=== PATIENT | female | born 1970 | race Hispanic/Latino ===

== ENCOUNTER → 2017-07-13 09:42 | Outpatient (CLI) | payer BC, MEDICAID, SELFPAY ==
[2017-07-13 10:04] VITALS: BP 139/93; PULSE 99; RESP 18; TEMP 36.2
== END ==
PROVIDERS: Family Provider Student in an Organized Health Care Education/Training Program; PCP Student in an Organized Health Care Education/Training Program
DX: G43.719 Chronic migraine without aura, intractable, without status migrainosus (principal)
CPT/HCPCS: 96365; 96367; 96375; J7040; J7050; A4216; J3475; J3490

== ENCOUNTER → 2017-07-14 08:42 | Outpatient (CLI) | payer BC, MEDICAID, SELFPAY ==
[2017-07-14 08:50] VITALS: BP 160/78; PULSE 110; RESP 16; TEMP 37.1; O2SAT 98; BMI 51.0
== END ==
PROVIDERS: Family Provider Student in an Organized Health Care Education/Training Program; PCP Student in an Organized Health Care Education/Training Program
DX: G43.719 Chronic migraine without aura, intractable, without status migrainosus (principal)
CPT/HCPCS: 96365; 96366; 96367; 96375; J7040; J7050; A4216; J3475; J3490

== ENCOUNTER → 2017-07-15 09:23 | Outpatient (CLI) | payer BC, MEDICAID, SELFPAY ==
[2017-07-15 09:28] VITALS: BP 144/90; PULSE 100; RESP 16; TEMP 35.7; O2SAT 99
== END ==
PROVIDERS: Family Provider Student in an Organized Health Care Education/Training Program; PCP Student in an Organized Health Care Education/Training Program
DX: G43.719 Chronic migraine without aura, intractable, without status migrainosus (principal)
CPT/HCPCS: 96365; 96366; 96367; 96375; J7040; J7050; A4216; J3475; J3490

== ENCOUNTER → 2018-04-24 11:55 | Outpatient (CLI) | payer MEDICAID, SELFPAY ==
[2018-04-24 12:19] VITALS: BP 120/79; PULSE 89; RESP 16; TEMP 36.7; BMI 51.5
[2018-04-24] MEDS: proMETHazine 25 MG/ML Syringe IV (12:41)
--- OUTSIDE RECORDS SUMMARY | 2018-06-17 18:15 | XMS RPT_ITS ---
:1970 Author Organization OHIP Care Team Providers Name Role Phone Flores, Chau Primary Care Unavailable JUSTYNA KENT Attending Unavailable JUSTYNA KENT Referring Unavailable Flores, Chau Primary Care Unavailable JUSTYNA KENT Attending Unavailable JUSTYNA KENT Referring Unavailable Flores, Chau Primary Care Unavailable JUSTYNA KENT Attending Unavailable JUSTYNA KENT Referring Unavailable Emily, Susie Attending Unavailable Flores, Chau Primary Care Unavailable Emily Susie Attending Unavailable Terril, Susie Referring Unavailable Flores, Chau Primary Care Unavailable Terril, Susie Attending Unavailable Terril, Susie Referring Unavailable Flores, Chau Primary Care Unavailable JUDITH TAYLOR Attending Unavailable FLORES DO, CHAU Primary Care Unavailable EMILY, SUSIE Referring Unavailable VENKAT TY Attending Unavailable NNEKA HERNÁNDEZ Attending Unavailable ASIYA TORRES ([facility]) Referring Unavailable RUPERTO LEIGH Admitting Unavailable RUPERTO LEIGH Attending Unavailable LISSA LEIGH Admitting Unavailable LISSA LEIGH Attending Unavailable FLORES, CHAU L Primary Care Unavailable CORNIELLO, ASIYA L ([facility]) Referring Unavailable ALISON CERON Attending Unavailable CORNIELLO, ASIYA L (LINOLEUM LAYER) Attending Unavailable CORNIELLO, ASIYA L (LINOLEUM LAYER) Referring Unavailable EMILY, SUSIE Attending Unavailable LAUREL ZHU Attending Unavailable FLORES, CHAU L Referring Unavailable CORNIELLO, ASIYA L (LINOLEUM LAYER) Attending Unavailable CORNIELLO, ASIYA L (LINOLEUM LAYER) Referring Unavailable EMILY, SUSIE Referring Unavailable CORNIELLO, ASIYA L (LINOLEUM LAYER) Attending Unavailable EMILY, SUSIE Referring Unavailable CORNIELLO, ASIYA L (LINOLEUM LAYER) Referring Unavailable FLORES, CHAU L Referring Unavailable CORNIELLO, ASIYA L (LINOLEUM LAYER) Attending Unavailable CORNIELLO, ASIYA L (LINOLEUM LAYER) Referring Unavailable CORNIELLO, ASIYA L (LINOLEUM LAYER) Attending Unavailable CORNIELLO, ASIYA L (LINOLEUM LAYER) Attending Unavailable BLACKBURN, AMY (LINOLEUM LAYER) Attending Unavailable CORNIELLO, ASIYA L (LINOLEUM LAYER) Referring Unavailable EMILY, SUSIE Attending Unavailable EMILY, SUSIE Referring Unavailable EMILY, SUSIE Attending Unavailable CORNIELLO, ASIYA L (LINOLEUM LAYER) Attending Unavailable CORNIELLO, ASIYA L (LINOLEUM LAYER) Referring Unavailable PROBLEMS PROBLEMS DATE TYPE CONDITION / CODE ATTENDING STATUS SOURCE 05/02/2018 Active Dizziness and COURSON, Active [place] giddiness / RUPERTO DIAZ Clinic Other R42(ICD-10) [place] Repository 05/02/2018 Admitting Unknown / COURSON, Active [facility] [facility] diagnosis UNK(Unknown) [facility] Repository 04/14/2018 Active Other fecal NA Active [facility] abnormalities / Clinic Main R19.5(ICD-10) [place] Repository 04/07/2018 Active Migraine without NA Active [place] aura, not Clinic Other intractable, [place] without status Repository migrainosus / G43.009(ICD-10) 03/27/2018 Active Palpitations / NA Active [facility] R00.2(ICD-10) Clinic Other [place] Repository 03/14/2018 Active Other specified NA Active [place] symptoms and signs Clinic Main involving the [place] digestive system Repository and abdomen / R19.8(ICD-10) 03/14/2018 Active Generalized NA Active [place] hyperhidrosis / Clinic Main R61(ICD-10) [place] Rep[facility] 03/14/2018 Active Unknown / CORNIELLO, Active [facility] UNK(Unknown) ASIYA L (LINOLEUM LAYER) Clinic Main [place] Repository 02/27/2018 Active Essential (primary) NA Active [place] hypertension / [facility] Main I10(ICD-10) [place] Repository 12/30/2017 Active Headache / NA Active [place] R51(ICD-10) Clinic Other [place] Repository 12/28/2017 Active Other migraine, not NA Active [place] intractable, Clinic Other without status [place] migrainosus / Repository G43.809(ICD-10) 12/10/2017 Active Dysuria / SCHIKOWSKI, Active [place] R30.0(ICD-10) VENKAT RICHARDINE Clinic Other [place] Repository 09/27/2017 Active Migraine, NA Active [place] unspecified, not Clinic Other intractable, [place] without status Repository migrainosus / G43.909(ICD-10) 10/05/2017 Unknown G43.719 - Chronic JUSTYNA KENT Active [place] migraine without Community aura, intractable, Hospital without status Repository migrainosus / G43.719(ICD-10) 07/08/2017 Active Unspecified NA Active [place] abnormal finding in Clinic Main specimens from [place] other organs, Repository systems and tissues / R89.9(ICD-10) 04/25/2017 Active Hyperlipidemia, NA Active [place] unspecified / [facility] Main E78.5(ICD-10) [place] Rep[facility] 07/05/2017 Active Diabetes mellitus NA Active [place] due to underlying Clinic Main condition with [place] diabetic Repository neuropathy, unspecified / E08.40(ICD-10) 07/05/2017 Active Other specified NA Active [place] bacterial Clinic Main intestinal [place] infections / Repository A04.8(ICD-10) PROCEDURES PROCEDURES No Procedure Records FoundRESULTS RESULTS PROGRESS Observed: 05/03/2018 Status: COMPLETED Source: [place] 5:05 PM CLINIC MAIN CAMPUS REPOSITORY HNO ID: [id number] Author: Laurel Zhu Service: (none) Author Type: Physician Type: Progress Notes Filed: 05/03/2018 5:17 PM Note Text: HISTORY AND PHYSICAL Akin Adamson 1970 REFERRING PHYSICIAN: Chau Flores DO CHIEF COMPLAINT: Consult (port check) HPI: The patient is a 47 year old female referred for multiple issues. I placed a left internal jugular Port-A-Cath on January 20, 2015 for a history of exhausted vascular access. The operative note noted the expiration date for the catheter packaging was 09/17/16. The patient was referred to me due to concern that her port is the port is functioning well without difficulties. The patient has additional GI concerns which need to be addressed. Patient has a long-standing history of reflux symptoms. She notes worsening reflux issues. She notes a degree of dysphasia. She notes increased belching and nausea. Denies other difficulties. She recently presented to [place] emergency department due to migraine headaches but was also having complaints of loose stools she denies blood in her stools. He has noticed foul-smelling green stools. She had stool cultures obtained which were all negative. She had H. pylori antibody performed both one year ago in 1 month ago which were both positive. She had antibiotic eradication for H. pylori one year previously. Her quantitative H. pylori antibodies one year ago where it 8.0. Most recently one month ago it was 2.6. Akin has undergone prior endoscopy. She had undergone upper and lower endoscopy on December 19, 2013. Upper endoscopy was unremarkable. Colonoscopy demonstrated 2 polyps. It was recommended she have follow-up endoscopy in 3 years. The patient is being seen by me today at the request of Dr. Chau Flores, for my opinion and advice regarding concern about Port-A-Cath, reflux symptoms, nausea, loose stools, and personal history of colon polyps. PAST MEDICAL HISTORY Diagnosis Date - Abdominal pain, left upper quadrant 10/20/2010 - Anxiety - Calculus of kidney 09/10/2009 - Depression - Diabetes mellitus (HCC) 2010 - H. pylori infection 09/2013 + H.Pylori - HTN (hypertension) - Hyperlipidemia 2010 fish oil, unable to tolerate statins - Menorrhagia - Migraines Dr. DiazNeurologist - Obstructive sleep apnea - PMH - PAST MEDICAL HISTORY OF Suicide attempt x2 as teenager - PUD (peptic ulcer disease) 2006 - Viral pneumonia, unspecified 2008 Pneumonia - Vitamin D deficiency PAST SURGICAL HISTORY Procedure Laterality Date - APPENDECTOMY 1979 - APPENDECTOMY HX - DELIVERY ONLY x 2 - CHOLECYSTECTOMY HX - COLONOSCOP W/ OR W/O BRSH SPEC 12/19/13 Colonoscopy - EGD W/O BRSH SPECIMEN W/BX 10/20/10 Gastritis, mild - EGD W/O OR W/BRUSH/WASH 12/19/13 EGD - HYSTERECTOMY HX - L'SCOPE REM ADNEX W/PART/TOT OOPH/SALP 02/09/16 laprascopic LSO, lysis of adhesions - LAPAROSCOPIC CHOLEYCYSTECTOMY 2005 [place]. - PICC LINE INSERT/CONSULT 02/28/2014 - THERMA CHOICE DEVICE 11/2011 - TLH W/T/O UTERUS OVER 250 G 04/02/14 LAVH, bilateral salpingectomy - TUBAL LIGATION, 2003 at time of c/s - TUNNEL VAD W SUB Q PORT >=5 01/20/15 left IJ Current Outpatient Prescriptions: aspirin 81 mg chewable tablet Take 81 mg by mouth once daily. biotin 300 mcg tab Take 1 tablet by mouth once daily. coenzyme Q10 (COQ-10) 100 mg cap capsule Take 1 capsule by mouth twice daily. cyanocobalamin (VITAMIN B-12) 1,000 mcg tab Take 1 tablet by mouth once daily. cyclobenzaprine (FLEXERIL) 10 mg tablet Take 1 tablet by mouth twice daily as needed for Muscle Spasm. dicyclomine (BENTYL) 20 mg tablet TAKE 1 TABLET BY MOUTH BEFORE MEALS AND AT BEDTIME DOCOSAHEXANOIC ACID/EPA (FISH OIL ORAL) Take by mouth once daily. dulaglutide (TRULICITY) 0.75 mg / 0.5 ml subcutaneous pen injector Inject 0.75 mg subcutaneously once each week. Inject dose once per week. Discard Pen After DULoxetine (CYMBALTA) 60 mg capsule Take 2 capsules by mouth once daily. erenumab-aooe (AIMOVIG AUTOINJECTOR) 70 mg/mL AutoInjector Inject 70 mg subcutaneously once every month. Filter [place] 19 X 1 ndle For use with DHE heparin 100 unit/mL syrg Access implanted vascular access device (IVAD) as needed for flush, blood draw or treatment. Before de-accessing port, flush with 10-20ml normal saline and follow with 5 mL heparin (100 units/mL) (if no heparin allergy). De-access port on treatment completion. Lancets (Exchange Group ULTRASOFT LANCETS) lancets Use as instructed. Patient checks blood sugars 3 to 4 times per day. E08.40; Insulin: no levETIRAcetam (KEPPRA) 250 mg tablet Take 2 tablets QHS x1 week then 1 tablet QHS x1 week then stop LORazepam (ATIVAN) 2 mg ORAL Tab Take 1 tablet by mouth twice daily as needed. losartan (COZAAR) 50 mg tablet Take 1 tablet by mouth once daily. magnesium sulfate in 0.9% NaCl (MAGNESIUM SULFATE IN NS) 1 gram/50 mL pgbk INFUSE 1000 mg in NS 250 ML IV OVER 1 HOUR daily for 3 days metFORMIN ER (GLUCOPHAGE XR) 500 mg 24 hr tablet TAKE 2 TABLETS TWICE A DAY WITH FOOD naproxen (NAPROSYN) 500 mg tablet Take 1 tablet by mouth twice daily as needed (for pain/inflammation). Take with food. naratriptan (AMERGE) 2.5 mg tablet Take 1 tablet by mouth as needed. for migraine.May repeat prn after 4 hours. Max 5 mg per 24 hours and do not take in same 24 hours as DHE Omeprazole 40 mg capsule Take 1 capsule by mouth once daily. Potassium 99 mg tab Take by mouth. promethazine (PHENERGAN) 25 mg tablet Take 1 tablet by mouth every 4 hours as needed for Nausea/Vomiting. promethazine (PHENERGAN) 25 mg/mL injection Give 25 mg IV daily for 3 days Safety [place] (BD ECLIPSE LUER-OLYA) 25 gauge x 1 1/2 ndle For use with DHE Syringe with Needle, Disp, (BD LUER-OLYA SYRINGE) 3 mL 25 x 1 1/2 syrg For DHE valproate sodium (DEPACON) 500 mg/5 mL (100 mg/mL) injection DEPACON 500 mg IV in NS 50 ML OVER 20 MIN daily for 3 days 0.9 % sodium chloride (NACL 0.9%) solution INFUSE 500 CC IV NS IV OVER 30 MIN daily for 3 days 0.9% NaCl Access implanted vascular access device (IVAD) as needed for flush, blood draw or treatment.Flush IVAD with 10-20 mL NS every 4 weeks and PRN when IVAD not in use. 0.9% NaCl Access implanted vascular access device (IVAD) as needed for flush, blood draw or treatment.Flush IVAD with 10-20 mL NS every 4 weeks and PRN when IVAD not in use. atorvastatin (LIPITOR) 80 mg tablet Take 1 tablet by mouth daily at bedtime. For cholesterol. blood sugar diagnostic (FREESTYLE LITE STRIPS) test strip Test blood sugar(s) 3-4 times daily. Dx: Other DM Code E08.40 Insulin: Yes Blood-Glucose Meter (FREESTYLE LITE METER) monitoring kit 1 Each as directed. dihydroergotamine (D.H.E.45) 1 mg/mL injection Inject 1 mg intramuscularly every 8 hours. As needed for migraine. Max use 3 days per week. Do not use within 25 hours of taking Amerge Hydrochlorothiazide 12.5 mg capsule Take 1 capsule by mouth once daily. JANUVIA 100 mg tablet TAKE 1 TABLET BY MOUTH DAILY Current Facility-Administered Medications: onabotulinum toxin type A 200 Units injection (BOTOX) 200 Units INTRAMUSCULAR q 3 MONTHS ALLERGIES: Amoxil [Amoxicillin]; Compazine [Prochlorperazine Edisylate]; Flagyl [Metronidazole Hcl]; Reglan [Metoclopramide Hcl]; Simvastatin; Toradol [Ketorolac]; Zofran [Ondansetron Hcl (Pf)] PERSONAL HISTORY: Social History Marital status: Spouse name: Years of education: 14 Number of children: 5 Occupational History Occupation Employer Comment homemaker Social History Main Topics Smoking status: Never Smoker Smokeless tobacco: Never Used Alcohol use: No Drug use: No Sexual activity: Yes Partners with: Male control/protection: Tubal Ligation Comment: thermachoice Social History Narrative 5 children- 3 sons, 2 daughters FAMILY HISTORY: FAMILY HISTORY Problem Relation Age of Onset - Diabetes Mother - Hypertension Mother - Lipids Mother - Psychiatry Mother depression, possibly bipolar. - Heart Father - Hypertension Father - Coronary Artery Disease Father 58 triple by-pass graph, [place] x 3 - other (Migraines [Other]) Father - Psychiatry Sister - Diabetes Sister - Diabetes Sister - Psychiatry Sister - GI Son Ulcerative colitis REVIEW OF SYMPTOMS: The review of systems data was entered by the nurse and reviewed by me There are no exam notes on file for this visit. PHYSICAL EXAMINATION: General: The patient is 47 year old female, well nourished, well hydrated in no acute distress. The patient is oriented to time, place, and person. VITALS: Blood pressure 126/84, pulse (!) 129, temperature 36.1 ?C (97 ?F), weight 134.4 kg (296 lb 3.2 oz), last menstrual period 03/06/2014, SpO2 93 %. Body mass index is 50.84 kg/m?. HEENT: Normal cephalic, ataumatic, pupils are equally round, sclera are anicteric, mucous membranes are moist, oropharynx is clear. Neck has no masses, asymmetry or lymphadenopathy. Thyroid is unremarkable. Respiratory: Clear to auscultation and percussion. Normal respiratory excursion and pattern. Cardiac: Examination is regular rate and rhythm. Abdominal exam: Soft, nontender, with no palpable masses. No hepatosplenomegaly. No palpable hernias. Rectal exam: exam deferred Extremities: no clubbing, cyanosis or edema. No adenopathy. Other: LABORATORY VALUES: As Noted RADIOLOGIC STUDIES: As Noted Assessment IMPRESSION: Concern about Port-A-Cath, worsening reflux symptoms, nausea, personal history: Polyps, loose stools PLAN: I reassured the patient the expiration date for the Port-A-Cath has to do with the sterile packaging. Once the Port-A-Cath is in place and is functioning well, there is no concerns about having to take out her replace it. I plan to perform upper and lower endoscopy. We discussed the risks and benefits of the planned endoscopy. I have informed the patient that complications can occur including failure to complete the endoscopy and perforation. The patient had the opportunity to ask questions concerning the planned endoscopy. My staff has also explained the procedure to the patient in understandable terms and has given the patient printed material concerning the procedure. The patient freely consents to surgery. I plan to use golytely bowel preparation for endoscopy Diagnoses: (K21.9) Gastroesophageal reflux disease, esophagitis presence not specified (primary encounter diagnosis) (Z86.010) Personal history of colonic polyps (R19.7) Diarrhea, unspecified type My findings have been communicated to Dr. Chau Flores DO via shared medical record. This note will be forwarded to Dr. Chau Flores DO. Return to Clinic: The patient is instructed to follow-up with me after the testing has been completed. Laurel Zhu MD CNOV Observed: 05/02/2018 Status: COMPLETED Source: [place] 3:[address] [facility] MAIN CAMPUS REPOSITORY Office Visit (GENSWS) AKIN ADAMSON ([id number]) 1970 F Date Time Provider Department 05/02/18 3:20 PM LAUREL ZHU During your visit today, we recorded the following information about you: Temperature Pulse Blood pressure Weight 97 degrees 129/minute 126/84 134.4 kg Laurel Zhu MD 05/03/2018 5:17 PM Signed HISTORY AND PHYSICAL Akin Adamson 1970 REFERRING PHYSICIAN: Chau Flores DO CHIEF COMPLAINT: Consult (port check) HPI: The patient is a 47 year old female referred for multiple issues. I placed a left internal jugular Port-A-Cath on January 20, 2015 for a history of exhausted vascular access. The operative note noted the expiration date for the catheter packaging was 09/17/16. The patient was referred to me due to concern that her port is the port is functioning well without difficulties. The patient has additional GI concerns which need to be addressed. Patient has a long-standing history of reflux symptoms. She notes worsening reflux issues. She notes a degree of dysphasia. She notes increased belching and nausea. Denies other difficulties. She recently presented to [place] emergency department due to migraine headaches but was also having complaints of loose stools she denies blood in her stools. He has noticed foul-smelling green stools. She had stool cultures obtained which were all negative. She had H. pylori antibody performed both one year ago in 1 month ago which were both positive. She had antibiotic eradication for H. pylori one year previously. Her quantitative H. pylori antibodies one year ago where it 8.0. Most recently one month ago it was 2.6. Akin has undergone prior endoscopy. She had undergone upper and lower endoscopy on December 19, 2013. Upper endoscopy was unremarkable. Colonoscopy demonstrated 2 polyps. It was recommended she have follow- up endoscopy in 3 years. The patient is being seen by me today at the request of Dr. Chau Flores DO for my opinion and advice regarding concern about Port-A-Cath, reflux symptoms, nausea, loose stools, and personal history of colon polyps. PAST MEDICAL HISTORY Diagnosis Date - Abdominal pain, left upper quadrant 10/20/2010 - Anxiety - Calculus of kidney 09/10/2009 - Depression - Diabetes mellitus (HCC) 2010 - H. pylori infection 09/2013 + H.Pylori - HTN (hypertension) - Hyperlipidemia 2010 fish oil, unable to tolerate statins - Menorrhagia - Migraines Dr. DiazNeurologist - Obstructive sleep apnea - PMH - PAST MEDICAL HISTORY OF Suicide attempt x2 as teenager - PUD (peptic ulcer disease) 2006 - Viral pneumonia, unspecified 2008 Pneumonia - Vitamin D deficiency PAST SURGICAL HISTORY Procedure Laterality Date - APPENDECTOMY 1979 - APPENDECTOMY HX - DELIVERY ONLY x 2 - CHOLECYSTECTOMY HX - COLONOSCOP W/ OR W/O BRSH SPEC 12/19/13 Colonoscopy - EGD W/O BRSH SPECIMEN W/BX 10/20/10 Gastritis, mild - EGD W/O OR W/BRUSH/WASH 12/19/13 EGD - HYSTERECTOMY HX - L'SCOPE REM ADNEX W/PART/TOT OOPH/SALP 02/09/16 laprascopic LSO, lysis of adhesions - LAPAROSCOPIC CHOLEYCYSTECTOMY 2005 [place]. - PICC LINE INSERT/CONSULT 02/28/2014 - THERMA CHOICE DEVICE 11/2011 - TLH W/T/O UTERUS OVER 250 G 04/02/14 LAVH, bilateral salpingectomy - TUBAL LIGATION, 2003 at time of c/s - TUNNEL VAD W SUB Q PORT >=5 01/20/15 left IJ Current Outpatient Prescriptions: aspirin 81 mg chewable tablet Take 81 mg by mouth once daily. biotin 300 mcg tab Take 1 tablet by mouth once daily. coenzyme Q10 (COQ-10) 100 mg cap capsule Take 1 capsule by mouth twice daily. cyanocobalamin (VITAMIN B-12) 1,000 mcg tab Take 1 tablet by mouth once daily. cyclobenzaprine (FLEXERIL) 10 mg tablet Take 1 tablet by mouth twice daily as needed for Muscle Spasm. dicyclomine (BENTYL) 20 mg tablet TAKE 1 TABLET BY MOUTH BEFORE MEALS AND AT BEDTIME DOCOSAHEXANOIC ACID/EPA (FISH OIL ORAL) Take by mouth once daily. dulaglutide (TRULICITY) 0.75 mg / 0.5 ml subcutaneous pen injector Inject 0.75 mg subcutaneously once each week. Inject dose once per week. Discard Pen After DULoxetine (CYMBALTA) 60 mg capsule Take 2 capsules by mouth once daily. erenumab-aooe (AIMOVIG AUTOINJECTOR) 70 mg/mL AutoInjector Inject 70 mg subcutaneously once every month. Filter [place] 19 X 1 ndle For use with DHE heparin 100 unit/mL syrg Access implanted vascular access device (IVAD) as needed for flush, blood draw or treatment. Before de-accessing port, flush with 10-20ml normal saline and follow with 5 mL heparin (100 units/mL) (if no heparin allergy). De-access port on treatment completion. Lancets (Exchange Group ULTRASOFT LANCETS) lancets Use as instructed. Patient checks blood sugars 3 to 4 times per day. E08.40; Insulin: no levETIRAcetam (KEPPRA) 250 mg tablet Take 2 tablets QHS x1 week then 1 tablet QHS x1 week then stop LORazepam (ATIVAN) 2 mg ORAL Tab Take 1 tablet by mouth twice daily as needed. losartan (COZAAR) 50 mg tablet Take 1 tablet by mouth once daily. magnesium sulfate in 0.9% NaCl (MAGNESIUM SULFATE IN NS) 1 gram/50 mL pgbk INFUSE 1000 mg in NS 250 ML IV OVER 1 HOUR daily for 3 days metFORMIN ER (GLUCOPHAGE XR) 500 mg 24 hr tablet TAKE 2 TABLETS TWICE A DAY WITH FOOD naproxen (NAPROSYN) 500 mg tablet Take 1 tablet by mouth twice daily as needed (for pain/inflammation). Take with food. naratriptan (AMERGE) 2.5 mg tablet Take 1 tablet by mouth as needed. for migraine.May repeat prn after 4 hours. Max 5 mg per 24 hours and do not take in same 24 hours as DHE Omeprazole 40 mg capsule Take 1 capsule by mouth once daily. Potassium 99 mg tab Take by mouth. promethazine (PHENERGAN) 25 mg tablet Take 1 tablet by mouth every 4 hours as needed for Nausea/Vomiting. promethazine (PHENERGAN) 25 mg/mL injection Give 25 mg IV daily for 3 days Safety [place] (BD ECLIPSE LUER-OLYA) 25 gauge x 1 1/2 ndle For use with DHE Syringe with Needle, Disp, (BD LUER-OLYA SYRINGE) 3 mL 25 x 1 1/2 syrg For DHE valproate sodium (DEPACON) 500 mg/5 mL (100 mg/mL) injection DEPACON 500 mg IV in NS 50 ML OVER 20 MIN daily for 3 days 0.9 % sodium chloride (NACL 0.9%) solution INFUSE 500 CC IV NS IV OVER 30 MIN daily for 3 days 0.9% NaCl Access implanted vascular access device (IVAD) as needed for flush, blood draw or treatment.Flush IVAD with 10-20 mL NS every 4 weeks and PRN when IVAD not in use. 0.9% NaCl Access implanted vascular access device (IVAD) as needed for flush, blood draw or treatment.Flush IVAD with 10-20 mL NS every 4 weeks and PRN when IVAD not in use. atorvastatin (LIPITOR) 80 mg tablet Take 1 tablet by mouth daily at bedtime. For cholesterol. blood sugar diagnostic (FREESTYLE LITE STRIPS) test strip Test blood sugar(s) 3-4 times daily. Dx: Other DM Code E08.40 Insulin: Yes Blood-Glucose Meter (FREESTYLE LITE METER) monitoring kit 1 Each as directed. dihydroergotamine (D.H.E.45) 1 mg/mL injection Inject 1 mg intramuscularly every 8 hours. As needed for migraine. Max use 3 days per week. Do not use within 25 hours of taking Amerge Hydrochlorothiazide 12.5 mg capsule Take 1 capsule by mouth once daily. JANUVIA 100 mg tablet TAKE 1 TABLET BY MOUTH DAILY Current Facility-Administered Medications: onabotulinum toxin type A 200 Units injection (BOTOX) 200 Units INTRAMUSCULAR q 3 MONTHS ALLERGIES: Amoxil [Amoxicillin]; Compazine [Prochlorperazine Edisylate]; Flagyl [Metronidazole Hcl]; Reglan [Metoclopramide Hcl]; Simvastatin; Toradol [Ketorolac]; Zofran [Ondansetron Hcl (Pf)] PERSONAL HISTORY: Social History Marital status: Spouse name: Years of education: 14 Number of children: 5 Occupational History Occupation Employer Comment homemaker Social History Main Topics Smoking status: Never Smoker Smokeless tobacco: Never Used Alcohol use: No Drug use: No Sexual activity: Yes Partners with: Male control/protection: Tubal Ligation Comment: thermachoice Social History Narrative 5 children- 3 sons, 2 daughters FAMILY HISTORY: FAMILY HISTORY Problem Relation Age of Onset - Diabetes Mother - Hypertension Mother - Lipids Mother - Psychiatry Mother depression, possibly bipolar. - Heart Father - Hypertension Father - Coronary Artery Disease Father 58 triple by-pass graph, [place] x 3 - other (Migraines [Other]) Father - Psychiatry Sister - Diabetes Sister - Diabetes Sister - Psychiatry Sister - GI Son Ulcerative colitis REVIEW OF SYMPTOMS: The review of systems data was entered by the nurse and reviewed by me There are no exam notes on file for this visit. PHYSICAL EXAMINATION: General: The patient is 47 year old female, well nourished, well hydrated in no acute distress. The patient is oriented to time, place, and person. VITALS: Blood pressure 126/84, pulse (!) 129, temperature 36.1 ?C (97 ?F), weight 134.4 kg (296 lb 3.2 oz), last menstrual period 03/06/2014, SpO2 93 %. Body mass index is 50.84 kg/m?. HEENT: Normal cephalic, ataumatic, pupils are equally round, sclera are anicteric, mucous membranes are moist, oropharynx is clear. Neck has no masses, asymmetry or lymphadenopathy. Thyroid is unremarkable. Respiratory: Clear to auscultation and percussion. Normal respiratory excursion and pattern. Cardiac: Examination is regular rate and rhythm. Abdominal exam: Soft, nontender, with no palpable masses. No hepatosplenomegaly. No palpable hernias. Rectal exam: exam deferred Extremities: no clubbing, cyanosis or edema. No adenopathy. Other: LABORATORY VALUES: As Noted RADIOLOGIC STUDIES: As Noted Assessment IMPRESSION: Concern about Port-A-Cath, worsening reflux symptoms, nausea, personal history: Polyps, loose stools PLAN: I reassured the patient the expiration date for the Port-A-Cath has to do with the sterile packaging. Once the Port-A-Cath is in place and is functioning well, there is no concerns about having to take out her replace it. I plan to perform upper and lower endoscopy. We discussed the risks and benefits of the planned endoscopy. I have informed the patient that complications can occur including failure to complete the endoscopy and perforation. The patient had the opportunity to ask questions concerning the planned endoscopy. My staff has also explained the procedure to the patient in understandable terms and has given the patient printed material concerning the procedure. The patient freely consents to surgery. I plan to use golytely bowel preparation for endoscopy Diagnoses: (K21.9) Gastroesophageal reflux disease, esophagitis presence not specified (primary encounter diagnosis) (Z86.010) Personal history of colonic polyps (R19.7) Diarrhea, unspecified type My findings have been communicated to Dr. Chau Flores DO via shared medical record. This note will be forwarded to Dr. Chau Flores DO. Return to Clinic: The patient is instructed to follow-up with me after the testing has been completed. Laurel Zhu MD Referring Provider: CHAU FLORES [[id number]] Allergies As of Date: 05/02/2018 Noted Allergy Reaction AMOXIL (AMOXICILLIN) 01/04/2014 8 - GI Upset COMPAZINE (PROCHLORPERAZINE EDISY*08/12/2008 16 - Unknown FLAGYL (METRONIDAZOLE HCL) 09/07/2012 14 - Other: See Comments Comments: Headache - she is prone to migraines and flagyl sets it off every time she takes it. REGLAN (METOCLOPRAMIDE HCL) 02/27/2014 14 - Other: See Comments Comments: anxiety SIMVASTATIN 04/27/2012 14 - Other: See Comments Comments: severe muscle aches TORADOL (KETOROLAC) 08/12/2008 2 - Rash ZOFRAN (ONDANSETRON HCL (PF)) 06/22/2013 14 - Other: See Comments Date Reviewed: 05/02/2018 Reviewed by: Laurel Zhu - Fully Assessed Reason for Visit: Consult [173] Cmt: port check Primary Visit Diagnosis:Gastroesophageal reflux disease, esophagitis presence not specified [K21.9] Other Visit Diagnoses:Personal history of colonic polyps [Z86.010] Diarrhea, unspecified type [R19.7] Order(s):EGD [[id number]] Order #: [id number] FUTURE COLONOSCOPY - DIAGNOSTIC [21131218] Order #: [id number] FUTURE JOSHUA PT ED DIGESTIVE DISEASES [] Order #: [id number]: 1 JOSHUA PT ED DIGESTIVE DISEASES [] Order #: [id number]. #:[id number]: 1 [] peg 3350-Electrolytes (GOLYTELY) 236-22.74-6.74 -5.86 gram suspensionTake 4,000 mL by mouth one time only for 1 dose.Disp: 1 BottleRfl: 0 Prescriptions as of 05/02/2018 Sig: ASPIRIN 81 MG CHEWABLE TABLET Take 81 mg by mouth once keegan* BIOTIN 300 MCG TABLET Take 1 tablet by mouth once d* COENZYME Q10 100 MG CAPSULE Take 1 capsule by mouth twice* CYANOCOBALAMIN (VIT B-12) 1,0* Take 1 tablet by mouth once d* CYCLOBENZAPRINE 10 MG TABLET Take 1 tablet by mouth twice * DICYCLOMINE 20 MG TABLET TAKE 1 TABLET BY MOUTH BEFORE* FISH OIL ORAL Take by mouth once daily. DULAGLUTIDE 0.75 MG/0.5 ML [place]* Inject 0.75 mg subcutaneously* DULOXETINE 60 MG CAPSULE,APOLINAR* Take 2 capsules by mouth once* ERENUMAB-AOOE 70 MG/ML SUBCUT* Inject 70 mg subcutaneously o* FILTER NEEDLES 19 X 1 For use with DHE HEPARIN LOCK FLUSH (PORCINE) * Access implanted vascular acc* LANCETS Use as instructed. Patient c* LEVETIRACETAM 250 MG TABLET Take 2 tablets QHS x1 week th* * LORAZEPAM 2 MG TABLET Take 1 tablet by mouth twice * LOSARTAN 50 MG TABLET Take 1 tablet by mouth once d* MAGNESIUM SULFATE 1 GRAM/50 M* INFUSE 1000 mg in NS 250 ML I* METFORMIN ER 500 MG TABLET,EX* TAKE 2 TABLETS TWICE A DAY WI* NAPROXEN 500 MG TABLET Take 1 tablet by mouth twice * NARATRIPTAN 2.5 MG TABLET Take 1 tablet by mouth as nee* OMEPRAZOLE 40 MG CAPSULE,APOLINAR* Take 1 capsule by mouth once * POTASSIUM 99 MG TABLET Take by mouth. PROMETHAZINE 25 MG TABLET Take 1 tablet by mouth every * PROMETHAZINE 25 MG/ML INJECTI* Give 25 mg IV daily for 3 days SAFETY NEEDLES 25 GAUGE X 1 1* For use with DHE SYRINGE WITH NEEDLE 3 ML 25 X* For DHE VALPROATE SODIUM 500 MG/5 ML * DEPACON 500 mg IV in NS 50 ML* SODIUM CHLORIDE 0.9 % INTRAVE* INFUSE 500 CC IV NS IV OVER 3* SODIUM CHLORIDE 0.9% FLUSH Access implanted vascular acc* SODIUM CHLORIDE 0.9% FLUSH Access implanted vascular acc* ATORVASTATIN 80 MG TABLET Take 1 tablet by mouth daily * BLOOD SUGAR DIAGNOSTIC STRIPS Test blood sugar(s) 3- 4 times* BLOOD-GLUCOSE METER KIT 1 Each as directed. DIHYDROERGOTAMINE 1 MG/ML INJ* Inject 1 mg intramuscularly e* HYDROCHLOROTHIAZIDE 12.5 MG C* Take 1 capsule by mouth once * JANUVIA 100 MG TABLET TAKE 1 TABLET BY MOUTH DAILY PEG 3350-ELECTROLYTES 236 GRA* Take 4,000 mL by mouth one ti* Problem List As Of Date 05/02/2018 Noted Resolved ESOPHAGEAL REFLUX [K21.9] INVALID FOR* GENERALIZED ANXIETY DIS [F41.1] INVALID FOR* Impaired fasting glucose [R73.01] INVALID FOR*12/07/2011 Depression [F32.9] INVALID FOR* More... Calculus of kidney [N20.0] INVALID FOR*04/10/2018 UTI (Lower Urinary Tract Infection) [N39.0] INVALID FOR*12/30/2009 Insomnia [G47.00] INVALID FOR* Microalbuminuria [R80.9] INVALID FOR* Obstructive sleep apnea [G47.33] INVALID FOR* Abdominal pain, left upper quadrant [R10.12] INVALID FOR*04/10/2018 Innocent heart murmur INVALID FOR* Menorrhagia [N92.0] INVALID FOR*11/15/2012 Bacterial vaginitis [N76.0, B96.89] INVALID FOR*11/30/2013 Vaginitis [N76.0] INVALID FOR*11/30/2013 More... Diabetes mellitus due to underlying condition w*INVALID FOR* Willing to be liver donor [Z00.5] INVALID FOR* Intractable chronic migraine without aura [G43.*INVALID FOR* Exhausted vascular access [Z45.2] INVALID FOR* More... Endometriosis of peritoneum [N80.3] INVALID FOR* Morbid obesity with BMI of 50.0-59.9, adult (HC*INVALID FOR* OAB (overactive bladder) [N32.81] INVALID FOR* Hyperlipidemia [E78.5] INVALID FOR* More... HTN (hypertension) [I10] INVALID FOR* H. pylori infection [A04.8] INVALID FOR* Prescriptions ordered this encounter Disp Refills Start End PEG 3350-ELECTROLYTES 236 GRAM-22.74* 1 Seun* 0 05/02/2018 05/02/2018 Route: ORAL Sig: Take 4,000 mL by mouth one time only for 1 dose. Follow-up and Disposition History Recorded Encounter Status:Closed by LAUREL ZHU MD on 05/03/18 NURSING PROG Observed: 05/02/2018 Status: COMPLETED Source: [place] 1:[address] [facility] OTHER CAMPUS REPOSITORY HNO ID: [id number] Author: Sterling ParhamRn) ALBERTA Burns Service: Nursing Author Type: Registered Nurse Type: Nursing Progress Note Filed: 05/02/2018 1:03 PM Note Text: Left chest port Dc'd. 20cc NS flush. 5cc heparin flush. band aide applied PROGRESS Observed: 04/24/2018 Status: COMPLETED Source: [place] 10:[address] [facility] MAIN C[facility] REPOSITORY HNO ID: [id number] Author: Asiya Wasserman (Process Server) Gaby Service: (none) Author Type: Nurse Practitioner Type: Progress Notes Filed: 04/24/2018 11:29 AM Note Text: HPI/CC: Akin Adamson is a 47 year old female who presents to the office today for HTN F/U. Patient reports decreased symptoms of CP and headache. Reports continued palpitations, fatigue and feeling hot. Patient denies any side effects of her medication(s) and is compliant with their regimen. Last 3 Encounter BP Readings: Date: BP: 04/24/2018 128/90 04/21/2018 154/96 04/10/2018 140/92 She watches her diet for sodium, low fat and low cholesterol some of the time. Having tilt table 04/26. REVIEW OF SYSTEMS: as above Reviewed relevant PMHx, PSHx, Social Hx, current medications and allergies. PHYSICAL EXAMINATION: BP 128/90 Pulse 100 Resp 16 Wt 136.1 kg (300 lb) LMP 03/06/2014 BMI 51.49 kg/m? General appearance: Well appearing, alert, in no acute distress, well-hydrated, well nourished. Skin: Skin color, texture, turgor normal, no suspicious rashes or lesions Lungs: Lungs clear to auscultation. No wheezing, rhonchi, rales Heart: RRR without murmur, gallop, or rubs. No ectopy ASSESSMENT/PLAN: 1. Essential hypertension - ICD9: 401.9, ICD10: I10 - suboptimal control - Will await tilt table- may consider adding a BB if remains tachy - f/u as scheduled Asiya Torres APRN.CNP CNOV Observed: 04/24/2018 Status: COMPLETED Source: [place] 10:40 AM [facility] REPOSITORY Office Visit (FAMPWS) AKIN ADAMSON ([id number]) 1970 F Date Time Provider Department 04/24/18 10:40 AM ASIYA TORRES ([facility]) FAMPWS During your visit today, we recorded the following information about you: Pulse Respiration Blood pressure Weight 100/minute 16/minute 128/90 136.1 kg Asiya Torres APRN.CNP 04/24/2018 11:29 AM Signed HPI/CC: Akin Adamson is a 47 year old female who presents to the office today for HTN F/U. Patient reports decreased symptoms of CP and headache. Reports continued palpitations, fatigue and feeling hot. Patient denies any side effects of her medication(s) and is compliant with their regimen. Last 3 Encounter BP Readings: Date: BP: 04/24/2018 128/90 04/21/2018 154/96 04/10/2018 140/92 She watches her diet for sodium, low fat and low cholesterol some of the time. Having tilt table 04/26. REVIEW OF SYSTEMS: as above Reviewed relevant PMHx, PSHx, Social Hx, current medications and allergies. PHYSICAL EXAMINATION: BP 128/90 Pulse 100 Resp 16 Wt 136.1 kg (300 lb) LMP 03/06/2014 BMI 51.49 kg/m? General appearance: Well appearing, alert, in no acute distress, well-hydrated, well nourished. Skin: Skin color, texture, turgor normal, no suspicious rashes or lesions Lungs: Lungs clear to auscultation. No wheezing, rhonchi, rales Heart: RRR without murmur, gallop, or rubs. No ectopy ASSESSMENT/PLAN: 1. Essential hypertension - ICD9: 401.9, ICD10: I10 - suboptimal control - Will await tilt table- may consider adding a BB if remains tachy - f/u as scheduled Asiya Torres APRN.[facility] Referring Provider: ASIYA TORRES ([facility]) [[id number]] Allergies As of Date: 04/24/2018 Noted Allergy Reaction AMOXIL (AMOXICILLIN) 01/04/2014 8 - GI Upset COMPAZINE (PROCHLORPERAZINE EDISY*08/12/2008 16 - Unknown FLAGYL (METRONIDAZOLE HCL) 09/07/2012 14 - Other: See Comments Comments: Headache - she is prone to migraines and flagyl sets it off every time she takes it. REGLAN (METOCLOPRAMIDE HCL) 02/27/2014 14 - Other: See Comments Comments: anxiety SIMVASTATIN 04/27/2012 14 - Other: See Comments Comments: severe muscle aches TORADOL (KETOROLAC) 08/12/2008 2 - Rash ZOFRAN (ONDANSETRON HCL (PF)) 06/22/2013 14 - Other: See Comments Date Reviewed: 04/24/2018 Reviewed by: Asiya Wasserman ([facility]) Gaby - Fully Assessed Reason for Visit: Recheck [92] Cmt: 2 week follow up Primary Visit Diagnosis:Essential hypertension [I10] Prescriptions as of 04/24/2018 Sig: MAGNESIUM SULFATE 1 GRAM/50 M* INFUSE 1000 mg in NS 250 ML I* SODIUM CHLORIDE 0.9 % INTRAVE* INFUSE 500 CC IV NS IV OVER 3* VALPROATE SODIUM 500 MG/5 ML * DEPACON 500 mg IV in NS 50 ML* PROMETHAZINE 25 MG/ML INJECTI* Give 25 mg IV daily for 3 days LOSARTAN 50 MG TABLET Take 1 tablet by mouth once d* OMEPRAZOLE 40 MG CAPSULE,APOLINAR* Take 1 capsule by mouth once * JANUVIA 100 MG TABLET TAKE 1 TABLET BY MOUTH DAILY DULAGLUTIDE 0.75 MG/0.5 ML [place]* Inject 0.75 mg subcutaneously* FILTER NEEDLES 19 X 1 For use with DHE ERENUMAB-AOOE 70 MG/ML SUBCUT* Inject 70 mg subcutaneously o* DICYCLOMINE 20 MG TABLET TAKE 1 TABLET BY MOUTH BEFORE* METFORMIN ER 500 MG TABLET,EX* TAKE 2 TABLETS TWICE A DAY WI* NARATRIPTAN 2.5 MG TABLET Take 1 tablet by mouth as nee* LANCETS Use as instructed. Patient c* DIHYDROERGOTAMINE 1 MG/ML INJ* Inject 1 mg intramuscularly e* PROMETHAZINE 25 MG TABLET Take 1 tablet by mouth every * LEVETIRACETAM 250 MG TABLET Take 2 tablets QHS x1 week th* NAPROXEN 500 MG TABLET Take 1 tablet by mouth twice * BIOTIN 300 MCG TABLET Take 1 tablet by mouth once d* BLOOD SUGAR DIAGNOSTIC STRIPS Test blood sugar(s) 3- 4 times* BLOOD-GLUCOSE METER KIT 1 Each as directed. ATORVASTATIN 80 MG TABLET Take 1 tablet by mouth daily * HYDROCHLOROTHIAZIDE 12.5 MG C* Take 1 capsule by mouth once * CYCLOBENZAPRINE 10 MG TABLET Take 1 tablet by mouth twice * DULOXETINE 60 MG CAPSULE,APOLINAR* Take 2 capsules by mouth once* ASPIRIN 81 MG CHEWABLE TABLET Take 81 mg by mouth once keegan* SAFETY NEEDLES 25 GAUGE X 1 1* For use with DHE SODIUM CHLORIDE 0.9% FLUSH Access implanted vascular acc* HEPARIN LOCK FLUSH (PORCINE) * Access implanted vascular acc* SYRINGE WITH NEEDLE 3 ML 25 X* For DHE CYANOCOBALAMIN (VIT B-12) 1,0* Take 1 tablet by mouth once d* COENZYME Q10 100 MG CAPSULE Take 1 capsule by mouth twice* POTASSIUM 99 MG TABLET Take by mouth. SODIUM CHLORIDE 0.9% FLUSH Access implanted vascular acc* FISH OIL ORAL Take by mouth once daily. * LORAZEPAM 2 MG TABLET Take 1 tablet by mouth twice * Problem List As Of Date 04/24/2018 Noted Resolved ESOPHAGEAL REFLUX [K21.9] INVALID FOR* GENERALIZED ANXIETY DIS [F41.1] INVALID FOR* Impaired fasting glucose [R73.01] INVALID FOR*12/07/2011 Depression [F32.9] INVALID FOR* More... Calculus of kidney [N20.0] INVALID FOR*04/10/2018 UTI (Lower Urinary Tract Infection) [N39.0] INVALID FOR*12/30/2009 Insomnia [G47.00] INVALID FOR* Microalbuminuria [R80.9] INVALID FOR* Obstructive sleep apnea [G47.33] INVALID FOR* Abdominal pain, left upper quadrant [R10.12] INVALID FOR*04/10/2018 Innocent heart murmur INVALID FOR* Menorrhagia [N92.0] INVALID FOR*11/15/2012 Bacterial vaginitis [N76.0, B96.89] INVALID FOR*11/30/2013 Vaginitis [N76.0] INVALID FOR*11/30/2013 More... Diabetes mellitus due to underlying condition w*INVALID FOR* Willing to be liver donor [Z00.5] INVALID FOR* Intractable chronic migraine without aura [G43.*INVALID FOR* Exhausted vascular access [Z45.2] INVALID FOR* More... Endometriosis of peritoneum [N80.3] INVALID FOR* Morbid obesity with BMI of 50.0-59.9, adult (HC*INVALID FOR* OAB (overactive bladder) [N32.81] INVALID FOR* Hyperlipidemia [E78.5] INVALID FOR* More... HTN (hypertension) [I10] INVALID FOR* H. pylori infection [A04.8] INVALID FOR* Encounter Status:Closed by ASIYA TORRES CNP on 04/24/18 PROGRESS Observed: 04/21/2018 Status: COMPLETED Source: [place] 11:30 AM [facility] REPOSITORY HNO ID: [id number] Author: Susie Diaz Service: (none) Author Type: Physician Type: Progress Notes Filed: 04/21/2018 12:52 PM Note Text: Neurology Follow-up Visit ASSESSMENT: 47 year old female with history significant for DM, with chronic migraine with more than 15 headache days per month. She has tried and failed or not tolerated multiple migraine preventive medications. Botox has been helpful in reducing frequency and severity of migraines but it does not last. She has experienced a prolonged migraine for the past 2 weeks or so also in the setting of ongoing medical issues. Repeated Botox injections today with same regimen. Continue current preventive therapies. Started Aimovig at last visit but she only took one dose because of her ongoing medical issues. Will hold of on continuing it for now and consider restarting at next visit. Will again try to coordinate migraine infusions for her. ? DHE has been very helpful for her for acute therapy, significantly reduced ED visits and outpatient infusions. She can continue this and Amerge since her cardiac workup was negative. Knows not to use both in same 24 hours. ? PLAN:?? --->?Acute Treatment:?? -DHE, Phenergan ? - Amerge - infusion x3 days - MAGNESIUM SULFATE 1 GRAM/50 ML IN 0.9 % SODIUM CHLORIDE IV PIGGYBACK - SODIUM CHLORIDE 0.9 % INTRAVENOUS SOLUTION - VALPROATE SODIUM 500 MG/5 ML (100 MG/ML) INTRAVENOUS SOLUTION - PROMETHAZINE 25 MG/ML INJECTION SOLUTION ?? --->?Preventive Treatment:?? - continue Rakel Kumar - Botox today - reconsider Aimovig next visit ? --->?Follow-up: 3 months Interval Hx: Still migraine. Seen in the ED, given infusion which helped but it returned. We endeavored to set up outpatient infusions but were unable to reach her. She denies cursing and hanging up when called to set it up (see 04/11 phone encounter). Still wants infusions. First choice is [facility] in oncology in [place]. Second choice would be [facility], third would be [place]. After first dose of Aimovig got very sick with stomach problems and has not felt well since. Tested positive for H. Pylori and treated. Having lightheadedness, has tilt table test and cardiology evaluation scheduled. Sweating all the time. Does feel Botox worked, headaches worse lately. Port is so needs surgery. Will see general surgery. Current Outpatient Prescriptions: losartan (COZAAR) 50 mg tablet Take 1 tablet by mouth once daily. Omeprazole 40 mg capsule Take 1 capsule by mouth once daily. JANUVIA 100 mg tablet TAKE 1 TABLET BY MOUTH DAILY dulaglutide (TRULICITY) 0.75 mg / 0.5 ml subcutaneous pen injector Inject 0.75 mg subcutaneously once each week. Inject dose once per week. Discard Pen After Filter [place] 19 X 1 ndle For use with DHE dicyclomine (BENTYL) 20 mg tablet TAKE 1 TABLET BY MOUTH BEFORE MEALS AND AT BEDTIME metFORMIN ER (GLUCOPHAGE XR) 500 mg 24 hr tablet TAKE 2 TABLETS TWICE A DAY WITH FOOD naratriptan (AMERGE) 2.5 mg tablet Take 1 tablet by mouth as needed. for migraine.May repeat prn after 4 hours. Max 5 mg per 24 hours and do not take in same 24 hours as DHE Lancets (ONETOUCH ULTRASOFT LANCETS) lancets Use as instructed. Patient checks blood sugars 3 to 4 times per day. E08.40; Insulin: no dihydroergotamine (D.H.E.45) 1 mg/mL injection Inject 1 mg intramuscularly every 8 hours. As needed for migraine. Max use 3 days per week. Do not use within 25 hours of taking Amerge promethazine (PHENERGAN) 25 mg tablet Take 1 tablet by mouth every 4 hours as needed for Nausea/Vomiting. levETIRAcetam (KEPPRA) 250 mg tablet Take 2 tablets QHS x1 week then 1 tablet QHS x1 week then stop naproxen (NAPROSYN) 500 mg tablet Take 1 tablet by mouth twice daily as needed (for pain/inflammation). Take with food. biotin 300 mcg tab Take 1 tablet by mouth once daily. blood sugar diagnostic (FREESTYLE LITE STRIPS) test strip Test blood sugar(s) 3-4 times daily. Dx: Other DM Code E08.40 Insulin: Yes Blood-Glucose Meter (FREESTYLE LITE METER) monitoring kit 1 Each as directed. atorvastatin (LIPITOR) 80 mg tablet Take 1 tablet by mouth daily at bedtime. For cholesterol. Hydrochlorothiazide 12.5 mg capsule Take 1 capsule by mouth once daily. cyclobenzaprine (FLEXERIL) 10 mg tablet Take 1 tablet by mouth twice daily as needed for Muscle Spasm. DULoxetine (CYMBALTA) 60 mg capsule Take 2 capsules by mouth once daily. aspirin 81 mg chewable tablet Take 81 mg by mouth once daily. Safety [place] (BD ECLIPSE LUER-OLYA) 25 gauge x 1 1/2 ndle For use with DHE 0.9% NaCl Access implanted vascular access device (IVAD) as needed for flush, blood draw or treatment.Flush IVAD with 10-20 mL NS every 4 weeks and PRN when IVAD not in use. heparin 100 unit/mL syrg Access implanted vascular access device (IVAD) as needed for flush, blood draw or treatment. Before de-accessing port, flush with 10-20ml normal saline and follow with 5 mL heparin (100 units/mL) (if no heparin allergy). De-access port on treatment completion. Syringe with Needle, Disp, (BD LUER-OLYA SYRINGE) 3 mL 25 x 1 1/2 syrg For DHE cyanocobalamin (VITAMIN B-12) 1,000 mcg tab Take 1 tablet by mouth once daily. coenzyme Q10 (COQ-10) 100 mg cap capsule Take 1 capsule by mouth twice daily. Potassium 99 mg tab Take by mouth. 0.9% NaCl Access implanted vascular access device (IVAD) as needed for flush, blood draw or treatment.Flush IVAD with 10-20 mL NS every 4 weeks and PRN when IVAD not in use. DOCOSAHEXANOIC ACID/EPA (FISH OIL ORAL) Take by mouth once daily. LORazepam (ATIVAN) 2 mg ORAL Tab Take 1 tablet by mouth twice daily as needed. erenumab-aooe (AIMOVIG AUTOINJECTOR) 70 mg/mL AutoInjector Inject 70 mg subcutaneously once every month. (Patient not taking: Reported on 04/21/2018 ) Current Facility-Administered Medications: onabotulinum toxin type A 200 Units injection (BOTOX) 200 Units INTRAMUSCULAR q 3 MONTHS Exam: BP 154/96 (BP Site: Left Arm, BP Position: Sitting, BP Cuff Size: Large Adult) Pulse 115 Resp 18 Ht 162.6 cm (5' 4) Wt (!) 137 kg (302 lb) LMP 03/06/2014 SpO2 99% BMI 51.84 kg/m? GEN: Alert. NAD. Normal affect. Cooperative. ?? NEUROLOGICAL: ? MENTAL STATUS: ? A+O x 3. Attentive. Thought process and content unremarkable. Follows commands appropriately. Speech fluent. ?? CN: II: Pupils equal III, IV, : EOMI. No ptosis present. VII: Face symmetric. ?? CEREBELLAR: ? No ataxia or nystagmus. ?? GAIT: ? Stable primary gait. [facility] Neurotoxin Visit Date: April 21, 2018 Name: Akin Adamson Historical/ Initial Dose ? Diagnosis: chronic intractable migraine Date of Diagnosis:11/20/2012 Date of 1st Treatment: 07/09/2014 Type of Neurotoxin: Botox: J0585 Total amount injected: 155?units What other treatments have been tried and failed: Medications Zonegran, Keppra, Cymbalta, amitriptyline, Depakote, Topamax, propranolol Estimated Duration of treatment: Will reassess after 1year Frequency of treatment: 90days ? Last Injection Notes Date of last Injection:01/11/2018 Type of Neurotoxin: Botox: J0585 Total amount injected: 200 units Dilution: NS 2:1 Administered with EMG guidance: No ? ? Assessment Functional limitations (current): 2(moderate) Pain (current): Yes (location)head Effectiveness of last injection:90% when effective Wearing off since last treatment: yes 3 weeks Side effects related to last injection: None ? Time Out: INFORMED CONSENT Akin Adamson Medical Record: [id number] Procedure: Botulinum toxin injection The risks, benefits and anticipated outcomes of the procedure, the risks and benefits of the alternatives to the procedure and the roles and tasks of the personnel to be involved were discussed with the patient and the patient consents to the procedure and agrees to proceed. I verify that I personally obtained Akin Adamson's consent. Susie Diaz MD April 21, 2018 11:30 AM Dept of NEUROLOGY UNIVERSAL PROTOCOL / SAFETY CHECKLIST Sign in Communication: Completed Time Out: Team Confirms the Correct Patient, Correct Procedure, Correct Site and Site Marking, Correct Position (if applicable), Prep and Dry Time (if applicable). Time: 1130 Affirmation of Time Out: YES Sign Out Discussion: Completed Susie Diaz MD Current Injection Note Type of Neurotoxin: Botox: J0585 Total Amount drawn up: 200 units Total amount injected: 200 units Total amount wasted: 0 units Dilution: NS 2:1 Administered with EMG guidance: No Injection Site: Muscle??? Right??? Left??? # of Injection Sites Per Side?? Total Units?? Hammerer Helper ? 5 ? 5 ? 1 ? 10 ? Procerus ? 1 midline (5u) ? 5 ? Frontalis ? 10 ? 10 ? 2 ? 20 ? Temporalis ? 25 20 ? 4 ? 40 ? Occipitalis/Sub ? 30 ? 20 ? 3 ? 45 ? Cervical PSPs ? 15 ? 15 ? 2 ? 30 ? Trapezius ? 20 ? 20 ? 3 ? 40 ? Lot#: [id number] Exp Date08/2020 Future plan of care: Follow up: 3 months Neurotoxin Change: No Dose Change: No Susie Diaz M.D. [facility] [place] Department of [facility] cc: SELF Chau Flores DO [address] [place] [address] CNOV Observed: 04/21/2018 Status: COMPLETED Source: [place] 11:00 AM [facility] REPOSITORY Office Visit (NEURMM) AKIN ADAMSON ([id number]) 1970 F Date Time Provider Department 04/21/18 11:00 AM SUSIE DIAZ During your visit today, we recorded the following information about you: Pulse Respiration Blood pressure Weight 115/minute 18/minute 154/96 137 kg Height 1.626 m Susie Diaz MD 04/21/2018 12:52 PM Signed Neurology Follow-up Visit ASSESSMENT: 47 year old female with history significant for DM, with chronic migraine with more than 15 headache days per month. She has tried and failed or not tolerated multiple migraine preventive medications. Botox has been helpful in reducing frequency and severity of migraines but it does not last. She has experienced a prolonged migraine for the past 2 weeks or so also in the setting of ongoing medical issues. Repeated Botox injections today with same regimen. Continue current preventive therapies. Started Aimovig at last visit but she only took one dose because of her ongoing medical issues. Will hold of on continuing it for now and consider restarting at next visit. Will again try to coordinate migraine infusions for her. ? DHE has been very helpful for her for acute therapy, significantly reduced ED visits and outpatient infusions. She can continue this and Amerge since her cardiac workup was negative. Knows not to use both in same 24 hours. ? PLAN:?? --->?Acute Treatment:?? -DHE, Phenergan ? - Amerge - infusion x3 days - MAGNESIUM SULFATE 1 GRAM/50 ML IN 0.9 % SODIUM CHLORIDE IV PIGGYBACK - SODIUM CHLORIDE 0.9 % INTRAVENOUS SOLUTION - VALPROATE SODIUM 500 MG/5 ML (100 MG/ML) INTRAVENOUS SOLUTION - PROMETHAZINE 25 MG/ML INJECTION SOLUTION ?? --->?Preventive Treatment:?? - continue Cymbalta, Zonegran - Botox today - reconsider Aimovig next visit ? --->?Follow-up: 3 months Interval Hx: Still migraine. Seen in the ED, given infusion which helped but it returned. We endeavored to set up outpatient infusions but were unable to reach her. She denies cursing and hanging up when called to set it up (see 04/11 phone encounter). Still wants infusions. First choice is [facility] in oncology in [place]. Second choice would be [facility], third would be [place]. After first dose of Aimovig got very sick with stomach problems and has not felt well since. Tested positive for H. Pylori and treated. Having lightheadedness, has tilt table test and cardiology evaluation scheduled. Sweating all the time. Does feel Botox worked, headaches worse lately. Port is so needs surgery. Will see general surgery. Current Outpatient Prescriptions: losartan (COZAAR) 50 mg tablet Take 1 tablet by mouth once daily. Omeprazole 40 mg capsule Take 1 capsule by mouth once daily. JANUVIA 100 mg tablet TAKE 1 TABLET BY MOUTH DAILY dulaglutide (TRULICITY) 0.75 mg / 0.5 ml subcutaneous pen injector Inject 0.75 mg subcutaneously once each week. Inject dose once per week. Discard Pen After Filter [place] 19 X 1 ndle For use with DHE dicyclomine (BENTYL) 20 mg tablet TAKE 1 TABLET BY MOUTH BEFORE MEALS AND AT BEDTIME metFORMIN ER (GLUCOPHAGE XR) 500 mg 24 hr tablet TAKE 2 TABLETS TWICE A DAY WITH FOOD naratriptan (AMERGE) 2.5 mg tablet Take 1 tablet by mouth as needed. for migraine.May repeat prn after 4 hours. Max 5 mg per 24 hours and do not take in same 24 hours as DHE Lancets (ONETOUCH ULTRASOFT LANCETS) lancets Use as instructed. Patient checks blood sugars 3 to 4 times per day. E08.40; Insulin: no dihydroergotamine (D.H.E.45) 1 mg/mL injection Inject 1 mg intramuscularly every 8 hours. As needed for migraine. Max use 3 days per week. Do not use within 25 hours of taking Amerge promethazine (PHENERGAN) 25 mg tablet Take 1 tablet by mouth every 4 hours as needed for Nausea/Vomiting. levETIRAcetam (KEPPRA) 250 mg tablet Take 2 tablets QHS x1 week then 1 tablet QHS x1 week then stop naproxen (NAPROSYN) 500 mg tablet Take 1 tablet by mouth twice daily as needed (for pain/inflammation). Take with food. biotin 300 mcg tab Take 1 tablet by mouth once daily. blood sugar diagnostic (FREESTYLE LITE STRIPS) test strip Test blood sugar(s) 3-4 times daily. Dx: Other DM Code E08.40 Insulin: Yes Blood-Glucose Meter (FREESTYLE LITE METER) monitoring kit 1 Each as directed. atorvastatin (LIPITOR) 80 mg tablet Take 1 tablet by mouth daily at bedtime. For cholesterol. Hydrochlorothiazide 12.5 mg capsule Take 1 capsule by mouth once daily. cyclobenzaprine (FLEXERIL) 10 mg tablet Take 1 tablet by mouth twice daily as needed for Muscle Spasm. DULoxetine (CYMBALTA) 60 mg capsule Take 2 capsules by mouth once daily. aspirin 81 mg chewable tablet Take 81 mg by mouth once daily. Safety [place] (BD ECLIPSE LUER-OLYA) 25 gauge x 1 1/2 ndle For use with DHE 0.9% NaCl Access implanted vascular access device (IVAD) as needed for flush, blood draw or treatment.Flush IVAD with 10-20 mL NS every 4 weeks and PRN when IVAD not in use. heparin 100 unit/mL syrg Access implanted vascular access device (IVAD) as needed for flush, blood draw or treatment. Before de-accessing port, flush with 10-20ml normal saline and follow with 5 mL heparin (100 units/mL) (if no heparin allergy). De-access port on treatment completion. Syringe with Needle, Disp, (BD LUER-OLYA SYRINGE) 3 mL 25 x 1 1/2 syrg For DHE cyanocobalamin (VITAMIN B-12) 1,000 mcg tab Take 1 tablet by mouth once daily. coenzyme Q10 (COQ-10) 100 mg cap capsule Take 1 capsule by mouth twice daily. Potassium 99 mg tab Take by mouth. 0.9% NaCl Access implanted vascular access device (IVAD) as needed for flush, blood draw or treatment.Flush IVAD with 10-20 mL NS every 4 weeks and PRN when IVAD not in use. DOCOSAHEXANOIC ACID/EPA (FISH OIL ORAL) Take by mouth once daily. LORazepam (ATIVAN) 2 mg ORAL Tab Take 1 tablet by mouth twice daily as needed. erenumab-aooe (AIMOVIG AUTOINJECTOR) 70 mg/mL AutoInjector Inject 70 mg subcutaneously once every month. (Patient not taking: Reported on 04/21/2018 ) Current Facility-Administered Medications: onabotulinum toxin type A 200 Units injection (BOTOX) 200 Units INTRAMUSCULAR q 3 MONTHS Exam: BP 154/96 (BP Site: Left Arm, BP Position: Sitting, BP Cuff Size: Large Adult) Pulse 115 Resp 18 Ht 162.6 cm (5' 4) Wt (!) 137 kg (302 lb) LMP 03/06/2014 SpO2 99% BMI 51.84 kg/m? GEN: Alert. NAD. Normal affect. Cooperative. ?? NEUROLOGICAL: ? MENTAL STATUS: ? A+O x 3. Attentive. Thought process and content unremarkable. Follows commands appropriately. Speech fluent. ?? CN: II: Pupils equal III, IV, : EOMI. No ptosis present. VII: Face symmetric. ?? CEREBELLAR: ? No ataxia or nystagmus. ?? GAIT: ? Stable primary gait. [facility] Neurotoxin Visit Date: April 21, 2018 Name: Akin Adamson Historical/ Initial Dose ? Diagnosis: chronic intractable migraine Date of Diagnosis:11/20/2012 Date of 1st Treatment: 07/09/2014 Type of Neurotoxin: Botox: J0585 Total amount injected: 155?units What other treatments have been tried and failed: Medications Zonegran, Keppra, Cymbalta, amitriptyline, Depakote, Topamax, propranolol Estimated Duration of treatment: Will reassess after 1year Frequency of treatment: 90days ? Last Injection Notes Date of last Injection:01/11/2018 Type of Neurotoxin: Botox: J0585 Total amount injected: 200 units Dilution: NS 2:1 Administered with EMG guidance: No ? ? Assessment Functional limitations (current): 2(moderate) Pain (current): Yes (location)head Effectiveness of last injection:90% when effective Wearing off since last treatment: yes 3 weeks Side effects related to last injection: None ? Time Out: INFORMED CONSENT Akin Adamson Medical Record: [id number] Procedure: Botulinum toxin injection The risks, benefits and anticipated outcomes of the procedure, the risks and benefits of the alternatives to the procedure and the roles and tasks of the personnel to be involved were discussed with the patient and the patient consents to the procedure and agrees to proceed. I verify that I personally obtained Akin Adamson's consent. Susie Diaz MD April 21, 2018 11:30 AM Dept of NEUROLOGY UNIVERSAL PROTOCOL / SAFETY CHECKLIST Sign in Communication: Completed Time Out: Team Confirms the Correct Patient, Correct Procedure, Correct Site and Site Marking, Correct Position (if applicable), Prep and Dry Time (if applicable). Time: 1130 Affirmation of Time Out: YES Sign Out Discussion: Completed Susie Diaz MD Current Injection Note Type of Neurotoxin: Botox: J0585 Total Amount drawn up: 200 units Total amount injected: 200 units Total amount wasted: 0 units Dilution: NS 2:1 Administered with EMG guidance: No Injection Site: Muscle??? Right??? Left??? # of Injection Sites Per Side?? Total Units?? Hammerer Helper ? 5 ? 5 ? 1 ? 10 ? Procerus ? 1 midline (5u) ? 5 ? Frontalis ? 10 ? 10 ? 2 ? 20 ? Temporalis ? 25 20 ? 4 ? 40 ? Occipitalis/Sub ? 30 ? 20 ? 3 ? 45 ? Cervical PSPs ? 15 ? 15 ? 2 ? 30 ? Trapezius ? 20 ? 20 ? 3 ? 40 ? Lot#: [id number] Exp Date08/2020 Future plan of care: Follow up: 3 months Neurotoxin Change: No Dose Change: No Susie Daiz M.D. [facility] [place] Department of Neu[facility] cc: SELF Chau Flores DO [address] [place] [address] Referring Provider: SELF [200] Allergies As of Date: 04/21/2018 Noted Allergy Reaction AMOXIL (AMOXICILLIN) 01/04/2014 8 - GI Upset COMPAZINE (PROCHLORPERAZINE EDISY*08/12/2008 16 - Unknown FLAGYL (METRONIDAZOLE HCL) 09/07/2012 14 - Other: See Comments Comments: Headache - she is prone to migraines and flagyl sets it off every time she takes it. REGLAN (METOCLOPRAMIDE HCL) 02/27/2014 14 - Other: See Comments Comments: anxiety SIMVASTATIN 04/27/2012 14 - Other: See Comments Comments: severe muscle aches TORADOL (KETOROLAC) 08/12/2008 2 - Rash ZOFRAN (ONDANSETRON HCL (PF)) 06/22/2013 14 - Other: See Comments Date Reviewed: 04/21/2018 Reviewed by: Susie Diaz - Fully Assessed Reason for Visit: Established Patient [175] Botox Injection [373] Primary Visit Diagnosis:Intractable chronic migraine without aura and with status migrainosus [G43.711] Other Visit Diagnosis:Intractable migraine without aura and with status migrainosus [G43.011] Order(s):magnesium sulfate in 0.9% NaCl (MAGNESIUM SULFATE IN NS) 1 gram/50 mL pgbkINFUSE 1000 mg in NS 250 ML IV OVER 1 HOUR daily for 3 daysDisp: 150 mLRfl: 0 0.9 % sodium chloride (NACL 0.9%) solutionINFUSE 500 CC IV NS IV OVER 30 MIN daily for 3 daysDisp: 1500 mLRfl: 0 valproate sodium (DEPACON) 500 mg/5 mL (100 mg/mL) injectionDEPACON 500 mg IV in NS 50 ML OVER 20 MIN daily for 3 daysDisp: 15 mLRfl: 0 promethazine (PHENERGAN) 25 mg/mL injectionGive 25 mg IV daily for 3 daysDisp: 5 mLRfl: 0 Prescriptions as of 04/21/2018 Sig: LOSARTAN 50 MG TABLET Take 1 tablet by mouth once d* OMEPRAZOLE 40 MG CAPSULE,APOLINAR* Take 1 capsule by mouth once * JANUVIA 100 MG TABLET TAKE 1 TABLET BY MOUTH DAILY DULAGLUTIDE 0.75 MG/0.5 ML PALUMBO* Inject 0.75 mg subcutaneously* FILTER NEEDLES 19 X 1 For use with DHE DICYCLOMINE 20 MG TABLET TAKE 1 TABLET BY MOUTH BEFORE* METFORMIN ER 500 MG TABLET,EX* TAKE 2 TABLETS TWICE A DAY WI* NARATRIPTAN 2.5 MG TABLET Take 1 tablet by mouth as nee* LANCETS Use as instructed. Patient c* DIHYDROERGOTAMINE 1 MG/ML INJ* Inject 1 mg intramuscularly e* PROMETHAZINE 25 MG TABLET Take 1 tablet by mouth every * LEVETIRACETAM 250 MG TABLET Take 2 tablets QHS x1 week th* NAPROXEN 500 MG TABLET Take 1 tablet by mouth twice * BIOTIN 300 MCG TABLET Take 1 tablet by mouth once d* BLOOD SUGAR DIAGNOSTIC STRIPS Test blood sugar(s) 3- 4 times* BLOOD-GLUCOSE METER KIT 1 Each as directed. ATORVASTATIN 80 MG TABLET Take 1 tablet by mouth daily * HYDROCHLOROTHIAZIDE 12.5 MG C* Take 1 capsule by mouth once * CYCLOBENZAPRINE 10 MG TABLET Take 1 tablet by mouth twice * DULOXETINE 60 MG CAPSULE,APOLINAR* Take 2 capsules by mouth once* ASPIRIN 81 MG CHEWABLE TABLET Take 81 mg by mouth once keegan* SAFETY NEEDLES 25 GAUGE X 1 1* For use with DHE SODIUM CHLORIDE 0.9% FLUSH Access implanted vascular acc* HEPARIN LOCK FLUSH (PORCINE) * Access implanted vascular acc* SYRINGE WITH NEEDLE 3 ML 25 X* For DHE CYANOCOBALAMIN (VIT B-12) 1,0* Take 1 tablet by mouth once d* COENZYME Q10 100 MG CAPSULE Take 1 capsule by mouth twice* POTASSIUM 99 MG TABLET Take by mouth. SODIUM CHLORIDE 0.9% FLUSH Access implanted vascular acc* FISH OIL ORAL Take by mouth once daily. * LORAZEPAM 2 MG TABLET Take 1 tablet by mouth twice * MAGNESIUM SULFATE 1 GRAM/50 M* INFUSE 1000 mg in NS 250 ML I* SODIUM CHLORIDE 0.9 % INTRAVE* INFUSE 500 CC IV NS IV OVER 3* VALPROATE SODIUM 500 MG/5 ML * DEPACON 500 mg IV in NS 50 ML* PROMETHAZINE 25 MG/ML INJECTI* Give 25 mg IV daily for 3 days ERENUMAB-AOOE 70 MG/ML SUBCUT* Inject 70 mg subcutaneously o* Patient not taking: Reported on 04/21/2018 Problem List As Of Date 04/21/2018 Noted Resolved ESOPHAGEAL REFLUX [K21.9] INVALID FOR* GENERALIZED ANXIETY DIS [F41.1] INVALID FOR* Impaired fasting glucose [R73.01] INVALID FOR*12/07/2011 Depression [F32.9] INVALID FOR* More... Calculus of kidney [N20.0] INVALID FOR*04/10/2018 UTI (Lower Urinary Tract Infection) [N39.0] INVALID FOR*12/30/2009 Insomnia [G47.00] INVALID FOR* Microalbuminuria [R80.9] INVALID FOR* Obstructive sleep apnea [G47.33] INVALID FOR* Abdominal pain, left upper quadrant [R10.12] INVALID FOR*04/10/2018 Innocent heart murmur INVALID FOR* Menorrhagia [N92.0] INVALID FOR*11/15/2012 Bacterial vaginitis [N76.0, B96.89] INVALID FOR*11/30/2013 Vaginitis [N76.0] INVALID FOR*11/30/2013 More... Diabetes mellitus due to underlying condition w*INVALID FOR* Willing to be liver donor [Z00.5] INVALID FOR* Intractable chronic migraine without aura [G43.*INVALID FOR* Exhausted vascular access [Z45.2] INVALID FOR* More... Endometriosis of peritoneum [N80.3] INVALID FOR* Morbid obesity with BMI of 50.0-59.9, adult (HC*INVALID FOR* OAB (overactive bladder) [N32.81] INVALID FOR* Hyperlipidemia [E78.5] INVALID FOR* More... HTN (hypertension) [I10] INVALID FOR* H. pylori infection [A04.8] INVALID FOR* Prescriptions ordered this encounter Disp Refills Start End MAGNESIUM SULFATE 1 GRAM/50 ML IN 0.* 150 * 0 04/21/2018 Class: In Office Sig: INFUSE 1000 mg in NS 250 ML IV OVER 1 HOUR daily for 3 days SODIUM CHLORIDE 0.9 % INTRAVENOUS SO* 1500* 0 04/21/2018 Class: In Office Sig: INFUSE 500 CC IV NS IV OVER 30 MIN daily for 3 days VALPROATE SODIUM 500 MG/5 ML (100 MG* 15 mL 0 04/21/2018 Class: In Office Sig: DEPACON 500 mg IV in NS 50 ML OVER 20 MIN daily for 3 days PROMETHAZINE 25 MG/ML INJECTION SOLU* 5 mL 0 04/21/2018 Class: In Office Sig: Give 25 mg IV daily for 3 days Disposition: Return in about 3 months (around 07/20/2018) for Botox. Follow-up and Disposition History Recorded Encounter Status:Closed by SUSIE DIAZ MD on 04/21/18 SHOSHANA Observed: 04/21/2018 Status: COMPLETED Source: [place] 12:00 AM [facility] Telephone ([facility]) JUAN DIEGOAKIN ([id number]) 1970 F Date Time Provider Department 04/21/18 SUSIE DIAZ During your visit today, we recorded the following information about you: Pearl Diaz RN 04/21/2018 9:49 AM Signed Patient states she has an appt. Today for botox injection, migraines continues at this time. Patient advised of message from another encounter that the facility was trying to reach her about the injections. Spoke to patient, will be coming for the Botox injection. Allergies As of Date: 04/21/2018 Noted Allergy Reaction AMOXIL (AMOXICILLIN) 01/04/2014 8 - GI Upset COMPAZINE (PROCHLORPERAZINE EDISY*08/12/2008 16 - Unknown FLAGYL (METRONIDAZOLE HCL) 09/07/2012 14 - Other: See Comments Comments: Headache - she is prone to migraines and flagyl sets it off every time she takes it. REGLAN (METOCLOPRAMIDE HCL) 02/27/2014 14 - Other: See Comments Comments: anxiety SIMVASTATIN 04/27/2012 14 - Other: See Comments Comments: severe muscle aches TORADOL (KETOROLAC) 08/12/2008 2 - Rash ZOFRAN (ONDANSETRON HCL (PF)) 06/22/2013 14 - Other: See Comments Date Reviewed: 04/21/2018 Reviewed by: Susie Diaz - Fully Assessed Reason for Visit: Headache [52] Prescriptions as of 04/21/2018 Sig: LOSARTAN 50 MG TABLET Take 1 tablet by mouth once d* OMEPRAZOLE 40 MG CAPSULE,APOLINAR* Take 1 capsule by mouth once * JANUVIA 100 MG TABLET TAKE 1 TABLET BY MOUTH DAILY DULAGLUTIDE 0.75 MG/0.5 ML [place]* Inject 0.75 mg subcutaneously* FILTER NEEDLES 19 X 1 For use with DHE ERENUMAB-AOOE 70 MG/ML SUBCUT* Inject 70 mg subcutaneously o* DICYCLOMINE 20 MG TABLET TAKE 1 TABLET BY MOUTH BEFORE* METFORMIN ER 500 MG TABLET,EX* TAKE 2 TABLETS TWICE A DAY WI* NARATRIPTAN 2.5 MG TABLET Take 1 tablet by mouth as nee* LANCETS Use as instructed. Patient c* DIHYDROERGOTAMINE 1 MG/ML INJ* Inject 1 mg intramuscularly e* PROMETHAZINE 25 MG TABLET Take 1 tablet by mouth every * LEVETIRACETAM 250 MG TABLET Take 2 tablets QHS x1 week th* NAPROXEN 500 MG TABLET Take 1 tablet by mouth twice * BIOTIN 300 MCG TABLET Take 1 tablet by mouth once d* BLOOD SUGAR DIAGNOSTIC STRIPS Test blood sugar(s) 3- 4 times* BLOOD-GLUCOSE METER KIT 1 Each as directed. ATORVASTATIN 80 MG TABLET Take 1 tablet by mouth daily * HYDROCHLOROTHIAZIDE 12.5 MG C* Take 1 capsule by mouth once * CYCLOBENZAPRINE 10 MG TABLET Take 1 tablet by mouth twice * DULOXETINE 60 MG CAPSULE,APOLINAR* Take 2 capsules by mouth once* ASPIRIN 81 MG CHEWABLE TABLET Take 81 mg by mouth once keegan* SAFETY NEEDLES 25 GAUGE X 1 1* For use with DHE SODIUM CHLORIDE 0.9% FLUSH Access implanted vascular acc* HEPARIN LOCK FLUSH (PORCINE) * Access implanted vascular acc* SYRINGE WITH NEEDLE 3 ML 25 X* For DHE CYANOCOBALAMIN (VIT B-12) 1,0* Take 1 tablet by mouth once d* COENZYME Q10 100 MG CAPSULE Take 1 capsule by mouth twice* POTASSIUM 99 MG TABLET Take by mouth. SODIUM CHLORIDE 0.9% FLUSH Access implanted vascular acc* FISH OIL ORAL Take by mouth once daily. * LORAZEPAM 2 MG TABLET Take 1 tablet by mouth twice * Problem List As Of Date 04/21/2018 Noted Resolved ESOPHAGEAL REFLUX [K21.9] INVALID FOR* GENERALIZED ANXIETY DIS [F41.1] INVALID FOR* Impaired fasting glucose [R73.01] INVALID FOR*12/07/2011 Depression [F32.9] INVALID FOR* More... Calculus of kidney [N20.0] INVALID FOR*04/10/2018 UTI (Lower Urinary Tract Infection) [N39.0] INVALID FOR*12/30/2009 Insomnia [G47.00] INVALID FOR* Microalbuminuria [R80.9] INVALID FOR* Obstructive sleep apnea [G47.33] INVALID FOR* Abdominal pain, left upper quadrant [R10.12] INVALID FOR*04/10/2018 Innocent heart murmur INVALID FOR* Menorrhagia [N92.0] INVALID FOR*11/15/2012 Bacterial vaginitis [N76.0, B96.89] INVALID FOR*11/30/2013 Vaginitis [N76.0] INVALID FOR*11/30/2013 More... Diabetes mellitus due to underlying condition w*INVALID FOR* Willing to be liver donor [Z00.5] INVALID FOR* Intractable chronic migraine without aura [G43.*INVALID FOR* Exhausted vascular access [Z45.2] INVALID FOR* More... Endometriosis of peritoneum [N80.3] INVALID FOR* Morbid obesity with BMI of 50.0-59.9, adult (HC*INVALID FOR* OAB (overactive bladder) [N32.81] INVALID FOR* Hyperlipidemia [E78.5] INVALID FOR* More... HTN (hypertension) [I10] INVALID FOR* H. pylori infection [A04.8] INVALID FOR* Encounter Status:Closed by PEARL DIAZ RN on 04/21/18 ENTERIC BACT PNL PCR Collected: 04/13/2018 Status: F Source: [place] 2:00 PM [facility] TYPE CODE TESTS RESULT OUT OF REFERENCE UNITS RANGE LAB PCRSHG Shigella/EIEC Not Detected DNA LAB PCRCMP Campy jejun/coli DNA Not Detected LAB PCRSTX Shiga toxin gene(s) Not Detected LAB PCRSAL Salmonella spp. Not Detected DNA Performed By: #### STLPCR #### [facility] [address] [place], [place] [address] HARRISN Observed: 04/12/2018 Status: COMPLETED Source: [place] 12:00 AM [facility] Telephone ([facility]) AKIN ADAMSON ([id number]) 1970 F Date Time Provider Department 04/12/18 ASIYA TORRES) MIRA During your visit today, we recorded the following information about you: Asiya Torres APRN.HARRIS 04/12/2018 8:37 AM Signed Stool negative for OVA and parasites. FALGUNI Oseguera LPN, APPLICATION SPECIALIST 04/12/2018 8:47 AM Signed Left message to return call. Ligia Fernando RN 04/14/2018 1:18 PM Signed Patient notified. Asking if Hpylori test was repeated and also asking about stool culture test as well? Only cryptospordium and giardia processed. Spoke with Joshua in lab and he states patient may not have received kit for other stool tests? Lab unsure if patient left without getting a kit or did not get a kit. Please review and advise. Ligia Fernando, RN Lior Lynn MD 04/14/2018 2:48 PM Signed OK to give kit for stool culture to get this done; order was placed on 04/10 MD Zina Oswald Ma 04/14/2018 3:19 PM Signed Called and spoke with patient. Notified her that H. Pylori isn't retested after treatment. Notified that she has one more stool test that needs completed and she can crop picker Cx at the lab and she states that she has it at home and will turn in today to the lab. Verbalized understanding. Zina Torres APRN.CNP 04/17/2018 10:48 AM Signed Please call patient. She will need stool H.Pylori retested 2 weeks after completed treatment. Order has been placed. Please apologize for previous miscommunication. FALGUNI Oseguera APRN.CNP 04/17/2018 10:48 AM Signed Addended by: ASIYA TORRES CNP on: 04/17/2018 10:48 AM Modules accepted: Orders Kamran Adams LPN 04/17/2018 11:10 AM Signed TC to pt, lmom. Pt to return call office. Please transfer call to TRIAGE NURSE. Kamran Adams LPN Allergies As of Date: 04/12/2018 Noted Allergy Reaction AMOXIL (AMOXICILLIN) 01/04/2014 8 - GI Upset COMPAZINE (PROCHLORPERAZINE EDISY*08/12/2008 16 - Unknown FLAGYL (METRONIDAZOLE HCL) 09/07/2012 14 - Other: See Comments Comments: Headache - she is prone to migraines and flagyl sets it off every time she takes it. REGLAN (METOCLOPRAMIDE HCL) 02/27/2014 14 - Other: See Comments Comments: anxiety SIMVASTATIN 04/27/2012 14 - Other: See Comments Comments: severe muscle aches TORADOL (KETOROLAC) 08/12/2008 2 - Rash ZOFRAN (ONDANSETRON HCL (PF)) 06/22/2013 14 - Other: See Comments Date Reviewed: 04/10/2018 Reviewed by: Kamran Adams LPN - Fully Assessed Reason for Visit: Results [95] Patient Update [1234] Primary Visit Diagnosis:H. pylori infection [A04.8] Order(s):H PYLORI AG BY EIA,STOOL [SQHPYLAG] Order #: [id number] Prescriptions as of 04/12/2018 Sig: LOSARTAN 50 MG TABLET Take 1 tablet by mouth once d* OMEPRAZOLE 40 MG CAPSULE,APOLINAR* Take 1 capsule by mouth once * JANUVIA 100 MG TABLET TAKE 1 TABLET BY MOUTH DAILY DULAGLUTIDE 0.75 MG/0.5 ML PALUMBO* Inject 0.75 mg subcutaneously* FILTER NEEDLES 19 X 1 For use with DHE ERENUMAB-AOOE 70 MG/ML SUBCUT* Inject 70 mg subcutaneously o* DICYCLOMINE 20 MG TABLET TAKE 1 TABLET BY MOUTH BEFORE* METFORMIN ER 500 MG TABLET,EX* TAKE 2 TABLETS TWICE A DAY WI* NARATRIPTAN 2.5 MG TABLET Take 1 tablet by mouth as nee* LANCETS Use as instructed. Patient c* DIHYDROERGOTAMINE 1 MG/ML INJ* Inject 1 mg intramuscularly e* PROMETHAZINE 25 MG TABLET Take 1 tablet by mouth every * LEVETIRACETAM 250 MG TABLET Take 2 tablets QHS x1 week th* NAPROXEN 500 MG TABLET Take 1 tablet by mouth twice * BIOTIN 300 MCG TABLET Take 1 tablet by mouth once d* BLOOD SUGAR DIAGNOSTIC STRIPS Test blood sugar(s) 3- 4 times* BLOOD-GLUCOSE METER KIT 1 Each as directed. ATORVASTATIN 80 MG TABLET Take 1 tablet by mouth daily * HYDROCHLOROTHIAZIDE 12.5 MG C* Take 1 capsule by mouth once * CYCLOBENZAPRINE 10 MG TABLET Take 1 tablet by mouth twice * DULOXETINE 60 MG CAPSULE,APOLINAR* Take 2 capsules by mouth once* ASPIRIN 81 MG CHEWABLE TABLET Take 81 mg by mouth once keegan* SAFETY NEEDLES 25 GAUGE X 1 1* For use with DHE SODIUM CHLORIDE 0.9% FLUSH Access implanted vascular acc* HEPARIN LOCK FLUSH (PORCINE) * Access implanted vascular acc* SYRINGE WITH NEEDLE 3 ML 25 X* For DHE CYANOCOBALAMIN (VIT B-12) 1,0* Take 1 tablet by mouth once d* COENZYME Q10 100 MG CAPSULE Take 1 capsule by mouth twice* POTASSIUM 99 MG TABLET Take by mouth. SODIUM CHLORIDE 0.9% FLUSH Access implanted vascular acc* FISH OIL ORAL Take by mouth once daily. * LORAZEPAM 2 MG TABLET Take 1 tablet by mouth twice * Problem List As Of Date 04/12/2018 Noted Resolved ESOPHAGEAL REFLUX [K21.9] INVALID FOR* GENERALIZED ANXIETY DIS [F41.1] INVALID FOR* Impaired fasting glucose [R73.01] INVALID FOR*12/07/2011 Depression [F32.9] INVALID FOR* More... Calculus of kidney [N20.0] INVALID FOR*04/10/2018 UTI (Lower Urinary Tract Infection) [N39.0] INVALID FOR*12/30/2009 Insomnia [G47.00] INVALID FOR* Microalbuminuria [R80.9] INVALID FOR* Obstructive sleep apnea [G47.33] INVALID FOR* Abdominal pain, left upper quadrant [R10.12] INVALID FOR*04/10/2018 Innocent heart murmur INVALID FOR* Menorrhagia [N92.0] INVALID FOR*11/15/2012 Bacterial vaginitis [N76.0, B96.89] INVALID FOR*11/30/2013 Vaginitis [N76.0] INVALID FOR*11/30/2013 More... Diabetes mellitus due to underlying condition w*INVALID FOR* Willing to be liver donor [Z00.5] INVALID FOR* Intractable chronic migraine without aura [G43.*INVALID FOR* Exhausted vascular access [Z45.2] INVALID FOR* More... Endometriosis of peritoneum [N80.3] INVALID FOR* Morbid obesity with BMI of 50.0-59.9, adult (HC*INVALID FOR* OAB (overactive bladder) [N32.81] INVALID FOR* Hyperlipidemia [E78.5] INVALID FOR* More... HTN (hypertension) [I10] INVALID FOR* H. pylori infection [A04.8] INVALID FOR* Encounter Status:Closed by IZABEL LAND ZINA on 04/14/18 Observed: 04/11/2018 Status: F Source: [place] OVA AND PARASITE SCR 2:41 AM [facility]POSIT[facility] Sp. Request/Comment: - Specimen received in Ova and Parasite Kit. Culture Result - Negative for Giardia lamblia and Cryptosporidium species by EIA. Performed By: #### OVAPSC #### [facility] [address] [place], [place] [address] [facility] Observed: 04/11/2018 Status: COMPLETED Source: [place] 12:00 AM [facility] Telephone (NEURMM) AKIN ADAMSON ([id number]) 1970 F Date Time Provider Department 04/11/18 SUSIE DIAZ During your visit today, we recorded the following information about you: Janine Tineo MA 04/11/2018 8:09 AM Signed Ember from Dr. Gill's office is calling stating that they don't carry Depacon and their schedule is full for Tuesday and Tuesday to be able to assist the patient. If you have any further questions please call [phone]. Janine Tineo MA 04/11/2018 12:33 PM Signed Please see previous encounter. Thank You, Janine Mendez RN INSULATION SUPERVISOR.ATTENDING UROLOGIST 04/12/2018 4:23 PM Signed Sending to [facility] to call patient and ask her questions included below. Called pt's home number to clarify whether or not she is taking this medication (it's not in her current med list) and who ordered it. Also how is Dr. Gill involved in this? Reached unidentifiable VM and left my name and unable to leave specific message due to VM unidentified. Coral Mendez RN INSULATION SUPERVISOR.ATTENDING UROLOGIST Julia East MA 04/14/2018 1:45 PM Signed It was Fabian Jackson from [facility] We being working on getting Akin to [place] for her infusions Because she said it closer to her But Renetta said they don't have some medications in stock That's why Renetta called EMERY Pantoja MA 04/17/2018 11:41 AM Signed [facility] is calling stating that they have been trying to reach the patient but had no luck. She called the patient this morning and when they answered the phone someone stated F-U and hung up the phone. There not sure what to do moving forward. If you have any questions you can call Elizabeth at the extension below. Ext [phone] Thank You, Janine Diaz MD 04/17/2018 12:57 PM Addendum Noted. Pearl Diaz RN 04/21/2018 9:44 AM Signed Patient calling, states she was supposed to hear about getting infusions but never heard from the office. Patient given message below. Pearl Diaz RN 04/21/2018 12:18 PM Signed Spoke to Cayla at [facility] in [place], advised the office is trying to schedule infusions for the patient for 3 consecutive days, patient has been there before. Cayla has to send a message to the dept., and ask then to CB with possible availability. Patient made aware of same. Pearl Diaz RN 04/21/2018 3:39 PM Signed 1.Spoke to Ember in [place], they are unable to do the infusions, do not have the medication needed. [phone] 2. Spoke to the infusion area in [facility], they are unable to schedule the patient, they have no availability. Ext. [phone] 3. Left message at the OP Infusion center at [facility] to CB if they can do the infusion, gave the patient name and information. [phone] 4. Spoke to Jyotsna at [facility] [phone], faxed the orders over to [phone] with confirmation. Spoke to Jyotsna, she can use the orders sent, she will call the patient to schedule. Pearl Diaz RN 04/24/2018 11:42 AM Signed Spoke to Bernadette from the [facility], she tried to call the patient again not being aware that she was going to have it done in [place], did not get any answer. Did advise she is supposed to be scheduled at [place] [facility] to have it done, agreed. Allergies As of Date: 04/11/2018 Noted Allergy Reaction AMOXIL (AMOXICILLIN) 01/04/2014 8 - GI Upset COMPAZINE (PROCHLORPERAZINE EDISY*08/12/2008 16 - Unknown FLAGYL (METRONIDAZOLE HCL) 09/07/2012 14 - Other: See Comments Comments: Headache - she is prone to migraines and flagyl sets it off every time she takes it. REGLAN (METOCLOPRAMIDE HCL) 02/27/2014 14 - Other: See Comments Comments: anxiety SIMVASTATIN 04/27/2012 14 - Other: See Comments Comments: severe muscle aches TORADOL (KETOROLAC) 08/12/2008 2 - Rash ZOFRAN (ONDANSETRON HCL (PF)) 06/22/2013 14 - Other: See Comments Date Reviewed: 04/10/2018 Reviewed by: Kamran Adams LPN - Fully Assessed Reason for Visit: unknown [Other] Prescriptions as of 04/11/2018 Sig: LOSARTAN 50 MG TABLET Take 1 tablet by mouth once d* OMEPRAZOLE 40 MG CAPSULE,APOLINAR* Take 1 capsule by mouth once * JANUVIA 100 MG TABLET TAKE 1 TABLET BY MOUTH DAILY DULAGLUTIDE 0.75 MG/0.5 ML PALUMBO* Inject 0.75 mg subcutaneously* FILTER NEEDLES 19 X 1 For use with DHE ERENUMAB-AOOE 70 MG/ML SUBCUT* Inject 70 mg subcutaneously o* DICYCLOMINE 20 MG TABLET TAKE 1 TABLET BY MOUTH BEFORE* METFORMIN ER 500 MG TABLET,EX* TAKE 2 TABLETS TWICE A DAY WI* NARATRIPTAN 2.5 MG TABLET Take 1 tablet by mouth as nee* LANCETS Use as instructed. Patient c* DIHYDROERGOTAMINE 1 MG/ML INJ* Inject 1 mg intramuscularly e* PROMETHAZINE 25 MG TABLET Take 1 tablet by mouth every * LEVETIRACETAM 250 MG TABLET Take 2 tablets QHS x1 week th* NAPROXEN 500 MG TABLET Take 1 tablet by mouth twice * BIOTIN 300 MCG TABLET Take 1 tablet by mouth once d* BLOOD SUGAR DIAGNOSTIC STRIPS Test blood sugar(s) 3- 4 times* BLOOD-GLUCOSE METER KIT 1 Each as directed. ATORVASTATIN 80 MG TABLET Take 1 tablet by mouth daily * HYDROCHLOROTHIAZIDE 12.5 MG C* Take 1 capsule by mouth once * CYCLOBENZAPRINE 10 MG TABLET Take 1 tablet by mouth twice * DULOXETINE 60 MG CAPSULE,APOLINAR* Take 2 capsules by mouth once* ASPIRIN 81 MG CHEWABLE TABLET Take 81 mg by mouth once keegan* SAFETY NEEDLES 25 GAUGE X 1 1* For use with DHE SODIUM CHLORIDE 0.9% FLUSH Access implanted vascular acc* HEPARIN LOCK FLUSH (PORCINE) * Access implanted vascular acc* SYRINGE WITH NEEDLE 3 ML 25 X* For DHE CYANOCOBALAMIN (VIT B-12) 1,0* Take 1 tablet by mouth once d* COENZYME Q10 100 MG CAPSULE Take 1 capsule by mouth twice* POTASSIUM 99 MG TABLET Take by mouth. SODIUM CHLORIDE 0.9% FLUSH Access implanted vascular acc* FISH OIL ORAL Take by mouth once daily. * LORAZEPAM 2 MG TABLET Take 1 tablet by mouth twice * Problem List As Of Date 04/11/2018 Noted Resolved ESOPHAGEAL REFLUX [K21.9] INVALID FOR* GENERALIZED ANXIETY DIS [F41.1] INVALID FOR* Impaired fasting glucose [R73.01] INVALID FOR*12/07/2011 Depression [F32.9] INVALID FOR* More... Calculus of kidney [N20.0] INVALID FOR*04/10/2018 UTI (Lower Urinary Tract Infection) [N39.0] INVALID FOR*12/30/2009 Insomnia [G47.00] INVALID FOR* Microalbuminuria [R80.9] INVALID FOR* Obstructive sleep apnea [G47.33] INVALID FOR* Abdominal pain, left upper quadrant [R10.12] INVALID FOR*04/10/2018 Innocent heart murmur INVALID FOR* Menorrhagia [N92.0] INVALID FOR*11/15/2012 Bacterial vaginitis [N76.0, B96.89] INVALID FOR*11/30/2013 Vaginitis [N76.0] INVALID FOR*11/30/2013 More... Diabetes mellitus due to underlying condition w*INVALID FOR* Willing to be liver donor [Z00.5] INVALID FOR* Intractable chronic migraine without aura [G43.*INVALID FOR* Exhausted vascular access [Z45.2] INVALID FOR* More... Endometriosis of peritoneum [N80.3] INVALID FOR* Morbid obesity with BMI of 50.0-59.9, adult (HC*INVALID FOR* OAB (overactive bladder) [N32.81] INVALID FOR* Hyperlipidemia [E78.5] INVALID FOR* More... HTN (hypertension) [I10] INVALID FOR* H. pylori infection [A04.8] INVALID FOR* Encounter Status:Closed by JANINE TINEO MA on 04/11/18 PROGRESS Observed: 04/10/2018 Status: COMPLETED Source: [place] 11:[address] [facility] REPOSIT[facility] HNO ID: [id number] Author: Asiya Wasserman (Process Server) Gaby Service: (none) Author Type: Nurse Practitioner Type: Progress Notes Filed: 04/10/2018 12:28 PM Note Text: HPI/CC: Akin Adamson is a 47 year old female who presents for [facility] 04/07 dx: migraine and multiple concerns. Patient was given IV magnesium, Benadryl, Decadron, and 1000 cc normal saline bolus as well as oral Tylenol and Phenergan at ER with relief of symptoms. Migraine symptoms are similar to previous migraines- no imaging completed. Has appt with neurology 04/21/18 for f/u and Botox. GI: completed H. Pylori regimen. Continues to have loose stools, stools are green and foul smelling. + belching, +reflux, +nausea. Remote Hx of following with GI. Mood: Stopped Abilify 03/14/2018. Patient thought that this was causing her blood glucose levels to increase. However they have not decreased since stopping. Has f/u appt with psychologist tomorrow. Dizziness: continues to have dizziness. diaphoresis and palpitations, especially with ambulation. Denies syncope. Reviewed Holter results. Never seen by cardiology. ROS as above, otherwise non-contributory. Reviewed PMHx, PSHx, social Hx, medications and allergies. PHYSICAL EXAMINATION: BP 140/92 Pulse 76 Resp 16 Wt 134.3 kg (296 lb) LMP 03/06/2014 BMI 50.81 kg/m? General appearance: Well appearing, alert, in no acute distress, well-hydrated, well nourished. and Morbidly obese Skin: Skin color, texture, turgor normal, no suspicious rashes or lesions, Diaphoretic Lungs: lungs clear to auscultation. No wheezing, rhonchi, rales Heart: RRR without murmur, gallop, or rubs. No ectopy Abdomen: Normal abdominal exam, Abdomen soft, non-tender. Bowel sounds normal. No masses, organomegaly ASSESSMENT/PLAN: 1. Loose stools - ICD9: 787.7, ICD10: R19.5 (primary diagnosis) - STOOL CULTURE/EIA - CRYPTOSPORIDIUM AND GIARDIA ANTIGENS BY EIA - CONSULT TO GASTROENTEROLOGY 2. GERD without esophagitis - ICD9: 530.81, ICD10: K21.9 - Refer for GI consult - CONSULT TO GASTROENTEROLOGY 3. Hypertension, unspecified type - ICD9: 401.9, ICD10: I10 - poor control - Increase losartan(Cozaar) - Encouraged dietary sodium restriction/DASH diet - Recommended regular aerobic exercise. - Recommend home blood pressure monitoring, to bring results in on next visit - Follow up in 1 month for BP recheck. - Recheck in 2 weeks, sooner should new symptoms or problems arise. - Goal of BP <130/80 - Recommend home or pharmacy blood pressure monitoring - Recommended no refined sugar, low refined starch, healthy oil intake (olive oil), healthy protein (fish) along the lines of the Mediterranean diet. - LOSARTAN 50 MG TABLET - PRIMARY CARE BP FOLLOW UP 4. Dizziness - ICD9: 780.4, ICD10: R42 - TILT TABLE EVALUATION- concern for POTs, other cardiac w/u has been negative - CONSULT TO CARDIOLOGY - PRIMARY CARE BP FOLLOW UP 5. Port-A-Cath in place - ICD9: V45.89, ICD10: Z95.828 - CONSULT TO GENERAL SURGERY 6. Migraine without status migrainosus, not intractable, unspecified migraine type - ICD9: 346.90, ICD10: G43.909 - f/u with Dr. Diaz 7. Exhausted vascular access - ICD9: 459.89, ICD10: Z45.2 - as above Asiya Torres APRN.HARRIS GODOY Observed: 04/10/2018 Status: COMPLETED Source: [place] 11:00 AM [facility] RE[facility] Office Visit (FAMPWS) AKIN ADAMSON ([id number]) 1970 F Date Time Provider Department 04/10/18 11:00 ASIYA YANEZ (HARRIS) MIRA During your visit today, we recorded the following information about you: Pulse Respiration Blood pressure Weight 76/minute 16/minute 140/92 134.3 kg Asiya Torres APRN.CNP 04/10/2018 12:28 PM Signed HPI/CC: Akin Adamson is a 47 year old female who presents for [facility] 04/07 dx: migraine and multiple concerns. Patient was given IV magnesium, Benadryl, Decadron, and 1000 cc normal saline bolus as well as oral Tylenol and Phenergan at ER with relief of symptoms. Migraine symptoms are similar to previous migraines- no imaging completed. Has appt with neurology 04/21/18 for f/u and Botox. GI: completed H. Pylori regimen. Continues to have loose stools, stools are green and foul smelling. + belching, +reflux, +nausea. Remote Hx of following with GI. Mood: Stopped Abilify 03/14/2018. Patient thought that this was causing her blood glucose levels to increase. However they have not decreased since stopping. Has f/u appt with psychologist tomorrow. Dizziness: continues to have dizziness. diaphoresis and palpitations, especially with ambulation. Denies syncope. Reviewed Holter results. Never seen by cardiology. ROS as above, otherwise non-contributory. Reviewed PMHx, PSHx, social Hx, medications and allergies. PHYSICAL EXAMINATION: BP 140/92 Pulse 76 Resp 16 Wt 134.3 kg (296 lb) LMP 03/06/2014 BMI 50.81 kg/m? General appearance: Well appearing, alert, in no acute distress, well-hydrated, well nourished. and Morbidly obese Skin: Skin color, texture, turgor normal, no suspicious rashes or lesions, Diaphoretic Lungs: lungs clear to auscultation. No wheezing, rhonchi, rales Heart: RRR without murmur, gallop, or rubs. No ectopy Abdomen: Normal abdominal exam, Abdomen soft, non-tender. Bowel sounds normal. No masses, organomegaly ASSESSMENT/PLAN: 1. Loose stools - ICD9: 787.7, ICD10: R19.5 (primary diagnosis) - STOOL CULTURE/EIA - CRYPTOSPORIDIUM AND GIARDIA ANTIGENS BY EIA - CONSULT TO GASTROENTEROLOGY 2. GERD without esophagitis - ICD9: 530.81, ICD10: K21.9 - Refer for GI consult - CONSULT TO GASTROENTEROLOGY 3. Hypertension, unspecified type - ICD9: 401.9, ICD10: I10 - poor control - Increase losartan(Cozaar) - Encouraged dietary sodium restriction/DASH diet - Recommended regular aerobic exercise. - Recommend home blood pressure monitoring, to bring results in on next visit - Follow up in 1 month for BP recheck. - Recheck in 2 weeks, sooner should new symptoms or problems arise. - Goal of BP <130/80 - Recommend home or pharmacy blood pressure monitoring - Recommended no refined sugar, low refined starch, healthy oil intake (olive oil), healthy protein (fish) along the lines of the Mediterranean diet. - LOSARTAN 50 MG TABLET - PRIMARY CARE BP FOLLOW UP 4. Dizziness - ICD9: 780.4, ICD10: R42 - TILT TABLE EVALUATION- concern for POTs, other cardiac w/u has been negative - CONSULT TO CARDIOLOGY - PRIMARY CARE BP FOLLOW UP 5. Port-A-Cath in place - ICD9: V45.89, ICD10: Z95.828 - CONSULT TO GENERAL SURGERY 6. Migraine without status migrainosus, not intractable, unspecified migraine type - ICD9: 346.90, ICD10: G43.909 - f/u with Dr. Diaz 7. Exhausted vascular access - ICD9: 459.89, ICD10: Z45.2 - as above Asiya Torres, [place] [facility] Referring Provider: SELF [200] Allergies As of Date: 04/10/2018 Noted Allergy Reaction AMOXIL (AMOXICILLIN) 01/04/2014 8 - GI Upset COMPAZINE (PROCHLORPERAZINE EDISY*08/12/2008 16 - Unknown FLAGYL (METRONIDAZOLE HCL) 09/07/2012 14 - Other: See Comments Comments: Headache - she is prone to migraines and flagyl sets it off every time she takes it. REGLAN (METOCLOPRAMIDE HCL) 02/27/2014 14 - Other: See Comments Comments: anxiety SIMVASTATIN 04/27/2012 14 - Other: See Comments Comments: severe muscle aches TORADOL (KETOROLAC) 08/12/2008 2 - Rash ZOFRAN (ONDANSETRON HCL (PF)) 06/22/2013 14 - Other: See Comments Date Reviewed: 04/10/2018 Reviewed by: Kamran Adams LPN - Fully Assessed Reason for Visit: ER F/U [41] Cmt: [facility] 04/07 dx: migraine Primary Visit Diagnosis:Loose stools [R19.5] Other Visit Diagnoses:GERD without esophagitis [K21.9] Hypertension, unspecified type [I10] Dizziness [R42] Port-A-Cath in place [Z95.828] Comment:expiration August 2016 Migraine without status migrainosus, not intractable, unspecified migraine type [G43.909] Exhausted vascular access [Z45.2] Order(s):STOOL CULTURE/EIA [SQSTOCUL] Order #: [id number] FUTURE CRYPTOSPORIDIUM AND GIARDIA ANTIGENS BY EIA [SQOVAPSC] Order #: [id number] CONSULT TO GASTROENTEROLOGY [9099] Order #: [id number]: 1 losartan (COZAAR) 50 mg tabletTake 1 tablet by mouth once daily.Disp: 90 tabletRfl: 0 TILT TABLE EVALUATION [[id number]] Order #: [id number]: 1 CONSULT TO CARDIOLOGY [9007] Order #: [id number]: 1 CONSULT TO GENERAL SURGERY [9043] Order #: [id number]: 1 PRIMARY CARE BP FOLLOW UP [8640459] Order #: [id number]: 1 Prescriptions as of 04/10/2018 Sig: LOSARTAN 50 MG TABLET Take 1 tablet by mouth once d* JANUVIA 100 MG TABLET TAKE 1 TABLET BY MOUTH DAILY DULAGLUTIDE 0.75 MG/0.5 ML PALUMBO* Inject 0.75 mg subcutaneously* OMEPRAZOLE 40 MG CAPSULE,APOLINAR* TAKE 1 CAPSULE BY MOUTH DAILY FILTER NEEDLES 19 X 1 For use with DHE ERENUMAB-AOOE 70 MG/ML SUBCUT* Inject 70 mg subcutaneously o* DICYCLOMINE 20 MG TABLET TAKE 1 TABLET BY MOUTH BEFORE* METFORMIN ER 500 MG TABLET,EX* TAKE 2 TABLETS TWICE A DAY WI* NARATRIPTAN 2.5 MG TABLET Take 1 tablet by mouth as nee* LANCETS Use as instructed. Patient c* DIHYDROERGOTAMINE 1 MG/ML INJ* Inject 1 mg intramuscularly e* PROMETHAZINE 25 MG TABLET Take 1 tablet by mouth every * LEVETIRACETAM 250 MG TABLET Take 2 tablets QHS x1 week th* NAPROXEN 500 MG TABLET Take 1 tablet by mouth twice * BIOTIN 300 MCG TABLET Take 1 tablet by mouth once d* BLOOD SUGAR DIAGNOSTIC STRIPS Test blood sugar(s) 3- 4 times* BLOOD-GLUCOSE METER KIT 1 Each as directed. ATORVASTATIN 80 MG TABLET Take 1 tablet by mouth daily * HYDROCHLOROTHIAZIDE 12.5 MG C* Take 1 capsule by mouth once * CYCLOBENZAPRINE 10 MG TABLET Take 1 tablet by mouth twice * DULOXETINE 60 MG CAPSULE,APOLINAR* Take 2 capsules by mouth once* ASPIRIN 81 MG CHEWABLE TABLET Take 81 mg by mouth once keegan* SAFETY NEEDLES 25 GAUGE X 1 1* For use with DHE SODIUM CHLORIDE 0.9% FLUSH Access implanted vascular acc* HEPARIN LOCK FLUSH (PORCINE) * Access implanted vascular acc* SYRINGE WITH NEEDLE 3 ML 25 X* For DHE CYANOCOBALAMIN (VIT B-12) 1,0* Take 1 tablet by mouth once d* COENZYME Q10 100 MG CAPSULE Take 1 capsule by mouth twice* POTASSIUM 99 MG TABLET Take by mouth. SODIUM CHLORIDE 0.9% FLUSH Access implanted vascular acc* FISH OIL ORAL Take by mouth once daily. * LORAZEPAM 2 MG TABLET Take 1 tablet by mouth twice * Problem List As Of Date 04/10/2018 Noted Resolved ESOPHAGEAL REFLUX [K21.9] INVALID FOR* GENERALIZED ANXIETY DIS [F41.1] INVALID FOR* Impaired fasting glucose [R73.01] INVALID FOR*12/07/2011 Depression [F32.9] INVALID FOR* More... Calculus of kidney [N20.0] INVALID FOR*04/10/2018 UTI (Lower Urinary Tract Infection) [N39.0] INVALID FOR*12/30/2009 Insomnia [G47.00] INVALID FOR* Microalbuminuria [R80.9] INVALID FOR* Obstructive sleep apnea [G47.33] INVALID FOR* Abdominal pain, left upper quadrant [R10.12] INVALID FOR*04/10/2018 Innocent heart murmur INVALID FOR* Menorrhagia [N92.0] INVALID FOR*11/15/2012 Bacterial vaginitis [N76.0, B96.89] INVALID FOR*11/30/2013 Vaginitis [N76.0] INVALID FOR*11/30/2013 More... Diabetes mellitus due to underlying condition w*INVALID FOR* Willing to be liver donor [Z00.5] INVALID FOR* Intractable chronic migraine without aura [G43.*INVALID FOR* Exhausted vascular access [Z45.2] INVALID FOR* More... Endometriosis of peritoneum [N80.3] INVALID FOR* Morbid obesity with BMI of 50.0-59.9, adult (HC*INVALID FOR* OAB (overactive bladder) [N32.81] INVALID FOR* Hyperlipidemia [E78.5] INVALID FOR* More... HTN (hypertension) [I10] INVALID FOR* H. pylori infection [A04.8] INVALID FOR* Prescriptions ordered this encounter Disp Refills Start End LOSARTAN 50 MG TABLET 90 t* 0 04/10/2018 Route: ORAL Sig: Take 1 tablet by mouth once daily. Medications Discontinued During This Encounter Omeprazole 40 mg capsule 28 c* 3 04/03/2018 04/10/2018 Cmt: Maximum Refills Reached Sig: TAKE 1 CAPSULE BY MOUTH TWICE A DAY Disc: Reason for discontinue is not on file. fluconazole (DIFLUCAN) 150 mg tablet 2 ta* 0 03/13/2018 04/10/2018 Route: ORAL Sig: Take 1 tablet by mouth as directed. Take one tablet today and one at completion of antibiotic. Disc: Reason for discontinue is not on file. ciprofloxacin HCl (CIPRO) 500 mg tab* 10 t* 0 03/13/2018 04/10/2018 Route: ORAL Sig: Take 1 tablet by mouth twice daily. Disc: Reason for discontinue is not on file. promethazine (PHENERGAN) 25 mg/mL in* 5 mL 0 04/10/2018 04/10/2018 Class: In Office Sig: Give 25 mg IV daily for 3 days Disc: Reason for discontinue is not on file. valproate sodium (DEPACON) 500 mg/5 * 15 mL 0 04/10/2018 04/10/2018 Class: In Office Sig: DEPACON 500 mg IV in NS 50 ML OVER 20 MIN daily for 3 days Disc: Reason for discontinue is not on file. 0.9 % sodium chloride (NACL 0.9%) so* 1500* 0 04/10/2018 04/10/2018 Class: In Office Sig: INFUSE 500 CC IV NS IV OVER 30 MIN daily for 3 days Disc: Reason for discontinue is not on file. magnesium sulfate in 0.9% NaCl (MAGN* 150 * 0 04/10/2018 04/10/2018 Class: In Office Sig: INFUSE 1000 mg in NS 250 ML IV OVER 1 HOUR daily for 3 days Disc: Reason for discontinue is not on file. ARIPiprazole (ABILIFY) 2 mg tablet 04/10/2018 Class: Historical Med Route: ORAL Sig: Take 2 mg by mouth once daily. Disc: Discontinued by Patient losartan (COZAAR) 25 mg tablet 90 t* 3 11/14/2017 04/10/2018 Cmt: Maximum Refills Reached Route: ORAL Sig: TAKE 1 TABLET BY MOUTH ONCE DAILY. Disc: Reason for discontinue is not on file. Encounter Status:Closed by ASIYA TORRES CNP on 04/10/18 HOSP Observed: 04/10/2018 Status: COMPLETED Source: [place] 12:00 AM [facility] REPOSITORY Patient:Akin Adamson MRN: <[id number]> Height:5' 4(1.626 m) Weight:300 lb (136.079 kg) Outpatient Medications as of 05/02/18: 0.9 % sodium chloride (NACL 0.9%) solution 0.9% NaCl 0.9% NaCl aspirin 81 mg chewable tablet atorvastatin (LIPITOR) 80 mg tablet biotin 300 mcg tab blood sugar diagnostic (FREESTYLE LITE STRIPS) test strip Blood-Glucose Meter (FREESTYLE LITE METER) monitoring kit coenzyme Q10 (COQ-10) 100 mg cap capsule cyanocobalamin (VITAMIN B-12) 1,000 mcg tab cyclobenzaprine (FLEXERIL) 10 mg tablet dicyclomine (BENTYL) 20 mg tablet dihydroergotamine (D.H.E.45) 1 mg/mL injection DOCOSAHEXANOIC ACID/EPA (FISH OIL ORAL) dulaglutide (TRULICITY) 0.75 mg / 0.5 ml subcutaneous pen injector DULoxetine (CYMBALTA) 60 mg capsule erenumab-aooe (AIMOVIG AUTOINJECTOR) 70 mg/mL AutoInjector Filter [place] 19 X 1 ndle heparin 100 unit/mL syrg Hydrochlorothiazide 12.5 mg capsule JANUVIA 100 mg tablet Lancets (ONETOUCH ULTRASOFT LANCETS) lancets levETIRAcetam (KEPPRA) 250 mg tablet LORazepam (ATIVAN) 2 mg ORAL Tab losartan (COZAAR) 50 mg tablet magnesium sulfate in 0.9% NaCl (MAGNESIUM SULFATE IN NS) 1 gram/50 mL pgbk metFORMIN ER (GLUCOPHAGE XR) 500 mg 24 hr tablet naproxen (NAPROSYN) 500 mg tablet naratriptan (AMERGE) 2.5 mg tablet Omeprazole 40 mg capsule Potassium 99 mg tab promethazine (PHENERGAN) 25 mg tablet promethazine (PHENERGAN) 25 mg/mL injection Safety [place] (BD ECLIPSE LUER-OLYA) 25 gauge x 1 1/2 ndle Syringe with Needle, Disp, (BD LUER-OLYA SYRINGE) 3 mL 25 x 1 1/2 syrg valproate sodium (DEPACON) 500 mg/5 mL (100 mg/mL) injection Admission/Clinic Administered Medications as of 05/02/18: NaCl 0.9% iv infusion Problem List: Esophageal reflux [K21.9] Generalized anxiety disorder [F41.1] Depression [F32.9] Insomnia [G47.00] Microalbuminuria [R80.9] Obstructive sleep apnea [G47.33] Innocent heart murmur [] Diabetes mellitus due to underlying condition with diabetic neuropathy (HCC) [E08.40] Willing to be liver donor [Z00.5] Intractable chronic migraine without aura [G43.719] Exhausted vascular access [Z45.2] Endometriosis of peritoneum [N80.3] Morbid obesity with BMI of 50.0-59.9, adult (HCC) [E66.01, Z68.43] OAB (overactive bladder) [N32.81] Hyperlipidemia [E78.5] HTN (hypertension) [I10] H. pylori infection [A04.8] Allergies: Amoxil [Amoxicillin] Compazine [Prochlorperazine Edisylate] Flagyl [Metronidazole Hcl] Reglan [Metoclopramide Hcl] Simvastatin Toradol [Ketorolac] Zofran [Ondansetron Hcl (Pf)] Date Verified: 05/02/18 Lab Values No results within the last 30 days for the following basenames: K,HCT Progress Notes ([facility]): Irma Ernandez RN, RN 04/25/2018 12:57 PM Signed Sarah from infusion center is calling today and reports patient got her first dose of Migraine treatment (Magnesium, Valproate sodium, promethazine and sodium chloride). States patient reports she had side effects from it when she got home yesterday. Reports patient felt anxious, fidgeting, crawling out of her skin. States patient thinks these could be side effects from taking Valproate sodium. Patient's session for today was cancelled. Please advise if patient should continue with treatment. Please advise. Please call patient and nurse at [phone]. ALBERTA Ibrahim MD 04/25/2018 1:05 PM Signed She has had this medication before. Perhaps could change to Keppra if she would like another infusion. Irma Ernandez RN, RN 04/25/2018 3:33 PM Signed Called infusion center and spoke with Sarah. She states patient was insisting on getting treatment today. Patient received medication, but slower than usual and did ok. Patient will get another treatment tomorrow as scheduled. Progress Notes ([facility]): Asiya Torres APRN.HARRIS 04/24/2018 11:29 AM Signed HPI/CC: Akin Adamson is a 47 year old female who presents to the office today for HTN F/U. Patient reports decreased symptoms of CP and headache. Reports continued palpitations, fatigue and feeling hot. Patient denies any side effects of her medication(s) and is compliant with their regimen. Last 3 Encounter BP Readings: Date: BP: 04/24/2018 128/90 04/21/2018 154/96 04/10/2018 140/92 She watches her diet for sodium, low fat and low cholesterol some of the time. Having tilt table 04/26. REVIEW OF SYSTEMS: as above Reviewed relevant PMHx, PSHx, Social Hx, current medications and allergies. PHYSICAL EXAMINATION: BP 128/90 Pulse 100 Resp 16 Wt 136.1 kg (300 lb) LMP 03/06/2014 BMI 51.49 kg/m? General appearance: Well appearing, alert, in no acute distress, well-hydrated, well nourished. Skin: Skin color, texture, turgor normal, no suspicious rashes or lesions Lungs: Lungs clear to auscultation. No wheezing, rhonchi, rales Heart: RRR without murmur, gallop, or rubs. No ectopy ASSESSMENT/PLAN: 1. Essential hypertension - ICD9: 401.9, ICD10: I10 - suboptimal control - Will await tilt table- may consider adding a BB if remains tachy - f/u as scheduled Asiya Torres APRN.[facility] ED NOTE Observed: 04/07/2018 Status: COMPLETED Source: [place] 7:52 PM [facility] REPOSITORY HNO ID: [id number] Author: Radha ParhamRn) ALBERTA Coleman Service: Nursing Author Type: Registered Nurse Type: ED Notes Filed: 04/07/2018 7:53 PM Note Text: Reviewed DC instructions with patient and . No questions. Patient ambulated out on her own. ED PROV NOTE Observed: 04/07/2018 Status: COMPLETED Source: [place] 5:31 PM [facility] REPOSITORY HNO ID: [id number] Author: Jef Hutchinson) AUBREY Lara Service: (none) Author Type: Physician Assistant County Engineer Type: ED Provider Notes Filed: 04/07/2018 7:20 PM Note Text: ED Provider Note Patient Name: Akin Adasmon SERVICE DATE: 04/07/18 History Patient presents with: Headache 47-year-old female with history of hypertension, diabetes, anxiety, and migraines presents to the emergency department complaining of a migraine ?2 weeks. Patient states she's had intermittent migraines for the past 2 weeks, acutely worsening over the past 2 days. She describes the headache as a throbbing and pressure-like pain in the front and back of her head. She states is very typical of her migraines, just lasting longer than usual. She admits to associated photophobia, phonophobia, and nausea, which is also typical of her migraines. She does see neurology and takes daily medications for migraines, however they have not been working recently. She denies vomiting, vision changes, neck pain or stiffness, rash, fever, chills, cough, sore throat, rhinorrhea, lightheadedness, dizziness, syncope, recent fall or head injury. She is not on any anticoagulants or antiplatelets. PAST MEDICAL HISTORY Diagnosis Date - Anxiety - Depression - Diabetes mellitus (HCC) 2010 - H. pylori infection 09/2013 + H.Pylori - HTN (hypertension) - Hyperlipidemia 2010 fish oil, unable to tolerate statins - Menorrhagia - Migraines Dr. DiazNeurologist - Obstructive sleep apnea - PMH - PAST MEDICAL HISTORY OF Suicide attempt x2 as teenager - PUD (peptic ulcer disease) 2006 - Viral pneumonia, unspecified 2008 Pneumonia - Vitamin D deficiency PAST SURGICAL HISTORY Procedure Laterality Date - APPENDECTOMY 1979 - APPENDECTOMY HX - DELIVERY ONLY x 2 - CHOLECYSTECTOMY HX - COLONOSCOP W/ OR W/O BRSH SPEC 12/19/13 Colonoscopy - EGD W/O BRSH SPECIMEN W/BX 10/20/10 Gastritis, mild - EGD W/O OR W/BRUSH/WASH 12/19/13 EGD - HYSTERECTOMY HX - L'SCOPE REM ADNEX W/PART/TOT OOPH/SALP 02/09/16 laprascopic LSO, lysis of adhesions - LAPAROSCOPIC CHOLEYCYSTECTOMY 2005 [place]. - PICC LINE INSERT/CONSULT 02/28/2014 - THERMA CHOICE DEVICE 11/2011 - TLH W/T/O UTERUS OVER 250 G 04/02/14 LAVH, bilateral salpingectomy - TUBAL LIGATION, 2003 at time of c/s - TUNNEL VAD W SUB Q PORT >=5 01/20/15 left IJ FAMILY HISTORY Problem Relation Age of Onset - Diabetes Mother - Hypertension Mother - Lipids Mother - Psychiatry Mother depression, possibly bipolar. - Heart Father - Hypertension Father - Coronary Artery Disease Father 58 triple by-pass graph, [place] x 3 - other (Migraines [Other]) Father - Psychiatry Sister - Diabetes Sister - Diabetes Sister - Psychiatry Sister - GI Son Ulcerative colitis Social History Social History Main Topics - Smoking status: Never Smoker - Smokeless tobacco: Never Used - Alcohol use No - Drug use: No - Sexual activity: Yes Partners: Male control/ protection: Tubal Ligation Comment: thermachoice ALLERGIES Allergen Reactions - Amoxil [Amoxicillin] GI Upset - Compazine [Prochlor* Unknown - Flagyl [Metronidazo* Other: See Comments Headache - she is prone to migraines and flagyl sets it off every time she takes it. - Reglan [Metoclopram* Other: See Comments anxiety - Simvastatin Other: See Comments severe muscle aches - Toradol [Ketorolac] Rash - Zofran [Ondansetron* Other: See Comments Review of Systems Constitutional: Negative for chills, fatigue and fever. HENT: Negative for congestion, ear pain, rhinorrhea, sneezing and sore throat. Eyes: Positive for photophobia. Negative for redness and visual disturbance. Respiratory: Negative for cough and shortness of breath. Cardiovascular: Negative for chest pain and palpitations. Gastrointestinal: Positive for nausea. Negative for abdominal pain, constipation, diarrhea and vomiting. Genitourinary: Negative for difficulty urinating, dysuria, flank pain and frequency. Musculoskeletal: Negative for back pain, gait problem, neck pain and neck stiffness. Skin: Negative for rash. Neurological: Positive for headaches. Negative for dizziness, syncope, weakness, light-headedness and numbness. Psychiatric/Behavioral: Negative for confusion. Physical Exam BP 136/116 Pulse 117 Temp (Src) 98.4 (Oral) Resp 15 Ht 5' 4 (1.63m) Wt 298 lb (135.2kg) SpO2 97% LMP 03/06/2014 BMI 51.13 kg/(m2). Physical Exam Constitutional: She is oriented to person, place, and time. She appears well-developed and well-nourished. No distress. HENT: Head: Normocephalic and atraumatic. Mouth/Throat: Oropharynx is clear and moist. No oropharyngeal exudate. Eyes: Pupils are equal, round, and reactive to light. Conjunctivae and EOM are normal. Right eye exhibits no discharge. Left eye exhibits no discharge. No scleral icterus. Neck: Normal range of motion and full passive range of motion without pain. Neck supple. No neck rigidity. No Brudzinski's sign and no Kernig's sign noted. Cardiovascular: Normal rate, regular rhythm and normal heart sounds. Pulmonary/Chest: Effort normal and breath sounds normal. Musculoskeletal: Normal range of motion. She exhibits no edema. Neurological: She is alert and oriented to person, place, and time. Face symmetric, tongue midline; PERRLA b/l; speech is clear and in full unbroken sentences; normal finger nose testing; rapid alternating movements without dysdiadochokinesia; normal heel hernandez down; no ataxia noted with ambulation; no pronator drift noted; strength +5/5 and equall bilaterally; sensation intact and equal bilaterally. Skin: Skin is warm and dry. No rash noted. She is not diaphoretic. No erythema. No pallor. Nursing note and vitals reviewed. Diagnostic Testing ED Labs Ordered and Reviewed - No data to display Procedures ED Course / Clinical Impression Clinical Impressions as of Apr 07 1904 Migraine without aura and without status migrainosus, not intractable MDM / Disposition / Plan 47-year-old female with history of hypertension, diabetes, anxiety, and migraines presents to the emergency department complaining of a migraine ?2 weeks. Patient is hemodynamically stable, afebrile, well-appearing. Neurological exam is nonfocal. Remainder physical exam is largely unremarkable. Patient states this is very similar to her previous migraines, just lasting longer. In addition, her neurological exam is nonfocal and there is no recent history of trauma or head injury, so I don't feel that any brain imaging is warranted if we get her headache better in the emergency department. Very low suspicion for intracranial hemorrhage or stroke. Patient was given IV magnesium, Benadryl, Decadron, and 1000 cc normal saline bolus as well as oral Tylenol and Phenergan. She had significant improvement of her migraine nausea with these measures. Upon reassessment, patient states she is feeling much better. Neurological exam is still nonfocal. Patient will be discharged and follow up closely with her neurologist who she sees routinely. I also told her to try to make an appointment with the infusion center if her headache returns. She was advised to return to the emergency department for new or worsening signs or symptoms. The patient is amenable with this plan. Discharged in stable and improved condition. Medications NaCl 0.9% 1,000 mL iv bolus (1,000 mL INTRAVENOUS New Bag/Syringe/Bottle 04/07/181800) diphenhydrAMINE 25 mg injection (BENADRYL) (25 mg INTRAVENOUS Given 04/07/181803) magnesium sulfate in water 2 g in sterile water 50 ml (2 g INTRAVENOUS New Bag/Syringe/Bottle 04/07/181803) dexamethasone sodium phosphate 10 mg injection (DECADRON) (10 mg INTRAVENOUS Given 04/07/181803) acetaminophen 1,000 mg tab(s) (TYLENOL) (1,000 mg ORAL Given 04/07/181748) promethazine 25 mg tab(s) (PHENERGAN) (25 mg ORAL Given 04/07/181813) 1. Continue taking your current medications. 2. Follow-up with your neurologist within 1 week. 3. Return to ED for new or worsening signs or symptoms. The patient was DISCHARGED: Counseled patient regarding suspected diagnosis AND need for follow-up. Discharged home with verbal and written instructions. They were instructed to return as needed for persistent or worsening symptoms or any new concerns. Condition at time of disposition: improved and stable SIGNATURE: DANNY Red) AUBREY Lara 04/07/181919 ED NOTE Observed: 04/07/2018 Status: COMPLETED Source: [place] 5:09 PM [facility] REPOSITORY HNO ID: [id number] Author: Tresa ParhamRn) ALBERTA Rios Service: (none) Author Type: Registered Nurse Type: ED Notes Filed: 04/07/2018 5:09 PM Note Text: Patient advised by Dr Silva to come in for a headache lasting 2 weeks, 48 HR HOLTER MONITOR Observed: 03/27/2018 Status: F Source: [place] 1:36 PM [facility] REPOSIT[facility] IMPRESSIONS AND FINDINGS: Scanned 30-Mar-2018 The basic underlying rhythm is sinus with an average rate of 87 BPM, a minimum rate of 63 BPM and a maximum rate of 157 BPM. T achycardia was seen in 18% of the scan. There were 24 isolated premature atrial complexes and one atrial couplet. There was one atrial run which consisted of five shyanne ts at a rate of 106 BPM occurring at 17:35 on 28-Mar-2018. There were 673 isolated premature ventricular complexes and three ventricular couplets. The diary was not returned. Hookup Date: 20180327 Hookup Time: Recording Duration: 800959 S Minimum Heart Rate: 63 BPM Minimum Heart Rate Date/Time: 20180328043 Maximum Heart Rate: 157 BPM Maximum Heart Rate Date/Time: 20180327911 Average Heart Rate: 87 BPM Longest RR: 1.272 S Longest RR DATE/TIME: 20180328 QRS complexes: 923267 Ventricular Ectopics: 679 Ventricular Isolated Beats: 673 Ventricular Bigeminal Cycles: 0 Ventricular Couplets: 3 Ventricular Runs: 0 Ventricular Beats in Runs: 0 Supraventricular Ectopics: 31 Supraventricular Isolated Beats: 24 Supraventricular Couplets: 1 Supraventricular Runs: 1 Supraventricular Beats in Runs: 5 Longest Supraventricular Run Date/Time: 20180328 Fastest Supraventricular Run, Date/Time: 20180328 Maximum S-T Levels Channel 1: -12.800 mm Maximum S-T Levels Channel 1 Date/Time: 20180327600 Minimum S-T Levels Channel 1: -12.800 mm Minimum S-T Levels Channel 1 Date/Time: 20180327600 Maximum S-T Levels Channel 2: -12.800 mm Minimum S-T Levels Channel 2: -12.800 mm Minimum S-T Levels Channel 2 Date/Time: 20180327 Overreading Physician: JAYLAN FELTON MD See Holter MUSE for ECG strips. CORTISOL Collected: 03/14/2018 Status: F Source: [place] 3:08 PM [facility] REPOSITORY TYPE CODE TESTS RESULT OUT OF REFERENCE UNITS RANGE LAB COR ug/dL Cortisol 5.8 Result Comment: Cortisol Reference Range: AM = 5.3-22.5, PM = 3.4-16.8 Performed By: #### COR, HPYLRI #### [facility] [address], [place] [address] HELICO PYLORI AB Collected: 03/14/2018 Status: F Source: [place] 3:08 PM [facility] REPOSITORY TYPE CODE TESTS RESULT OUT OF RANGE REFERENCE UNITS LAB HPYLRL Negative Abnormal H. pylori Positive Alert IgG, Qual Result Comment: H. pylori IgG antibodies were detected in the sample. LAB HPYLR U/mL H pylori Ab, IgG 2.6 Result Comment: U/mL are interpreted as follows: Negative specimens <0.9 Indeterminate specimens >=0.9 to <1.1 Positive specimens >=1.1 Results were obtained with the IMMULITE 2000 H.pylori IgG EIA. Results obtained from other manufacturers' assay methods may not be used interchangeably. Performed By: #### COR, HPYLRI #### [facility] [address], [place] [id number] PROGRESS Observed: 03/14/2018 Status: COMPLETED Source: [place] 2:50 PM [facility] REPOSITORY HNO ID: [id number] Author: Asiya Wasserman (Process Server) Gaby Service: (none) Author Type: Nurse Practitioner Type: Progress Notes Filed: 03/14/2018 3:09 PM Note Text: HPI/CC: Akin Adamson is a 47 year old female who presents for blood sugars not well controlled right now; currently being treated for UTI and yeast infection by [facility] [employer]. Continues to experience elevated glucose levels (180-336 on monitor), excessive sweating, vomiting, extreme fatigue, difficulty with sleep, change in vision, palpitations, dizziness, increased GERD symptoms. Hx of H.Pylori- did not retest as recommended. Would like tested d/t symptoms of bad taste in back of her throat States that BG level in the 200's is too high for her- makes her feel awful Has attempted different antidiabetic medications with reported SE. ROS as above, otherwise non-contributory. Reviewed PMHx, PSHx, social Hx, medications and allergies. PHYSICAL EXAMINATION: BP 144/92 Pulse 80 Resp 16 Wt 135.6 kg (299 lb) LMP 03/06/2014 BMI 51.32 kg/m? General appearance: Well appearing, alert, in no acute distress, well-hydrated, well nourished. and Morbidly obese Skin: Skin color, texture, turgor normal, no suspicious rashes or lesions- diaphoretic ASSESSMENT/PLAN: 1. Diabetes mellitus due to underlying condition with diabetic neuropathy, without long-term current use of insulin ([facility]) - ICD9: 249.60, 357.2, ICD10: E08.40 (primary diagnosis) - DULAGLUTIDE 0.75 MG/0.5 ML SUBCUTANEOUS PEN INJECTOR 2. Palpitations - ICD9: 785.1, ICD10: R00.2 - CORTISOL BLD - HOLTER MONITOR 48 HOUR 3. Excessive sweating - ICD9: 780.8, ICD10: R61 - CORTISOL BLD 4. Symptoms of gastroesophageal reflux - ICD9: 787.99, ICD10: R19.8 - H PYLORI IGG AB Asiya Torres APRN.[facility]IS GODOY Observed: 03/14/2018 Status: COMPLETED Source: [place] 2:20 PM [facility] REPOSITORY Office Visit (FAMPWS) AKIN ADAMSON ([id number]) 1970 F Date Time Provider Department 03/14/18 2:20 PM ASIYA TORRES (HARRIS) MIRA During your visit today, we recorded the following information about you: Pulse Respiration Blood pressure Weight 80/minute 16/minute 144/92 135.6 kg Asiya Torres APRN.CNP 03/14/2018 3:09 PM Signed HPI/CC: Akin Adamson is a 47 year old female who presents for blood sugars not well controlled right now; currently being treated for UTI and yeast infection by [facility] [employer] [employer]ATOR. Continues to experience elevated glucose levels (180-336 on monitor), excessive sweating, vomiting, extreme fatigue, difficulty with sleep, change in vision, palpitations, dizziness, increased GERD symptoms. Hx of H.Pylori- did not retest as recommended. Would like tested d/t symptoms of bad taste in back of her throat States that BG level in the 200's is too high for her- makes her feel awful Has attempted different antidiabetic medications with reported SE. ROS as above, otherwise non-contributory. Reviewed PMHx, PSHx, social Hx, medications and allergies. PHYSICAL EXAMINATION: BP 144/92 Pulse 80 Resp 16 Wt 135.6 kg (299 lb) LMP 03/06/2014 BMI 51.32 kg/m? General appearance: Well appearing, alert, in no acute distress, well-hydrated, well nourished. and Morbidly obese Skin: Skin color, texture, turgor normal, no suspicious rashes or lesions- diaphoretic ASSESSMENT/PLAN: 1. Diabetes mellitus due to underlying condition with diabetic neuropathy, without long-term current use of insulin (HCC) - ICD9: 249.60, 357.2, ICD10: E08.40 (primary diagnosis) - DULAGLUTIDE 0.75 MG/0.5 ML SUBCUTANEOUS PEN INJECTOR 2. Palpitations - ICD9: 785.1, ICD10: R00.2 - CORTISOL BLD - HOLTER MONITOR 48 HOUR 3. Excessive sweating - ICD9: 780.8, ICD10: R61 - CORTISOL BLD 4. Symptoms of gastroesophageal reflux - ICD9: 787.99, ICD10: R19.8 - H PYLORI IGG AB Asiya Torres APRN.LINOLEUM LAYER Referring Provider: SELF [200] Allergies As of Date: 03/14/2018 Noted Allergy Reaction AMOXIL (AMOXICILLIN) 01/04/2014 8 - GI Upset COMPAZINE (PROCHLORPERAZINE EDISY*08/12/2008 16 - Unknown FLAGYL (METRONIDAZOLE HCL) 09/07/2012 14 - Other: See Comments Comments: Headache - she is prone to migraines and flagyl sets it off every time she takes it. REGLAN (METOCLOPRAMIDE HCL) 02/27/2014 14 - Other: See Comments Comments: anxiety SIMVASTATIN 04/27/2012 14 - Other: See Comments Comments: severe muscle aches TORADOL (KETOROLAC) 08/12/2008 2 - Rash ZOFRAN (ONDANSETRON HCL (PF)) 06/22/2013 14 - Other: See Comments Date Reviewed: 03/14/2018 Reviewed by: Kamran Adams LPN - Fully Assessed Reason for Visit: Acute Visit [896] Cmt: blood sugars not well controlled right now; currently being treated for UTI and yeast infection Primary Visit Diagnosis:Diabetes mellitus due to underlying condition with diabetic neuropathy, without long- term current use of insulin ([facility]) [E08.40] Other Visit Diagnoses:Palpitations [R00.2] Excessive sweating [R61] Symptoms of gastroesophageal reflux [R19.8] Order(s):dulaglutide (TRULICITY) 0.75 mg / 0.5 ml subcutaneous pen injectorInject 0.75 mg subcutaneously once each week.Disp: 4 PenRfl: 1 H PYLORI IGG AB [SQHPYLRI] Order #: [id number] FUTURE CORTISOL BLD [SQCOR] Order #: [id number] FUTURE HOLTER MONITOR 48 HOUR [9883271] Order #: [id number] FUTURE Prescriptions as of 03/14/2018 Sig: CIPROFLOXACIN 500 MG TABLET Take 1 tablet by mouth twice * FLUCONAZOLE 150 MG TABLET Take 1 tablet by mouth as dir* OMEPRAZOLE 40 MG CAPSULE,APOLINAR* TAKE 1 CAPSULE BY MOUTH DAILY ARIPIPRAZOLE 2 MG TABLET Take 2 mg by mouth once daily. FILTER NEEDLES 19 X 1 For use with DHE ERENUMAB-AOOE 70 MG/ML SUBCUT* Inject 70 mg subcutaneously o* DICYCLOMINE 20 MG TABLET TAKE 1 TABLET BY MOUTH BEFORE* METFORMIN ER 500 MG TABLET,EX* TAKE 2 TABLETS TWICE A DAY WI* LOSARTAN 25 MG TABLET TAKE 1 TABLET BY MOUTH ONCE D* NARATRIPTAN 2.5 MG TABLET Take 1 tablet by mouth as nee* LANCETS Use as instructed. Patient c* DIHYDROERGOTAMINE 1 MG/ML INJ* Inject 1 mg intramuscularly e* PROMETHAZINE 25 MG TABLET Take 1 tablet by mouth every * LEVETIRACETAM 250 MG TABLET Take 2 tablets QHS x1 week th* NAPROXEN 500 MG TABLET Take 1 tablet by mouth twice * BIOTIN 300 MCG TABLET Take 1 tablet by mouth once d* BLOOD SUGAR DIAGNOSTIC STRIPS Test blood sugar(s) 3- 4 times* BLOOD-GLUCOSE METER KIT 1 Each as directed. SITAGLIPTIN 100 MG TABLET Take 1 tablet by mouth once d* ATORVASTATIN 80 MG TABLET Take 1 tablet by mouth daily * HYDROCHLOROTHIAZIDE 12.5 MG C* Take 1 capsule by mouth once * CYCLOBENZAPRINE 10 MG TABLET Take 1 tablet by mouth twice * DULOXETINE 60 MG CAPSULE,APOLINAR* Take 2 capsules by mouth once* ASPIRIN 81 MG CHEWABLE TABLET Take 81 mg by mouth once keegan* SAFETY NEEDLES 25 GAUGE X 1 1* For use with DHE SODIUM CHLORIDE 0.9% FLUSH Access implanted vascular acc* HEPARIN LOCK FLUSH (PORCINE) * Access implanted vascular acc* SYRINGE WITH NEEDLE 3 ML 25 X* For DHE CYANOCOBALAMIN (VIT B-12) 1,0* Take 1 tablet by mouth once d* COENZYME Q10 100 MG CAPSULE Take 1 capsule by mouth twice* POTASSIUM 99 MG TABLET Take by mouth. SODIUM CHLORIDE 0.9% FLUSH Access implanted vascular acc* FISH OIL ORAL Take by mouth once daily. * LORAZEPAM 2 MG TABLET Take 1 tablet by mouth twice * DULAGLUTIDE 0.75 MG/0.5 ML PALUMBO* Inject 0.75 mg subcutaneously* Problem List As Of Date 03/14/2018 Noted Resolved ESOPHAGEAL REFLUX [K21.9] INVALID FOR* GENERALIZED ANXIETY DIS [F41.1] INVALID FOR* Impaired fasting glucose [R73.01] INVALID FOR*12/07/2011 Depression [F32.9] INVALID FOR* More... Morbid Obesity [E66.01] INVALID FOR* Abdominal Pain [R10.9] INVALID FOR* Calculus of Kidney [N20.0] INVALID FOR* UTI (Lower Urinary Tract Infection) [N39.0] INVALID FOR*12/30/2009 Insomnia [G47.00] INVALID FOR* Microalbuminuria [R80.9] INVALID FOR* Obstructive sleep apnea [G47.33] INVALID FOR* Sprain and strain of unspecified site of knee a*INVALID FOR* Lumbar sprain and strain [S33.5XXA] INVALID FOR* Abdominal pain, left upper quadrant [R10.12] INVALID FOR* Innocent heart murmur INVALID FOR* Diabetic neuropathy [E11.40] INVALID FOR* Diabetic nephropathy [E11.21] INVALID FOR* Menorrhagia [N92.0] INVALID FOR*11/15/2012 Migraines [G43.909] INVALID FOR* Bacterial vaginitis [N76.0, B96.89] INVALID FOR*11/30/2013 Vaginitis [N76.0] INVALID FOR*11/30/2013 More... Abnormal uterine bleeding [N93.9] INVALID FOR* Backache, unspecified [M54.9] INVALID FOR* Diabetes mellitus due to underlying condition w*INVALID FOR* Willing to be liver donor [Z00.5] INVALID FOR* Intractable chronic migraine without aura [G43.*INVALID FOR* Exhausted vascular access [Z45.2] INVALID FOR* Endometriosis of peritoneum [N80.3] INVALID FOR* Morbid obesity with BMI of 50.0-59.9, adult (HC*INVALID FOR* OAB (overactive bladder) [N32.81] INVALID FOR* Hyperlipidemia [E78.5] INVALID FOR* More... HTN (hypertension) [I10] INVALID FOR* Prescriptions ordered this encounter Disp Refills Start End DULAGLUTIDE 0.75 MG/0.5 ML SUBCUTANE* 4 Pen 1 03/14/2018 Route: SUBCUTANEOUS Sig: Inject 0.75 mg subcutaneously once each week. Encounter Status:Closed by ASIYA TORRES CNP on 03/14/18 Observed: 03/02/2018 Status: F Source: [place] URINE CULTURE 1:00 PM [facility] REPOSITORY Sp. Request/Comment: - Specimen received in preservative Culture Result - 50,000 - <100,000 CFU/ml Escherichia coli --> ABNORMAL ALERT ORGANISM: Escherichia coli METHOD: Minimum inhibitory concentration(Vitek) Antibiotic Interp RONALD Status Ampicillin RESISTANT >=32 F Gentamicin RESISTANT >=16 F Trimeth sulfameth RESISTANT >=320 F Cefazolin SUSCEPTIBLE <=4 F CLSI breakpoints for therapy of uncomplicated UTI's due to E.coli, K.pneumoniae, and P.mirabilis were applied and may be used to predict the activity of oral agents(cefaclor, cefdinir, cefpodoxime, cefp rozil, cefuroxime, cephalexin, loracarbef). Ciprofloxacin SUSCEPTIBLE <=0.25 F Nitrofurantoin SUSCEPTIBLE <=16 F Amikacin SUSCEPTIBLE <=2 F Tobramycin INTERMEDIATE 8 F Cefepime SUSCEPTIBLE <=1 F Piperacillin/Tazobac SUSCEPTIBLE <=4 F Ampicillin Sulbact INTERMEDIATE 16 F Ceftriaxone SUSCEPTIBLE <=1 F Meropenem SUSCEPTIBLE <=0.25 F Ertapenem SUSCEPTIBLE <=0.5 F Performed By: #### URCUL #### [facility] [employer] [place] [address] Observed: 03/01/2018 Status: F Source: [place] BACT/CAND VAG GRM ST 1:30 PM [facility] Sp. Request/Comment: - Swab Smear Result - BACTERIAL VAGINOSIS RESULT: Stain results consistent with normal vaginal adam. No Yeast observed No Polymorphonuclear Leukocytes Performed By: #### BVCNSM #### [facility] [employer] [place] [address] PROGRESS Observed: 03/01/2018 Status: COMPLETED Source: [place] 1:11 PM [facility] HNO ID: [id number] Author: Viri Jaurez Ma Service: (none) Author Type: (none) Type: Progress Notes Filed: 03/01/2018 3:05 PM Note Text: Would you like a post commander present for your visit today? No Viri Juarez Ma PROGRESS Observed: 03/01/2018 Status: COMPLETED Source: [place] 1:08 PM [facility] HNO ID: [id number] Author: Justyna Blackburn Service: (none) Author Type: Nurse Practitioner Type: Progress Notes Filed: 03/01/2018 3:05 PM Note Text: Akin Adamson is a 47 year old female who presents for problem visit Vaginal itching. HPI: Vaginal itching and vaginal irritation when up and walking. Has had creamy yellowish discharge with yeasty smell. Used Monistat 3 day earlier this week but still has symptoms. Has DM Type II and blood sugars have been high and has had yeast infections in the past with high sugars. Also has noticed urinary frequency for past 2 days. Denies back pain, fever or hematuria. Positive for nausea and chills during the night. Has had hysterectomy, is not sexually active. Used a medicated douche one week ago. PAST MEDICAL HISTORY Diagnosis Date - Anxiety - Depression - Diabetes mellitus (HCC) 2010 - H. pylori infection 09/2013 + H.Pylori - HTN (hypertension) - Hyperlipidemia 2010 fish oil, unable to tolerate statins - Menorrhagia - Migraines Dr. DiazNeurologist - Obstructive sleep apnea - PMH - PAST MEDICAL HISTORY OF Suicide attempt x2 as teenager - PUD (peptic ulcer disease) 2006 - Viral pneumonia, unspecified 2008 Pneumonia - Vitamin D deficiency PAST SURGICAL HISTORY Procedure Laterality Date - APPENDECTOMY 1979 - APPENDECTOMY HX - DELIVERY ONLY x 2 - CHOLECYSTECTOMY HX - COLONOSCOP W/ OR W/O BRSH SPEC 12/19/13 Colonoscopy - EGD W/O [facility] SPECIMEN W/BX 10/20/10 Gastritis, mild - EGD W/O OR W/BRUSH/WASH 12/19/13 EGD - HYSTERECTOMY HX - L'SCOPE REM ADNEX W/PART/TOT OOPH/SALP 02/09/16 laprascopic LSO, lysis of adhesions - LAPAROSCOPIC CHOLEYCYSTECTOMY 2005 [place]. - PICC LINE INSERT/CONSULT 02/28/2014 - THERMA CHOICE DEVICE 11/2011 - TLH W/T/O UTERUS OVER 250 G 04/02/14 LAVH, bilateral salpingectomy - TUBAL LIGATION, 2003 at time of c/s - TUNNEL VAD W SUB Q PORT >=5 01/20/15 left IJ FAMILY HISTORY Problem Relation Age of Onset - Diabetes Mother - Hypertension Mother - Lipids Mother - Psychiatry Mother depression, possibly bipolar. - Heart Father - Hypertension Father - Coronary Artery Disease Father 58 triple by-pass graph, [place] x 3 - other (Migraines [Other]) Father - Psychiatry Sister - Diabetes Sister - Diabetes Sister - Psychiatry Sister - GI Son Ulcerative colitis Social History Marital status: Spouse name: Years of education: 14 Number of children: 5 Occupational History Occupation Employer Comment homemaker Social History Main Topics Smoking status: Never Smoker Smokeless tobacco: Never Used Alcohol use: No Drug use: No Sexual activity: Yes Partners with: Male control/protection: Tubal Ligation Comment: thermachoice Social History Narrative 5 children- 3 sons, 2 daughters Current Outpatient Prescriptions: Omeprazole 40 mg capsule TAKE 1 CAPSULE BY MOUTH DAILY ARIPiprazole (ABILIFY) 2 mg tablet Take 2 mg by mouth once daily. Filter [place] 19 X 1 ndle For use with DHE erenumab-aooe (AIMOVIG AUTOINJECTOR) 70 mg/mL AutoInjector Inject 70 mg subcutaneously once every month. dicyclomine (BENTYL) 20 mg tablet TAKE 1 TABLET BY MOUTH BEFORE MEALS AND AT BEDTIME metFORMIN ER (GLUCOPHAGE XR) 500 mg 24 hr tablet TAKE 2 TABLETS TWICE A DAY WITH FOOD losartan (COZAAR) 25 mg tablet TAKE 1 TABLET BY MOUTH ONCE DAILY. naratriptan (AMERGE) 2.5 mg tablet Take 1 tablet by mouth as needed. for migraine.May repeat prn after 4 hours. Max 5 mg per 24 hours and do not take in same 24 hours as DHE Lancets (ONETOUCH ULTRASOFT LANCETS) lancets Use as instructed. Patient checks blood sugars 3 to 4 times per day. E08.40; Insulin: no dihydroergotamine (D.H.E.45) 1 mg/mL injection Inject 1 mg intramuscularly every 8 hours. As needed for migraine. Max use 3 days per week. Do not use within 25 hours of taking Amerge promethazine (PHENERGAN) 25 mg tablet Take 1 tablet by mouth every 4 hours as needed for Nausea/Vomiting. levETIRAcetam (KEPPRA) 250 mg tablet Take 2 tablets QHS x1 week then 1 tablet QHS x1 week then stop naproxen (NAPROSYN) 500 mg tablet Take 1 tablet by mouth twice daily as needed (for pain/inflammation). Take with food. biotin 300 mcg tab Take 1 tablet by mouth once daily. blood sugar diagnostic (FREESTYLE LITE STRIPS) test strip Test blood sugar(s) 3-4 times daily. Dx: Other DM Code E08.40 Insulin: Yes Blood-Glucose Meter (FREESTYLE LITE METER) monitoring kit 1 Each as directed. sitaGLIPtin (JANUVIA) 100 mg tablet Take 1 tablet by mouth once daily. atorvastatin (LIPITOR) 80 mg tablet Take 1 tablet by mouth daily at bedtime. For cholesterol. Hydrochlorothiazide 12.5 mg capsule Take 1 capsule by mouth once daily. cyclobenzaprine (FLEXERIL) 10 mg tablet Take 1 tablet by mouth twice daily as needed for Muscle Spasm. DULoxetine (CYMBALTA) 60 mg capsule Take 2 capsules by mouth once daily. aspirin 81 mg chewable tablet Take 81 mg by mouth once daily. Safety [place] (BD ECLIPSE LUER-OLYA) 25 gauge x 1 1/2 ndle For use with DHE 0.9% NaCl Access implanted vascular access device (IVAD) as needed for flush, blood draw or treatment.Flush IVAD with 10-20 mL NS every 4 weeks and PRN when IVAD not in use. heparin 100 unit/mL syrg Access implanted vascular access device (IVAD) as needed for flush, blood draw or treatment. Before de-accessing port, flush with 10-20ml normal saline and follow with 5 mL heparin (100 units/mL) (if no heparin allergy). De-access port on treatment completion. Syringe with Needle, Disp, (BD LUER-OLYA SYRINGE) 3 mL 25 x 1 1/2 syrg For DHE cyanocobalamin (VITAMIN B-12) 1,000 mcg tab Take 1 tablet by mouth once daily. coenzyme Q10 (COQ-10) 100 mg cap capsule Take 1 capsule by mouth twice daily. Potassium 99 mg tab Take by mouth. 0.9% NaCl Access implanted vascular access device (IVAD) as needed for flush, blood draw or treatment.Flush IVAD with 10-20 mL NS every 4 weeks and PRN when IVAD not in use. DOCOSAHEXANOIC ACID/EPA (FISH OIL ORAL) Take by mouth once daily. LORazepam (ATIVAN) 2 mg ORAL Tab Take 1 tablet by mouth twice daily as needed. Current Facility-Administered Medications: onabotulinum toxin type A 200 Units injection (BOTOX) 200 Units INTRAMUSCULAR q 3 MONTHS Allergies As of Date: 03/01/2018 Allergen Noted Reaction AMOXIL [AMOXICILLIN] 01/04/2014 GI Upset COMPAZINE [PROCHLORPERAZINE EDISY*08/12/2008 Unknown FLAGYL [METRONIDAZOLE HCL] 09/07/2012 Other: See Comments REGLAN [METOCLOPRAMIDE HCL] 02/27/2014 Other: See Comments SIMVASTATIN 04/27/2012 Other: See Comments TORADOL [KETOROLAC] 08/12/2008 Rash ZOFRAN [ONDANSETRON HCL (PF)] 06/22/2013 Other: See Comments Fully Assessed 02/27/2018 REVIEW OF SYSTEMS Abdomen: See HPI. No bloating, early satiety, indigestion, or increased flatulence. No abdominal pain, vomiting, diarrhea, or constipation. Bladder: See HPI Allergies and current medication updated:Yes EXAM: BP 138/88 Wt 296 lb (134.3kg) LMP 03/06/2014 GENERAL: pleasant, female in no apparent distress CHEST: Normal inspiratory effort ABDOMEN: soft, non-tender and no masses PELVIC: external genitalia normal, normal Bartholin's glands, urethra, [place]'s glands, no vulvar lesions, physiologic discharge present, normal appearing perineal body and perianal region, cervix surgically absent BIMANUAL: no adnexal masses, non-tender and uterus surgically absent NEURO: alert and oriented x3,exam grossly non-focal ASSESSMENT/PLAN: 1. Vagina itching - ICD9: 698.1, ICD10: N89.8 (primary diagnosis) - BACT/SHAKIRA VAG GRAM STAIN - RAPID BV B/O - negative 2. Urinary frequency - ICD9: 788.41, ICD10: R35.0 acute - UA positive for small jose alejandro esterase, trace hematuria, proteinuria - Send urine for culture - Begin treatment with Macrobid 100 mg BID for 5 days - Patient education for prevention given - UA DIP B/O - NITROFURANTOIN MONOHYDRATE AND MACROCRYSTAL 100 MG ORAL CAP - URINE CULTURE 3. Vaginal odor - ICD9: 625.8, ICD10: N89.8 - RAPID BV B/O - negative Will notify of test results. Follow-up as needed. Justyna Blackburn APRN.LINOLEUM LAYER CNOV Observed: 03/01/2018 Status: COMPLETED Source: [place] 1:00 PM [facility] Office Visit (WOOB) AKIN ADAMSON ([id number]) 1970 F Date Time Provider Department 03/01/18 1:00 PM JUSTYNA BLACKBURN (LINOLEUM LAYER) WOOB During your visit today, we recorded the following information about you: Blood pressure Weight 138/88 134.3 kg Justyna Blackburn APRN.CNP 03/01/2018 3:05 PM Signed Akin Adamson is a 47 year old female who presents for problem visit Vaginal itching. HPI: Vaginal itching and vaginal irritation when up and walking. Has had creamy yellowish discharge with yeasty smell. Used Monistat 3 day earlier this week but still has symptoms. Has DM Type II and blood sugars have been high and has had yeast infections in the past with high sugars. Also has noticed urinary frequency for past 2 days. Denies back pain, fever or hematuria. Positive for nausea and chills during the night. Has had hysterectomy, is not sexually active. Used a medicated douche one week ago. PAST MEDICAL HISTORY Diagnosis Date - Anxiety - Depression - Diabetes mellitus (HCC) 2010 - H. pylori infection 09/2013 + H.Pylori - HTN (hypertension) - Hyperlipidemia 2010 fish oil, unable to tolerate statins - Menorrhagia - Migraines Dr. DiazNeurologist - Obstructive sleep apnea - PMH - PAST MEDICAL HISTORY OF Suicide attempt x2 as teenager - PUD (peptic ulcer disease) 2006 - Viral pneumonia, unspecified 2008 Pneumonia - Vitamin D deficiency PAST SURGICAL HISTORY Procedure Laterality Date - APPENDECTOMY 1979 - APPENDECTOMY HX - DELIVERY ONLY x 2 - CHOLECYSTECTOMY HX - COLONOSCOP W/ OR W/O BRSH SPEC 12/19/13 Colonoscopy - EGD W/O BRSH SPECIMEN W/BX 10/20/10 Gastritis, mild - EGD W/O OR W/BRUSH/WASH 12/19/13 EGD - HYSTERECTOMY HX - L'SCOPE REM ADNEX W/PART/TOT OOPH/SALP 02/09/16 laprascopic LSO, lysis of adhesions - LAPAROSCOPIC CHOLEYCYSTECTOMY 2005 [place]. - PICC LINE INSERT/CONSULT 02/28/2014 - THERMA CHOICE DEVICE 11/2011 - TLH W/T/O UTERUS OVER 250 G 04/02/14 LAVH, bilateral salpingectomy - TUBAL LIGATION, 2003 at time of c/s - TUNNEL VAD W SUB Q PORT >=5 01/20/15 left IJ FAMILY HISTORY Problem Relation Age of Onset - Diabetes Mother - Hypertension Mother - Lipids Mother - Psychiatry Mother depression, possibly bipolar. - Heart Father - Hypertension Father - Coronary Artery Disease Father 58 triple by-pass graph, [place] x 3 - other (Migraines [Other]) Father - Psychiatry Sister - Diabetes Sister - Diabetes Sister - Psychiatry Sister - GI Son Ulcerative colitis Social History Marital status: Spouse name: Years of education: 14 Number of children: 5 Occupational History Occupation Employer Comment homemaker Social History Main Topics Smoking status: Never Smoker Smokeless tobacco: Never Used Alcohol use: No Drug use: No Sexual activity: Yes Partners with: Male control/protection: Tubal Ligation Comment: thermachoice Social History Narrative 5 children- 3 sons, 2 daughters Current Outpatient Prescriptions: Omeprazole 40 mg capsule TAKE 1 CAPSULE BY MOUTH DAILY ARIPiprazole (ABILIFY) 2 mg tablet Take 2 mg by mouth once daily. Filter [place] 19 X 1 ndle For use with DHE erenumab-aooe (AIMOVIG AUTOINJECTOR) 70 mg/mL AutoInjector Inject 70 mg subcutaneously once every month. dicyclomine (BENTYL) 20 mg tablet TAKE 1 TABLET BY MOUTH BEFORE MEALS AND AT BEDTIME metFORMIN ER (GLUCOPHAGE XR) 500 mg 24 hr tablet TAKE 2 TABLETS TWICE A DAY WITH FOOD losartan (COZAAR) 25 mg tablet TAKE 1 TABLET BY MOUTH ONCE DAILY. naratriptan (AMERGE) 2.5 mg tablet Take 1 tablet by mouth as needed. for migraine.May repeat prn after 4 hours. Max 5 mg per 24 hours and do not take in same 24 hours as DHE Lancets (ONETOUCH ULTRASOFT LANCETS) lancets Use as instructed. Patient checks blood sugars 3 to 4 times per day. E08.40; Insulin: no dihydroergotamine (D.H.E.45) 1 mg/mL injection Inject 1 mg intramuscularly every 8 hours. As needed for migraine. Max use 3 days per week. Do not use within 25 hours of taking Amerge promethazine (PHENERGAN) 25 mg tablet Take 1 tablet by mouth every 4 hours as needed for Nausea/Vomiting. levETIRAcetam (KEPPRA) 250 mg tablet Take 2 tablets QHS x1 week then 1 tablet QHS x1 week then stop naproxen (NAPROSYN) 500 mg tablet Take 1 tablet by mouth twice daily as needed (for pain/inflammation). Take with food. biotin 300 mcg tab Take 1 tablet by mouth once daily. blood sugar diagnostic (FREESTYLE LITE STRIPS) test strip Test blood sugar(s) 3-4 times daily. Dx: Other DM Code E08.40 Insulin: Yes Blood-Glucose Meter (FREESTYLE LITE METER) monitoring kit 1 Each as directed. sitaGLIPtin (JANUVIA) 100 mg tablet Take 1 tablet by mouth once daily. atorvastatin (LIPITOR) 80 mg tablet Take 1 tablet by mouth daily at bedtime. For cholesterol. Hydrochlorothiazide 12.5 mg capsule Take 1 capsule by mouth once daily. cyclobenzaprine (FLEXERIL) 10 mg tablet Take 1 tablet by mouth twice daily as needed for Muscle Spasm. DULoxetine (CYMBALTA) 60 mg capsule Take 2 capsules by mouth once daily. aspirin 81 mg chewable tablet Take 81 mg by mouth once daily. Safety [place] (BD ECLIPSE LUER-OLYA) 25 gauge x 1 1/2 ndle For use with DHE 0.9% NaCl Access implanted vascular access device (IVAD) as needed for flush, blood draw or treatment.Flush IVAD with 10-20 mL NS every 4 weeks and PRN when IVAD not in use. heparin 100 unit/mL syrg Access implanted vascular access device (IVAD) as needed for flush, blood draw or treatment. Before de-accessing port, flush with 10-20ml normal saline and follow with 5 mL heparin (100 units/mL) (if no heparin allergy). De-access port on treatment completion. Syringe with Needle, Disp, (BD LUER-OLYA SYRINGE) 3 mL 25 x 1 1/2 syrg For DHE cyanocobalamin (VITAMIN B-12) 1,000 mcg tab Take 1 tablet by mouth once daily. coenzyme Q10 (COQ-10) 100 mg cap capsule Take 1 capsule by mouth twice daily. Potassium 99 mg tab Take by mouth. 0.9% NaCl Access implanted vascular access device (IVAD) as needed for flush, blood draw or treatment.Flush IVAD with 10-20 mL NS every 4 weeks and PRN when IVAD not in use. DOCOSAHEXANOIC ACID/EPA (FISH OIL ORAL) Take by mouth once daily. LORazepam (ATIVAN) 2 mg ORAL Tab Take 1 tablet by mouth twice daily as needed. Current Facility-Administered Medications: onabotulinum toxin type A 200 Units injection (BOTOX) 200 Units INTRAMUSCULAR q 3 MONTHS Allergies As of Date: 03/01/2018 Allergen Noted Reaction AMOXIL [AMOXICILLIN] 01/04/2014 GI Upset COMPAZINE [PROCHLORPERAZINE EDISY*08/12/2008 Unknown FLAGYL [METRONIDAZOLE HCL] 09/07/2012 Other: See Comments REGLAN [METOCLOPRAMIDE HCL] 02/27/2014 Other: See Comments SIMVASTATIN 04/27/2012 Other: See Comments TORADOL [KETOROLAC] 08/12/2008 Rash ZOFRAN [ONDANSETRON HCL (PF)] 06/22/2013 Other: See Comments Fully Assessed 02/27/2018 REVIEW OF SYSTEMS Abdomen: See HPI. No bloating, early satiety, indigestion, or increased flatulence. No abdominal pain, vomiting, diarrhea, or constipation. Bladder: See HPI Allergies and current medication updated:Yes EXAM: BP 138/88 Wt 296 lb (134.3kg) LMP 03/06/2014 GENERAL: pleasant, female in no apparent distress CHEST: Normal inspiratory effort ABDOMEN: soft, non-tender and no masses PELVIC: external genitalia normal, normal Bartholin's glands, urethra, [place]'s glands, no vulvar lesions, physiologic discharge present, normal appearing perineal body and perianal region, cervix surgically absent BIMANUAL: no adnexal masses, non-tender and uterus surgically absent NEURO: alert and oriented x3,exam grossly non-focal ASSESSMENT/PLAN: 1. Vagina itching - ICD9: 698.1, ICD10: N89.8 (primary diagnosis) - BACT/SHAKIRA VAG GRAM STAIN - RAPID BV B/O - negative 2. Urinary frequency - ICD9: 788.41, ICD10: R35.0 acute - UA positive for small jose alejandro esterase, trace hematuria, proteinuria - Send urine for culture - Begin treatment with Macrobid 100 mg BID for 5 days - Patient education for prevention given - UA DIP B/O - NITROFURANTOIN MONOHYDRATE AND MACROCRYSTAL 100 MG ORAL CAP - URINE CULTURE 3. Vaginal odor - ICD9: 625.8, ICD10: N89.8 - RAPID BV B/O - negative Will notify of test results. Follow-up as needed. Justyna Blackburn APRN.LINOLEUM LAYER Viri Juarez Ma 03/01/2018 3:05 PM Signed Would you like a post commander present for your visit today? No Viri Juarez Ma Referring Provider: SELF [[id number]] Allergies As of Date: 03/01/2018 Noted Allergy Reaction AMOXIL (AMOXICILLIN) 01/04/2014 8 - GI Upset COMPAZINE (PROCHLORPERAZINE EDISY*08/12/2008 16 - Unknown FLAGYL (METRONIDAZOLE HCL) 09/07/2012 14 - Other: See Comments Comments: Headache - she is prone to migraines and flagyl sets it off every time she takes it. REGLAN (METOCLOPRAMIDE HCL) 02/27/2014 14 - Other: See Comments Comments: anxiety SIMVASTATIN 04/27/2012 14 - Other: See Comments Comments: severe muscle aches TORADOL (KETOROLAC) 08/12/2008 2 - Rash ZOFRAN (ONDANSETRON HCL (PF)) 06/22/2013 14 - Other: See Comments Date Reviewed: 03/01/2018 Reviewed by: Justyna (Zoe Blackburn - Fully Assessed Primary Visit Diagnosis:Vagina itching [N89.8] Other Visit Diagnoses:Urinary frequency [R35.0] Vaginal odor [N89.8] Order(s):BACT/SHAKIRA VAG GRAM STAIN [SQBVCNSM] Order #: [id number] FUTURE RAPID BV B/O [[id number]] Order #: [id number] UA DIP, URINE (POC) [[id number]] Order #: [id number]. #:[id number] nitrofurantoin monohydrate and macrocrystal (MACROBID) 100 mg capsuleTake 1 capsule by mouth twice daily for 5 days.Disp: 10 capsuleRfl: 0 URINE CULTURE [SQURCUL] Order #: [id number] Prescriptions as of 03/01/2018 Sig: OMEPRAZOLE 40 MG CAPSULE,APOLINAR* TAKE 1 CAPSULE BY MOUTH DAILY ARIPIPRAZOLE 2 MG TABLET Take 2 mg by mouth once daily. FILTER NEEDLES 19 X 1 For use with DHE ERENUMAB-AOOE 70 MG/ML SUBCUT* Inject 70 mg subcutaneously o* DICYCLOMINE 20 MG TABLET TAKE 1 TABLET BY MOUTH BEFORE* METFORMIN ER 500 MG TABLET,EX* TAKE 2 TABLETS TWICE A DAY WI* LOSARTAN 25 MG TABLET TAKE 1 TABLET BY MOUTH ONCE D* NARATRIPTAN 2.5 MG TABLET Take 1 tablet by mouth as nee* DIHYDROERGOTAMINE 1 MG/ML INJ* Inject 1 mg intramuscularly e* PROMETHAZINE 25 MG TABLET Take 1 tablet by mouth every * LEVETIRACETAM 250 MG TABLET Take 2 tablets QHS x1 week th* NAPROXEN 500 MG TABLET Take 1 tablet by mouth twice * BIOTIN 300 MCG TABLET Take 1 tablet by mouth once d* BLOOD SUGAR DIAGNOSTIC STRIPS Test blood sugar(s) 3- 4 times* BLOOD-GLUCOSE METER KIT 1 Each as directed. SITAGLIPTIN 100 MG TABLET Take 1 tablet by mouth once d* ATORVASTATIN 80 MG TABLET Take 1 tablet by mouth daily * HYDROCHLOROTHIAZIDE 12.5 MG C* Take 1 capsule by mouth once * CYCLOBENZAPRINE 10 MG TABLET Take 1 tablet by mouth twice * DULOXETINE 60 MG CAPSULE,APOLINAR* Take 2 capsules by mouth once* ASPIRIN 81 MG CHEWABLE TABLET Take 81 mg by mouth once keegan* SAFETY NEEDLES 25 GAUGE X 1 1* For use with DHE SODIUM CHLORIDE 0.9% FLUSH Access implanted vascular acc* HEPARIN LOCK FLUSH (PORCINE) * Access implanted vascular acc* SYRINGE WITH NEEDLE 3 ML 25 X* For DHE CYANOCOBALAMIN (VIT B-12) 1,0* Take 1 tablet by mouth once d* COENZYME Q10 100 MG CAPSULE Take 1 capsule by mouth twice* POTASSIUM 99 MG TABLET Take by mouth. SODIUM CHLORIDE 0.9% FLUSH Access implanted vascular acc* FISH OIL ORAL Take by mouth once daily. * LORAZEPAM 2 MG TABLET Take 1 tablet by mouth twice * NITROFURANTOIN MONOHYDRATE AND * Take 1 capsule by mouth twice* LANCETS Use as instructed. Patient c* Problem List As Of Date 03/01/2018 Noted Resolved ESOPHAGEAL REFLUX [K21.9] INVALID FOR* GENERALIZED ANXIETY DIS [F41.1] INVALID FOR* Impaired fasting glucose [R73.01] INVALID FOR*12/07/2011 Depression [F32.9] INVALID FOR* More... Morbid Obesity [E66.01] INVALID FOR* Abdominal Pain [R10.9] INVALID FOR* Calculus of Kidney [N20.0] INVALID FOR* UTI (Lower Urinary Tract Infection) [N39.0] INVALID FOR*12/30/2009 Insomnia [G47.00] INVALID FOR* Microalbuminuria [R80.9] INVALID FOR* Obstructive sleep apnea [G47.33] INVALID FOR* Sprain and strain of unspecified site of knee a*INVALID FOR* Lumbar sprain and strain [S33.5XXA] INVALID FOR* Abdominal pain, left upper quadrant [R10.12] INVALID FOR* Innocent heart murmur INVALID FOR* Diabetic neuropathy [E11.40] INVALID FOR* Diabetic nephropathy [E11.21] INVALID FOR* Menorrhagia [N92.0] INVALID FOR*11/15/2012 Migraines [G43.909] INVALID FOR* Bacterial vaginitis [N76.0, B96.89] INVALID FOR*11/30/2013 Vaginitis [N76.0] INVALID FOR*11/30/2013 More... Abnormal uterine bleeding [N93.9] INVALID FOR* Backache, unspecified [M54.9] INVALID FOR* Diabetes mellitus due to underlying condition w*INVALID FOR* Willing to be liver donor [Z00.5] INVALID FOR* Intractable chronic migraine without aura [G43.*INVALID FOR* Exhausted vascular access [Z45.2] INVALID FOR* Endometriosis of peritoneum [N80.3] INVALID FOR* Morbid obesity with BMI of 50.0-59.9, adult (HC*INVALID FOR* OAB (overactive bladder) [N32.81] INVALID FOR* Hyperlipidemia [E78.5] INVALID FOR* More... HTN (hypertension) [I10] INVALID FOR* Prescriptions ordered this encounter Disp Refills Start End NITROFURANTOIN MONOHYDRATE AND MACROCR* 10 c* 0 03/01/2018 03/06/2018 Route: ORAL Sig: Take 1 capsule by mouth twice daily for 5 days. Encounter Status:Closed by JUSTYNA BLACKBURN on 03/01/18 ALBUMIN/CREAT RATIO Collected: 02/27/2018 Status: F Source: [place] 10:[address] [facility] REPOSITORY TYPE CODE TESTS RESULT OUT OF REFERENCE UNITS RANGE LAB UCRR 20-300 mg/dL 139.8 Creatinine,Ur ine,Ran LAB UALBR 0.0-23.0 mg/L <12.0 Albumin Urine Random LAB UALBCR 0-30 mg/g Not Albumin/Creat calculated Ratio Performed By: #### UACR #### [facility] [address], [place] [address] BASIC METABOLIC PANL Collected: 02/27/2018 Status: F Source: [place] 10:[address] [facility] REPOSITORY TYPE CODE TESTS RESULT OUT OF REFERENCE UNITS RANGE LAB GLU 74-99 mg/dL High Glucose 171 Result Comment: The [place] [employer] (ADA) provides guidance for cutoff values for fasting glucose and random glucose. The ADA defines fasting as no caloric intake for at least 8 hours. Fas ting plasma glucose results between 100 to 125 mg/dL indicate increased risk for diabetes (prediabetes). Fasting plasma glucose results greater than or equal to 126 mg/dL meet the criteria for diagnosis of diabetes. In the absence of unequivocal hyperglycemia, results should be confirmed by repeat testing. In a patient with classic symptoms of hyperglycemia or hyperglycemic crisis, random plasma glucose results greater than or equal to 200 mg/dL meet the criteria for diagnosis of diabetes. Reference: Standards of Medical Care in Diabetes 2016, [place] [employer]. Diabetes Care. 2016.39(Suppl 1). LAB BUN 7-21 mg/dL BUN 13 LAB CRET 0.58-0.96 mg/dL Creatinine 0.79 LAB NA 136-144 mmol/L Sodium 140 LAB K 3.7-5.1 mmol/L Potassium 4.0 LAB CL 97-105 mmol/L Chloride 103 LAB CO2 22-30 mmol/L CO2 23 LAB AGAP 9-18 mmol/L Anion Gap 14 LAB CA 8.5-10.2 mg/dL Calcium, Total 8.8 LAB GFRAA eGFR- Amer. >60 LAB GFRNAA . eGFR-All Other Races >60 Result Comment: eGFR (Estimated GFR) Units of measure: mL/min/1.73 meters squared eGFR is derived from the reexpressed MDRD Study equation using the following parameters: serum creatinine, age, gender and race. The creatinine assay has been calibrated to be traceable to IDMS. An eGFR <60 mL/min/1.73m2 for >3 months is consistent with chronic kidney disease. Refer to KDOQI guidelines for clinical interpretation. In patients with unstable renal function, e.g. those with acute kidney injury, the eGFR may not accurately reflect actual GFR. Performed By: #### BMP, HBA1C #### [facility] [address], [place] [address] HEMOGLOBIN A1C Collected: 02/27/2018 Status: F Source: [place] 10:29 AM [facility] REPOSITORY TYPE CODE TESTS RESULT OUT OF REFERENCE UNITS RANGE LAB HGBA1C 4.3-5.6 % High Hemoglobin A1c 7.7 LAB HBA0 mg/dL Est. Average Glucose 174 Result Comment: eAG: (Estimated average glucose) is a calculated value from HgbA1c and is junior sales representative of the average blood glucose level in the last 2-3 month period. Performed By: #### BMP, HBA1C #### [facility] [address] [place], [place] [address] PROGRESS Observed: 02/27/2018 Status: COMPLETED Source: [place] 9:29 AM [facility] REPOSITORY HNO ID: [id number] Author: Asiya Wasserman (Process Server) Gaby Service: (none) Author Type: Nurse Practitioner Type: Progress Notes Filed: 02/27/2018 12:12 PM Note Text: HPI/CC: Akin Adamson is a 47 year old female who presents for high blood sugar readings, highest reading in the last few days was 261. Currently taking metformin 2 tablets BID, sitagliptin daily. Reports sweating, fever, nausea, vomiting x 3 timee in the last month, daytime fatigue, trouble falling asleep, blurred vision x 4 weeks. Has not routinely checked blood glucose levels. + Hx of severe BUD but not currently treated c/o migraine type headaches- sees Dr. Diaz Recently started on Abilify, concerned that this could be causing her BG to be elevated. Sees Dr. Chahal Last vision check in December, not dilated. Hemoglobin A1C (%) Date Value 07/05/2017 7.2 Hemoglobin A1C (POCT) (%) Date Value 02/27/2018 7.8 ROS as above, otherwise non-contributory. Reviewed PMHx, PSHx, social Hx, medications and allergies. PHYSICAL EXAMINATION: BP 120/82 Pulse 104 Resp 16 Wt 135.2 kg (298 lb) LMP 03/06/2014 BMI 51.15 kg/m? General appearance: Well appearing, alert, in no acute distress, well-hydrated, well nourished. Skin: Skin color, texture, turgor normal, no suspicious rashes or lesions Head: Normocephalic, no masses, lesions, tenderness or abnormalities Neck: Supple, no adenopathy; thyroid symmetric, normal size, no bruits Lungs: Lungs clear to auscultation. No wheezing, rhonchi, rales Heart: RRR without murmur, gallop, or rubs. No ectopy ASSESSMENT/PLAN: 1. Diabetes mellitus due to underlying condition with diabetic neuropathy, without long-term current use of insulin (HCC) - ICD9: 249.60, 357.2, ICD10: E08.40 (primary diagnosis) - check BG BID for the next 3 days- call office with results - keep dairy of symptoms - check BP daily and with symptoms. 2. BUD (obstructive sleep apnea) - ICD9: 327.23, ICD10: G47.33 - POLYSOMNOGRAM (PSG)/HOME SLEEP APNEA TESTING (HSAT) - f/u PRN and as scheduled. - patient ti f/u with Dr. Chahal for recommendations on Abilify. FALGUNI Oseguera Observed: 02/27/2018 Status: COMPLETED Source: [place] 9:20 AM [facility] REPOSITORY Office Visit (FAMPWS) AKIN ADAMSON ([id number]) 1970 F Date Time Provider Department 02/27/18 9:20 AM ASIYA TORRES (HARRIS) [facility] During your visit today, we recorded the following information about you: Pulse Respiration Blood pressure Weight 104/minute 16/minute 120/82 135.2 kg Asiya Torres APRN.CNP 02/27/2018 12:12 PM Signed HPI/CC: Akinkillian AltamiranoJuan Diego is a 47 year old female who presents for high blood sugar readings, highest reading in the last few days was 261. Currently taking metformin 2 tablets BID, sitagliptin daily. Reports sweating, fever, nausea, vomiting x 3 timee in the last month, daytime fatigue, trouble falling asleep, blurred vision x 4 weeks. Has not routinely checked blood glucose levels. + Hx of severe BUD but not currently treated c/o migraine type headaches- sees Dr. Diaz Recently started on Abilify, concerned that this could be causing her BG to be elevated. Sees Dr. Chahal Last vision check in December, not dilated. Hemoglobin A1C (%) Date Value 07/05/2017 7.2 Hemoglobin A1C (POCT) (%) Date Value 02/27/2018 7.8 ROS as above, otherwise non-contributory. Reviewed PMHx, PSHx, social Hx, medications and allergies. PHYSICAL EXAMINATION: BP 120/82 Pulse 104 Resp 16 Wt 135.2 kg (298 lb) LMP 03/06/2014 BMI 51.15 kg/m? General appearance: Well appearing, alert, in no acute distress, well-hydrated, well nourished. Skin: Skin color, texture, turgor normal, no suspicious rashes or lesions Head: Normocephalic, no masses, lesions, tenderness or abnormalities Neck: Supple, no adenopathy; thyroid symmetric, normal size, no bruits Lungs: Lungs clear to auscultation. No wheezing, rhonchi, rales Heart: RRR without murmur, gallop, or rubs. No ectopy ASSESSMENT/PLAN: 1. Diabetes mellitus due to underlying condition with diabetic neuropathy, without long-term current use of insulin (HCC) - ICD9: 249.60, 357.2, ICD10: E08.40 (primary diagnosis) - check BG BID for the next 3 days- call office with results - keep dairy of symptoms - check BP daily and with symptoms. 2. BUD (obstructive sleep apnea) - ICD9: 327.23, ICD10: G47.33 - POLYSOMNOGRAM (PSG)/HOME SLEEP APNEA TESTING (HSAT) - f/u PRN and as scheduled. - patient ti f/u with Dr. Chahal for recommendations on Abilify. Asiya Torres, INSULATION SUPERVISOR.LINOLEUM LAYER Referring Provider: SELF [[id number]] Allergies As of Date: 02/27/2018 Noted Allergy Reaction AMOXIL (AMOXICILLIN) 01/04/2014 8 - GI Upset COMPAZINE (PROCHLORPERAZINE EDISY*08/12/2008 16 - Unknown FLAGYL (METRONIDAZOLE HCL) 09/07/2012 14 - Other: See Comments Comments: Headache - she is prone to migraines and flagyl sets it off every time she takes it. REGLAN (METOCLOPRAMIDE HCL) 02/27/2014 14 - Other: See Comments Comments: anxiety SIMVASTATIN 04/27/2012 14 - Other: See Comments Comments: severe muscle aches TORADOL (KETOROLAC) 08/12/2008 2 - Rash ZOFRAN (ONDANSETRON HCL (PF)) 06/22/2013 14 - Other: See Comments Date Reviewed: 02/27/2018 Reviewed by: Kamran Adams LPN - Fully Assessed Reason for Visit: Acute Visit [896] Cmt: high blood sugar readings, highest reading in the last few days was 261; c/o migraine type headaches Primary Visit Diagnosis:Diabetes mellitus due to underlying condition with diabetic neuropathy, without long- term current use of insulin ([facility]) [E08.40] Other Visit Diagnosis:BUD (obstructive sleep apnea) [G47.33] Order(s):HEMOGLOBIN A1C (POC) [5407891] Order #: [id number]. #:[id number] POLYSOMNOGRAM (PSG)/HOME SLEEP APNEA TESTING (HSAT) [3600283] Order #: [id number] FUTURE Prescriptions as of 02/27/2018 Sig: OMEPRAZOLE 40 MG CAPSULE,APOLINAR* TAKE 1 CAPSULE BY MOUTH DAILY ARIPIPRAZOLE 2 MG TABLET Take 2 mg by mouth once daily. FILTER NEEDLES 19 X 1 For use with DHE ERENUMAB-AOOE 70 MG/ML SUBCUT* Inject 70 mg subcutaneously o* DICYCLOMINE 20 MG TABLET TAKE 1 TABLET BY MOUTH BEFORE* METFORMIN ER 500 MG TABLET,EX* TAKE 2 TABLETS TWICE A DAY WI* LOSARTAN 25 MG TABLET TAKE 1 TABLET BY MOUTH ONCE D* NARATRIPTAN 2.5 MG TABLET Take 1 tablet by mouth as nee* LANCETS Use as instructed. Patient c* DIHYDROERGOTAMINE 1 MG/ML INJ* Inject 1 mg intramuscularly e* PROMETHAZINE 25 MG TABLET Take 1 tablet by mouth every * LEVETIRACETAM 250 MG TABLET Take 2 tablets QHS x1 week th* NAPROXEN 500 MG TABLET Take 1 tablet by mouth twice * BIOTIN 300 MCG TABLET Take 1 tablet by mouth once d* BLOOD SUGAR DIAGNOSTIC STRIPS Test blood sugar(s) 3- 4 times* BLOOD-GLUCOSE METER KIT 1 Each as directed. SITAGLIPTIN 100 MG TABLET Take 1 tablet by mouth once d* ATORVASTATIN 80 MG TABLET Take 1 tablet by mouth daily * HYDROCHLOROTHIAZIDE 12.5 MG C* Take 1 capsule by mouth once * CYCLOBENZAPRINE 10 MG TABLET Take 1 tablet by mouth twice * DULOXETINE 60 MG CAPSULE,APOLINAR* Take 2 capsules by mouth once* ASPIRIN 81 MG CHEWABLE TABLET Take 81 mg by mouth once keegan* SAFETY NEEDLES 25 GAUGE X 1 1* For use with DHE SODIUM CHLORIDE 0.9% FLUSH Access implanted vascular acc* HEPARIN LOCK FLUSH (PORCINE) * Access implanted vascular acc* SYRINGE WITH NEEDLE 3 ML 25 X* For DHE CYANOCOBALAMIN (VIT B-12) 1,0* Take 1 tablet by mouth once d* COENZYME Q10 100 MG CAPSULE Take 1 capsule by mouth twice* POTASSIUM 99 MG TABLET Take by mouth. SODIUM CHLORIDE 0.9% FLUSH Access implanted vascular acc* FISH OIL ORAL Take by mouth once daily. * LORAZEPAM 2 MG TABLET Take 1 tablet by mouth twice * Problem List As Of Date 02/27/2018 Noted Resolved ESOPHAGEAL REFLUX [K21.9] INVALID FOR* GENERALIZED ANXIETY DIS [F41.1] INVALID FOR* Impaired fasting glucose [R73.01] INVALID FOR*12/07/2011 Depression [F32.9] INVALID FOR* More... Morbid Obesity [E66.01] INVALID FOR* Abdominal Pain [R10.9] INVALID FOR* Calculus of Kidney [N20.0] INVALID FOR* UTI (Lower Urinary Tract Infection) [N39.0] INVALID FOR*12/30/2009 Insomnia [G47.00] INVALID FOR* Microalbuminuria [R80.9] INVALID FOR* Obstructive sleep apnea [G47.33] INVALID FOR* Sprain and strain of unspecified site of knee a*INVALID FOR* Lumbar sprain and strain [S33.5XXA] INVALID FOR* Abdominal pain, left upper quadrant [R10.12] INVALID FOR* Innocent heart murmur INVALID FOR* Diabetic neuropathy [E11.40] INVALID FOR* Diabetic nephropathy [E11.21] INVALID FOR* Menorrhagia [N92.0] INVALID FOR*11/15/2012 Migraines [G43.909] INVALID FOR* Bacterial vaginitis [N76.0, B96.89] INVALID FOR*11/30/2013 Vaginitis [N76.0] INVALID FOR*11/30/2013 More... Abnormal uterine bleeding [N93.9] INVALID FOR* Backache, unspecified [M54.9] INVALID FOR* Diabetes mellitus due to underlying condition w*INVALID FOR* Willing to be liver donor [Z00.5] INVALID FOR* Intractable chronic migraine without aura [G43.*INVALID FOR* Exhausted vascular access [Z45.2] INVALID FOR* Endometriosis of peritoneum [N80.3] INVALID FOR* Morbid obesity with BMI of 50.0-59.9, adult (HC*INVALID FOR* OAB (overactive bladder) [N32.81] INVALID FOR* Hyperlipidemia [E78.5] INVALID FOR* More... HTN (hypertension) [I10] INVALID FOR* Encounter Status:Closed by ASIYA TORRES CNP on 02/27/18 ED NOTE Observed: 02/25/2018 Status: COMPLETED Source: [place] 8:49 AM [facility] HNO ID: [id number] Author: Elvia ParhamRn) ALBERTA Potter Service: (none) Author Type: Registered Nurse Type: ED Notes Filed: 02/25/2018 8:50 AM Note Text: Pt states headache is completely gone. Discharge instructions given via teach back, verbalized good understanding. D/C v/s done. Port flushed with heparin flush and deaccessed. Home with driving. ED PROV NOTE Observed: 02/25/2018 Status: COMPLETED Source: [place] 5:50 AM [facility] HNO ID: [id number] Author: Nneka Hernández MD Service: (none) Author Type: Physician Type: ED Provider Notes Filed: 02/25/2018 7:15 AM Note Text: ED Provider Note Patient Name: Akin Adamson SERVICE DATE: 02/25/18 History Patient presents with: Headache Arm Pain: x2 days Ms. Adamson is a pleasant 47-year-old female presenting with headaches about half the days of the month and an ongoing way, following with Dr. Diaz, now with worsening headaches for the last month or so. She has been calling to try to get in with Dr. Diaz, but has not been able, and doesn't have an appointment for about a month. She gets vision changes occasionally when her migraines become more intense, as she has now. She also endorses photophobia and phonophobia. She has some mild nausea. She tells me she did not use her DHE today, but has been using it. She has been using her home Phenergan. She denies any fevers or chills. She feels that she does when she needs IV cocktail here. She also incidentally notes some sharp or tingling left posterior upper arm pain between her shoulder and her elbow, over the region covering her triceps muscle, for about 2 days, coming and going, without an injury, certainly worse when she moves in certain positions and gone when she moves in certain positions. It is worse when she drives. She denies any chest pain or trouble breathing or diaphoresis. PAST MEDICAL HISTORY Diagnosis Date - Anxiety - Depression - Diabetes mellitus (HCC) 2010 - H. pylori infection 09/2013 + H.Pylori - HTN (hypertension) - Hyperlipidemia 2010 fish oil, unable to tolerate statins - Menorrhagia - Migraines Dr. DiazNeurologist - Obstructive sleep apnea - PMH - PAST MEDICAL HISTORY OF Suicide attempt x2 as teenager - PUD (peptic ulcer disease) 2006 - Viral pneumonia, unspecified 2008 Pneumonia - Vitamin D deficiency PAST SURGICAL HISTORY Procedure Laterality Date - APPENDECTOMY 1979 - APPENDECTOMY HX - DELIVERY ONLY x 2 - CHOLECYSTECTOMY HX - COLONOSCOP W/ OR W/O [facility] SPEC 12/19/13 Colonoscopy - EGD W/O [facility] SPECIMEN W/BX 10/20/10 Gastritis, mild - EGD W/O OR W/BRUSH/WASH 12/19/13 EGD - HYSTERECTOMY HX - L'SCOPE REM ADNEX W/PART/TOT OOPH/SALP 02/09/16 laprascopic LSO, lysis of adhesions - LAPAROSCOPIC CHOLEYCYSTECTOMY 2005 [place]. - PICC LINE INSERT/CONSULT 02/28/2014 - THERMA CHOICE DEVICE 11/2011 - TLH W/T/O UTERUS OVER 250 G 04/02/14 LAVH, bilateral salpingectomy - TUBAL LIGATION, 2004 at time of c/s - TUNNEL VAD W SUB Q PORT >=5 01/20/15 left IJ FAMILY HISTORY Problem Relation Age of Onset - Diabetes Mother - Hypertension Mother - Lipids Mother - Psychiatry Mother depression, possibly bipolar. - Heart Father - Hypertension Father - Coronary Artery Disease Father 58 triple by-pass graph, [place] x 3 - other (Migraines [Other]) Father - Psychiatry Sister - Diabetes Sister - Diabetes Sister - Psychiatry Sister - GI Son Ulcerative colitis Social History Social History Main Topics - Smoking status: Never Smoker - Smokeless tobacco: Never Used - Alcohol use No - Drug use: No - Sexual activity: Yes Partners: Male control/ protection: Tubal Ligation Comment: thermachoice ALLERGIES Allergen Reactions - Amoxil [Amoxicillin] GI Upset - Compazine [Prochlor* Unknown - Flagyl [Metronidazo* Other: See Comments Headache - she is prone to migraines and flagyl sets it off every time she takes it. - Reglan [Metoclopram* Other: See Comments anxiety - Simvastatin Other: See Comments severe muscle aches - Toradol [Ketorolac] Rash - Zofran [Ondansetron* Other: See Comments Review of Systems Constitutional: Negative for chills and fever. HENT: Negative for ear pain, rhinorrhea and sore throat. Eyes: Positive for photophobia. Negative for visual disturbance. Respiratory: Negative for cough and shortness of breath. Cardiovascular: Negative for chest pain and leg swelling. Gastrointestinal: Positive for nausea. Negative for abdominal pain, diarrhea and vomiting. Genitourinary: Negative for dysuria, flank pain, frequency and hematuria. Musculoskeletal: Positive for myalgias. Negative for arthralgias and back pain. Skin: Negative for rash. Neurological: Positive for numbness and headaches. Negative for speech difficulty, weakness and light-headedness. Psychiatric/Behavioral: Negative for hallucinations and suicidal ideas. Physical Exam BP 137/93 Pulse 107 Temp (Src) 98.4 (Oral) Resp 20 Ht 5' 4 (1.63m) Wt 301 lb 5.9 oz (136.7kg) SpO2 97% LMP 03/06/2014 BMI 51.70 kg/(m2). Physical Exam Constitutional: She is oriented to person, place, and time. No distress. Young woman in no distress, though appearance c/w migraine HENT: Head: Normocephalic and atraumatic. Mouth/Throat: No oropharyngeal exudate. Eyes: Pupils are equal, round, and reactive to light. Neck: Normal range of motion. Neck supple. No tracheal deviation present. No meningismus - can turn neck w/out problems Cardiovascular: Normal rate and intact distal pulses. Exam reveals no gallop and no friction rub. No murmur heard. Pulmonary/Chest: Effort normal and breath sounds normal. No respiratory distress. She has no wheezes. She has no rales. Abdominal: Soft. Bowel sounds are normal. She exhibits no distension. There is no tenderness. There is no rebound and no guarding. Musculoskeletal: Normal range of motion. She exhibits no edema. Neurological: She is alert and oriented to person, place, and time. No cranial nerve deficit. She exhibits normal muscle tone. FNF intact bilaterally no dysmetria Skin: Skin is warm and dry. No erythema. Psychiatric: She has a normal mood and affect. Her behavior is normal. Judgment and thought content normal. Nursing note and vitals reviewed. Diagnostic Testing ED Labs Ordered and Reviewed - No data to display Procedures ED Course / Clinical Impression Clinical Impressions as of Feb 25 713 Headache, unspecified headache type MDM / Disposition / Plan Course: Vital signs were reviewed. Triage records were reviewed. Medical records were reviewed. Nursing notes were reviewed and incorporated. Intravenous fluids were given. The following medications were administered: Keppra 500 mg IV, Phenergan 50 mg IM (out of IV), Magnesium 1 g IV, DHE 0.5 mg IV, Benadryl 25 mg IV (all what has helped before). ECG reviewed and interpreted as NSR @ 92 bpm no STEMI normal intervals and axis Medical Decision Making: Ddx: Migraine, tension NUNO, clinically not c/w SAH or meningitis; w/ respect to L arm tingling, ? Cervical radiculopathy, clinically unlikely ACS as ECG very reassuring and symptoms very atypical, reproduced by certain motions and cured by certain positions. Assessment and plan: Ms. Adamson is a pleasant 47-year-old female presenting with ongoing migraine related discomfort as well as some left trapezius area discomfort that is positional. Her ECG is reassuring. We're treating her with her usual variety of medications for her migraine. We will reassess her after. Feeling much better on recheck. Will d/c home w/ close f/u, return if worse. She is comfortable and happy w/ our plan. The attending who evaluated and managed this patient was Nneka Hernández . Plan: The patient was discharged home with verbal and written instructions. They were instructed to return as needed for persistent or worsening symptoms or any new concerns. Consent: A procedure or transfusion was performed - No Nneka Hernández MD SIGNATURE: MD Nneka Avila MD 02/25/18 0715 EKG Observed: 02/25/2018 Status: F Source: [place] 5:43 AM [facility] REPOSITORY NAME : AKIN ADAMSON PID : [id number] : 1970 Gender : Female Race : ORD : [id number] Procedure Date : Feb 25 2018 05:43:44 Edit Date : Feb 25 2018 08:58:53 Diagnosis:NORMAL SINUS RHYTHM NORMAL ECG WHEN COMPARED WITH ECG OF 02-SEP-2014 15:41, NO SIGNIFICANT CHANGE WAS FOUND Confirmed by MD HERNÁNDEZ EDWARD.S ([id number]), development editor Antonia Munoz ([id number]) on 02/25/2018 8:58:46 AM Ventricular Rate : 92 BPM Atrial Rate : 92 BPM P-R Interval : 130 ms QRS Duration : 76 ms Q-T Interval : 380 ms QTC Calculation(Bezet) : 469 ms P [place] : 65 degrees R [place] : 20 degrees T [place] : 26 degrees Test Reason : Arrhythmia Location : 1 : ER ED Overread By : MD EDGAR,NNEKA.S Edited By : Antonia Munoz Referred By : , Acquired by : EDD DU NOTE Observed: 02/25/2018 Status: COMPLETED Source: [place] 5:34 AM [facility] REPOSITORY HNO ID: [id number] Author: Cely (Rn) ALBERTA Du Service: Nursing Author Type: Registered Nurse Type: ED Notes Filed: 02/25/2018 5:37 AM Note Text: Dr Hernández at bedside to assess pt. ED NOTE Observed: 02/25/2018 Status: COMPLETED Source: [place] 5:14 AM [facility] REPOSITORY HNO ID: [id number] Author: Cely Centeno) ALBERTA Du Service: Nursing Author Type: Registered Nurse Type: ED Notes Filed: 02/25/2018 5:39 AM Note Text: Plan of care -Monitor Patient's Vital Signs for changes in condition -Monitor patient for changes in pain -Maintain patient safety and privacy -Provide comfort measures -Call light in place Siderails up, bed in locked and low position ED NOTE Observed: 02/25/2018 Status: COMPLETED Source: [place] 5:[address] [facility] REPOSITORY HNO ID: [id number] Author: Cely ParhamRn) ALBERTA Du Service: Nursing Author Type: Registered Nurse Type: ED Notes Filed: 02/25/2018 5:13 AM Note Text: Pt c/o sharp L arm pain x2 days that comes and goes (denies injury), and migraine for a week and a half with visual disturbances, blurred vision. Sensitivity to light and sound. Treated at home emerge and DHE with no relief. +NV per pt. PROGRESS Observed: 01/11/2018 Status: COMPLETED Source: [place] 1:[address] [facility] [place] HNO ID: [id number] Author: Susie Diaz Service: (none) Author Type: Physician Type: Progress Notes Filed: 01/12/2018 7:47 AM Note Text: Neurology Follow-up Visit ASSESSMENT: 47 year old female with history significant for DM, with chronic migraine with more than 15 headache days per month. She has tried and failed or not tolerated multiple migraine preventive medications. Botox has been helpful in reducing frequency and severity of migraines but it does not last. Repeated Botox injections today with same regimen. Continue current preventive therapies. Discussed addition of Aimovig +/- continuing Botox. There is no medical contraindication to using both Botox and Aimovig together but both not covered by some insurance plans. If Aimovig is effective for her then may last better than Botox but cannot predict if it will work as well as Botox has. DHE has been very helpful for her for acute therapy, significantly reduced ED visits and outpatient infusions. She can continue this and Amerge since her cardiac workup was negative. Knows not to use both in same 24 hours. ? PLAN:?? --->?Acute Treatment:?? -DHE, Phenergan ? - Amerge - Keppra x2 weeks ?? --->?Preventive Treatment:?? - continue Cymbalta, Zonegran - Botox today - add Aimovig. Discussed administration. She is comfortable since already self-administers DHE. ? --->?Follow-up: 3 months Interval Hx: Headaches are bad but injections are late. Last injection started working at week 3. Afterwards worked well until 2 weeks ago when it wore off. In the ED a few times for migraines that DHE was not helping. Once given morphine then got rebound headache. Happy with Botox when it is working. After it starts working she is migraine free for 1.5 months. Gets blurry vision on the right side with migraines. Insurance will only give 5 doses of DHE per month. Current Outpatient Prescriptions: ARIPiprazole (ABILIFY) 2 mg tablet Take 2 mg by mouth once daily. dicyclomine (BENTYL) 20 mg tablet TAKE 1 TABLET BY MOUTH BEFORE MEALS AND AT BEDTIME metFORMIN ER (GLUCOPHAGE XR) 500 mg 24 hr tablet TAKE 2 TABLETS TWICE A DAY WITH FOOD losartan (COZAAR) 25 mg tablet TAKE 1 TABLET BY MOUTH ONCE DAILY. naratriptan (AMERGE) 2.5 mg tablet Take 1 tablet by mouth as needed. for migraine.May repeat prn after 4 hours. Max 5 mg per 24 hours and do not take in same 24 hours as DHE Omeprazole 40 mg capsule TAKE 1 CAPSULE BY MOUTH DAILY Lancets (ONETOUCH ULTRASOFT LANCETS) lancets Use as instructed. Patient checks blood sugars 3 to 4 times per day. E08.40; Insulin: no dihydroergotamine (D.H.E.45) 1 mg/mL injection Inject 1 mg intramuscularly every 8 hours. As needed for migraine. Max use 3 days per week. Do not use within 25 hours of taking Amerge Filter [place] 19 X 1 ndle For use with DHE promethazine (PHENERGAN) 25 mg tablet Take 1 tablet by mouth every 4 hours as needed for Nausea/Vomiting. levETIRAcetam (KEPPRA) 250 mg tablet Take 2 tablets QHS x1 week then 1 tablet QHS x1 week then stop naproxen (NAPROSYN) 500 mg tablet Take 1 tablet by mouth twice daily as needed (for pain/inflammation). Take with food. biotin 300 mcg tab Take 1 tablet by mouth once daily. blood sugar diagnostic (FREESTYLE LITE STRIPS) test strip Test blood sugar(s) 3-4 times daily. Dx: Other DM Code E08.40 Insulin: Yes Blood-Glucose Meter (FREESTYLE LITE METER) monitoring kit 1 Each as directed. sitaGLIPtin (JANUVIA) 100 mg tablet Take 1 tablet by mouth once daily. atorvastatin (LIPITOR) 80 mg tablet Take 1 tablet by mouth daily at bedtime. For cholesterol. Hydrochlorothiazide 12.5 mg capsule Take 1 capsule by mouth once daily. cyclobenzaprine (FLEXERIL) 10 mg tablet Take 1 tablet by mouth twice daily as needed for Muscle Spasm. DULoxetine (CYMBALTA) 60 mg capsule Take 2 capsules by mouth once daily. aspirin 81 mg chewable tablet Take 81 mg by mouth once daily. Safety [place] (BD ECLIPSE LUER-OLYA) 25 gauge x 1 1/2 ndle For use with DHE 0.9% NaCl Access implanted vascular access device (IVAD) as needed for flush, blood draw or treatment.Flush IVAD with 10-20 mL NS every 4 weeks and PRN when IVAD not in use. heparin 100 unit/mL syrg Access implanted vascular access device (IVAD) as needed for flush, blood draw or treatment. Before de-accessing port, flush with 10-20ml normal saline and follow with 5 mL heparin (100 units/mL) (if no heparin allergy). De-access port on treatment completion. Syringe with Needle, Disp, (BD LUER-OLYA SYRINGE) 3 mL 25 x 1 1/2 syrg For DHE cyanocobalamin (VITAMIN B-12) 1,000 mcg tab Take 1 tablet by mouth once daily. coenzyme Q10 (COQ-10) 100 mg cap capsule Take 1 capsule by mouth twice daily. Potassium 99 mg tab Take by mouth. 0.9% NaCl Access implanted vascular access device (IVAD) as needed for flush, blood draw or treatment.Flush IVAD with 10-20 mL NS every 4 weeks and PRN when IVAD not in use. DOCOSAHEXANOIC ACID/EPA (FISH OIL ORAL) Take by mouth once daily. LORazepam (ATIVAN) 2 mg ORAL Tab Take 1 tablet by mouth twice daily as needed. Current Facility-Administered Medications: onabotulinum toxin type A 200 Units injection (BOTOX) 200 Units INTRAMUSCULAR q 3 MONTHS Exam: BP 145/111 (BP Site: Left Arm, BP Position: Sitting, BP Cuff Size: Large Adult) Pulse 114 Resp 18 Ht 162.6 cm (5' 4) Wt 132 kg (291 lb) LMP 03/06/2014 SpO2 100% BMI 49.95 kg/m? GEN: Alert. NAD. Normal affect. Cooperative. ?? NEUROLOGICAL: ? MENTAL STATUS: ? A+O x 3. Attentive. Thought process and content unremarkable. Follows commands appropriately. Speech fluent. ?? CN: II: Pupils equal III, IV, : EOMI. No ptosis present. VII: Face symmetric. ?? CEREBELLAR: ? No ataxia or nystagmus. ?? GAIT: ? Stable primary gait. [facility] Neurotoxin Visit Date: January 11, 2018 Name: Akin Adamson Historical/ Initial Dose Diagnosis: chronic intractable migraine Date of Diagnosis:11/20/2012 Date of 1st Treatment: 07/09/2014 Type of Neurotoxin: Botox: J0585 Total amount injected: 155?units What other treatments have been tried and failed: Medications Zonegran, Keppra, Cymbalta, amitriptyline, Depakote, Topamax, propranolol Estimated Duration of treatment: Will reassess after 1year Frequency of treatment: 90days Last Injection Notes Date of last Injection:09/29/2017 Type of Neurotoxin: Botox: J0585 Total amount injected: 200 units Dilution: NS 2:1 Administered with EMG guidance: No Assessment Functional limitations (current): 2(moderate) Pain (current): Yes (location)head Effectiveness of last injection:90% when effective Wearing off since last treatment: lasts 1.5 months Side effects related to last injection: None Time Out: INFORMED CONSENT Akin Adamson Medical Record: [id number] Procedure: Botulinum toxin injection The risks, benefits and anticipated outcomes of the procedure, the risks and benefits of the alternatives to the procedure and the roles and tasks of the personnel to be involved were discussed with the patient and the patient consents to the procedure and agrees to proceed. I verify that I personally obtained Akin Adamson's consent. Susie Diaz MD January 11, 2018 1:42 PM Dept of NEUROLOGY UNIVERSAL PROTOCOL / SAFETY CHECKLIST Sign in Communication: Completed Time Out: Team Confirms the Correct Patient, Correct Procedure, Correct Site and Site Marking, Correct Position (if applicable), Prep and Dry Time (if applicable). Time: 1440 Affirmation of Time Out: YES Sign Out Discussion: Completed Susie Diaz MD Current Injection Note Type of Neurotoxin: Botox: J0585 Total Amount drawn up: 200 units Total amount injected: 200 units Total amount wasted: 0 units Dilution: NS 2:1 Administered with EMG guidance: No Injection Site: Muscle??? Right??? Left??? # of Injection Sites Per Side?? Total Units?? Hammerer Helper ? 5 ? 5 ? 1 ? 10 ? Procerus ? 1 midline (5u) ? 5 ? Frontalis ? 10 ? 10 ? 2 ? 20 ? Temporalis ? 25 20 ? 4 ? 40 ? Occipitalis/Sub ? 30 ? 20 ? 3 ? 45 ? Cervical PSPs ? 15 ? 15 ? 2 ? 30 ? Trapezius ? 20 ? 20 ? 3 ? 40 ? Lot#: [id number] Exp Date05/2020 Lot#: [id number] Exp Date07/2020 Future plan of care: Follow up: 3 months Neurotoxin Change: No Dose Change: No Susie Diaz M.D. [facility] [place] Department [facility] cc: SELF Chau Flores DO [address] [place] [address] JAYNE Observed: 01/11/2018 Status: COMPLETED Source: [place] 1:20 PM [facility] REPOSITORY Office Visit (NEURMM) AKIN ADAMSON ([id number]) 1970 F Date Time Provider Department 01/11/18 1:20 PM SUSIE DIAZ During your visit today, we recorded the following information about you: Pulse Respiration Blood pressure Weight 114/minute 18/minute 145/111 132 kg Height 1.626 m Susie Diaz MD 01/12/2018 7:47 AM Signed Neurology Follow-up Visit ASSESSMENT: 47 year old female with history significant for DM, with chronic migraine with more than 15 headache days per month. She has tried and failed or not tolerated multiple migraine preventive medications. Botox has been helpful in reducing frequency and severity of migraines but it does not last. Repeated Botox injections today with same regimen. Continue current preventive therapies. Discussed addition of Aimovig +/- continuing Botox. There is no medical contraindication to using both Botox and Aimovig together but both not covered by some insurance plans. If Aimovig is effective for her then may last better than Botox but cannot predict if it will work as well as Botox has. DHE has been very helpful for her for acute therapy, significantly reduced ED visits and outpatient infusions. She can continue this and Amerge since her cardiac workup was negative. Knows not to use both in same 24 hours. ? PLAN:?? --->?Acute Treatment:?? -DHE, Phenergan ? - Amerge - Keppra x2 weeks ?? --->?Preventive Treatment:?? - continue Cymbalta, Zonegran - Botox today - add Aimovig. Discussed administration. She is comfortable since already self-administers DHE. ? --->?Follow-up: 3 months Interval Hx: Headaches are bad but injections are late. Last injection started working at week 3. Afterwards worked well until 2 weeks ago when it wore off. In the ED a few times for migraines that DHE was not helping. Once given morphine then got rebound headache. Happy with Botox when it is working. After it starts working she is migraine free for 1.5 months. Gets blurry vision on the right side with migraines. Insurance will only give 5 doses of DHE per month. Current Outpatient Prescriptions: ARIPiprazole (ABILIFY) 2 mg tablet Take 2 mg by mouth once daily. dicyclomine (BENTYL) 20 mg tablet TAKE 1 TABLET BY MOUTH BEFORE MEALS AND AT BEDTIME metFORMIN ER (GLUCOPHAGE XR) 500 mg 24 hr tablet TAKE 2 TABLETS TWICE A DAY WITH FOOD losartan (COZAAR) 25 mg tablet TAKE 1 TABLET BY MOUTH ONCE DAILY. naratriptan (AMERGE) 2.5 mg tablet Take 1 tablet by mouth as needed. for migraine.May repeat prn after 4 hours. Max 5 mg per 24 hours and do not take in same 24 hours as DHE Omeprazole 40 mg capsule TAKE 1 CAPSULE BY MOUTH DAILY Lancets (ONETOUCH ULTRASOFT LANCETS) lancets Use as instructed. Patient checks blood sugars 3 to 4 times per day. E08.40; Insulin: no dihydroergotamine (D.H.E.45) 1 mg/mL injection Inject 1 mg intramuscularly every 8 hours. As needed for migraine. Max use 3 days per week. Do not use within 25 hours of taking Amerge Filter [place] 19 X 1 ndle For use with DHE promethazine (PHENERGAN) 25 mg tablet Take 1 tablet by mouth every 4 hours as needed for Nausea/Vomiting. levETIRAcetam (KEPPRA) 250 mg tablet Take 2 tablets QHS x1 week then 1 tablet QHS x1 week then stop naproxen (NAPROSYN) 500 mg tablet Take 1 tablet by mouth twice daily as needed (for pain/inflammation). Take with food. biotin 300 mcg tab Take 1 tablet by mouth once daily. blood sugar diagnostic (FREESTYLE LITE STRIPS) test strip Test blood sugar(s) 3-4 times daily. Dx: Other DM Code E08.40 Insulin: Yes Blood-Glucose Meter (FREESTYLE LITE METER) monitoring kit 1 Each as directed. sitaGLIPtin (JANUVIA) 100 mg tablet Take 1 tablet by mouth once daily. atorvastatin (LIPITOR) 80 mg tablet Take 1 tablet by mouth daily at bedtime. For cholesterol. Hydrochlorothiazide 12.5 mg capsule Take 1 capsule by mouth once daily. cyclobenzaprine (FLEXERIL) 10 mg tablet Take 1 tablet by mouth twice daily as needed for Muscle Spasm. DULoxetine (CYMBALTA) 60 mg capsule Take 2 capsules by mouth once daily. aspirin 81 mg chewable tablet Take 81 mg by mouth once daily. Safety [place] (BD ECLIPSE LUER-OLYA) 25 gauge x 1 1/2 ndle For use with DHE 0.9% NaCl Access implanted vascular access device (IVAD) as needed for flush, blood draw or treatment.Flush IVAD with 10-20 mL NS every 4 weeks and PRN when IVAD not in use. heparin 100 unit/mL syrg Access implanted vascular access device (IVAD) as needed for flush, blood draw or treatment. Before de-accessing port, flush with 10-20ml normal saline and follow with 5 mL heparin (100 units/mL) (if no heparin allergy). De-access port on treatment completion. Syringe with Needle, Disp, (BD LUER-OLYA SYRINGE) 3 mL 25 x 1 1/2 syrg For DHE cyanocobalamin (VITAMIN B-12) 1,000 mcg tab Take 1 tablet by mouth once daily. coenzyme Q10 (COQ-10) 100 mg cap capsule Take 1 capsule by mouth twice daily. Potassium 99 mg tab Take by mouth. 0.9% NaCl Access implanted vascular access device (IVAD) as needed for flush, blood draw or treatment.Flush IVAD with 10-20 mL NS every 4 weeks and PRN when IVAD not in use. DOCOSAHEXANOIC ACID/EPA (FISH OIL ORAL) Take by mouth once daily. LORazepam (ATIVAN) 2 mg ORAL Tab Take 1 tablet by mouth twice daily as needed. Current Facility-Administered Medications: onabotulinum toxin type A 200 Units injection (BOTOX) 200 Units INTRAMUSCULAR q 3 MONTHS Exam: BP 145/111 (BP Site: Left Arm, BP Position: Sitting, BP Cuff Size: Large Adult) Pulse 114 Resp 18 Ht 162.6 cm (5' 4) Wt 132 kg (291 lb) LMP 03/06/2014 SpO2 100% BMI 49.95 kg/m? GEN: Alert. NAD. Normal affect. Cooperative. ?? NEUROLOGICAL: ? MENTAL STATUS: ? A+O x 3. Attentive. Thought process and content unremarkable. Follows commands appropriately. Speech fluent. ?? CN: II: Pupils equal III, IV, : EOMI. No ptosis present. VII: Face symmetric. ?? CEREBELLAR: ? No ataxia or nystagmus. ?? GAIT: ? Stable primary gait. [facility] Neurotox[facility] Visit Date: January 11, 2018 Name: Akin Adamson Historical/ Initial Dose Diagnosis: chronic intractable migraine Date of Diagnosis:11/20/2012 Date of 1st Treatment: 07/09/2014 Type of Neurotoxin: Botox: J0585 Total amount injected: 155?units What other treatments have been tried and failed: Medications Zonegran, Keppra, Cymbalta, amitriptyline, Depakote, Topamax, propranolol Estimated Duration of treatment: Will reassess after 1year Frequency of treatment: 90days Last Injection Notes Date of last Injection:09/29/2017 Type of Neurotoxin: Botox: J0585 Total amount injected: 200 units Dilution: NS 2:1 Administered with EMG guidance: No Assessment Functional limitations (current): 2(moderate) Pain (current): Yes (location)head Effectiveness of last injection:90% when effective Wearing off since last treatment: lasts 1.5 months Side effects related to last injection: None Time Out: INFORMED CONSENT Akin Adamson Medical Record: [id number] Procedure: Botulinum toxin injection The risks, benefits and anticipated outcomes of the procedure, the risks and benefits of the alternatives to the procedure and the roles and tasks of the personnel to be involved were discussed with the patient and the patient consents to the procedure and agrees to proceed. I verify that I personally obtained Akin Adamson's consent. Susie Diaz MD January 11, 2018 1:42 PM Dept of NEUROLOGY UNIVERSAL PROTOCOL / SAFETY CHECKLIST Sign in Communication: Completed Time Out: Team Confirms the Correct Patient, Correct Procedure, Correct Site and Site Marking, Correct Position (if applicable), Prep and Dry Time (if applicable). Time: 1440 Affirmation of Time Out: YES Sign Out Discussion: Completed Susie Diaz MD Current Injection Note Type of Neurotoxin: Botox: J0585 Total Amount drawn up: 200 units Total amount injected: 200 units Total amount wasted: 0 units Dilution: NS 2:1 Administered with EMG guidance: No Injection Site: Muscle??? Right??? Left??? # of Injection Sites Per Side?? Total Units?? Hammerer Helper ? 5 ? 5 ? 1 ? 10 ? Procerus ? 1 midline (5u) ? 5 ? Frontalis ? 10 ? 10 ? 2 ? 20 ? Temporalis ? 25 20 ? 4 ? 40 ? Occipitalis/Sub ? 30 ? 20 ? 3 ? 45 ? Cervical PSPs ? 15 ? 15 ? 2 ? 30 ? Trapezius ? 20 ? 20 ? 3 ? 40 ? Lot#: [id number] Exp Date05/2020 Lot#: [id number] Exp Date07/2020 Future plan of care: Follow up: 3 months Neurotoxin Change: No Dose Change: No Susie Diaz M.D. [facility] [place] Department [facility] cc: SELF Chau Wasserman Flores, [address] [place] [address] Susie Diaz MD 01/11/2018 2:02 PM Signed Headache Preventive Treatment: *Please keep in mind that it takes 4-6 weeks for the medication to start working well and 2-3 months at the appropriate dose before deciding if it will be useful or not. If it is not helping at all by this time, then we will discuss other medications to try. Supplements may take 3-6 months until you see full effect. - Recommend adding Magnesium 500 mg daily +/- Coenzyme Q10 200 mg (or 150 mg) twice daily +/- Riboflavin (Vitamin B2) 400 mg daily (or 200 mg twice daily). You can sometimes buy supplements cheaper (especially Coenzyme Q10) at [employer] or at [employer]. General Headache Instructions: 1) Maintain a headache diary; learn to identify and avoid triggers. 2) Limit use of acute treatments (jkpg-[id number] medications, triptans, etc.) to no more than 2 days per week or 10 days per month to prevent medication overuse headache (rebound headache). 3) Follow a regular schedule (including weekends and holidays) for the next 6 weeks: A) Don't skip meals. B) 8 hours of sleep nightly. C) Avoid the following common headache triggers: -Caffeine (coffee, chocolate, tea, cola/pop/soda (7-up, Sprite, Ophelia Mist, Ellie Natalia, Mug/A+W Root Beer, [place], Slice are okay)) -Foods containing nitrates (deli meat, ham, villanueva, sausage, hot dogs) -Tyramine (aged cheese; can only have Peruvian cheese, cottage cheese, Velveeta and fresh mozarella (most pizza uses aged mozarella)) -MSG ([place]/ foods, Doritos, all flavored chips and Ramen noodles) -Nutrasweet and artificial sweeteners D) Minimize stress. E) Exercise 30 minutes per day. F) Keep well hydrated and drink 6-8 glasses of water per day. 4) Initiate non-pharmacologic measures at the earliest onset of your headache. A) Rest and quiet in a cool, dark environment. B) Relax and reduce stress. C) Cold compress to head (place a dry washcloth to forehead, cover with a blue freezer packet and use a headband to press the freezer packet across the forehead and temples). 5) Don't wait!! Take the maximum allowable dosage of prescribed medication at the very earliest sign of headache. 6) Compliance: Take prescribed medication regularly as directed and at the first sign of a headache. 7) Communicate: Call your physician when problems arise, especially if your headaches change, increase in frequency/severity, or become associated with neurological symptoms (weakness, numbness, slurred speech, etc.). 8) Headache/pain management therapies: Consider various complementary methods, including medication, behavioral therapy, psychological counselling, biofeedback, massage therapy, acupuncture, and other modalities. Such measures may reduce the need for medications. Counseling for pain management, where patients learn to function and ignore/minimize their pain, seems to work very well. Vitamins and herbs that show potential for migraine prevention: Magnesium: Magnesium (250 mg twice a day or 500 mg at bed) has a relaxant effect on smooth muscles such as blood vessels. We often give intravenous magnesium to patients who come into the emergency department for migraine because it helps to break the migraine. Three trials found 40-90% average headache reduction when used as a preventative. Magnesium also demonstrated the benefit in menstrually related migraine. Magnesium is part of the messenger system in the serotonin cascade and it is a good muscle relaxant. It is also useful for constipation which can be a side effect of other medications used to treat migraine. Good sources include nuts, whole grains, and tomatoes. Coenzyme Q10: This is present in almost all cells in the body and is critical component for the conversion of energy. Recent studies have shown that a nutritional supplement of CoQ10 can reduce the frequency of migraine attacks by improving the energy production of cells as with riboflavin. Doses of 200 mg (or 150 mg) twice a day have been shown to be effective. Riboflavin (Vitamin B2): 200 mg twice a day (or 400 mg daily). This vitamin assists nerve cells in the production of ATP, a principal energy storing molecule. It is necessary for many chemical reactions in the body. There have been at least 3 clinical trials of riboflavin using 400 mg per day all of which suggested that migraine frequency can be decreased. All 3 trials showed significant improvement in over half of migraine sufferers. The supplement is found in bread, cereal, milk, meat, and poultry. Most Americans get more riboflavin than the recommended daily allowance, however riboflavin deficiency is not necessary for the supplements to help prevent headache. Feverfew: Feverfew is a common garden herb [place] and popular in [facility] as a treatment for disorders typically controlled by aspirin. The mechanism of action is unknown but is believed to be related to a chemical called parthenolide which helps the body use serotonin more effectively. Serotonin helps prevent migraine and assists with resolution when it occurs. Parthenolide also inhibits the release of histamine which is linked to pain and inflammation. Consistency of active ingredients in different products can be a problem. Some formulations don't have the active ingredient (parthenolide) that prevents migraine. A parthenolide content of 0.2% is generally recommended. Typical dosage is one capsule 3 times a day. Butterbur: This is an extract derived from the petisides hybridus root, which has been used for medicinal purposes since ancient times. A recent study found that 75 mg daily given over 4 months reduced headache frequency by 50% or more in over two thirds of the 245 patient studied. The 50 mg dose showed no significant effect. Side effects were infrequent, and the most common and unusual includes burping/belching. Raw butterbur root contains toxic chemicals that must be filtered out during the manufacturing process. To be sure you are choosing a safe product. Look for a formulation that does not contain pyrrolizidine alkaloids which are toxic to the liver. Melatonin: Increasing evidence shows correlation between melatonin secretion and headache conditions. Melatonin supplementation has shown decreased headache intensity and duration. It is widely used as a sleep aid. Sleep is nature's way of dealing with migraine. A dose of 3 mg is recommended to start for headaches including cluster headache. Higher doses up to 15 mg has been reviewed for use in Cluster headache and have been used. The rationale behind using melatonin for cluster is that many theories regarding the cause of Cluster headache center around the disruption of the normal circadian rhythm in the brain. This helps restore the normal circadian rhythm. It should be taken at least 2 hours before bedtime. Ellie: Ellie has a small amount of anti-histamine and anti-inflammatory action which may help headache. It is primarily used for nausea and may aid in the absorption of other medications. Referring Provider: SELF [200] Allergies As of Date: 01/11/2018 Noted Allergy Reaction AMOXIL (AMOXICILLIN) 01/04/2014 8 - GI Upset COMPAZINE (PROCHLORPERAZINE EDISY*08/12/2008 16 - Unknown FLAGYL (METRONIDAZOLE HCL) 09/07/2012 14 - Other: See Comments Comments: Headache - she is prone to migraines and flagyl sets it off every time she takes it. REGLAN (METOCLOPRAMIDE HCL) 02/27/2014 14 - Other: See Comments Comments: anxiety SIMVASTATIN 04/27/2012 14 - Other: See Comments Comments: severe muscle aches TORADOL (KETOROLAC) 08/12/2008 2 - Rash ZOFRAN (ONDANSETRON HCL (PF)) 06/22/2013 14 - Other: See Comments Date Reviewed: 01/11/2018 Reviewed by: Janine Tineo MA - Fully Assessed Reason for Visit: Established Patient [175] Botox Injection [373] Primary Visit Diagnosis:Intractable chronic migraine without aura and without status migrainosus [G43.719] Order(s):Filter [place] 19 X 1 ndleFor use with DHEDisp: 30 EachRfl: 2 erenumab-aooe (AIMOVIG AUTOINJECTOR) 70 mg/mL AutoInjectorInject 70 mg subcutaneously once every month.Disp: 1 EachRfl: 5 Prescriptions as of 01/11/2018 Sig: ARIPIPRAZOLE 2 MG TABLET Take 2 mg by mouth once daily. FILTER NEEDLES 19 X 1 For use with DHE DICYCLOMINE 20 MG TABLET TAKE 1 TABLET BY MOUTH BEFORE* METFORMIN ER 500 MG TABLET,EX* TAKE 2 TABLETS TWICE A DAY WI* LOSARTAN 25 MG TABLET TAKE 1 TABLET BY MOUTH ONCE D* NARATRIPTAN 2.5 MG TABLET Take 1 tablet by mouth as nee* OMEPRAZOLE 40 MG CAPSULE,APOLINAR* TAKE 1 CAPSULE BY MOUTH DAILY LANCETS Use as instructed. Patient c* DIHYDROERGOTAMINE 1 MG/ML INJ* Inject 1 mg intramuscularly e* PROMETHAZINE 25 MG TABLET Take 1 tablet by mouth every * LEVETIRACETAM 250 MG TABLET Take 2 tablets QHS x1 week th* NAPROXEN 500 MG TABLET Take 1 tablet by mouth twice * BIOTIN 300 MCG TABLET Take 1 tablet by mouth once d* BLOOD SUGAR DIAGNOSTIC STRIPS Test blood sugar(s) 3- 4 times* BLOOD-GLUCOSE METER KIT 1 Each as directed. SITAGLIPTIN 100 MG TABLET Take 1 tablet by mouth once d* ATORVASTATIN 80 MG TABLET Take 1 tablet by mouth daily * HYDROCHLOROTHIAZIDE 12.5 MG C* Take 1 capsule by mouth once * CYCLOBENZAPRINE 10 MG TABLET Take 1 tablet by mouth twice * DULOXETINE 60 MG CAPSULE,APOLINAR* Take 2 capsules by mouth once* ASPIRIN 81 MG CHEWABLE TABLET Take 81 mg by mouth once keegan* SAFETY NEEDLES 25 GAUGE X 1 1* For use with DHE SODIUM CHLORIDE 0.9% FLUSH Access implanted vascular acc* HEPARIN LOCK FLUSH (PORCINE) * Access implanted vascular acc* SYRINGE WITH NEEDLE 3 ML 25 X* For DHE CYANOCOBALAMIN (VIT B-12) 1,0* Take 1 tablet by mouth once d* COENZYME Q10 100 MG CAPSULE Take 1 capsule by mouth twice* POTASSIUM 99 MG TABLET Take by mouth. SODIUM CHLORIDE 0.9% FLUSH Access implanted vascular acc* FISH OIL ORAL Take by mouth once daily. * LORAZEPAM 2 MG TABLET Take 1 tablet by mouth twice * ERENUMAB-AOOE 70 MG/ML SUBCUT* Inject 70 mg subcutaneously o* Problem List As Of Date 01/11/2018 Noted Resolved ESOPHAGEAL REFLUX [K21.9] INVALID FOR* GENERALIZED ANXIETY DIS [F41.1] INVALID FOR* Impaired fasting glucose [R73.01] INVALID FOR*12/07/2011 Depression [F32.9] INVALID FOR* More... Morbid Obesity [E66.01] INVALID FOR* Abdominal Pain [R10.9] INVALID FOR* Calculus of Kidney [N20.0] INVALID FOR* UTI (Lower Urinary Tract Infection) [N39.0] INVALID FOR*12/30/2009 Insomnia [G47.00] INVALID FOR* Microalbuminuria [R80.9] INVALID FOR* Obstructive sleep apnea [G47.33] INVALID FOR* Sprain and strain of unspecified site of knee a*INVALID FOR* Lumbar sprain and strain [S33.5XXA] INVALID FOR* Abdominal pain, left upper quadrant [R10.12] INVALID FOR* Innocent heart murmur INVALID FOR* Diabetic neuropathy [E11.40] INVALID FOR* Diabetic nephropathy [E11.21] INVALID FOR* Menorrhagia [N92.0] INVALID FOR*11/15/2012 Migraines [G43.909] INVALID FOR* Bacterial vaginitis [N76.0, B96.89] INVALID FOR*11/30/2013 Vaginitis [N76.0] INVALID FOR*11/30/2013 More... Abnormal uterine bleeding [N93.9] INVALID FOR* Backache, unspecified [M54.9] INVALID FOR* Diabetes mellitus due to underlying condition w*INVALID FOR* Willing to be liver donor [Z00.5] INVALID FOR* Intractable chronic migraine without aura [G43.*INVALID FOR* Exhausted vascular access [Z45.2] INVALID FOR* Endometriosis of peritoneum [N80.3] INVALID FOR* Morbid obesity with BMI of 50.0-59.9, adult (HC*INVALID FOR* OAB (overactive bladder) [N32.81] INVALID FOR* Hyperlipidemia [E78.5] INVALID FOR* More... HTN (hypertension) [I10] INVALID FOR* Other instructions from your clinician: Headache Preventive Treatment: *Please keep in mind that it takes 4-6 weeks for the medication to start working well and 2-3 months at the appropriate dose before deciding if it will be useful or not. If it is not helping at all by this time, then we will discuss other medications to try. Supplements may take 3-6 months until you see full effect. - Recommend adding Magnesium 500 mg daily +/- Coenzyme Q10 200 mg (or 150 mg) twice daily +/- Riboflavin (Vitamin B2) 400 mg daily (or 200 mg twice daily). You can sometimes buy supplements cheaper (especially Coenzyme Q10) at www.[employer] or at [employer]. General Headache Instructions: 1) Maintain a headache diary; learn to identify and avoid triggers. 2) Limit use of acute treatments (ijln-wrm-wwosrvd medications, triptans, etc.) to no more than 2 days per week or 10 days per month to prevent medication overuse headache (rebound headache). 3) Follow a regular schedule (including weekends and holidays) for the next 6 weeks: A) Don't skip meals. B) 8 hours of sleep nightly. C) Avoid the following common headache triggers: -Caffeine (coffee, chocolate, tea, cola/pop/soda (7-up, Sprite, Ophelia Mist, Ellie Natalia, Mug/A+W Root Beer, Minute [place]id [place], Slice are okay)) -Foods containing nitrates (deli meat, ham, villanueva, sausage, hot dogs) -Tyramine (aged cheese; can only have Peruvian cheese, cottage cheese, Velveeta and fresh mozarella (most pizza uses aged mozarella)) -MSG ([place]/ foods, Doritos, all flavored chips and Ramen noodles) -Nutrasweet and artificial sweeteners D) Minimize stress. E) Exercise 30 minutes per day. F) Keep well hydrated and drink 6-8 glasses of water per day. 4) Initiate non-pharmacologic measures at the earliest onset of your headache. A) Rest and quiet in a cool, dark environment. B) Relax and reduce stress. C) Cold compress to head (place a dry washcloth to forehead, cover with a blue freezer packet and use a headband to press the freezer packet across the forehead and temples). 5) Don't wait!! Take the maximum allowable dosage of prescribed medication at the very earliest sign of headache. 6) Compliance: Take prescribed medication regularly as directed and at the first sign of a headache. 7) Communicate: Call your physician when problems arise, especially if your headaches change, increase in frequency/severity, or become associated with neurological symptoms (weakness, numbness, slurred speech, etc.). 8) Headache/pain management therapies: Consider various complementary methods, including medication, behavioral therapy, psychological counselling, biofeedback, massage therapy, acupuncture, and other modalities. Such measures may reduce the need for medications. Counseling for pain management, where patients learn to function and ignore/minimize their pain, seems to work very well. Vitamins and herbs that show potential for migraine prevention: Magnesium: Magnesium (250 mg twice a day or 500 mg at bed) has a relaxant effect on smooth muscles such as blood vessels. We often give intravenous magnesium to patients who come into the emergency department for migraine because it helps to break the migraine. Three trials found 40-90% average headache reduction when used as a preventative. Magnesium also demonstrated the benefit in menstrually related migraine. Magnesium is part of the messenger system in the serotonin cascade and it is a good muscle relaxant. It is also useful for constipation which can be a side effect of other medications used to treat migraine. Good sources include nuts, whole grains, and tomatoes. Coenzyme Q10: This is present in almost all cells in the body and is critical component for the conversion of energy. Recent studies have shown that a nutritional supplement of CoQ10 can reduce the frequency of migraine attacks by improving the energy production of cells as with riboflavin. Doses of 200 mg (or 150 mg) twice a day have been shown to be effective. Riboflavin (Vitamin B2): 200 mg twice a day (or 400 mg daily). This vitamin assists nerve cells in the production of ATP, a principal energy storing molecule. It is necessary for many chemical reactions in the body. There have been at least 3 clinical trials of riboflavin using 400 mg per day all of which suggested that migraine frequency can be decreased. All 3 trials showed significant improvement in over half of migraine sufferers. The supplement is found in bread, cereal, milk, meat, and poultry. Most Americans get more riboflavin than the recommended daily allowance, however riboflavin deficiency is not necessary for the supplements to help prevent headache. Feverfew: Feverfew is a common garden herb [place] and popular in [facility] as a treatment for disorders typically controlled by aspirin. The mechanism of action is unknown but is believed to be related to a chemical called parthenolide which helps the body use serotonin more effectively. Serotonin helps prevent migraine and assists with resolution when it occurs. Parthenolide also inhibits the release of histamine which is linked to pain and inflammation. Consistency of active ingredients in different products can be a problem. Some formulations don't have the active ingredient (parthenolide) that prevents migraine. A parthenolide content of 0.2% is generally recommended. Typical dosage is one capsule 3 times a day. Butterbur: This is an extract derived from the petisides hybridus root, which has been used for medicinal purposes since ancient times. A recent study found that 75 mg daily given over 4 months reduced headache frequency by 50% or more in over two thirds of the 245 patient studied. The 50 mg dose showed no significant effect. Side effects were infrequent, and the most common and unusual includes burping/belching. Raw butterbur root contains toxic chemicals that must be filtered out during the manufacturing process. To be sure you are choosing a safe product. Look for a formulation that does not contain pyrrolizidine alkaloids which are toxic to the liver. Melatonin: Increasing evidence shows correlation between melatonin secretion and headache conditions. Melatonin supplementation has shown decreased headache intensity and duration. It is widely used as a sleep aid. Sleep is nature's way of dealing with migraine. A dose of 3 mg is recommended to start for headaches including cluster headache. Higher doses up to 15 mg has been reviewed for use in Cluster headache and have been used. The rationale behind using melatonin for cluster is that many theories regarding the cause of Cluster headache center around the disruption of the normal circadian rhythm in the brain. This helps restore the normal circadian rhythm. It should be taken at least 2 hours before bedtime. Ellie: Ellie has a small amount of anti-histamine and anti-inflammatory action which may help headache. It is primarily used for nausea and may aid in the absorption of other medications. Prescriptions ordered this encounter Disp Refills Start End FILTER NEEDLES 19 X 1 30 E* 2 01/11/2018 Sig: For use with DHE ERENUMAB-AOOE 70 MG/ML SUBCUTANEOUS * 1 Ea* 5 01/11/2018 01/11/2019 Class: [facility] [place] [facility] Route: SUBCUTANEOUS Sig: Inject 70 mg subcutaneously once every month. Medications Discontinued During This Encounter Filter [place] 19 X 1 ndle 30 E* 2 09/29/2017 01/11/2018 Sig: For use with DHE Disc: Reason for discontinue is not on file. Disposition: Return in about 3 months (around 04/13/2018). Follow-up and Disposition History Recorded Encounter Status:Closed by SUSIE DIAZ MD on 01/12/18 ED NOTE Observed: 12/30/2017 Status: COMPLETED Source: [place] 10:04 PM [facility] REPOSITORY HNO ID: [id number] Author: Ashanti Centeno) ALBERTA Montes Service: (none) Author Type: Registered Nurse Type: ED Notes Filed: 12/30/2017 10:04 PM Note Text: Pt received written and verbal discharge instructions. Pt verbalizes understanding. All questions answered. Instructed pt to follow up with PCP. No acute distress noted. Instructed pt to come back to Emergency Room if symptoms worsen. Pt verbalized understanding. All belongings with pt. ED NOTE Observed: 12/30/2017 Status: COMPLETED Source: [place] 10:04 PM [facility] REPOSITORY HNO ID: [id number] Author: Meghna Centeno) ALBERTA Tello Service: Nursing Author Type: Registered Nurse Type: ED Notes Filed: 01/03/2018 6:20 PM Note Text: Spoke with patient and she is still having headaches and will follow up with her primary as directed ED NOTE Observed: 12/30/2017 Status: COMPLETED Source: [place] 9:[address] [facility] OTHER CAMPUS REPOSITORY HNO ID: [id number] Author: Ashanti ParhamRn) ALBERTA Montes Service: (none) Author Type: Registered Nurse Type: ED Notes Filed: 12/30/2017 9:21 PM Note Text: Pt is resting comfortably in bed with call light in reach. Pt updated on plan of care. Bed is locked and in the lowest position. Pt is stable. No acute distress. Will continue to monitor. ED PROV NOTE Observed: 12/30/2017 Status: COMPLETED Source: [place] 8:[address] [facility] [place] REPOSIT[facility] HNO ID: [id number] Author: Marley Hutchinson) AUBREY Jimenes Service: (none) Author Type: Physician Assistant County Engineer Type: ED Provider Notes Filed: 12/30/2017 9:34 PM Note Text: ED Provider Note Patient Name: Akin Adamson SERVICE DATE: 12/30/17 History Patient presents with: Headache 47-year-old female with a history of diabetes mellitus, hypertension, hyperlipidemia, migraine headaches and peptic ulcer disease presents to the emergency department with her for evaluation of a migraine headache. Patient states this headache has been intermittent for the past couple days. She did come to the emergency department on 12/28/[address] scan at that time. She was given medication and states that her headache improved. She states her headache has unfortunately returned. She describes it to feel similar to her history of migraine headaches. She describes a similar quality, location and characteristics. She states this headache feels worse because not responding to any at home treatments. Patient states that she did contact her neurologist and was advised to come to the emergency department. Patient states that she has an appointment to see her neurologist on 01/11/18 at which point she will get Botox. Patient states that she does get infusions with her neurologist of Keppra, Benadryl and magnesium. Patient was hoping to get in to see her neurologist for these infusions today but was unable and therefore advised to come to the emergency department for medications. Patient notes symptoms of nausea, photophobia and phonophobia which are again, similar to her history of migraine headaches. She denies any visual disturbances. She notices some lightheadedness with standing. Patient denies chance of . She had a hysterectomy. She denies vomiting. No fever. No neck pain. Patient denies lateralizing weakness. No injury or trauma. No rashes. No shortness of breath or chest pain. PAST MEDICAL HISTORY Diagnosis Date - Depression - Diabetes mellitus (HCC) 2010 - H. pylori infection 09/2013 + H.Pylori - HTN (hypertension) - Hyperlipidemia 2010 fish oil, unable to tolerate statins - Menorrhagia - Migraines Dr. DiazNeurologist - Obstructive sleep apnea - PMH - PAST MEDICAL HISTORY OF Suicide attempt x2 as teenager - PUD (peptic ulcer disease) 2006 - Viral pneumonia, unspecified 2008 Pneumonia - Vitamin D deficiency PAST SURGICAL HISTORY Procedure Laterality Date - APPENDECTOMY 1979 - DELIVERY ONLY x 2 - COLONOSCOP W/ OR W/O BRSH SPEC 12/19/13 Colonoscopy - EGD W/O BRSH SPECIMEN W/BX 10/20/10 Gastritis, mild - EGD W/O OR W/BRUSH/WASH 12/19/13 EGD - L'SCOPE REM ADNEX W/PART/TOT OOPH/SALP 02/09/16 laprascopic LSO, lysis of adhesions - LAPAROSCOPIC CHOLEYCYSTECTOMY 2005 [place]. - PICC LINE INSERT/CONSULT 02/28/2014 - THERMA CHOICE DEVICE 11/2011 - TLH W/T/O UTERUS OVER 250 G 04/02/14 LAVH, bilateral salpingectomy - TUBAL LIGATION, 2003 at time of c/s - TUNNEL VAD W SUB Q PORT >=5 01/20/15 left IJ FAMILY HISTORY Problem Relation Age of Onset - Diabetes Mother - Hypertension Mother - Lipids Mother - Psychiatry Mother depression, possibly bipolar. - Heart Father - Hypertension Father - Coronary Artery Disease Father 58 triple by-pass graph, [place] x 3 - Migraines [Other] [OTHER] Father - Psychiatry Sister - Diabetes Sister - Diabetes Sister - Psychiatry Sister - GI Son Ulcerative colitis Social History Social History Main Topics - Smoking status: Never Smoker - Smokeless tobacco: Never Used - Alcohol use No - Drug use: No - Sexual activity: Yes Partners: Male control/ protection: Tubal Ligation Comment: thermachoice ALLERGIES Allergen Reactions - Amoxil [Amoxicillin] GI Upset - Compazine [Prochlor* Unknown - Flagyl [Metronidazo* Other: See Comments Headache - she is prone to migraines and flagyl sets it off every time she takes it. - Reglan [Metoclopram* Other: See Comments anxiety - Simvastatin Other: See Comments severe muscle aches - Toradol [Ketorolac] Rash - Zofran [Ondansetron* Other: See Comments Review of Systems Constitutional: Negative for chills and fever. HENT: Negative for congestion, ear pain, rhinorrhea and sore throat. Eyes: Positive for photophobia. Negative for visual disturbance. Respiratory: Negative for cough, chest tightness and shortness of breath. Cardiovascular: Negative for chest pain. Gastrointestinal: Positive for nausea. Negative for abdominal pain, diarrhea and vomiting. Musculoskeletal: Negative for back pain, neck pain and neck stiffness. Skin: Negative for rash. Neurological: Positive for light-headedness and headaches. Negative for dizziness. Hematological: Negative for adenopathy. Does not bruise/bleed easily. Psychiatric/Behavioral: Negative for agitation and confusion. All other systems reviewed and are negative. Physical Exam BP 158/83 Pulse 55 Temp (Src) 98.1 (Oral) Resp 20 Ht 5' 4 (1.63m) Wt 289 lb (131.1kg) SpO2 97% LMP 03/06/2014 BMI 49.58 kg/(m2). Physical Exam Constitutional: She is oriented to person, place, and time. She appears well-developed and well-nourished. No distress. HENT: Head: Normocephalic and atraumatic. Eyes: Conjunctivae and EOM are normal. Pupils are equal, round, and reactive to light. Neck: Normal range of motion. Neck supple. Cardiovascular: Normal rate, regular rhythm, normal heart sounds and intact distal pulses. Pulmonary/Chest: Effort normal and breath sounds normal. No respiratory distress. Abdominal: Soft. Bowel sounds are normal. She exhibits no distension. There is no tenderness. There is no rebound and no guarding. Musculoskeletal: Normal range of motion. She exhibits no edema or tenderness. Neurological: She is alert and oriented to person, place, and time. She has normal strength. No cranial nerve deficit or sensory deficit. She displays a negative Romberg sign. GCS eye subscore is 4. GCS verbal subscore is 5. GCS motor subscore is 6. Skin: Skin is warm and dry. No rash noted. No erythema. Psychiatric: She has a normal mood and affect. Her behavior is normal. Judgment and thought content normal. Nursing note and vitals reviewed. Diagnostic Testing ED Labs Ordered and Reviewed - No data to display Procedures ED Course / Clinical Impression Clinical Impressions as of Dec 30 2132 Acute nonintractable headache, unspecified headache type MDM / Disposition / Plan Patient upon arrival is alert and grossly neurologically intact. She is in no acute distress. Vital signs were reviewed. Blood pressure 158/83. Respirations 20. Temperature 98.1?F. Heart rate 55. Pulse ox 97% on room air. Patient is presenting with the above complaint of headache. Patient does have a history of migraine headaches and describes this went to feel very similar. Patient does follow with neurology. Patient had a CT of the brain on 12/28/17. Her headache improved after her visit then but has since returned. I discussed further imaging and evaluation with the patient including lumbar puncture. Patient declined. She states this is the same headache pain that she typically has. Patient will be given IV fluids, Benadryl, Norflex and magnesium. She was also given oral Phenergan. Patient does have a port which was accessed. Patient was reevaluated about 30 minutes after the medications were given. She states her headache has improved tremendously. Patient feels well enough to be discharged home. She agrees to follow-up with her neurologist sooner than the if needed. She will return here for worsening signs or symptoms. Patient understands the plan and is agreeable. She was discharged home in stable and improved condition. The patient was DISCHARGED: Counseled patient and spouse regarding suspected diagnosis AND need for follow-up. Discharged home with verbal and written instructions. They were instructed to return as needed for persistent or worsening symptoms or any new concerns. Condition at time of disposition: stable SIGNATURE: DANNY Sims) AUBREY Jimenes [id number]/30/172133 ED NOTE Observed: 12/30/2017 Status: COMPLETED Source: [place] 8:49 PM [facility] OTHER CAMPUS REPOSITORY HNO ID: [id number] Author: Ashanti Centeno) ALBERTA Montes Service: (none) Author Type: Registered Nurse Type: ED Notes Filed: 12/30/2017 8:49 PM Note Text: Pt states they are still nauseated after medication will notify MD. ED NOTE Observed: 12/30/2017 Status: COMPLETED Source: [place] 8:[address] [facility] OTHER CAMPUS REPOSITORY HNO ID: [id number] Author: Daxa (Rn) Abdullahi RN Service: Nursing Author Type: Registered Nurse Type: ED Notes Filed: 12/30/2017 8:12 PM Note Text: Pt presents to ER with migraine. She has had a migraine for a week, was seen here 2 days ago and rec'd medications that helped. Next day it came back full force. Called Dr. Diaz and they could not get her in for an infusion. Was told to come back here. Light and sound sensitive. +nausea. CT BRAIN WO IVCON Observed: 12/28/2017 Status: F Source: [place] 6:41 PM [facility] REPOSITORY * * *Final Report* * * DATE OF EXAM: Dec 28 2017 6:41PM [facility] [place] - CT BRAIN WO IVCON / PROCEDURE REASON: Headache, acute, normal neuro exam * * * * Physician Interpretation * * * * EXAMINATION: CT BRAIN WO IVCON CLINICAL HISTORY: Headache, acute, normal neuro exam, TECHNIQUE: Serial axial images without IV contrast were obtained from the vertex to the foramen magnum. MQ: [id number] CT Dose-Length Product (DLP): 636 mGy*cm CT Dose Reduction Employed: No dose reduction techniques were required COMPARISON: 2013 CT scan, [address] scan of the head was performed within 24 hours of presentation to the hospital. RESULT: Post-operative change: None. Acute change: No evidence of an acute infarct or other acute parenchymal process. Hemorrhage: No evidence of acute intracranial hemorrhage. Mass Lesion / Mass Effect: There is no evidence of an intracranial mass or extraaxial fluid collection. No significant mass effect. Chronic change: None apparent. Parenchyma: There is no significant volume loss. The brain parenchyma is otherwise within normal limits for age. Ventricles: The ventricles are within normal limits of size and configuration for age. Paranasal sinuses and skull base: The visualized paranasal sinuses are grossly clear. The skull base and imaged soft tissues are unremarkable. 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: THOMAS Transcribe Date/Time: Dec 28 2017 6:45P Dictated by : TOMMIE BRUNO DO This examination was interpreted and the report reviewed and electronically signed by: TOMMIE BRUNO DO on Dec 28 2017 6:50PM EST [id number] ED PROV NOTE Observed: 12/28/2017 Status: COMPLETED Source: [place] 6:36 PM [facility] OTHER [facility]US REPOSITORY HNO ID: [id number] Author: Kelsie Mackey (Pa) Service: (none) Author Type: Physician Assistant County Engineer Type: ED Provider Notes Filed: 12/28/2017 8:04 PM Note Text: ED Provider Note Patient Name: Akin Adamson SERVICE DATE: 12/28/17 History Patient presents with: Headache 47 year old female, with a history of migraines, hyperlipidemia, HTN, presents with a NUNO for a week. History of migraines, however this location is different. States she has bilateral NUNO around crown of head with intermittent sharp spasms to right judaism and left parietal areas. No trauma, neck pain, fever, URI symptoms. Has been vomiting, having photophobia and sonophobia. Has been taking her migraine injections daily x [address] Diaz is her neurologist History provided by: Patient PAST MEDICAL HISTORY Diagnosis Date - Depression - Diabetes mellitus (HCC) 2010 - H. pylori infection 09/2013 + H.Pylori - HTN (hypertension) - Hyperlipidemia 2010 fish oil, unable to tolerate statins - Menorrhagia - Migraines Dr. DiazNeurologist - Obstructive sleep apnea - PMH - PAST MEDICAL HISTORY OF Suicide attempt x2 as teenager - PUD (peptic ulcer disease) 2006 - Viral pneumonia, unspecified 2008 Pneumonia - Vitamin D deficiency PAST SURGICAL HISTORY Procedure Laterality Date - APPENDECTOMY 1979 - DELIVERY ONLY x 2 - COLONOSCOP W/ OR W/O BRSH SPEC 12/19/13 Colonoscopy - EGD W/O BRSH SPECIMEN W/BX 10/20/10 Gastritis, mild - EGD W/O OR W/BRUSH/WASH 12/19/13 EGD - L'SCOPE REM ADNEX W/PART/TOT OOPH/SALP 02/09/16 laprascopic LSO, lysis of adhesions - LAPAROSCOPIC CHOLEYCYSTECTOMY 2005 [place]. - PICC LINE INSERT/CONSULT 02/28/2014 - THERMA CHOICE DEVICE 11/2011 - TLH W/T/O UTERUS OVER 250 G 11/11/14 LAVH, bilateral salpingectomy - TUBAL LIGATION, 2003 at time of c/s - TUNNEL VAD W SUB Q PORT >=5 01/20/15 left IJ FAMILY HISTORY Problem Relation Age of Onset - Diabetes Mother - Hypertension Mother - Lipids Mother - Psychiatry Mother depression, possibly bipolar. - Heart Father - Hypertension Father - Coronary Artery Disease Father 58 triple by-pass graph, [place] x 3 - Migraines [Other] [OTHER] Father - Psychiatry Sister - Diabetes Sister - Diabetes Sister - Psychiatry Sister - GI Son Ulcerative colitis Social History Social History Main Topics - Smoking status: Never Smoker - Smokeless tobacco: Never Used - Alcohol use No - Drug use: No - Sexual activity: Yes Partners: Male control/ protection: Tubal Ligation Comment: thermachoice ALLERGIES Allergen Reactions - Amoxil [Amoxicillin] GI Upset - Compazine [Prochlor* Unknown - Flagyl [Metronidazo* Other: See Comments Headache - she is prone to migraines and flagyl sets it off every time she takes it. - Reglan [Metoclopram* Other: See Comments anxiety - Simvastatin Other: See Comments severe muscle aches - Toradol [Ketorolac] Rash - Zofran [Ondansetron* Other: See Comments Review of Systems Constitutional: Negative for activity change, appetite change, chills and fever. HENT: Negative. Eyes: Positive for photophobia. Negative for visual disturbance. Respiratory: Negative for shortness of breath. Cardiovascular: Negative for chest pain. Gastrointestinal: Positive for nausea and vomiting. Negative for abdominal pain. Musculoskeletal: Negative for neck pain and neck stiffness. Neurological: Positive for dizziness and headaches. Negative for seizures, syncope, speech difficulty, weakness, light-headedness and numbness. Hematological: Negative. Physical Exam BP 140/99 Pulse 133 Temp (Src) 97.5 (Oral) Resp 20 Wt 298 lb (135.2kg) SpO2 97% LMP 03/06/2014 Physical Exam Constitutional: She is oriented to person, place, and time. She appears well-developed and well-nourished. She appears distressed (moderately from pain). HENT: Head: Normocephalic and atraumatic. Eyes: Conjunctivae and EOM are normal. Pupils are equal, round, and reactive to light. Neck: Normal range of motion. Without meningismus Cardiovascular: Normal rate, regular rhythm and normal heart sounds. Noted tachy in triage, not during exam Pulmonary/Chest: Effort normal and breath sounds normal. No respiratory distress. Musculoskeletal: Normal range of motion. Neurological: She is alert and oriented to person, place, and time. No cranial nerve deficit. Coordination normal. Skin: No rash noted. Nursing note and vitals reviewed. Diagnostic Testing CT brain: no acute findings Procedures ED Course / Clinical Impression Clinical Impressions as of Dec 28 2000 Other migraine without status migrainosus, not intractable MDM / Disposition / Plan Patient presents to the ED for a migraine headache that feels a little differently than her regular. She sees Dr. Diaz and has had no relief with her injections at home. She admits to photophobia and sonophobia. Her neuro exam is normal. CT is okay. She feels complete relief after IV Benadryl, morphine and by mouth Phenergan as she does have allergies to the typical migraine cocktail. Her tachycardia improves. She feels ready for discharge. She will call Dr. Diaz for an appointment and is aware to return here for any worsening Additional Tests or Interventions: IV Fluids IV fluids were given for the following reasons routine maintenance and other (comment) (migraine). The patient was DISCHARGED: Counseled patient regarding radiology results AND suspected diagnosis AND need for follow-up. Discharged home with verbal and written instructions. They were instructed to return as needed for persistent or worsening symptoms or any new concerns. Condition at time of disposition: improved SIGNATURE: DANNY Becker (Pa) 12/28/172003 ED NOTE Observed: 12/28/2017 Status: COMPLETED Source: [place] 6:15 PM [facility] [place] RE[facility] HNO ID: [id number] Author: Chey Centeno) ALBERTA Hernández Service: Emergency Medicine Author Type: Registered Nurse Type: ED Notes Filed: 12/28/2017 6:17 PM Note Text: Pt presents with migraine x1 week. Pt states she has hx of chronic migraines, but his NUNO is different than her normal headache. Pt describes NUNO at a constant pain with intermittent stabbing sensations. ED NOTE Observed: 12/10/2017 Status: COMPLETED Source: [place] 4:40 PM [facility] REPOSITORY HNO ID: [id number] Author: Cornelia ParhamRn) ALBERTA Hughes Service: (none) Author Type: Registered Nurse Type: ED Notes Filed: 12/10/2017 4:43 PM Note Text: Clean catch urine specimen obtained and sent. URINALYSIS Collected: 12/10/2017 Status: F Source: [place] 4:34 PM [facility] REPOSITORY TYPE CODE TESTS RESULT OUT OF RANGE REFERENCE UNITS LAB UCOL Yellow Color Yellow LAB [facility] Clear Clarity Clear LAB UGLUC Negative mg/dL Glucose, Urine Negative LAB UBIL Negative Bilirubin, Urine Negative LAB UKET Negative Ketones, Urine Negative LAB USPG 1.001-1.029 Specific [place], Ur 1.020 LAB UHGB Negative Hemoglobin/Blood, Negative Ur LAB UPH 5.0-8.0 pH 6.0 LAB UPROT Negative mg/dL Protein, Abnormal Urine Trace Alert LAB UUROB 0.2-1.0 Urobilinogen 0.2 LAB UNITR Negative Nitrites Negative LAB ULKEST Negative Leukest Negative Performed By: #### UA, UAMIC #### [facility] [address] [place] [address] URINE MICROSCOPIC Collected: 12/10/2017 Status: F Source: [place] (FOR LAB USE ONLY) 4:34 PM [facility] REPOSITORY TYPE CODE TESTS RESULT OUT OF REFERENCE UNITS RANGE LAB UWBC 0-5 /HPF WBC 0-5 LAB URBC 0-3 /HPF RBC 0-3 LAB UCAST 0 /LPF Cast SEE COMMENT Result Comment: 0 LAB UEPI /HPF Epithelial SEE Cells COMMENT Result Comment: 0-5 Squamous Epithelial Cells Performed By: #### UA, UAMIC #### [facility] [address] [facility] [phone] Observed: 12/10/2017 Status: F Source: [place] URINE CULTURE 4:34 PM [facility] REPOSITORY Sp. Request/Comment: - Specimen received in preservative Culture Result - 10,000 - <50,000 CFU/ml Normal urogenital adam Performed By: #### URCUL #### [facility] [address] [place] [address] [facility] [address] [place] [id number] ED PROV NOTE Observed: 12/10/2017 Status: COMPLETED Source: [place] 4:27 PM [facility] REPOSITORY HNO ID: [id number] Author: Venkat Ty MD Service: (none) Author Type: Physician Type: ED Provider Notes Filed: 12/10/2017 5:00 PM Note Text: ED Provider Note Patient Name: Akin Adamson SERVICE DATE: 12/10/17 History Patient presents with: Nausea Dysuria Resents for evaluation of burning with urination he comes in by nausea ongoing for one week. No history of high fever or shaking chills denies any vomiting does complain of slight nausea. No history of diarrhea. Denies obvious blood in the urine. She states she's had a prior hysterectomy. PAST MEDICAL HISTORY Diagnosis Date - Depression - Diabetes mellitus (HCC) 2010 - H. pylori infection 09/2013 + H.Pylori - HTN (hypertension) - Hyperlipidemia 2010 fish oil, unable to tolerate statins - Menorrhagia - Migraines Dr. DiazNeurologist - Obstructive sleep apnea - PMH - PAST MEDICAL HISTORY OF Suicide attempt x2 as teenager - PUD (peptic ulcer disease) 2006 - Viral pneumonia, unspecified 2008 Pneumonia - Vitamin D deficiency PAST SURGICAL HISTORY Procedure Laterality Date - APPENDECTOMY 1979 - DELIVERY ONLY x 2 - COLONOSCOP W/ OR W/O BRSH SPEC 12/19/13 Colonoscopy - EGD W/O BRSH SPECIMEN W/BX 10/20/10 Gastritis, mild - EGD W/O OR W/BRUSH/WASH 12/19/13 EGD - L'SCOPE REM ADNEX W/PART/TOT OOPH/SALP 02/09/16 laprascopic LSO, lysis of adhesions - LAPAROSCOPIC CHOLEYCYSTECTOMY 2005 [place]. - PICC LINE INSERT/CONSULT 02/28/2014 - THERMA CHOICE DEVICE 11/2011 - TLH W/T/O UTERUS OVER 250 G 04/02/14 LAVH, bilateral salpingectomy - TUBAL LIGATION, 2003 at time of c/s - TUNNEL VAD W SUB Q PORT >=5 01/20/15 left IJ FAMILY HISTORY Problem Relation Age of Onset - Diabetes Mother - Hypertension Mother - Lipids Mother - Psychiatry Mother depression, possibly bipolar. - Heart Father - Hypertension Father - Coronary Artery Disease Father 58 triple by-pass graph, [place] x 3 - Migraines [Other] [OTHER] Father - Psychiatry Sister - Diabetes Sister - Diabetes Sister - Psychiatry Sister - GI Son Ulcerative colitis Social History Social History Main Topics - Smoking status: Never Smoker - Smokeless tobacco: Never Used - Alcohol use No - Drug use: No - Sexual activity: Yes Partners: Male control/ protection: Tubal Ligation Comment: thermachoice ALLERGIES Allergen Reactions - Amoxil [Amoxicillin] GI Upset - Compazine [Prochlor* Unknown - Flagyl [Metronidazo* Other: See Comments Headache - she is prone to migraines and flagyl sets it off every time she takes it. - Reglan [Metoclopram* Other: See Comments anxiety - Simvastatin Other: See Comments severe muscle aches - Toradol [Ketorolac] Rash - Zofran [Ondansetron* Other: See Comments Review of Systems Constitutional: Negative. HENT: Negative. Eyes: Negative. Respiratory: Negative. Cardiovascular: Negative. Gastrointestinal: Positive for nausea. Negative for abdominal pain, diarrhea and vomiting. Genitourinary: Positive for dysuria. Negative for flank pain and hematuria. Musculoskeletal: Negative. Neurological: Negative. Psychiatric/Behavioral: Negative. Physical Exam BP 146/95 Pulse 103 Temp (Src) 99 (Oral) Resp 20 SpO2 98% LMP 03/06/2014 Physical Exam Constitutional: She is oriented to person, place, and time. She appears well-developed and well-nourished. No distress. HENT: Head: Normocephalic and atraumatic. Nose: Nose normal. Eyes: EOM are normal. Pupils are equal, round, and reactive to light. Right eye exhibits no discharge. Left eye exhibits no discharge. Neck: Normal range of motion. Neck supple. No tracheal deviation present. Cardiovascular: Normal rate, regular rhythm, normal heart sounds and intact distal pulses. Pulmonary/Chest: Effort normal and breath sounds normal. No respiratory distress. Abdominal: Abdomen is obese soft nondistended without mass or specific tenderness Musculoskeletal: Normal range of motion. She exhibits no edema, tenderness or deformity. Neurological: She is oriented to person, place, and time. No cranial nerve deficit or sensory deficit. She exhibits normal muscle tone. Skin: Skin is warm and dry. No rash noted. Psychiatric: She has a normal mood and affect. Her behavior is normal. Judgment and thought content normal. Diagnostic Testing ED Labs Ordered and Reviewed - No data to display Procedures ED Course / Clinical Impression Clinical Impressions as of Dec 10 1658 Dysuria MDM / Disposition / Plan Urine showed was negative for nitrites and leukocytes. Given the fact that she's been complaining of any symptoms now for at least a week she was given a 5 day course of Macrobid a urine culture was pending given a prescription for pyridium Advised to follow-up with her PCP this upcoming week for reevaluation SIGNATURE: MD Venkat Carlson MD 12/10/17 1700 ED NOTE Observed: 12/10/2017 Status: COMPLETED Source: [place] 4:[address] [facility] OTHER CAMPUS REPOSITORY HNO ID: [id number] Author: Chey ParhamRn) ALBERTA Hernández Service: Emergency Medicine Author Type: Registered Nurse Type: ED Notes Filed: 12/10/2017 4:19 PM Note Text: Pt presents with uncomfortable urination x 1 week. Pt has treated with OTC medications and it hasn't helped. Pt states that she has been nauseous and hasn't been drinking water like she typically does. Pt also c/o the beginnings of a migraine. PROGRESS Observed: 11/30/2017 Status: COMPLETED Source: [place] 9:[address] [facility] [place] RE[facility] HNO ID: [id number] Author: Nadia Leslie Cma Service: (none) Author Type: (none) Type: Progress Notes Filed: 11/30/2017 9:51 AM Note Text: I spoke with Akin and she agreed to come in for a follow up appointment with Asiya Torres. Appointment schedule for tomorrow 12/01/17. She will get her blood work done tomorrow. The patient has been identified by name and date of : YES I have scheduled the patient for an appointment on 12/01/2017. The patient will report to the lab prior to the visit. PHMA Documentation 11/30/2017 Opts out of Population Health No Appointments Scheduled Scheduled PCP Appt DM2 with No Urine Alb Lab Ordered A1C > 8.9 Lab Ordered Nadia Leslie Cma PROGRESS Observed: 11/30/2017 Status: COMPLETED Source: [place] 9:45 AM [facility] REPOSITORY HNO ID: [id number] Author: Nadia Leslie Cma Service: (none) Author Type: (none) Type: Progress Notes Filed: 11/30/2017 9:51 AM Note Text: PHMA CARE GAP REGISTRY DOCUMENTATION (OUTSIDE TEAMLET) Provider Action/FYI: PSR Action/FYI: - Needs f/up appointment with labs prior (already ordered) - Ask about DM Retinal exam Patient identified by name and date of . Last BP/Labs: Blood Pressure: Last 3 Encounter BP Readings: Date: BP: 09/29/2017 150/95 09/28/2017 122/86 09/27/2017 122/84 Lipids: Cholesterol, Total (mg/dL) Date Value 07/05/2017 150 09/08/2016 190 HDL Cholesterol (mg/dL) Date Value 07/05/2017 30 09/08/2016 29 LDL Cholesterol (mg/dL) Date Value 07/05/2017 Unable to calculate due to increased Triglycerides. See LDL-Chol, Direct. 09/08/2016 82 Triglyceride (mg/dL) Date Value 07/05/2017 405 09/08/2016 393 HGB A1C: Lab Results Component Value Date HBA1C 7.2 07/05/2017 HBA1C 7.1 02/08/2017 HBA1C 6.6 09/08/2016 TSH: TSH (uU/mL) Date Value 07/05/2017 2.370 02/08/2017 2.510 ) ? Patient has the following care gap registry disease diagnosis:DM ? HTN ? Hyperlipidemia Health Maintenance Due: PAP EVERY 5 YEARS due on 08/13/2014 HPV EVERY 5 YEARS due on 08/13/2014 DTAP,TDAP,TD(2 - Tdap) due on 12/30/2014 DILATED RETINAL EXAM due on 07/01/2016 MAMMOGRAM due on 07/20/2016 COLORECTAL CANCER SCREENING,SEE MODIFIER due on 12/19/2016 DIABETIC FOOT EXAM due on 01/08/2017 URINE ALBUMIN CREATININE RATIO due on 09/08/2017 - ordered ? Last office visit: 09/27/2017 ? Future office visit:Follow-up DM, HTN w/labs prior next available with Provider PCP or Asiya Leslie Cma CNPTOUTREACH Observed: 11/30/2017 Status: COMPLETED Source: [place] 12:00 AM [facility] REPOSITORY Patient Outreach (FAMPWS) AKIN ADAMSON ([id number]) 1970 F Date Time Provider Department 11/30/17 ANUJ NADIA ([facility]) JUNEPWS During your visit today, we recorded the following information about you: Nadia Leslie [facility] 11/30/2017 9:51 AM Signed [facility] CARE GAP REGISTRY DOCUMENTATION (OUTSIDE TEAMLET) Provider Action/FYI: PSR Action/FYI: - Needs f/up appointment with labs prior (already ordered) - Ask about DM Retinal exam Patient identified by name and date of . Last BP/Labs: Blood Pressure: Last 3 Encounter BP Readings: Date: BP: 09/29/2017 150/95 09/28/2017 122/86 09/27/2017 122/84 Lipids: Cholesterol, Total (mg/dL) Date Value 07/05/2017 150 09/08/2016 190 HDL Cholesterol (mg/dL) Date Value 07/05/2017 30 09/08/2016 29 LDL Cholesterol (mg/dL) Date Value 07/05/2017 Unable to calculate due to increased Triglycerides. See LDL-Chol, Direct. 09/08/2016 82 Triglyceride (mg/dL) Date Value 07/05/2017 405 09/08/2016 393 HGB A1C: Lab Results Component Value Date HBA1C 7.2 07/05/2017 HBA1C 7.1 02/08/2017 HBA1C 6.6 09/08/2016 TSH: TSH (uU/mL) Date Value 07/05/2017 2.370 02/08/2017 2.510 ) ? Patient has the following care gap registry disease diagnosis:DM ? HTN ? Hyperlipidemia Health Maintenance Due: PAP EVERY 5 YEARS due on 08/13/2014 HPV EVERY 5 YEARS due on 08/13/2014 DTAP,TDAP,TD(2 - Tdap) due on 12/30/2014 DILATED RETINAL EXAM due on 07/01/2016 MAMMOGRAM due on 07/20/2016 COLORECTAL CANCER SCREENING,SEE MODIFIER due on 12/19/2016 DIABETIC FOOT EXAM due on 01/08/2017 URINE ALBUMIN CREATININE RATIO due on 09/08/2017 - ordered ? Last office visit: 09/27/2017 ? Future office visit:Follow-up DM, HTN w/labs prior next available with Provider PCP or Asiya Leslie Cma Nadia Leslie Cma 11/30/2017 9:51 AM Signed I spoke with Akin and she agreed to come in for a follow up appointment with Asiya Torres. Appointment schedule for tomorrow 12/01/17. She will get her blood work done tomorrow. The patient has been identified by name and date of : YES I have scheduled the patient for an appointment on 12/01/2017. The patient will report to the lab prior to the visit. PHMA Documentation 11/30/2017 Opts out of [employer] No Appointments Scheduled Scheduled PCP Appt DM2 with No Urine Alb Lab Ordered A1C > 8.9 Lab Ordered Nadia Leslie Cma Allergies As of Date: 11/30/2017 Noted Allergy Reaction AMOXIL (AMOXICILLIN) 01/04/2014 8 - GI Upset COMPAZINE (PROCHLORPERAZINE EDISY*08/12/2008 16 - Unknown FLAGYL (METRONIDAZOLE HCL) 09/07/2012 14 - Other: See Comments Comments: Headache - she is prone to migraines and flagyl sets it off every time she takes it. REGLAN (METOCLOPRAMIDE HCL) 02/27/2014 14 - Other: See Comments Comments: anxiety SIMVASTATIN 04/27/2012 14 - Other: See Comments Comments: severe muscle aches TORADOL (KETOROLAC) 08/12/2008 2 - Rash ZOFRAN (ONDANSETRON HCL (PF)) 06/22/2013 14 - Other: See Comments Date Reviewed: 10/06/2017 Reviewed by: Susie Diaz - Fully Assessed Reason for Visit: PHMA/Care Gap Outreach [[id number]] Prescriptions as of 11/30/2017 Sig: LOSARTAN 25 MG TABLET TAKE 1 TABLET BY MOUTH ONCE D* NARATRIPTAN 2.5 MG TABLET Take 1 tablet by mouth as nee* OMEPRAZOLE 40 MG CAPSULE,APOLINAR* TAKE 1 CAPSULE BY MOUTH DAILY LANCETS Use as instructed. Patient c* DIHYDROERGOTAMINE 1 MG/ML INJ* Inject 1 mg intramuscularly e* FILTER NEEDLES 19 X 1 For use with DHE PROMETHAZINE 25 MG TABLET Take 1 tablet by mouth every * LEVETIRACETAM 250 MG TABLET Take 2 tablets QHS x1 week th* NAPROXEN 500 MG TABLET Take 1 tablet by mouth twice * BIOTIN 300 MCG TABLET Take 1 tablet by mouth once d* BLOOD SUGAR DIAGNOSTIC STRIPS Test blood sugar(s) 3- 4 times* BLOOD-GLUCOSE METER KIT 1 Each as directed. SITAGLIPTIN 100 MG TABLET Take 1 tablet by mouth once d* DICYCLOMINE 20 MG TABLET TAKE 1 TABLET BY MOUTH BEFORE* ATORVASTATIN 80 MG TABLET Take 1 tablet by mouth daily * HYDROCHLOROTHIAZIDE 12.5 MG C* Take 1 capsule by mouth once * CYCLOBENZAPRINE 10 MG TABLET Take 1 tablet by mouth twice * DULOXETINE 60 MG CAPSULE,APOLINAR* Take 2 capsules by mouth once* ASPIRIN 81 MG CHEWABLE TABLET Take 81 mg by mouth once keegan* SAFETY NEEDLES 25 GAUGE X 1 1* For use with DHE METFORMIN ER 500 MG TABLET,EX* TAKE 2 TABLETS BY MOUTH TWICE* SODIUM CHLORIDE 0.9% FLUSH Access implanted vascular acc* HEPARIN LOCK FLUSH (PORCINE) * Access implanted vascular acc* SYRINGE WITH NEEDLE 3 ML 25 X* For DHE CYANOCOBALAMIN (VIT B-12) 1,0* Take 1 tablet by mouth once d* COENZYME Q10 100 MG CAPSULE Take 1 capsule by mouth twice* POTASSIUM 99 MG TABLET Take by mouth. SODIUM CHLORIDE 0.9% FLUSH Access implanted vascular acc* FISH OIL ORAL Take by mouth once daily. * LORAZEPAM 2 MG TABLET Take 1 tablet by mouth twice * Problem List As Of Date 11/30/2017 Noted Resolved ESOPHAGEAL REFLUX [K21.9] INVALID FOR* GENERALIZED ANXIETY DIS [F41.1] INVALID FOR* Impaired fasting glucose [R73.01] INVALID FOR*12/07/2011 Depression [F32.9] INVALID FOR* More... Morbid Obesity [E66.01] INVALID FOR* Abdominal Pain [R10.9] INVALID FOR* Calculus of Kidney [N20.0] INVALID FOR* UTI (Lower Urinary Tract Infection) [N39.0] INVALID FOR*12/30/2009 Insomnia [G47.00] INVALID FOR* Microalbuminuria [R80.9] INVALID FOR* Obstructive sleep apnea [G47.33] INVALID FOR* Sprain and strain of unspecified site of knee a*INVALID FOR* Lumbar sprain and strain [S33.5XXA] INVALID FOR* Abdominal pain, left upper quadrant [R10.12] INVALID FOR* Innocent heart murmur INVALID FOR* Diabetic neuropathy [E11.40] INVALID FOR* Diabetic nephropathy [E11.21] INVALID FOR* Menorrhagia [N92.0] INVALID FOR*11/15/2012 Migraines [G43.909] INVALID FOR* Bacterial vaginitis [N76.0, B96.89] INVALID FOR*11/30/2013 Vaginitis [N76.0] INVALID FOR*11/30/2013 More... Abnormal uterine bleeding [N93.9] INVALID FOR* Backache, unspecified [M54.9] INVALID FOR* Diabetes mellitus due to underlying condition w*INVALID FOR* Willing to be liver donor [Z00.5] INVALID FOR* Intractable chronic migraine without aura [G43.*INVALID FOR* Exhausted vascular access [Z45.2] INVALID FOR* Endometriosis of peritoneum [N80.3] INVALID FOR* Morbid obesity with BMI of 50.0-59.9, adult (HC*INVALID FOR* OAB (overactive bladder) [N32.81] INVALID FOR* Hyperlipidemia [E78.5] INVALID FOR* More... HTN (hypertension) [I10] INVALID FOR* Encounter Status:Closed by NADIA LESLIE CMA on 11/30/17 PROGRESS Observed: 2017 Status: COMPLETED Source: [place] 4:[address] [facility] [place] RE[facility] HNO ID: [id number] Author: Alison Ceron Service: (none) Author Type: Physician Type: Progress Notes Filed: 10/02/2017 1:45 PM Note Text: Aikn Adamson 1970 REFERRING PHYSICIAN: Self CHIEF COMPLAINT: Nausea/emesis HPI: The patient is a 47 year old female presents with multiple GI complaints. She complains of chronic nausea and emesis. She states that food goes right through her or she ends up throwing it up. She states that she gets sick to her stomach. She also complains of generalized abdominal pain that sometimes awake her from sleep. She states that she always feels tired. She states that this has been going on since February 2017. She denies weight loss. She states that she cannot undergo a colon cleansing preparation due to always having to throw up. She had last undergone upper and lower endoscopy in 2013, results are noted in EPIC. PAST MEDICAL HISTORY Diagnosis Date - Depression - Diabetes mellitus (HCC) 2010 - H. pylori infection 09/2013 + H.Pylori - HTN (hypertension) - Hyperlipidemia 2010 fish oil, unable to tolerate statins - Menorrhagia - Migraines Dr. DiazNeurologist - Obstructive sleep apnea - PMH - PAST MEDICAL HISTORY OF Suicide attempt x2 as teenager - PUD (peptic ulcer disease) 2006 - Viral pneumonia, unspecified 2008 Pneumonia - Vitamin D deficiency PAST SURGICAL HISTORY Procedure Laterality Date - APPENDECTOMY 1979 - DELIVERY ONLY x 2 - COLONOSCOP W/ OR W/O BRSH SPEC 12/19/13 Colonoscopy - EGD W/O BRSH SPECIMEN W/BX 10/20/10 Gastritis, mild - EGD W/O OR W/BRUSH/WASH 12/19/13 EGD - L'SCOPE REM ADNEX W/PART/TOT OOPH/SALP 02/09/16 laprascopic LSO, lysis of adhesions - LAPAROSCOPIC CHOLEYCYSTECTOMY 2005 [place]. - PICC LINE INSERT/CONSULT 02/28/2014 - THERMA CHOICE DEVICE 11/2011 - TLH W/T/O UTERUS OVER 250 G 04/02/14 LAVH, bilateral salpingectomy - TUBAL LIGATION, 2003 at time of c/s - TUNNEL VAD W SUB Q PORT >=5 01/20/15 left IJ Current Outpatient Prescriptions: naproxen (NAPROSYN) 500 mg tablet Take 1 tablet by mouth twice daily as needed (for pain/inflammation). Take with food. Omeprazole 40 mg capsule Take 1 capsule by mouth twice daily before meals. biotin 300 mcg tab Take 1 tablet by mouth once daily. blood sugar diagnostic (FREESTYLE LITE STRIPS) test strip Test blood sugar(s) 3-4 times daily. Dx: Other DM Code E08.40 Insulin: Yes Blood-Glucose Meter (FREESTYLE LITE METER) monitoring kit 1 Each as directed. sitaGLIPtin (JANUVIA) 100 mg tablet Take 1 tablet by mouth once daily. dicyclomine (BENTYL) 20 mg tablet TAKE 1 TABLET BY MOUTH BEFORE MEALS AND AT BEDTIME atorvastatin (LIPITOR) 80 mg tablet Take 1 tablet by mouth daily at bedtime. For cholesterol. losartan (COZAAR) 25 mg tablet Take 1 tablet by mouth once daily. Hydrochlorothiazide 12.5 mg capsule Take 1 capsule by mouth once daily. DULoxetine (CYMBALTA) 60 mg capsule Take 2 capsules by mouth once daily. aspirin 81 mg chewable tablet Take 81 mg by mouth once daily. Safety [place] (BD ECLIPSE LUER-OLYA) 25 gauge x 1 1/2 ndle For use with DHE metFORMIN ER (GLUCOPHAGE XR) 500 mg 24 hr tablet TAKE 2 TABLETS BY MOUTH TWICE DAILY WITH FOOD naratriptan (AMERGE) 2.5 mg tablet Take 1 tablet by mouth as needed. 2.5 mg at onset of headache, may repeat in 4 hours if needed 0.9% NaCl Access implanted vascular access device (IVAD) as needed for flush, blood draw or treatment.Flush IVAD with 10-20 mL NS every 4 weeks and PRN when IVAD not in use. heparin 100 unit/mL syrg Access implanted vascular access device (IVAD) as needed for flush, blood draw or treatment. Before de-accessing port, flush with 10-20ml normal saline and follow with 5 mL heparin (100 units/mL) (if no heparin allergy). De-access port on treatment completion. Syringe with Needle, Disp, (BD LUER-OLYA SYRINGE) 3 mL 25 x 1 1/2 syrg For DHE cyanocobalamin (VITAMIN B-12) 1,000 mcg tab Take 1 tablet by mouth once daily. coenzyme Q10 (COQ-10) 100 mg cap capsule Take 1 capsule by mouth twice daily. Potassium 99 mg tab Take by mouth. 0.9% NaCl Access implanted vascular access device (IVAD) as needed for flush, blood draw or treatment.Flush IVAD with 10-20 mL NS every 4 weeks and PRN when IVAD not in use. DOCOSAHEXANOIC ACID/EPA (FISH OIL ORAL) Take by mouth once daily. LORazepam (ATIVAN) 2 mg ORAL Tab Take 1 tablet by mouth twice daily as needed. Lancets (EdCaliberTOUCH ULTRASOFT LANCETS) lancets Use as instructed. Patient checks blood sugars 3 to 4 times per day. E08.40; Insulin: no dihydroergotamine (D.H.E.45) 1 mg/mL injection Inject 1 mg intramuscularly every 8 hours. As needed for migraine. Max use 3 days per week. Do not use within 25 hours of taking Amerge Filter [place] 19 X 1 ndle For use with DHE promethazine (PHENERGAN) 25 mg tablet Take 1 tablet by mouth every 4 hours as needed for Nausea/Vomiting. levETIRAcetam (KEPPRA) 250 mg tablet Take 2 tablets QHS x1 week then 1 tablet QHS x1 week then stop cyclobenzaprine (FLEXERIL) 10 mg tablet Take 1 tablet by mouth twice daily as needed for Muscle Spasm. Current Facility-Administered Medications: onabotulinum toxin type A 200 Units injection (BOTOX) 200 Units INTRAMUSCULAR q 3 MONTHS ALLERGIES: Amoxil [Amoxicillin]; Compazine [Prochlorperazine Edisylate]; Flagyl [Metronidazole Hcl]; Reglan [Metoclopramide Hcl]; Simvastatin; Toradol [Ketorolac]; Zofran [Ondansetron Hcl (Pf)] PERSONAL HISTORY: Social History Marital status: Spouse name: Years of education: 14 Number of children: 5 Occupational History Occupation Employer Comment homemaker Social History Main Topics Smoking status: Never Smoker Smokeless tobacco: Never Used Alcohol use: No Drug use: No Sexual activity: Yes Partners with: Male control/protection: Tubal Ligation Comment: thermachoice Social History Narrative 5 children- 3 sons, 2 daughters FAMILY HISTORY Problem Relation Age of Onset - Diabetes Mother - Hypertension Mother - Lipids Mother - Psychiatry Mother depression, possibly bipolar. - Heart Father - Hypertension Father - Coronary Artery Disease Father 58 triple by-pass graph, [place] x 3 - Migraines [Other] [OTHER] Father - Psychiatry Sister - Diabetes Sister - Diabetes Sister - Psychiatry Sister - GI Son Ulcerative colitis REVIEW OF SYSTEMS: General: The patient NOTES fatigue, denies weight loss, NOTES weight gain, denies feeling hot, and denies feelings of cold. Eyes: The patient denies glaucoma, denies eye injury/surgery, wears glasses or contacts. Ear/Nose/Throat: The patient denies allergies, denies hayfever, denies ear infections, and denies bloody noses. Cardiovascular: The patient denies chest pain, denies heart disease, NOTES high blood pressure,denies cardiac stent, denies prior heart attack, denies irregular heart beat, NOTES high cholesterol, denies poor circulation, denies heart failure, other cardiac issues, NOTES claudication, NOTES cold feet, denies peripheral arterial stent. Respiratory: The patient denies tuberculosis, denies pneumonia, denies frequent cough, denies pulmonary embolism, denies shortness of breath, and denies coughing up blood. Gastrointestinal: The patient denies difficulty swallowing, NOTES acid reflux, denies ulcers, NOTES vomiting, denies jaundice/hepatitis, denies gallbladder problems, denies black or tarry stools, denies hemorrhoids, NOTES bleeding from rectum, denies diverticulitis, denies constipation, NOTES diarrhea, NOTES loss of stool control, and denies hernias. Kidney/Bladder: The patient denies kidney stones, NOTES urine infections, and denies bloody urine. Skin: The patient denies a history of skin cancer, denies bleeding/changing moles, and denies a history of skin rash. Neurologic: The patient denies a history of epilepsy/convulsions, NOTES headaches, denies head/spinal injuries, and denies stroke/TIA. Psychiatric: The patient denies psychiatric medications, NOTES depression, and denies voices, denies substance abuse. Endocrine: The patient denies thyroid disorders, NOTES diabetes, and denies hormonal problems. Hematologic: The patient denies a history of bruising, denies bleeding, and denies anemia, denies blood clots. Infections: The patient denies a history of measles and mumps, denies rheumatic fever, and denies sexually transmitted diseases. Musculoskeletal: The patient denies back pain/injury, denies back problems, denies sciatica, denies knee/foot trouble, denies arthritis, or denies gout. PHYSICAL EXAMINATION: General: The patient is 47 year old female, well nourished, well hydrated in no acute distress. The patient is oriented to time, place, and person. VITALS: Blood pressure 122/86, pulse 100, height 162.6 cm (5' 4), weight 134.5 kg (296 lb 9.6 oz). Body mass index is 50.91 kg/m?. Head ? Normocephalic. EOM intact with sclera clear and no icterus noted. Mouth with mucus membranes moist. Neck - supple with no jugular venous distention noted. Trachea is midline. Lungs ? no labored breathing noted, such as retractions. No cough heard. Heart ?regular rate. Abdomen ? soft and benign. Normal bowel sounds. Difficult to determine if any masses or organomegaly due to body habitus. Extremities ? no pitting edema noted. Skin ? normal skin integrity. Neurological ? gait normal, no focal deficits noted Psych ? calm and appropriate Assessment IMPRESSION: chronic nausea/emesis, multiple GI symptoms PLAN: I have discussed the above with the patient. I believe that the patient would best benefit from a formal gastroenterology consultation. From a surgical standpoint, I have no surgical treatment to offer her. She may benefit from repeat endoscopies, but will defer this to gastroenterology. My office will make a referral for the patient to be evaluated by gastroenterology. I have answered all questions to the patient?s satisfaction and the patient has no further questions. Greater than 50% of this patient encounter was dedicated to face to face discussion with the patient. Diagnoses: (R10.84) Generalized abdominal pain (primary encounter diagnosis) (R11.10) Vomiting in adult Return to Clinic: The patient is instructed to follow-up with me as per needed. Alison Ceron MD PROGRESS Observed: 09/29/2017 Status: COMPLETED Source: [place] 9:05 AM [facility] RE[facility] HNO ID: [id number] Author: Susie Diaz Service: (none) Author Type: Physician Type: Progress Notes Filed: 10/06/2017 1:32 PM Note Text: Neurology Follow-up Visit ASSESSMENT: 46 year old female with history significant for DM, with chronic migraine with more than 15 headache days per month. She has tried and failed or not tolerated multiple migraine preventive medications. Botox has been helpful in reducing frequency and severity of migraines. Repeated Botox injections today with same regimen. Continue current preventive therapies. DHE has been very helpful for her, significantly reduced ED visits and outpatient infusions. She can continue this and Amerge since her cardiac workup was negative. ? Currently migraines not controlled because injections are late. Had 1 infusion, difficulty getting to others, afraid she will fall asleep driving. Will stop infusions and give 2 weeks oral Keppra. ??? PLAN:?? --->?Acute Treatment:?? -DHE, Phenergan ? - Amerge - Keppra x2 weeks ?? --->?Preventive Treatment:?? - continue Cymbalta, Zonegran - Botox today ? --->?Follow-up: 3 months Interval Hx: Migraines are much worse since Botox wore off. She is late for injections. Had 1 infusion on Tuesday, slept through the one scheduled yesterday. The Tuesday infusion helped temporarily. No Botox side effects. Using DHE for acute therapy with no side effects. Tries Amerge first. Does not use them at the same time. Current Outpatient Prescriptions: naproxen (NAPROSYN) 500 mg tablet Take 1 tablet by mouth twice daily as needed (for pain/inflammation). Take with food. Omeprazole 40 mg capsule Take 1 capsule by mouth twice daily before meals. biotin 300 mcg tab Take 1 tablet by mouth once daily. blood sugar diagnostic (FREESTYLE LITE STRIPS) test strip Test blood sugar(s) 3-4 times daily. Dx: Other DM Code E08.40 Insulin: Yes Blood-Glucose Meter (FREESTYLE LITE METER) monitoring kit 1 Each as directed. sitaGLIPtin (JANUVIA) 100 mg tablet Take 1 tablet by mouth once daily. magnesium sulfate in 0.9% NaCl (MAGNESIUM SULFATE IN NS) 1 gram/50 mL pgbk INFUSE 1000 mg in NS 250 ML IV OVER 1 HOUR daily for 3 days 0.9 % sodium chloride (NACL 0.9%) solution INFUSE 500 CC IV NS IV OVER 30 MIN daily for 3 days valproate sodium (DEPACON) 500 mg/5 mL (100 mg/mL) injection DEPACON 500 mg IV in NS 50 ML OVER 20 MIN daily for 3 days promethazine (PHENERGAN) 25 mg/mL injection Give 25 mg IV daily for 3 days dicyclomine (BENTYL) 20 mg tablet TAKE 1 TABLET BY MOUTH BEFORE MEALS AND AT BEDTIME atorvastatin (LIPITOR) 80 mg tablet Take 1 tablet by mouth daily at bedtime. For cholesterol. losartan (COZAAR) 25 mg tablet Take 1 tablet by mouth once daily. Hydrochlorothiazide 12.5 mg capsule Take 1 capsule by mouth once daily. cyclobenzaprine (FLEXERIL) 10 mg tablet Take 1 tablet by mouth twice daily as needed for Muscle Spasm. dihydroergotamine (D.H.E.45) 1 mg/mL injection Inject 1 mg intramuscularly every 8 hours. As needed for migraine. Max use 3 days per week. Do not use within 25 hours of taking Amerge DULoxetine (CYMBALTA) 60 mg capsule Take 2 capsules by mouth once daily. Filter [place] 19 X 1 ndle For use with DHE aspirin 81 mg chewable tablet Take 81 mg by mouth once daily. Safety [place] (BD ECLIPSE LUER-OLYA) 25 gauge x 1 1/2 ndle For use with DHE metFORMIN ER (GLUCOPHAGE XR) 500 mg 24 hr tablet TAKE 2 TABLETS BY MOUTH TWICE DAILY WITH FOOD naratriptan (AMERGE) 2.5 mg tablet Take 1 tablet by mouth as needed. 2.5 mg at onset of headache, may repeat in 4 hours if needed promethazine (PHENERGAN) 25 mg tablet Take 1 tablet by mouth every 4 hours as needed for Nausea/Vomiting. 0.9% NaCl Access implanted vascular access device (IVAD) as needed for flush, blood draw or treatment.Flush IVAD with 10-20 mL NS every 4 weeks and PRN when IVAD not in use. heparin 100 unit/mL syrg Access implanted vascular access device (IVAD) as needed for flush, blood draw or treatment. Before de-accessing port, flush with 10-20ml normal saline and follow with 5 mL heparin (100 units/mL) (if no heparin allergy). De-access port on treatment completion. Syringe with Needle, Disp, (BD LUER-OLYA SYRINGE) 3 mL 25 x 1 1/2 syrg For DHE cyanocobalamin (VITAMIN B-12) 1,000 mcg tab Take 1 tablet by mouth once daily. coenzyme Q10 (COQ-10) 100 mg cap capsule Take 1 capsule by mouth twice daily. Potassium 99 mg tab Take by mouth. 0.9% NaCl Access implanted vascular access device (IVAD) as needed for flush, blood draw or treatment.Flush IVAD with 10-20 mL NS every 4 weeks and PRN when IVAD not in use. onabotulinum toxin type A (BOTOX) 100 unit solr To be injected by physician every 3 months DOCOSAHEXANOIC ACID/EPA (FISH OIL ORAL) Take by mouth once daily. LORazepam (ATIVAN) 2 mg ORAL Tab Take 1 tablet by mouth twice daily as needed. No current facility-administered medications for this visit. Exam: BP 150/95 (BP Site: Left Arm, BP Position: Sitting, BP Cuff Size: Regular Adult) Pulse 95 Wt (!) 136.5 kg (301 lb) LMP 03/06/2014 SpO2 95% BMI 51.67 kg/m? GEN: Alert. NAD. Normal affect. Cooperative. ?? NEUROLOGICAL: ? MENTAL STATUS: ? A+O x 3. Attentive. Thought process and content unremarkable. Follows commands appropriately. Speech fluent. ?? CN: II: Pupils equal III, IV, : EOMI. No ptosis present. VII: Face symmetric. ?? CEREBELLAR: ? No ataxia or nystagmus. ?? GAIT: ? Stable primary gait. [facility] Neurotoxin Visit Date: September 29, 2017 Name: Akin Adamson Historical/ Initial Dose Diagnosis: chronic intractable migraine Date of Diagnosis:11/20/2012 Date of 1st Treatment: 07/09/2014 Type of Neurotoxin: Botox: J0585 Total amount injected: 155?units What other treatments have been tried and failed: Medications Zonegran, Keppra, Cymbalta, amitriptyline, Depakote, Topamax, propranolol Estimated Duration of treatment: Will reassess after 1year Frequency of treatment: 90days Last Injection Notes Date of last Injection:04/22/2017 Type of Neurotoxin: Botox: J0585 Total amount injected: 200 units Dilution: NS 2:1 Administered with EMG guidance: No Assessment Functional limitations (current): 2(moderate) Pain (current): Yes (location)head Effectiveness of last injection:90% Wearing off since last treatment: lasts 3 months, she is late for injections Side effects related to last injection: None Time Out: INFORMED CONSENT Akin Adamson Medical Record: [id number] Procedure: Botulinum toxin injection The risks, benefits and anticipated outcomes of the procedure, the risks and benefits of the alternatives to the procedure and the roles and tasks of the personnel to be involved were discussed with the patient and the patient consents to the procedure and agrees to proceed. I verify that I personally obtained Akin Adamson's consent. Susie Diaz MD September 29, 2017 9:05 AM Dept of NEUROLOGY UNIVERSAL PROTOCOL / SAFETY CHECKLIST Sign in Communication: Completed Time Out: Team Confirms the Correct Patient, Correct Procedure, Correct Site and Site Marking, Correct Position (if applicable), Prep and Dry Time (if applicable). Time: 0920 Affirmation of Time Out: YES Sign Out Discussion: Completed Susie Diaz MD Current Injection Note Type of Neurotoxin: Botox: J0585 Total Amount drawn up: 200 units Total amount injected: 200 units Total amount wasted: 0 units Dilution: NS 2:1 Administered with EMG guidance: No Injection Site: Muscle??? Right??? Left??? # of Injection Sites Per Side?? Total Units?? Hammerer Helper ? 5 ? 5 ? 1 ? 10 ? Procerus ? 1 midline (5u) ? 5 ? Frontalis ? 10 ? 10 ? 2 ? 20 ? Temporalis ? 25 20 ? 4 ? 40 ? Occipitalis/Sub ? 30 ? 20 ? 3 ? 45 ? Cervical PSPs ? 15 ? 15 ? 2 ? 30 ? Trapezius ? 20 ? 20 ? 3 ? 40 ? Lot#: [id number] Exp Date03/2020 Lot#: [id number] Exp Date03/2020 Future plan of care: Follow up: 3 months Neurotoxin Change: No Dose Change: No Susie Diaz M.D. [facility] [place] Department [facility] cc: SELF Chau Flores DO [address] [place] [address] JAYNE Observed: 09/29/2017 Status: COMPLETED Source: [place] 8:40 AM [facility] Office Visit (NEURMM) AKIN ADAMSON ([id number]) 1970 F Date Time Provider Department 09/29/17 8:40 AM SUSIE DIAZ During your visit today, we recorded the following information about you: Pulse Blood pressure Weight 95/minute 150/95 136.5 kg Susie Diaz MD 10/06/2017 1:32 PM Signed Neurology Follow-up Visit ASSESSMENT: 46 year old female with history significant for DM, with chronic migraine with more than 15 headache days per month. She has tried and failed or not tolerated multiple migraine preventive medications. Botox has been helpful in reducing frequency and severity of migraines. Repeated Botox injections today with same regimen. Continue current preventive therapies. DHE has been very helpful for her, significantly reduced ED visits and outpatient infusions. She can continue this and Amerge since her cardiac workup was negative. ? Currently migraines not controlled because injections are late. Had 1 infusion, difficulty getting to others, afraid she will fall asleep driving. Will stop infusions and give 2 weeks oral Keppra. ??? PLAN:?? --->?Acute Treatment:?? -DHE, Phenergan ? - Amerge - Keppra x2 weeks ?? --->?Preventive Treatment:?? - continue Cymbalta, Zonegran - Botox today ? --->?Follow-up: 3 months Interval Hx: Migraines are much worse since Botox wore off. She is late for injections. Had 1 infusion on Tuesday, slept through the one scheduled yesterday. The Tuesday infusion helped temporarily. No Botox side effects. Using DHE for acute therapy with no side effects. Tries Amerge first. Does not use them at the same time. Current Outpatient Prescriptions: naproxen (NAPROSYN) 500 mg tablet Take 1 tablet by mouth twice daily as needed (for pain/inflammation). Take with food. Omeprazole 40 mg capsule Take 1 capsule by mouth twice daily before meals. biotin 300 mcg tab Take 1 tablet by mouth once daily. blood sugar diagnostic (FREESTYLE LITE STRIPS) test strip Test blood sugar(s) 3-4 times daily. Dx: Other DM Code E08.40 Insulin: Yes Blood-Glucose Meter (FREESTYLE LITE METER) monitoring kit 1 Each as directed. sitaGLIPtin (JANUVIA) 100 mg tablet Take 1 tablet by mouth once daily. magnesium sulfate in 0.9% NaCl (MAGNESIUM SULFATE IN NS) 1 gram/50 mL pgbk INFUSE 1000 mg in NS 250 ML IV OVER 1 HOUR daily for 3 days 0.9 % sodium chloride (NACL 0.9%) solution INFUSE 500 CC IV NS IV OVER 30 MIN daily for 3 days valproate sodium (DEPACON) 500 mg/5 mL (100 mg/mL) injection DEPACON 500 mg IV in NS 50 ML OVER 20 MIN daily for 3 days promethazine (PHENERGAN) 25 mg/mL injection Give 25 mg IV daily for 3 days dicyclomine (BENTYL) 20 mg tablet TAKE 1 TABLET BY MOUTH BEFORE MEALS AND AT BEDTIME atorvastatin (LIPITOR) 80 mg tablet Take 1 tablet by mouth daily at bedtime. For cholesterol. losartan (COZAAR) 25 mg tablet Take 1 tablet by mouth once daily. Hydrochlorothiazide 12.5 mg capsule Take 1 capsule by mouth once daily. cyclobenzaprine (FLEXERIL) 10 mg tablet Take 1 tablet by mouth twice daily as needed for Muscle Spasm. dihydroergotamine (D.H.E.45) 1 mg/mL injection Inject 1 mg intramuscularly every 8 hours. As needed for migraine. Max use 3 days per week. Do not use within 25 hours of taking Amerge DULoxetine (CYMBALTA) 60 mg capsule Take 2 capsules by mouth once daily. Filter [place] 19 X 1 ndle For use with DHE aspirin 81 mg chewable tablet Take 81 mg by mouth once daily. Safety [place] (BD ECLIPSE LUER-OLYA) 25 gauge x 1 1/2 ndle For use with DHE metFORMIN ER (GLUCOPHAGE XR) 500 mg 24 hr tablet TAKE 2 TABLETS BY MOUTH TWICE DAILY WITH FOOD naratriptan (AMERGE) 2.5 mg tablet Take 1 tablet by mouth as needed. 2.5 mg at onset of headache, may repeat in 4 hours if needed promethazine (PHENERGAN) 25 mg tablet Take 1 tablet by mouth every 4 hours as needed for Nausea/Vomiting. 0.9% NaCl Access implanted vascular access device (IVAD) as needed for flush, blood draw or treatment.Flush IVAD with 10-20 mL NS every 4 weeks and PRN when IVAD not in use. heparin 100 unit/mL syrg Access implanted vascular access device (IVAD) as needed for flush, blood draw or treatment. Before de-accessing port, flush with 10-20ml normal saline and follow with 5 mL heparin (100 units/mL) (if no heparin allergy). De-access port on treatment completion. Syringe with Needle, Disp, (BD LUER-OLYA SYRINGE) 3 mL 25 x 1 1/2 syrg For DHE cyanocobalamin (VITAMIN B-12) 1,000 mcg tab Take 1 tablet by mouth once daily. coenzyme Q10 (COQ-10) 100 mg cap capsule Take 1 capsule by mouth twice daily. Potassium 99 mg tab Take by mouth. 0.9% NaCl Access implanted vascular access device (IVAD) as needed for flush, blood draw or treatment.Flush IVAD with 10-20 mL NS every 4 weeks and PRN when IVAD not in use. onabotulinum toxin type A (BOTOX) 100 unit solr To be injected by physician every 3 months DOCOSAHEXANOIC ACID/EPA (FISH OIL ORAL) Take by mouth once daily. LORazepam (ATIVAN) 2 mg ORAL Tab Take 1 tablet by mouth twice daily as needed. No current facility-administered medications for this visit. Exam: BP 150/95 (BP Site: Left Arm, BP Position: Sitting, BP Cuff Size: Regular Adult) Pulse 95 Wt (!) 136.5 kg (301 lb) LMP 03/06/2014 SpO2 95% BMI 51.67 kg/m? GEN: Alert. NAD. Normal affect. Cooperative. ?? NEUROLOGICAL: ? MENTAL STATUS: ? A+O x 3. Attentive. Thought process and content unremarkable. Follows commands appropriately. Speech fluent. ?? CN: II: Pupils equal III, IV, : EOMI. No ptosis present. VII: Face symmetric. ?? CEREBELLAR: ? No ataxia or nystagmus. ?? GAIT: ? Stable primary gait. [facility] Neurotoxin Visit Date: September 29, 2017 Name: Akin Adamson Historical/ Initial Dose Diagnosis: chronic intractable migraine Date of Diagnosis:11/20/2012 Date of 1st Treatment: 07/09/2014 Type of Neurotoxin: Botox: J0585 Total amount injected: 155?units What other treatments have been tried and failed: Medications Zonegran, Keppra, Cymbalta, amitriptyline, Depakote, Topamax, propranolol Estimated Duration of treatment: Will reassess after 1year Frequency of treatment: 90days Last Injection Notes Date of last Injection:04/22/2017 Type of Neurotoxin: Botox: J0585 Total amount injected: 200 units Dilution: NS 2:1 Administered with EMG guidance: No Assessment Functional limitations (current): 2(moderate) Pain (current): Yes (location)head Effectiveness of last injection:90% Wearing off since last treatment: lasts 3 months, she is late for injections Side effects related to last injection: None Time Out: INFORMED CONSENT Akin Adamson Medical Record: [id number] Procedure: Botulinum toxin injection The risks, benefits and anticipated outcomes of the procedure, the risks and benefits of the alternatives to the procedure and the roles and tasks of the personnel to be involved were discussed with the patient and the patient consents to the procedure and agrees to proceed. I verify that I personally obtained Akin Adamson's consent. Susie Diza MD September 29, 2017 9:05 AM Dept of NEUROLOGY UNIVERSAL PROTOCOL / SAFETY CHECKLIST Sign in Communication: Completed Time Out: Team Confirms the Correct Patient, Correct Procedure, Correct Site and Site Marking, Correct Position (if applicable), Prep and Dry Time (if applicable). Time: 0920 Affirmation of Time Out: YES Sign Out Discussion: Completed Susie Diaz MD Current Injection Note Type of Neurotoxin: Botox: J0585 Total Amount drawn up: 200 units Total amount injected: 200 units Total amount wasted: 0 units Dilution: NS 2:1 Administered with EMG guidance: No Injection Site: Muscle??? Right??? Left??? # of Injection Sites Per Side?? Total Units?? Hammerer Helper ? 5 ? 5 ? 1 ? 10 ? Procerus ? 1 midline (5u) ? 5 ? Frontalis ? 10 ? 10 ? 2 ? 20 ? Temporalis ? 25 20 ? 4 ? 40 ? Occipitalis/Sub ? 30 ? 20 ? 3 ? 45 ? Cervical PSPs ? 15 ? 15 ? 2 ? 30 ? Trapezius ? 20 ? 20 ? 3 ? 40 ? Lot#: [id number] Exp Date03/2020 Lot#: [id number] Exp Date03/2020 Future plan of care: Follow up: 3 months Neurotoxin Change: No Dose Change: No Susie Diaz M.D. [facility] [place] Department [facility] cc: SELF Chau Flores DO [address] [place] [address] Referring Provider: SELF [[id number]] Allergies As of Date: 09/29/2017 Noted Allergy Reaction AMOXIL (AMOXICILLIN) 01/04/2014 8 - GI Upset COMPAZINE (PROCHLORPERAZINE EDISY*08/12/2008 16 - Unknown FLAGYL (METRONIDAZOLE HCL) 09/07/2012 14 - Other: See Comments Comments: Headache - she is prone to migraines and flagyl sets it off every time she takes it. REGLAN (METOCLOPRAMIDE HCL) 02/27/2014 14 - Other: See Comments Comments: anxiety SIMVASTATIN 04/27/2012 14 - Other: See Comments Comments: severe muscle aches TORADOL (KETOROLAC) 08/12/2008 2 - Rash ZOFRAN (ONDANSETRON HCL (PF)) 06/22/2013 14 - Other: See Comments Date Reviewed: 09/29/2017 Reviewed by: Janell Adams Ma - Fully Assessed Reason for Visit: Botox Injection [373] Primary Visit Diagnosis:Intractable chronic migraine without aura and without status migrainosus [G43.719] Order(s):dihydroergotamine (D.H.E.45) 1 mg/mL injectionInject 1 mg intramuscularly every 8 hours. As needed for migraine. Max use 3 days per week. Do not use within 25 hours of taking AmergeDisp: 60 mLRfl: 3 Filter [place] 19 X 1 ndleFor use with DHEDisp: 30 EachRfl: 2 promethazine (PHENERGAN) 25 mg tabletTake 1 tablet by mouth every 4 hours as needed for Nausea/Vomiting.Disp: 30 tabletRfl: 6 onabotulinum toxin type A 200 Units injection (BOTOX)Disp: Rfl: levETIRAcetam (KEPPRA) 250 mg tabletTake 2 tablets QHS x1 week then 1 tablet QHS x1 week then stopDisp: 21 tabletRfl: 0 Prescriptions as of 09/29/2017 Sig: DIHYDROERGOTAMINE 1 MG/ML INJ* Inject 1 mg intramuscularly e* FILTER NEEDLES 19 X 1 For use with DHE PROMETHAZINE 25 MG TABLET Take 1 tablet by mouth every * NAPROXEN 500 MG TABLET Take 1 tablet by mouth twice * BIOTIN 300 MCG TABLET Take 1 tablet by mouth once d* BLOOD SUGAR DIAGNOSTIC STRIPS Test blood sugar(s) 3- 4 times* BLOOD-GLUCOSE METER KIT 1 Each as directed. SITAGLIPTIN 100 MG TABLET Take 1 tablet by mouth once d* X OMEPRAZOLE 40 MG CAPSULE,APOLINAR* Take 1 capsule by mouth twice* DICYCLOMINE 20 MG TABLET TAKE 1 TABLET BY MOUTH BEFORE* ATORVASTATIN 80 MG TABLET Take 1 tablet by mouth daily * LOSARTAN 25 MG TABLET Take 1 tablet by mouth once d* HYDROCHLOROTHIAZIDE 12.5 MG C* Take 1 capsule by mouth once * CYCLOBENZAPRINE 10 MG TABLET Take 1 tablet by mouth twice * DULOXETINE 60 MG CAPSULE,APOLINAR* Take 2 capsules by mouth once* ASPIRIN 81 MG CHEWABLE TABLET Take 81 mg by mouth once keegan* SAFETY NEEDLES 25 GAUGE X 1 1* For use with DHE METFORMIN ER 500 MG TABLET,EX* TAKE 2 TABLETS BY MOUTH TWICE* NARATRIPTAN 2.5 MG TABLET Take 1 tablet by mouth as nee* SODIUM CHLORIDE 0.9% FLUSH Access implanted vascular acc* HEPARIN LOCK FLUSH (PORCINE) * Access implanted vascular acc* SYRINGE WITH NEEDLE 3 ML 25 X* For DHE CYANOCOBALAMIN (VIT B-12) 1,0* Take 1 tablet by mouth once d* COENZYME Q10 100 MG CAPSULE Take 1 capsule by mouth twice* POTASSIUM 99 MG TABLET Take by mouth. SODIUM CHLORIDE 0.9% FLUSH Access implanted vascular acc* FISH OIL ORAL Take by mouth once daily. * LORAZEPAM 2 MG TABLET Take 1 tablet by mouth twice * LEVETIRACETAM 250 MG TABLET Take 2 tablets QHS x1 week th* Problem List As Of Date 09/29/2017 Noted Resolved ESOPHAGEAL REFLUX [K21.9] INVALID FOR* GENERALIZED ANXIETY DIS [F41.1] INVALID FOR* Impaired fasting glucose [R73.01] INVALID FOR*12/07/2011 Depression [F32.9] INVALID FOR* More... Morbid Obesity [E66.01] INVALID FOR* Abdominal Pain [R10.9] INVALID FOR* Calculus of Kidney [N20.0] INVALID FOR* UTI (Lower Urinary Tract Infection) [N39.0] INVALID FOR*12/30/2009 Insomnia [G47.00] INVALID FOR* Microalbuminuria [R80.9] INVALID FOR* Obstructive sleep apnea [G47.33] INVALID FOR* Sprain and strain of unspecified site of knee a*INVALID FOR* Lumbar sprain and strain [S33.5XXA] INVALID FOR* Abdominal pain, left upper quadrant [R10.12] INVALID FOR* Innocent heart murmur INVALID FOR* Diabetic neuropathy [E11.40] INVALID FOR* Diabetic nephropathy [E11.21] INVALID FOR* Menorrhagia [N92.0] INVALID FOR*11/15/2012 Migraines [G43.909] INVALID FOR* Bacterial vaginitis [N76.0, B96.89] INVALID FOR*11/30/2013 Vaginitis [N76.0] INVALID FOR*11/30/2013 More... Abnormal uterine bleeding [N93.9] INVALID FOR* Backache, unspecified [M54.9] INVALID FOR* Diabetes mellitus due to underlying condition w*INVALID FOR* Willing to be liver donor [Z00.5] INVALID FOR* Intractable chronic migraine without aura [G43.*INVALID FOR* Exhausted vascular access [Z45.2] INVALID FOR* Endometriosis of peritoneum [N80.3] INVALID FOR* Morbid obesity with BMI of 50.0-59.9, adult (HC*INVALID FOR* OAB (overactive bladder) [N32.81] INVALID FOR* Hyperlipidemia [E78.5] INVALID FOR* More... HTN (hypertension) [I10] INVALID FOR* Prescriptions ordered this encounter Disp Refills Start End DIHYDROERGOTAMINE 1 MG/ML INJECTION * 60 mL 3 09/29/2017 Route: INTRAMUSCULA Sig: Inject 1 mg intramuscularly every 8 hours. As needed for migraine. Max use 3 days per week. Do not use within 25 hours of taking Amerge FILTER NEEDLES 19 X 1 30 E* 2 09/29/2017 Sig: For use with DHE PROMETHAZINE 25 MG TABLET 30 t* 6 09/29/2017 Route: ORAL Sig: Take 1 tablet by mouth every 4 hours as needed for Nausea/Vomiting. ONABOTULINUMTOXINA 100 UNIT SOLUTION* 09/29/2017 Route: INTRAMUSCULA LEVETIRACETAM 250 MG TABLET 21 t* 0 09/29/2017 Sig: Take 2 tablets QHS x1 week then 1 tablet QHS x1 week then stop Medications Discontinued During This Encounter onabotulinum toxin type A (BOTOX) 10* 0 07/09/2014 09/29/2017 Class: Med Update Sig: To be injected by physician every 3 months Disc: Reason for discontinue is not on file. dihydroergotamine (D.H.E.45) 1 mg/mL* 60 mL 3 07/14/2017 09/29/2017 Route: INTRAMUSCULAR Sig: Inject 1 mg intramuscularly every 8 hours. As needed for migraine. Max use 3 days per week. Do not use within 25 hours of taking Amerge Disc: Reason for discontinue is not on file. Filter [place] 19 X 1 ndle 30 E* 0 05/18/2017 09/29/2017 Sig: For use with DHE Disc: Reason for discontinue is not on file. promethazine (PHENERGAN) 25 mg tablet 30 t* 6 09/27/2016 09/29/2017 Route: ORAL Sig: Take 1 tablet by mouth every 4 hours as needed for Nausea/Vomiting. Disc: Reason for discontinue is not on file. promethazine (PHENERGAN) 25 mg/mL in* 5 mL 0 09/15/2017 09/29/2017 Class: In Office Sig: Give 25 mg IV daily for 3 days Disc: Reason for discontinue is not on file. valproate sodium (DEPACON) 500 mg/5 * 15 mL 0 09/15/2017 09/29/2017 Class: In Office Sig: DEPACON 500 mg IV in NS 50 ML OVER 20 MIN daily for 3 days Disc: Reason for discontinue is not on file. 0.9 % sodium chloride (NACL 0.9%) so* 1500* 0 09/15/2017 09/29/2017 Class: In Office Sig: INFUSE 500 CC IV NS IV OVER 30 MIN daily for 3 days Disc: Reason for discontinue is not on file. magnesium sulfate in 0.9% NaCl (MAGN* 150 * 0 09/15/2017 09/29/2017 Class: In Office Sig: INFUSE 1000 mg in NS 250 ML IV OVER 1 HOUR daily for 3 days Disc: Reason for discontinue is not on file. levETIRAcetam (KEPPRA) 500 mg/5 mL i* 500 * 0 05/08/2015 09/29/2017 Class: In Office Sig: INFUSE 500 mg in NS 100 ML IV OVER 20 MIN daily for 5 days Disc: Reason for discontinue is not on file. levETIRAcetam (KEPPRA) 500 mg/5 mL i* 300 * 0 08/28/2014 09/29/2017 Class: In Office Route: INTRAVENOUS Sig: Inject 500 mg intravenously as directed for 8 days. INFUSE 500 mg in NS 100 ML IV OVER 20 MIN daily for 3 days Disc: Reason for discontinue is not on file. levETIRAcetam (KEPPRA) 500 mg/5 mL i* 15 mL 0 11/12/2014 09/29/2017 Class: In Office Route: INTRAVENOUS Sig: Inject 500 mg intravenously as directed for 3 days. INFUSE 500 mg in NS 100 ML IV OVER 20 MIN Disc: Reason for discontinue is not on file. levETIRAcetam (KEPPRA) 500 mg/5 mL i* 10 mL 0 07/02/2014 09/29/2017 Class: Print RX Route: INTRAVENOUS Sig: Inject 500 mg intravenously as directed for 2 days. INFUSE 500 mg in NS 100 ML IV OVER 20 MIN. Once daily for 2 days Disc: Reason for discontinue is not on file. levETIRAcetam (KEPPRA) 500 mg/5 mL i* 5 mL 0 02/26/2014 09/29/2017 Class: In Office Route: INTRAVENOUS Sig: Inject 500 mg intravenously as directed for 5 days. INFUSE 500 mg in NS 100 ML IV OVER 20 MIN. Daily for 5 days Disc: Reason for discontinue is not on file. Disposition: Return in about 3 months (around 12/30/2017) for BOTOX. Follow-up and Disposition History Recorded Encounter Status:Closed by SUSIE DIAZ MD on 10/06/17 JAYNE Observed: 09/28/2017 Status: COMPLETED Source: [place] 1:20 PM [facility] REPOSITORY Office Visit (LEROYS) AKIN ADAMSON ([id number]) 1970 F Date Time Provider Department 09/28/17 1:20 PM ALISON CERON During your visit today, we recorded the following information about you: Pulse Blood pressure Weight Height 100/minute 122/86 134.5 kg 1.626 m Ligia Bruno Ma 09/28/2017 2:17 PM Signed REVIEW OF SYSTEMS: General: The patient NOTES fatigue, denies weight loss, NOTES weight gain, denies feeling hot, and denies feelings of cold. Eyes: The patient denies glaucoma, denies eye injury/surgery, wears glasses or contacts. Ear/Nose/Throat: The patient denies allergies, denies hayfever, denies ear infections, and denies bloody noses. Cardiovascular: The patient denies chest pain, denies heart disease, NOTES high blood pressure,denies cardiac stent, denies prior heart attack, denies irregular heart beat, NOTES high cholesterol, denies poor circulation, denies heart failure, other cardiac issues, NOTES claudication, NOTES cold feet, denies peripheral arterial stent. Respiratory: The patient denies tuberculosis, denies pneumonia, denies frequent cough, denies pulmonary embolism, denies shortness of breath, and denies coughing up blood. Gastrointestinal: The patient denies difficulty swallowing, NOTES acid reflux, denies ulcers, NOTES vomiting, denies jaundice/hepatitis, denies gallbladder problems, denies black or tarry stools, denies hemorrhoids, NOTES bleeding from rectum, denies diverticulitis, denies constipation, NOTES diarrhea, NOTES loss of stool control, and denies hernias. Kidney/Bladder: The patient denies kidney stones, NOTES urine infections, and denies bloody urine. Skin: The patient denies a history of skin cancer, denies bleeding/changing moles, and denies a history of skin rash. Neurologic: The patient denies a history of epilepsy/convulsions, NOTES headaches, denies head/spinal injuries, and denies stroke/TIA. Psychiatric: The patient denies psychiatric medications, NOTES depression, and denies voices, denies substance abuse. Endocrine: The patient denies thyroid disorders, NOTES diabetes, and denies hormonal problems. Hematologic: The patient denies a history of bruising, denies bleeding, and denies anemia, denies blood clots. Infections: The patient denies a history of measles and mumps, denies rheumatic fever, and denies sexually transmitted diseases. Musculoskeletal: The patient denies back pain/injury, denies back problems, denies sciatica, denies knee/foot trouble, denies arthritis, or denies gout. When was patient's last Mammogram screening? 06/2015 Last Colonoscopy: 02/2016 Alison Murillo Ma 10/02/2017 1:45 PM Signed Akin Adamson 1970 REFERRING PHYSICIAN: Self CHIEF COMPLAINT: Nausea/emesis HPI: The patient is a 47 year old female presents with multiple GI complaints. She complains of chronic nausea and emesis. She states that food goes right through her or she ends up throwing it up. She states that she gets sick to her stomach. She also complains of generalized abdominal pain that sometimes awake her from sleep. She states that she always feels tired. She states that this has been going on since February 2017. She denies weight loss. She states that she cannot undergo a colon cleansing preparation due to always having to throw up. She had last undergone upper and lower endoscopy in 2013, results are noted in EPIC. PAST MEDICAL HISTORY Diagnosis Date - Depression - Diabetes mellitus (HCC) 2010 - H. pylori infection 09/2013 + H.Pylori - HTN (hypertension) - Hyperlipidemia 2010 fish oil, unable to tolerate statins - Menorrhagia - Migraines Dr. DiazNeurologist - Obstructive sleep apnea - PMH - PAST MEDICAL HISTORY OF Suicide attempt x2 as teenager - PUD (peptic ulcer disease) 2006 - Viral pneumonia, unspecified 2008 Pneumonia - Vitamin D deficiency PAST SURGICAL HISTORY Procedure Laterality Date - APPENDECTOMY 1979 - DELIVERY ONLY x 2 - COLONOSCOP W/ OR W/O [facility] SPEC 12/19/13 Colonoscopy - EGD W/O [facility] SPECIMEN W/BX 10/20/10 Gastritis, mild - EGD W/O OR W/BRUSH/WASH 12/19/13 EGD - L'SCOPE REM ADNEX W/PART/TOT OOPH/SALP 02/09/16 laprascopic LSO, lysis of adhesions - LAPAROSCOPIC CHOLEYCYSTECTOMY 2005 [place]. - PICC LINE INSERT/CONSULT 02/28/2014 - THERMA CHOICE DEVICE 11/2011 - TLH W/T/O UTERUS OVER 250 G 04/02/14 LAVH, bilateral salpingectomy - TUBAL LIGATION, 2003 at time of c/s - TUNNEL VAD W SUB Q PORT >=5 01/20/15 left IJ Current Outpatient Prescriptions: naproxen (NAPROSYN) 500 mg tablet Take 1 tablet by mouth twice daily as needed (for pain/inflammation). Take with food. Omeprazole 40 mg capsule Take 1 capsule by mouth twice daily before meals. biotin 300 mcg tab Take 1 tablet by mouth once daily. blood sugar diagnostic (FREESTYLE LITE STRIPS) test strip Test blood sugar(s) 3-4 times daily. Dx: Other DM Code E08.40 Insulin: Yes Blood-Glucose Meter (FREESTYLE LITE METER) monitoring kit 1 Each as directed. sitaGLIPtin (JANUVIA) 100 mg tablet Take 1 tablet by mouth once daily. dicyclomine (BENTYL) 20 mg tablet TAKE 1 TABLET BY MOUTH BEFORE MEALS AND AT BEDTIME atorvastatin (LIPITOR) 80 mg tablet Take 1 tablet by mouth daily at bedtime. For cholesterol. losartan (COZAAR) 25 mg tablet Take 1 tablet by mouth once daily. Hydrochlorothiazide 12.5 mg capsule Take 1 capsule by mouth once daily. DULoxetine (CYMBALTA) 60 mg capsule Take 2 capsules by mouth once daily. aspirin 81 mg chewable tablet Take 81 mg by mouth once daily. Safety [place] (BD ECLIPSE LUER-OLYA) 25 gauge x 1 1/2 ndle For use with DHE metFORMIN ER (GLUCOPHAGE XR) 500 mg 24 hr tablet TAKE 2 TABLETS BY MOUTH TWICE DAILY WITH FOOD naratriptan (AMERGE) 2.5 mg tablet Take 1 tablet by mouth as needed. 2.5 mg at onset of headache, may repeat in 4 hours if needed 0.9% NaCl Access implanted vascular access device (IVAD) as needed for flush, blood draw or treatment.Flush IVAD with 10-20 mL NS every 4 weeks and PRN when IVAD not in use. heparin 100 unit/mL syrg Access implanted vascular access device (IVAD) as needed for flush, blood draw or treatment. Before de-accessing port, flush with 10-20ml normal saline and follow with 5 mL heparin (100 units/mL) (if no heparin allergy). De-access port on treatment completion. Syringe with Needle, Disp, (BD LUER-OLYA SYRINGE) 3 mL 25 x 1 1/2 syrg For DHE cyanocobalamin (VITAMIN B-12) 1,000 mcg tab Take 1 tablet by mouth once daily. coenzyme Q10 (COQ-10) 100 mg cap capsule Take 1 capsule by mouth twice daily. Potassium 99 mg tab Take by mouth. 0.9% NaCl Access implanted vascular access device (IVAD) as needed for flush, blood draw or treatment.Flush IVAD with 10-20 mL NS every 4 weeks and PRN when IVAD not in use. DOCOSAHEXANOIC ACID/EPA (FISH OIL ORAL) Take by mouth once daily. LORazepam (ATIVAN) 2 mg ORAL Tab Take 1 tablet by mouth twice daily as needed. Lancets (EdCaliberTOUCH ULTRASOFT LANCETS) lancets Use as instructed. Patient checks blood sugars 3 to 4 times per day. E08.40; Insulin: no dihydroergotamine (D.H.E.45) 1 mg/mL injection Inject 1 mg intramuscularly every 8 hours. As needed for migraine. Max use 3 days per week. Do not use within 25 hours of taking Amerge Filter [place] 19 X 1 ndle For use with DHE promethazine (PHENERGAN) 25 mg tablet Take 1 tablet by mouth every 4 hours as needed for Nausea/Vomiting. levETIRAcetam (KEPPRA) 250 mg tablet Take 2 tablets QHS x1 week then 1 tablet QHS x1 week then stop cyclobenzaprine (FLEXERIL) 10 mg tablet Take 1 tablet by mouth twice daily as needed for Muscle Spasm. Current Facility-Administered Medications: onabotulinum toxin type A 200 Units injection (BOTOX) 200 Units INTRAMUSCULAR q 3 MONTHS ALLERGIES: Amoxil [Amoxicillin]; Compazine [Prochlorperazine Edisylate]; Flagyl [Metronidazole Hcl]; Reglan [Metoclopramide Hcl]; Simvastatin; Toradol [Ketorolac]; Zofran [Ondansetron Hcl (Pf)] PERSONAL HISTORY: Social History Marital status: Spouse name: Years of education: 14 Number of children: 5 Occupational History Occupation Employer Comment homemaker Social History Main Topics Smoking status: Never Smoker Smokeless tobacco: Never Used Alcohol use: No Drug use: No Sexual activity: Yes Partners with: Male control/protection: Tubal Ligation Comment: thermachoice Social History Narrative 5 children- 3 sons, 2 daughters FAMILY HISTORY Problem Relation Age of Onset - Diabetes Mother - Hypertension Mother - Lipids Mother - Psychiatry Mother depression, possibly bipolar. - Heart Father - Hypertension Father - Coronary Artery Disease Father 58 triple by-pass graph, [place] x 3 - Migraines [Other] [OTHER] Father - Psychiatry Sister - Diabetes Sister - Diabetes Sister - Psychiatry Sister - GI Son Ulcerative colitis REVIEW OF SYSTEMS: General: The patient NOTES fatigue, denies weight loss, NOTES weight gain, denies feeling hot, and denies feelings of cold. Eyes: The patient denies glaucoma, denies eye injury/surgery, wears glasses or contacts. Ear/Nose/Throat: The patient denies allergies, denies hayfever, denies ear infections, and denies bloody noses. Cardiovascular: The patient denies chest pain, denies heart disease, NOTES high blood pressure,denies cardiac stent, denies prior heart attack, denies irregular heart beat, NOTES high cholesterol, denies poor circulation, denies heart failure, other cardiac issues, NOTES claudication, NOTES cold feet, denies peripheral arterial stent. Respiratory: The patient denies tuberculosis, denies pneumonia, denies frequent cough, denies pulmonary embolism, denies shortness of breath, and denies coughing up blood. Gastrointestinal: The patient denies difficulty swallowing, NOTES acid reflux, denies ulcers, NOTES vomiting, denies jaundice/hepatitis, denies gallbladder problems, denies black or tarry stools, denies hemorrhoids, NOTES bleeding from rectum, denies diverticulitis, denies constipation, NOTES diarrhea, NOTES loss of stool control, and denies hernias. Kidney/Bladder: The patient denies kidney stones, NOTES urine infections, and denies bloody urine. Skin: The patient denies a history of skin cancer, denies bleeding/changing moles, and denies a history of skin rash. Neurologic: The patient denies a history of epilepsy/convulsions, NOTES headaches, denies head/spinal injuries, and denies stroke/TIA. Psychiatric: The patient denies psychiatric medications, NOTES depression, and denies voices, denies substance abuse. Endocrine: The patient denies thyroid disorders, NOTES diabetes, and denies hormonal problems. Hematologic: The patient denies a history of bruising, denies bleeding, and denies anemia, denies blood clots. Infections: The patient denies a history of measles and mumps, denies rheumatic fever, and denies sexually transmitted diseases. Musculoskeletal: The patient denies back pain/injury, denies back problems, denies sciatica, denies knee/foot trouble, denies arthritis, or denies gout. PHYSICAL EXAMINATION: General: The patient is 47 year old female, well nourished, well hydrated in no acute distress. The patient is oriented to time, place, and person. VITALS: Blood pressure 122/86, pulse 100, height 162.6 cm (5' 4), weight 134.5 kg (296 lb 9.6 oz). Body mass index is 50.91 kg/m?. Head ? Normocephalic. EOM intact with sclera clear and no icterus noted. Mouth with mucus membranes moist. Neck - supple with no jugular venous distention noted. Trachea is midline. Lungs ? no labored breathing noted, such as retractions. No cough heard. Heart ?regular rate. Abdomen ? soft and benign. Normal bowel sounds. Difficult to determine if any masses or organomegaly due to body habitus. Extremities ? no pitting edema noted. Skin ? normal skin integrity. Neurological ? gait normal, no focal deficits noted Psych ? calm and appropriate Assessment IMPRESSION: chronic nausea/emesis, multiple GI symptoms PLAN: I have discussed the above with the patient. I believe that the patient would best benefit from a formal gastroenterology consultation. From a surgical standpoint, I have no surgical treatment to offer her. She may benefit from repeat endoscopies, but will defer this to gastroenterology. My office will make a referral for the patient to be evaluated by gastroenterology. I have answered all questions to the patient?s satisfaction and the patient has no further questions. Greater than 50% of this patient encounter was dedicated to face to face discussion with the patient. Diagnoses: (R10.84) Generalized abdominal pain (primary encounter diagnosis) (R11.10) Vomiting in adult Return to Clinic: The patient is instructed to follow-up with me as per needed. Alison Ceron MD Referring Provider: SELF [[id number]] Allergies As of Date: 09/28/2017 Noted Allergy Reaction AMOXIL (AMOXICILLIN) 01/04/2014 8 - GI Upset COMPAZINE (PROCHLORPERAZINE EDISY*08/12/2008 16 - Unknown FLAGYL (METRONIDAZOLE HCL) 09/07/2012 14 - Other: See Comments Comments: Headache - she is prone to migraines and flagyl sets it off every time she takes it. REGLAN (METOCLOPRAMIDE HCL) 02/27/2014 14 - Other: See Comments Comments: anxiety SIMVASTATIN 04/27/2012 14 - Other: See Comments Comments: severe muscle aches TORADOL (KETOROLAC) 08/12/2008 2 - Rash ZOFRAN (ONDANSETRON HCL (PF)) 06/22/2013 14 - Other: See Comments Date Reviewed: 09/28/2017 Reviewed by: Ligia Bruno Ma - Fully Assessed Reason for Visit: New Patient [172] egd/colonoscopy [Other] Primary Visit Diagnosis:Generalized abdominal pain [R10.84] Other Visit Diagnosis:Vomiting in adult [R11.10] Prescriptions as of 09/28/2017 Sig: NAPROXEN 500 MG TABLET Take 1 tablet by mouth twice * OMEPRAZOLE 40 MG CAPSULE,APOLINAR* Take 1 capsule by mouth twice* BIOTIN 300 MCG TABLET Take 1 tablet by mouth once d* BLOOD SUGAR DIAGNOSTIC STRIPS Test blood sugar(s) 3- 4 times* BLOOD-GLUCOSE METER KIT 1 Each as directed. SITAGLIPTIN 100 MG TABLET Take 1 tablet by mouth once d* X MAGNESIUM SULFATE 1 GRAM/50 M* INFUSE 1000 mg in NS 250 ML I* X SODIUM CHLORIDE 0.9 % INTRAVE* INFUSE 500 CC IV NS IV OVER 3* X VALPROATE SODIUM 500 MG/5 ML * DEPACON 500 mg IV in NS 50 ML* X PROMETHAZINE 25 MG/ML INJECTI* Give 25 mg IV daily for 3 days DICYCLOMINE 20 MG TABLET TAKE 1 TABLET BY MOUTH BEFORE* ATORVASTATIN 80 MG TABLET Take 1 tablet by mouth daily * LOSARTAN 25 MG TABLET Take 1 tablet by mouth once d* HYDROCHLOROTHIAZIDE 12.5 MG C* Take 1 capsule by mouth once * X DIHYDROERGOTAMINE 1 MG/ML INJ* Inject 1 mg intramuscularly e* DULOXETINE 60 MG CAPSULE,APOLINAR* Take 2 capsules by mouth once* X FILTER NEEDLES 19 X 1 For use with DHE ASPIRIN 81 MG CHEWABLE TABLET Take 81 mg by mouth once keegan* SAFETY NEEDLES 25 GAUGE X 1 1* For use with DHE METFORMIN ER 500 MG TABLET,EX* TAKE 2 TABLETS BY MOUTH TWICE* NARATRIPTAN 2.5 MG TABLET Take 1 tablet by mouth as nee* X PROMETHAZINE 25 MG TABLET Take 1 tablet by mouth every * SODIUM CHLORIDE 0.9% FLUSH Access implanted vascular acc* HEPARIN LOCK FLUSH (PORCINE) * Access implanted vascular acc* SYRINGE WITH NEEDLE 3 ML 25 X* For DHE CYANOCOBALAMIN (VIT B-12) 1,0* Take 1 tablet by mouth once d* COENZYME Q10 100 MG CAPSULE Take 1 capsule by mouth twice* POTASSIUM 99 MG TABLET Take by mouth. SODIUM CHLORIDE 0.9% FLUSH Access implanted vascular acc* X ONABOTULINUMTOXINA 100 UNIT S* To be injected by physician e* FISH OIL ORAL Take by mouth once daily. * LORAZEPAM 2 MG TABLET Take 1 tablet by mouth twice * CYCLOBENZAPRINE 10 MG TABLET Take 1 tablet by mouth twice * Problem List As Of Date 09/28/2017 Noted Resolved ESOPHAGEAL REFLUX [K21.9] INVALID FOR* GENERALIZED ANXIETY DIS [F41.1] INVALID FOR* Impaired fasting glucose [R73.01] INVALID FOR*12/07/2011 Depression [F32.9] INVALID FOR* More... Morbid Obesity [E66.01] INVALID FOR* Abdominal Pain [R10.9] INVALID FOR* Calculus of Kidney [N20.0] INVALID FOR* UTI (Lower Urinary Tract Infection) [N39.0] INVALID FOR*12/30/2009 Insomnia [G47.00] INVALID FOR* Microalbuminuria [R80.9] INVALID FOR* Obstructive sleep apnea [G47.33] INVALID FOR* Sprain and strain of unspecified site of knee a*INVALID FOR* Lumbar sprain and strain [S33.5XXA] INVALID FOR* Abdominal pain, left upper quadrant [R10.12] INVALID FOR* Innocent heart murmur INVALID FOR* Diabetic neuropathy [E11.40] INVALID FOR* Diabetic nephropathy [E11.21] INVALID FOR* Menorrhagia [N92.0] INVALID FOR*11/15/2012 Migraines [G43.909] INVALID FOR* Bacterial vaginitis [N76.0, B96.89] INVALID FOR*11/30/2013 Vaginitis [N76.0] INVALID FOR*11/30/2013 More... Abnormal uterine bleeding [N93.9] INVALID FOR* Backache, unspecified [M54.9] INVALID FOR* Diabetes mellitus due to underlying condition w*INVALID FOR* Willing to be liver donor [Z00.5] INVALID FOR* Intractable chronic migraine without aura [G43.*INVALID FOR* Exhausted vascular access [Z45.2] INVALID FOR* Endometriosis of peritoneum [N80.3] INVALID FOR* Morbid obesity with BMI of 50.0-59.9, adult (HC*INVALID FOR* OAB (overactive bladder) [N32.81] INVALID FOR* Hyperlipidemia [E78.5] INVALID FOR* More... HTN (hypertension) [I10] INVALID FOR* Visit Notes: >> Ligia Bruno Ma Wed September 28, 2017 2:09 PM Status: Signed REVIEW OF SYSTEMS: General: The patient NOTES fatigue, denies weight loss, NOTES weight gain, denies feeling hot, and denies feelings of cold. Eyes: The patient denies glaucoma, denies eye injury/surgery, wears glasses or contacts. Ear/Nose/Throat: The patient denies allergies, denies hayfever, denies ear infections, and denies bloody noses. Cardiovascular: The patient denies chest pain, denies heart disease, NOTES high blood pressure,denies cardiac stent, denies prior heart attack, denies irregular heart beat, NOTES high cholesterol, denies poor circulation, denies heart failure, other cardiac issues, NOTES claudication, NOTES cold feet, denies peripheral arterial stent. Respiratory: The patient denies tuberculosis, denies pneumonia, denies frequent cough, denies pulmonary embolism, denies shortness of breath, and denies coughing up blood. Gastrointestinal: The patient denies difficulty swallowing, NOTES acid reflux, denies ulcers, NOTES vomiting, denies jaundice/hepatitis, denies gallbladder problems, denies black or tarry stools, denies hemorrhoids, NOTES bleeding from rectum, denies diverticulitis, denies constipation, NOTES diarrhea, NOTES loss of stool control, and denies hernias. Kidney/Bladder: The patient denies kidney stones, NOTES urine infections, and denies bloody urine. Skin: The patient denies a history of skin cancer, denies bleeding/changing moles, and denies a history of skin rash. Neurologic: The patient denies a history of epilepsy/convulsions, NOTES headaches, denies head/spinal injuries, and denies stroke/TIA. Psychiatric: The patient denies psychiatric medications, NOTES depression, and denies voices, denies substance abuse. Endocrine: The patient denies thyroid disorders, NOTES diabetes, and denies hormonal problems. Hematologic: The patient denies a history of bruising, denies bleeding, and denies anemia, denies blood clots. Infections: The patient denies a history of measles and mumps, denies rheumatic fever, and denies sexually transmitted diseases. Musculoskeletal: The patient denies back pain/injury, denies back problems, denies sciatica, denies knee/foot trouble, denies arthritis, or denies gout. When was patient's last Mammogram screening? 06/2015 Last Colonoscopy: 02/2016 Ligia Bruno Ma Encounter Status:Closed by MD ALISON CERON on 10/02/17 PROGRESS Observed: 09/27/2017 Status: COMPLETED Source: [place] 4:03 PM [facility] REPOSITORY HNO ID: [id number] Author: Asiya Torres (Process Server) Service: (none) Author Type: Nurse Practitioner Type: Progress Notes Filed: 09/27/2017 4:33 PM Note Text: HPI/CC: Akin Adamson is a 46 year old female who presents forbilateral elbow pain constant for the last 3 days- intermittent for an unknown period of time. R>L. Reports numbness, tingling, and weakness at times. Attempted acetaminophen without relief. ROS as above, otherwise non-contributory. Reviewed PMHx, PSHx, social Hx, medications and allergies. PHYSICAL EXAMINATION: BP 122/84 Pulse 100 Resp 16 Wt 135.2 kg (298 lb) LMP 03/06/2014 BMI 51.15 kg/m? General appearance: Well appearing, alert, in no acute distress, well-hydrated, well nourished. Skin: Skin color, texture, turgor normal, no suspicious rashes or lesions + phalens and + tinel + normal ROM to bilateral UE with pain to elbows and wrists with ROM ASSESSMENT/PLAN: 1. Bilateral hand pain - ICD9: 729.5, ICD10: M79.641, M79.642 (primary diagnosis) 2. Numbness and tingling in both hands - ICD9: 782.0, ICD10: R20.0, R20.2 - EMG(NEURO/NI) - NAPROXEN 500 MG TABLET Asiya Torres APRN.CNP CNOV Observed: 09/27/2017 Status: COMPLETED Source: [place] 3:20 PM [facility] REPOSIT[facility] Office Visit (FAMPWS) AKIN ADAMSON ([id number]) 1970 F Date Time Provider Department 09/27/17 3:20 PM ASIYA TORRES ([place]) FAMPWS During your visit today, we recorded the following information about you: Pulse Respiration Blood pressure Weight 100/minute 16/minute 122/84 135.2 kg Asiya Torres ([place]) 09/27/2017 4:33 PM Signed HPI/CC: Akin Adamson is a 46 year old female who presents forbilateral elbow pain constant for the last 3 days- intermittent for an unknown period of time. R>L. Reports numbness, tingling, and weakness at times. Attempted acetaminophen without relief. ROS as above, otherwise non-contributory. Reviewed PMHx, PSHx, social Hx, medications and allergies. PHYSICAL EXAMINATION: BP 122/84 Pulse 100 Resp 16 Wt 135.2 kg (298 lb) LMP 03/06/2014 BMI 51.15 kg/m? General appearance: Well appearing, alert, in no acute distress, well-hydrated, well nourished. Skin: Skin color, texture, turgor normal, no suspicious rashes or lesions + phalens and + tinel + normal ROM to bilateral UE with pain to elbows and wrists with ROM ASSESSMENT/PLAN: 1. Bilateral hand pain - ICD9: 729.5, ICD10: M79.641, M79.642 (primary diagnosis) 2. Numbness and tingling in both hands - ICD9: 782.0, ICD10: R20.0, R20.2 - EMG(NEURO/NI) - NAPROXEN 500 MG TABLET Asiya Torres APRN.CNP Referring Provider: SELF [[id number]] Allergies As of Date: 09/27/2017 Noted Allergy Reaction AMOXIL (AMOXICILLIN) 01/04/2014 8 - GI Upset COMPAZINE (PROCHLORPERAZINE EDISY*08/12/2008 16 - Unknown FLAGYL (METRONIDAZOLE HCL) 09/07/2012 14 - Other: See Comments Comments: Headache - she is prone to migraines and flagyl sets it off every time she takes it. REGLAN (METOCLOPRAMIDE HCL) 02/27/2014 14 - Other: See Comments Comments: anxiety SIMVASTATIN 04/27/2012 14 - Other: See Comments Comments: severe muscle aches TORADOL (KETOROLAC) 08/12/2008 2 - Rash ZOFRAN (ONDANSETRON HCL (PF)) 06/22/2013 14 - Other: See Comments Date Reviewed: 09/27/2017 Reviewed by: Asiya Torres ([facility]) - Fully Assessed Reason for Visit: Pain [78] Cmt: bilateral elbow pain constant for the last 3 days Primary Visit Diagnosis:Bilateral hand pain [M79.641, M79.642] Other Visit Diagnosis:Numbness and tingling in both hands [R20.0, R20.2] Order(s):EMG(NEURO/NI) [[id number]] Order #: [id number]: 1 FUTURE naproxen (NAPROSYN) 500 mg tabletTake 1 tablet by mouth twice daily as needed (for pain/inflammation). Take with food.Disp: 60 tabletRfl: 0 Prescriptions as of 09/27/2017 Sig: OMEPRAZOLE 40 MG CAPSULE,APOLINAR* Take 1 capsule by mouth twice* BIOTIN 300 MCG TABLET Take 1 tablet by mouth once d* BLOOD SUGAR DIAGNOSTIC STRIPS Test blood sugar(s) 3- 4 times* BLOOD-GLUCOSE METER KIT 1 Each as directed. SITAGLIPTIN 100 MG TABLET Take 1 tablet by mouth once d* MAGNESIUM SULFATE 1 GRAM/50 M* INFUSE 1000 mg in NS 250 ML I* SODIUM CHLORIDE 0.9 % INTRAVE* INFUSE 500 CC IV NS IV OVER 3* VALPROATE SODIUM 500 MG/5 ML * DEPACON 500 mg IV in NS 50 ML* PROMETHAZINE 25 MG/ML INJECTI* Give 25 mg IV daily for 3 days DICYCLOMINE 20 MG TABLET TAKE 1 TABLET BY MOUTH BEFORE* ATORVASTATIN 80 MG TABLET Take 1 tablet by mouth daily * LOSARTAN 25 MG TABLET Take 1 tablet by mouth once d* HYDROCHLOROTHIAZIDE 12.5 MG C* Take 1 capsule by mouth once * CYCLOBENZAPRINE 10 MG TABLET Take 1 tablet by mouth twice * DIHYDROERGOTAMINE 1 MG/ML INJ* Inject 1 mg intramuscularly e* DULOXETINE 60 MG CAPSULE,APOLINAR* Take 2 capsules by mouth once* FILTER NEEDLES 19 X 1 For use with DHE ASPIRIN 81 MG CHEWABLE TABLET Take 81 mg by mouth once keegan* SAFETY NEEDLES 25 GAUGE X 1 1* For use with DHE METFORMIN ER 500 MG TABLET,EX* TAKE 2 TABLETS BY MOUTH TWICE* NARATRIPTAN 2.5 MG TABLET Take 1 tablet by mouth as nee* PROMETHAZINE 25 MG TABLET Take 1 tablet by mouth every * SODIUM CHLORIDE 0.9% FLUSH Access implanted vascular acc* HEPARIN LOCK FLUSH (PORCINE) * Access implanted vascular acc* SYRINGE WITH NEEDLE 3 ML 25 X* For DHE CYANOCOBALAMIN (VIT B-12) 1,0* Take 1 tablet by mouth once d* COENZYME Q10 100 MG CAPSULE Take 1 capsule by mouth twice* POTASSIUM 99 MG TABLET Take by mouth. SODIUM CHLORIDE 0.9% FLUSH Access implanted vascular acc* ONABOTULINUMTOXINA 100 UNIT S* To be injected by physician e* FISH OIL ORAL Take by mouth once daily. * LORAZEPAM 2 MG TABLET Take 1 tablet by mouth twice * NAPROXEN 500 MG TABLET Take 1 tablet by mouth twice * Problem List As Of Date 09/27/2017 Noted Resolved ESOPHAGEAL REFLUX [K21.9] INVALID FOR* GENERALIZED ANXIETY DIS [F41.1] INVALID FOR* Impaired fasting glucose [R73.01] INVALID FOR*12/07/2011 Depression [F32.9] INVALID FOR* More... Morbid Obesity [E66.01] INVALID FOR* Abdominal Pain [R10.9] INVALID FOR* Calculus of Kidney [N20.0] INVALID FOR* UTI (Lower Urinary Tract Infection) [N39.0] INVALID FOR*12/30/2009 Insomnia [G47.00] INVALID FOR* Microalbuminuria [R80.9] INVALID FOR* Obstructive sleep apnea [G47.33] INVALID FOR* Sprain and strain of unspecified site of knee a*INVALID FOR* Lumbar sprain and strain [S33.5XXA] INVALID FOR* Abdominal pain, left upper quadrant [R10.12] INVALID FOR* Innocent heart murmur INVALID FOR* Diabetic neuropathy [E11.40] INVALID FOR* Diabetic nephropathy [E11.21] INVALID FOR* Menorrhagia [N92.0] INVALID FOR*11/15/2012 Migraines [G43.909] INVALID FOR* Bacterial vaginitis [N76.0, B96.89] INVALID FOR*11/30/2013 Vaginitis [N76.0] INVALID FOR*11/30/2013 More... Abnormal uterine bleeding [N93.9] INVALID FOR* Backache, unspecified [M54.9] INVALID FOR* Diabetes mellitus due to underlying condition w*INVALID FOR* Willing to be liver donor [Z00.5] INVALID FOR* Intractable chronic migraine without aura [G43.*INVALID FOR* Exhausted vascular access [Z45.2] INVALID FOR* Endometriosis of peritoneum [N80.3] INVALID FOR* Morbid obesity with BMI of 50.0-59.9, adult (HC*INVALID FOR* OAB (overactive bladder) [N32.81] INVALID FOR* Hyperlipidemia [E78.5] INVALID FOR* More... HTN (hypertension) [I10] INVALID FOR* Prescriptions ordered this encounter Disp Refills Start End NAPROXEN 500 MG TABLET 60 t* 0 09/27/2017 Route: ORAL Sig: Take 1 tablet by mouth twice daily as needed (for pain/inflammation). Take with food. Encounter Status:Closed by ASIYA TORRES CNP on 09/27/17 PROGRESS Observed: 09/26/2017 Status: COMPLETED Source: [place] 2:[address] [facility] [place] REPOSITORY [facility] ID: [id number] Author: Bahman (Pharmacist)Ghassan Service: (none) Author Type: Pharmacist Type: Progress Notes Filed: 09/26/2017 3:43 PM Note Text: Patient consents to pharmacy collaborative practice agreement. REASON FOR CONSULT: DM GOALS: A1c < 7% CONSULTING PROVIDER: Asiya Torres CNP Date of Consult: 06/2017 Akin Adamson is a 46 year old female was last seen in [facility] by PCP, Chau Abdi on 11/03/16. Also saw Asiya Torres CNP on 08/02 Patient is presenting today for initial pharmacotherapy management appointment for DM. At last provider visit, lisinopril was changed to losartan due to LE edema Sitagliptin was increased from 25 to 50mg once daily INTERIM HISTORY: Reports was taking sitagliptin two of the 50mg daily Has been out of it since 09/22 (because she was taking higher than prescribed dose) Past DM medications: Liraglutide - changed to sitagliptin in Jan 2017 b/c it made her ill (per LINOLEUM LAYER note, sweating/emesis) Current DM Medications: Metformin ER 500mg take 2 tablets BID Sitagliptin 50mg once daily (was taking two pills daily) Current HTN Medications: Losartan 25mg once daily HCTZ 12.5mg once daily Preventative Medications: ? On BRITTANY/ARB: Yes ? On Statin: Yes ? On ASA: Yes ROS: ? Patient denies CP, SOB, NUNO, blurred vision, dizziness or lightheadedness ? Patient denies symptoms of hypoglycemia (sweating, anxiety, palpitations, hunger, and tremor) ? Patient denies symptoms of hyperglycemia (polyuria, polydipsia, polyphagia) ? Patient denies potential medication adverse effects DIET/EXERCISE/SOCIAL Hx: Eats one meal per day, has gab pratt grill ? 6pm pasta or chicken piper ? Snacks: fruit, wheat thins ? Following Na restrictions: no ? Beverages: water ? Exercise: walking dogs ? Tobacco: denies ? Alcohol: denies ? Illicits: denies MEDICATIONS: ? Pill bottles are not present. ? Adherence: denies missed doses. ? Pharmacy: [facility] ? Rx coverage: [facility] Medicaid ? Affordability: no issues ? Diabetes supplies: Freestyle ? Organization System: none ACTIVE PROBLEM LIST Esophageal Reflux Generalized Anxiety Disorder Depression Morbid Obesity (Hcc) Abdominal Pain Calculus of Kidney Insomnia Microalbuminuria Obstructive Sleep Apnea Sprain and Strain of Unspecified Site of Knee and Leg Sprain of Lumbar Region Abdominal Pain, Left Upper Quadrant Innocent Heart Murmur Diabetic Neuropathy (Hcc) Diabetic Nephropathy (Hcc) Migraines Abnormal Uterine Bleeding Backache, Unspecified Diabetes Mellitus Due to Underlying Condition With Diabetic Neuropathy (Hcc) Willing to Be Liver Donor Intractable Chronic Migraine Without Aura Exhausted Vascular Access Endometriosis of Peritoneum Morbid Obesity With Bmi of 50.0-59.9, Adult (Hcc) Oab (Overactive Bladder) Hyperlipidemia Htn (Hypertension) PAST MEDICAL HISTORY Diagnosis Date - Depression - Diabetes mellitus (HCC) 2010 - H. pylori infection 09/2013 + H.Pylori - HTN (hypertension) - Hyperlipidemia 2010 fish oil, unable to tolerate statins - Menorrhagia - Migraines Dr. DiazNeurologist - Obstructive sleep apnea - PMH - PAST MEDICAL HISTORY OF Suicide attempt x2 as teenager - PUD (peptic ulcer disease) 2006 - Viral pneumonia, unspecified 2008 Pneumonia - Vitamin D deficiency ALLERGIES Allergen Reactions - Amoxil [Amoxicillin] GI Upset - Compazine [Prochlor* Unknown - Flagyl [Metronidazo* Other: See Comments Headache - she is prone to migraines and flagyl sets it off every time she takes it. - Reglan [Metoclopram* Other: See Comments anxiety - Simvastatin Other: See Comments severe muscle aches - Toradol [Ketorolac] Rash - Zofran [Ondansetron* Other: See Comments Current Outpatient Prescriptions: magnesium sulfate in 0.9% NaCl (MAGNESIUM SULFATE IN NS) 1 gram/50 mL pgbk INFUSE 1000 mg in NS 250 ML IV OVER 1 HOUR daily for 3 days 0.9 % sodium chloride (NACL 0.9%) solution INFUSE 500 CC IV NS IV OVER 30 MIN daily for 3 days valproate sodium (DEPACON) 500 mg/5 mL (100 mg/mL) injection DEPACON 500 mg IV in NS 50 ML OVER 20 MIN daily for 3 days promethazine (PHENERGAN) 25 mg/mL injection Give 25 mg IV daily for 3 days dicyclomine (BENTYL) 20 mg tablet TAKE 1 TABLET BY MOUTH BEFORE MEALS AND AT BEDTIME atorvastatin (LIPITOR) 80 mg tablet Take 1 tablet by mouth daily at bedtime. For cholesterol. sitaGLIPtin (JANUVIA) 50 mg tablet Take 1 tablet by mouth once daily. losartan (COZAAR) 25 mg tablet Take 1 tablet by mouth once daily. Hydrochlorothiazide 12.5 mg capsule Take 1 capsule by mouth once daily. cyclobenzaprine (FLEXERIL) 10 mg tablet Take 1 tablet by mouth twice daily as needed for Muscle Spasm. dihydroergotamine (D.H.E.45) 1 mg/mL injection Inject 1 mg intramuscularly every 8 hours. As needed for migraine. Max use 3 days per week. Do not use within 25 hours of taking Amerge DULoxetine (CYMBALTA) 60 mg capsule Take 2 capsules by mouth once daily. Filter [place] 19 X 1 ndle For use with DHE aspirin 81 mg chewable tablet Take 81 mg by mouth once daily. Safety [place] (BD ECLIPSE LUER-OLYA) 25 gauge x 1 1/2 ndle For use with DHE Omeprazole 40 mg capsule TAKE 1 CAPSULE BY MOUTH DAILY scopolamine (TRANSDERM-SCOP) 1 mg over 3 days Apply 1 Patch as directed every 72 hours. metFORMIN ER (GLUCOPHAGE XR) 500 mg 24 hr tablet TAKE 2 TABLETS BY MOUTH TWICE DAILY WITH FOOD blood sugar diagnostic (FREESTYLE LITE STRIPS) test strip Test blood sugar(s) 3-4 times daily. Dx: Other DM Code E08.40 Insulin: Yes naratriptan (AMERGE) 2.5 mg tablet Take 1 tablet by mouth as needed. 2.5 mg at onset of headache, may repeat in 4 hours if needed promethazine (PHENERGAN) 25 mg tablet Take 1 tablet by mouth every 4 hours as needed for Nausea/Vomiting. 0.9% NaCl Access implanted vascular access device (IVAD) as needed for flush, blood draw or treatment.Flush IVAD with 10-20 mL NS every 4 weeks and PRN when IVAD not in use. heparin 100 unit/mL syrg Access implanted vascular access device (IVAD) as needed for flush, blood draw or treatment. Before de-accessing port, flush with 10-20ml normal saline and follow with 5 mL heparin (100 units/mL) (if no heparin allergy). De-access port on treatment completion. Syringe with Needle, Disp, (BD LUER-OLYA SYRINGE) 3 mL 25 x 1 1/2 syrg For DHE cyanocobalamin (VITAMIN B-12) 1,000 mcg tab Take 1 tablet by mouth once daily. coenzyme Q10 (COQ-10) 100 mg cap capsule Take 1 capsule by mouth twice daily. Potassium 99 mg tab Take by mouth. 0.9% NaCl Access implanted vascular access device (IVAD) as needed for flush, blood draw or treatment.Flush IVAD with 10-20 mL NS every 4 weeks and PRN when IVAD not in use. onabotulinum toxin type A (BOTOX) 100 unit solr To be injected by physician every 3 months DOCOSAHEXANOIC ACID/EPA (FISH OIL ORAL) Take by mouth once daily. LORazepam (ATIVAN) 2 mg ORAL Tab Take 1 tablet by mouth twice daily as needed. No current facility-administered medications for this visit. Rx meds not listed in EPIC: none OTCs: none Herbals: none GLYCEMIC CONTROL: ? Glucometer present at visit: No ? SMBG?s: ? Checks three times daily ? Reports FBGs 140s or lower; pre-supper 200s ? Hypoglycemia: denies Last 3 Encounter BP Readings: Date: BP: 08/29/2017 126/84 08/02/2017 126/92 07/05/2017 128/90 Wt: 135.2 kg (298 lb) BMI: 51.15 kg/(m2) LABS Lab Results Component Value Date HBA1C 7.2 07/05/2017 HBA1C 7.1 02/08/2017 HBA1C 6.6 09/08/2016 CMP: Glucose 169 07/05/2017 BUN 11 07/05/2017 Creatinine, Whole Blood (iSTAT) 0.76 07/05/2017 Sodium 142 07/05/2017 Potassium 4.0 07/05/2017 Chloride 102 07/05/2017 CO2 26 07/05/2017 Protein, Total 7.4 07/05/2017 Albumin 3.5 07/05/2017 Calcium 8.6 07/05/2017 Alkaline Phosphatase 127 07/05/2017 Bilirubin, Total <0.2 07/05/2017 AST 14 07/05/2017 ALT 10 07/05/2017 Estimated Creatinine Clearance: 128.2 mL/min (based on SCr of 0.76 mg/dL). Last Lipid Panel Lab Results Component Value Date CHOL 150 07/05/2017 Lab Results Component Value Date HDL 30 07/05/2017 Lab Results Component Value Date LDL 71 07/05/2017 Lab Results Component Value Date TG 405 07/05/2017 Albumin/Creat Ratio (mg/g) Date Value 08/28/2013 <2 PHARMACOTHERAPY ASSESSMENT/PLAN: 1. Diabetes mellitus due to underlying condition with diabetic neuropathy, without long-term current use of insulin ([facility]) - ICD9: 249.60, 357.2, ICD10: E08.40 (primary diagnosis) A1c goal < 7%, patient is not at goal (7.2% on 07/05). Due for recheck. Reported FBGs and PPBGs not at goal. Patient compliant with and tolerating current regimen. Discussed trail of dulaglutide but since patient was very ill on liraglutide she does not want to trial something in the same class. At this point options are sulfonylurea (less favorable d/t weight gain potential) or SGLT-2. Will have patient bring glucometer for assessment and alter therapy based on that. Renal fxn and LFTs WNL and appropriate for continued therapy ? CONTINUE sitagliptin 100mg once daily and metformin ER 1,000mg BID ? Instructed patient to continue checking FBGs and PPBGs 2x daily, glucometer to next visit - HGB A1C - BASIC METABOLIC PNL - ALBUMIN/CREAT RATIO RND UR 2. Essential hypertension - ICD9: 401.9, ICD10: I10 BP goal < 140/90, pt is at goal on current therapy. Patient compliant with and tolerating current regimen. Will continue. Renal fxn, K+ and Na WNL and appropriate for continued therapy. ? CONTINUE losartan 25mg and HCTZ 12.5mg once daily 3. Hyperlipidemia, unspecified hyperlipidemia type - ICD9: 272.4, ICD10: E78.5 Pt is on appropriate statin intensity (indicated for moderate intensity d/t DM and ASCVD risk score 3.3%). Patient compliant with and tolerating current regimen. Will continue high intensity statin. LFTs and renal fxn WNL and appropriate for continued therapy ? CONTINUE atorvastatin 80mg once daily Health Maintenance issues addressed: DILATED RETINAL EXAM due on 07/01/2016 - she will schedule DIABETIC FOOT EXAM due on 01/08/2017 URINE ALBUMIN CREATININE RATIO due on 09/08/2017 Patient is scheduled to see PCP 10/31. Patient to return to clinic for PharmD f/u on 10/31. Patient verbalized understanding of instructions. Ghassan Salmon, PharmD, BCPS CNOV Observed: 09/26/2017 Status: COMPLETED Source: [place] 2:00 PM [facility] REPOSITORY Office Visit (PHMEWO) AKIN ADAMSON ([id number]) 1970 F Date Time Provider Department 09/26/17 2:00 PM BAHMAN (PHARMACIST)GHASSAN During your visit today, we recorded the following information about you: Bahman (Pharmacist)Ghassan 09/26/2017 3:43 PM Signed Patient consents to pharmacy collaborative practice agreement. REASON FOR CONSULT: DM GOALS: A1c < 7% CONSULTING PROVIDER: Asiya Torres CNP Date of Consult: 06/2017 Akin Adamson is a 46 year old female was last seen in [facility] by PCP, Chau Abdi on 11/03/16. Also saw Asiya Torres CNP on 08/02 Patient is presenting today for initial pharmacotherapy management appointment for DM. At last provider visit, lisinopril was changed to losartan due to LE edema Sitagliptin was increased from 25 to 50mg once daily INTERIM HISTORY: Reports was taking sitagliptin two of the 50mg daily Has been out of it since 09/22 (because she was taking higher than prescribed dose) Past DM medications: Liraglutide - changed to sitagliptin in Jan 2017 b/c it made her ill (per LINOLEUM LAYER note, sweating/emesis) Current DM Medications: Metformin ER 500mg take 2 tablets BID Sitagliptin 50mg once daily (was taking two pills daily) Current HTN Medications: Losartan 25mg once daily HCTZ 12.5mg once daily Preventative Medications: ? On BRITTANY/ARB: Yes ? On Statin: Yes ? On ASA: Yes ROS: ? Patient denies CP, SOB, NUNO, blurred vision, dizziness or lightheadedness ? Patient denies symptoms of hypoglycemia (sweating, anxiety, palpitations, hunger, and tremor) ? Patient denies symptoms of hyperglycemia (polyuria, polydipsia, polyphagia) ? Patient denies potential medication adverse effects DIET/EXERCISE/SOCIAL Hx: Eats one meal per day, has gab pratt grill ? 6pm pasta or chicken piper ? Snacks: fruit, wheat thins ? Following Na restrictions: no ? Beverages: water ? Exercise: walking dogs ? Tobacco: denies ? Alcohol: denies ? Illicits: denies MEDICATIONS: ? Pill bottles are not present. ? Adherence: denies missed doses. ? Pharmacy: [facility] ? Rx coverage: [facility] Medicaid ? Affordability: no issues ? Diabetes supplies: Freestyle ? Organization System: none ACTIVE PROBLEM LIST Esophageal Reflux Generalized Anxiety Disorder Depression Morbid Obesity (Hcc) Abdominal Pain Calculus of Kidney Insomnia Microalbuminuria Obstructive Sleep Apnea Sprain and Strain of Unspecified Site of Knee and Leg Sprain of Lumbar Region Abdominal Pain, Left Upper Quadrant Innocent Heart Murmur Diabetic Neuropathy (Hcc) Diabetic Nephropathy (Hcc) Migraines Abnormal Uterine Bleeding Backache, Unspecified Diabetes Mellitus Due to Underlying Condition With Diabetic Neuropathy (Hcc) Willing to Be Liver Donor Intractable Chronic Migraine Without Aura Exhausted Vascular Access Endometriosis of Peritoneum Morbid Obesity With Bmi of 50.0-59.9, Adult ([facility]) Oab (Overactive Bladder) Hyperlipidemia Htn (Hypertension) PAST MEDICAL HISTORY Diagnosis Date - Depression - Diabetes mellitus (HCC) 2010 - H. pylori infection 09/2013 + H.Pylori - HTN (hypertension) - Hyperlipidemia 2010 fish oil, unable to tolerate statins - Menorrhagia - Migraines Dr. DiazNeurologist - Obstructive sleep apnea - PMH - PAST MEDICAL HISTORY OF Suicide attempt x2 as teenager - PUD (peptic ulcer disease) 2006 - Viral pneumonia, unspecified 2008 Pneumonia - Vitamin D deficiency ALLERGIES Allergen Reactions - Amoxil [Amoxicillin] GI Upset - Compazine [Prochlor* Unknown - Flagyl [Metronidazo* Other: See Comments Headache - she is prone to migraines and flagyl sets it off every time she takes it. - Reglan [Metoclopram* Other: See Comments anxiety - Simvastatin Other: See Comments severe muscle aches - Toradol [Ketorolac] Rash - Zofran [Ondansetron* Other: See Comments Current Outpatient Prescriptions: magnesium sulfate in 0.9% NaCl (MAGNESIUM SULFATE IN NS) 1 gram/50 mL pgbk INFUSE 1000 mg in NS 250 ML IV OVER 1 HOUR daily for 3 days 0.9 % sodium chloride (NACL 0.9%) solution INFUSE 500 CC IV NS IV OVER 30 MIN daily for 3 days valproate sodium (DEPACON) 500 mg/5 mL (100 mg/mL) injection DEPACON 500 mg IV in NS 50 ML OVER 20 MIN daily for 3 days promethazine (PHENERGAN) 25 mg/mL injection Give 25 mg IV daily for 3 days dicyclomine (BENTYL) 20 mg tablet TAKE 1 TABLET BY MOUTH BEFORE MEALS AND AT BEDTIME atorvastatin (LIPITOR) 80 mg tablet Take 1 tablet by mouth daily at bedtime. For cholesterol. sitaGLIPtin (JANUVIA) 50 mg tablet Take 1 tablet by mouth once daily. losartan (COZAAR) 25 mg tablet Take 1 tablet by mouth once daily. Hydrochlorothiazide 12.5 mg capsule Take 1 capsule by mouth once daily. cyclobenzaprine (FLEXERIL) 10 mg tablet Take 1 tablet by mouth twice daily as needed for Muscle Spasm. dihydroergotamine (D.H.E.45) 1 mg/mL injection Inject 1 mg intramuscularly every 8 hours. As needed for migraine. Max use 3 days per week. Do not use within hours of taking Amerge DULoxetine (CYMBALTA) 60 mg capsule Take 2 capsules by mouth once daily. Filter [place] 19 X 1 ndle For use with DHE aspirin 81 mg chewable tablet Take 81 mg by mouth once daily. Safety [place] (BD ECLIPSE LUER-OLYA) 25 gauge x 1 1/2 ndle For use with DHE Omeprazole 40 mg capsule TAKE 1 CAPSULE BY MOUTH DAILY scopolamine (TRANSDERM-SCOP) 1 mg over 3 days Apply 1 Patch as directed every 72 hours. metFORMIN ER (GLUCOPHAGE XR) 500 mg 24 hr tablet TAKE 2 TABLETS BY MOUTH TWICE DAILY WITH FOOD blood sugar diagnostic (FREESTYLE LITE STRIPS) test strip Test blood sugar(s) 3-4 times daily. Dx: Other DM Code E08.40 Insulin: Yes naratriptan (AMERGE) 2.5 mg tablet Take 1 tablet by mouth as needed. 2.5 mg at onset of headache, may repeat in 4 hours if needed promethazine (PHENERGAN) 25 mg tablet Take 1 tablet by mouth every 4 hours as needed for Nausea/Vomiting. 0.9% NaCl Access implanted vascular access device (IVAD) as needed for flush, blood draw or treatment.Flush IVAD with 10-20 mL NS every 4 weeks and PRN when IVAD not in use. heparin 100 unit/mL syrg Access implanted vascular access device (IVAD) as needed for flush, blood draw or treatment. Before de-accessing port, flush with 10-20ml normal saline and follow with 5 mL heparin (100 units/mL) (if no heparin allergy). De-access port on treatment completion. Syringe with Needle, Disp, (BD LUER-OLYA SYRINGE) 3 mL 25 x 1 1/2 syrg For DHE cyanocobalamin (VITAMIN B-12) 1,000 mcg tab Take 1 tablet by mouth once daily. coenzyme Q10 (COQ-10) 100 mg cap capsule Take 1 capsule by mouth twice daily. Potassium 99 mg tab Take by mouth. 0.9% NaCl Access implanted vascular access device (IVAD) as needed for flush, blood draw or treatment.Flush IVAD with 10-20 mL NS every 4 weeks and PRN when IVAD not in use. onabotulinum toxin type A (BOTOX) 100 unit solr To be injected by physician every 3 months DOCOSAHEXANOIC ACID/EPA (FISH OIL ORAL) Take by mouth once daily. LORazepam (ATIVAN) 2 mg ORAL Tab Take 1 tablet by mouth twice daily as needed. No current facility-administered medications for this visit. Rx meds not listed in EPIC: none OTCs: none Herbals: none GLYCEMIC CONTROL: ? Glucometer present at visit: No ? SMBG?s: ? Checks three times daily ? Reports FBGs 140s or lower; pre-supper 200s ? Hypoglycemia: denies Last 3 Encounter BP Readings: Date: BP: 08/29/2017 126/84 08/02/2017 126/92 07/05/2017 128/90 Wt: 135.2 kg (298 lb) BMI: 51.15 kg/(m2) LABS Lab Results Component Value Date HBA1C 7.2 07/05/2017 HBA1C 7.1 02/08/2017 HBA1C 6.6 09/08/2016 CMP: Glucose 169 07/05/2017 BUN 11 07/05/2017 Creatinine, Whole Blood (iSTAT) 0.76 07/05/2017 Sodium 142 07/05/2017 Potassium 4.0 07/05/2017 Chloride 102 07/05/2017 CO2 26 07/05/2017 Protein, Total 7.4 07/05/2017 Albumin 3.5 07/05/2017 Calcium 8.6 07/05/2017 Alkaline Phosphatase 127 07/05/2017 Bilirubin, Total <0.2 07/05/2017 AST 14 07/05/2017 ALT 10 07/05/2017 Estimated Creatinine Clearance: 128.2 mL/min (based on SCr of 0.76 mg/dL). Last Lipid Panel Lab Results Component Value Date CHOL 150 07/05/2017 Lab Results Component Value Date HDL 30 07/05/2017 Lab Results Component Value Date LDL 71 07/05/2017 Lab Results Component Value Date TG 405 07/05/2017 Albumin/Creat Ratio (mg/g) Date Value 08/28/2013 <2 PHARMACOTHERAPY ASSESSMENT/PLAN: 1. Diabetes mellitus due to underlying condition with diabetic neuropathy, without long-term current use of insulin (HCC) - ICD9: 249.60, 357.2, ICD10: E08.40 (primary diagnosis) A1c goal < 7%, patient is not at goal (7.2% on 07/05). Due for recheck. Reported FBGs and PPBGs not at goal. Patient compliant with and tolerating current regimen. Discussed trail of dulaglutide but since patient was very ill on liraglutide she does not want to trial something in the same class. At this point options are sulfonylurea (less favorable d/t weight gain potential) or SGLT-2. Will have patient bring glucometer for assessment and alter therapy based on that. Renal fxn and LFTs WNL and appropriate for continued therapy ? CONTINUE sitagliptin 100mg once daily and metformin ER 1,000mg BID ? Instructed patient to continue checking FBGs and PPBGs 2x daily, glucometer to next visit - HGB A1C - BASIC METABOLIC PNL - ALBUMIN/CREAT RATIO RND UR 2. Essential hypertension - ICD9: 401.9, ICD10: I10 BP goal < 140/90, pt is at goal on current therapy. Patient compliant with and tolerating current regimen. Will continue. Renal fxn, K+ and Na WNL and appropriate for continued therapy. ? CONTINUE losartan 25mg and HCTZ 12.5mg once daily 3. Hyperlipidemia, unspecified hyperlipidemia type - ICD9: 272.4, ICD10: E78.5 Pt is on appropriate statin intensity (indicated for moderate intensity d/t DM and ASCVD risk score 3.3%). Patient compliant with and tolerating current regimen. Will continue high intensity statin. LFTs and renal fxn WNL and appropriate for continued therapy ? CONTINUE atorvastatin 80mg once daily Health Maintenance issues addressed: DILATED RETINAL EXAM due on 07/01/2016 - she will schedule DIABETIC FOOT EXAM due on 01/08/2017 URINE ALBUMIN CREATININE RATIO due on 09/08/2017 Patient is scheduled to see PCP 10/31. Patient to return to clinic for PharmD f/u on 10/31. Patient verbalized understanding of instructions. Ghassan Salmon, Jorge Alberto, BCPS Bahman (Pharmacist), Ghassan 09/26/2017 2:25 PM Signed Ghassan Salmon PharmD then Asiya Torres CNP on the same day in October Januvia 100mg take one tablet per day Metformin 2 pills morning, 2 pills evening Blood work due next week Bring glucometer to next appointment Eye exam Referring Provider: ASIYA TORRES (LINOLEUM LAYER) [[id number]] Allergies As of Date: 09/26/2017 Noted Allergy Reaction AMOXIL (AMOXICILLIN) 01/04/2014 8 - GI Upset COMPAZINE (PROCHLORPERAZINE EDISY*08/12/2008 16 - Unknown FLAGYL (METRONIDAZOLE HCL) 09/07/2012 14 - Other: See Comments Comments: Headache - she is prone to migraines and flagyl sets it off every time she takes it. REGLAN (METOCLOPRAMIDE HCL) 02/27/2014 14 - Other: See Comments Comments: anxiety SIMVASTATIN 04/27/2012 14 - Other: See Comments Comments: severe muscle aches TORADOL (KETOROLAC) 08/12/2008 2 - Rash ZOFRAN (ONDANSETRON HCL (PF)) 06/22/2013 14 - Other: See Comments Date Reviewed: 08/29/2017 Reviewed by: Mandy Vallejo ([facility]) - Fully Assessed Reason for Visit: Allied Health Visit [5] Cmt: DM initial Reason For Visit History Recorded Primary Visit Diagnosis:Diabetes mellitus due to underlying condition with diabetic neuropathy, without long- term current use of insulin (HCC) [E08.40] Other Visit Diagnoses:Essential hypertension [I10] Hyperlipidemia, unspecified hyperlipidemia type [E78.5] Order(s):Omeprazole 40 mg capsuleTake 1 capsule by mouth twice daily before meals.Disp: Rfl: biotin 300 mcg tabTake 1 tablet by mouth once daily.Disp: Rfl: blood sugar diagnostic (FREESTYLE LITE STRIPS) test stripTest blood sugar(s) 3-4 times daily. Dx: Other DM Code E08.40 Insulin: YesDisp: 400 StripRfl: 3 Blood-Glucose Meter (FREESTYLE LITE METER) monitoring kit1 Each as directed.Disp: 1 EachRfl: 0 sitaGLIPtin (JANUVIA) 100 mg tabletTake 1 tablet by mouth once daily.Disp: 30 tabletRfl: 5 HGB A1C [EOCFS8A] Order #: [id number] FUTURE BASIC METABOLIC PNL [SQBMP] Order #: [id number] FUTURE ALBUMIN/CREAT RATIO RND UR [SQUACR] Order #: [id number] FUTURE Prescriptions as of 09/26/2017 Sig: OMEPRAZOLE 40 MG CAPSULE,APOLINAR* Take 1 capsule by mouth twice* MAGNESIUM SULFATE 1 GRAM/50 M* INFUSE 1000 mg in NS 250 ML I* SODIUM CHLORIDE 0.9 % INTRAVE* INFUSE 500 CC IV NS IV OVER 3* VALPROATE SODIUM 500 MG/5 ML * DEPACON 500 mg IV in NS 50 ML* PROMETHAZINE 25 MG/ML INJECTI* Give 25 mg IV daily for 3 days DICYCLOMINE 20 MG TABLET TAKE 1 TABLET BY MOUTH BEFORE* ATORVASTATIN 80 MG TABLET Take 1 tablet by mouth daily * LOSARTAN 25 MG TABLET Take 1 tablet by mouth once d* HYDROCHLOROTHIAZIDE 12.5 MG C* Take 1 capsule by mouth once * DIHYDROERGOTAMINE 1 MG/ML INJ* Inject 1 mg intramuscularly e* DULOXETINE 60 MG CAPSULE,APOLINAR* Take 2 capsules by mouth once* ASPIRIN 81 MG CHEWABLE TABLET Take 81 mg by mouth once keegan* METFORMIN ER 500 MG TABLET,EX* TAKE 2 TABLETS BY MOUTH TWICE* NARATRIPTAN 2.5 MG TABLET Take 1 tablet by mouth as nee* PROMETHAZINE 25 MG TABLET Take 1 tablet by mouth every * POTASSIUM 99 MG TABLET Take by mouth. ONABOTULINUMTOXINA 100 UNIT S* To be injected by physician e* BIOTIN 300 MCG TABLET Take 1 tablet by mouth once d* BLOOD SUGAR DIAGNOSTIC STRIPS Test blood sugar(s) 3- 4 times* BLOOD-GLUCOSE METER KIT 1 Each as directed. SITAGLIPTIN 100 MG TABLET Take 1 tablet by mouth once d* CYCLOBENZAPRINE 10 MG TABLET Take 1 tablet by mouth twice * FILTER NEEDLES 19 X 1 For use with DHE SAFETY NEEDLES 25 GAUGE X 1 1* For use with DHE SODIUM CHLORIDE 0.9% FLUSH Access implanted vascular acc* HEPARIN LOCK FLUSH (PORCINE) * Access implanted vascular acc* SYRINGE WITH NEEDLE 3 ML 25 X* For DHE CYANOCOBALAMIN (VIT B-12) 1,0* Take 1 tablet by mouth once d* COENZYME Q10 100 MG CAPSULE Take 1 capsule by mouth twice* SODIUM CHLORIDE 0.9% FLUSH Access implanted vascular acc* FISH OIL ORAL Take by mouth once daily. * LORAZEPAM 2 MG TABLET Take 1 tablet by mouth twice * Problem List As Of Date 09/26/2017 Noted Resolved ESOPHAGEAL REFLUX [K21.9] INVALID FOR* GENERALIZED ANXIETY DIS [F41.1] INVALID FOR* Impaired fasting glucose [R73.01] INVALID FOR*12/07/2011 Depression [F32.9] INVALID FOR* More... Morbid Obesity [E66.01] INVALID FOR* Abdominal Pain [R10.9] INVALID FOR* Calculus of Kidney [N20.0] INVALID FOR* UTI (Lower Urinary Tract Infection) [N39.0] INVALID FOR*12/30/2009 Insomnia [G47.00] INVALID FOR* Microalbuminuria [R80.9] INVALID FOR* Obstructive sleep apnea [G47.33] INVALID FOR* Sprain and strain of unspecified site of knee a*INVALID FOR* Lumbar sprain and strain [S33.5XXA] INVALID FOR* Abdominal pain, left upper quadrant [R10.12] INVALID FOR* Innocent heart murmur INVALID FOR* Diabetic neuropathy [E11.40] INVALID FOR* Diabetic nephropathy [E11.21] INVALID FOR* Menorrhagia [N92.0] INVALID FOR*11/15/2012 Migraines [G43.909] INVALID FOR* Bacterial vaginitis [N76.0, B96.89] INVALID FOR*11/30/2013 Vaginitis [N76.0] INVALID FOR*11/30/2013 More... Abnormal uterine bleeding [N93.9] INVALID FOR* Backache, unspecified [M54.9] INVALID FOR* Diabetes mellitus due to underlying condition w*INVALID FOR* Willing to be liver donor [Z00.5] INVALID FOR* Intractable chronic migraine without aura [G43.*INVALID FOR* Exhausted vascular access [Z45.2] INVALID FOR* Endometriosis of peritoneum [N80.3] INVALID FOR* Morbid obesity with BMI of 50.0-59.9, adult (HC*INVALID FOR* OAB (overactive bladder) [N32.81] INVALID FOR* Hyperlipidemia [E78.5] INVALID FOR* More... HTN (hypertension) [I10] INVALID FOR* Other instructions from your clinician: Ghassan Salmon, PharmD then Asiya Torres CNP on the same day in October Januvia 100mg take one tablet per day Metformin 2 pills morning, 2 pills evening Blood work due next week Bring glucometer to next appointment Eye exam Prescriptions ordered this encounter Disp Refills Start End OMEPRAZOLE 40 MG CAPSULE,DELAYED REL* 09/26/2017 Class: Med Update Route: ORAL Sig: Take 1 capsule by mouth twice daily before meals. BIOTIN 300 MCG TABLET 09/26/2017 Class: OTC Route: ORAL Sig: Take 1 tablet by mouth once daily. BLOOD SUGAR DIAGNOSTIC STRIPS 400 * 3 09/26/2017 Sig: Test blood sugar(s) 3-4 times daily. Dx: Other DM Code E08.40 Insulin: Yes BLOOD-GLUCOSE METER KIT 1 Ea* 0 09/26/2017 Route: OTHER Si Each as directed. SITAGLIPTIN 100 MG TABLET 30 t* 5 09/26/2017 Route: ORAL Sig: Take 1 tablet by mouth once daily. Medications Discontinued During This Encounter Omeprazole 40 mg capsule 28 c* 0 02/10/2017 09/26/2017 Route: ORAL Sig: Take 1 capsule by mouth twice daily for 14 days. Disc: Reason for discontinue is not on file. Omeprazole 40 mg capsule 30 c* 5 04/20/2017 09/26/2017 Cmt: Maximum Refills Reached Sig: TAKE 1 CAPSULE BY MOUTH DAILY Disc: Reason for discontinue is not on file. scopolamine (TRANSDERM-SCOP) 1 mg ov* 3 Pa* 1 02/08/2017 09/26/2017 Route: TRANSDERMAL Sig: Apply 1 Patch as directed every 72 hours. Disc: Course of therapy completed blood sugar diagnostic (FREESTYLE LI* 400 * 3 09/30/2016 09/26/2017 Sig: Test blood sugar(s) 3-4 times daily. Dx: Other DM Code E08.40 Insulin: Yes Disc: Reason for discontinue is not on file. sitaGLIPtin (JANUVIA) 50 mg tablet 30 t* 5 08/26/2017 09/26/2017 Route: ORAL Sig: Take 1 tablet by mouth once daily. Disc: Reason for discontinue is not on file. Encounter Status:Closed by BAHMAN (PHARMACIST)GHASSAN on 09/26/17 CNPN Observed: 09/12/2017 Status: COMPLETED Source: [place] 12:00 AM [facility] AKIN ADAMSON ([id number]) 1970 F Date Time Provider Department 09/12/17 GILBERTO EMMANUEL (ROMANA) [facility] During your visit today, we recorded the following information about you: Ligia Curtis LPN 09/12/2017 4:23 PM Signed Patient calling to see what she needs to do. She is getting worse. Her issues with her stomach progressing. She was not able to get the colonoscopy done earlier because everything she put in mouth made her sick. If you want her to try get this scheduled she is willing but concerned where it will be done. Would prefer not to go to [place] and also concerned with taking the prep. Please review and advise. Okay to leave a detail message on her phone [phone]. Ligia Emmanuel RN INSULATION SUPERVISOR.LINOLEUM LAYER 09/12/2017 7:45 PM Signed The patient hasn't been seen since February. She will need to come in and be evaluated. If I am too far out we could ask Dr. Ceron to review the chart and see if she would be willing to see her in the office and set up procedures. Gilberto Emmanuel RN INSULATION SUPERVISOR.HARRIS Curtis LPN 09/13/2017 12:20 PM Signed Left a message for patient to call the office. Ligia Curtis LPN 09/14/2017 8:41 AM Signed Left a message for patient to call the office. Ligia Curtis LPN 09/14/2017 1:58 PM Signed Patient called back and she would be willing to see Dr. Ceron. Routing this message to her for review. Patient waiting to hear back for an apt. Ligia Ceron MD 09/14/2017 2:19 PM Signed Yes, you can put patient on my schedule Arash Stuart LPN 09/14/2017 2:43 PM Signed Called and spoke with pt. Appt scheduled Allergies As of Date: 09/12/2017 Noted Allergy Reaction AMOXIL (AMOXICILLIN) 01/04/2014 8 - GI Upset COMPAZINE (PROCHLORPERAZINE EDISY*08/12/2008 16 - Unknown FLAGYL (METRONIDAZOLE HCL) 09/07/2012 14 - Other: See Comments Comments: Headache - she is prone to migraines and flagyl sets it off every time she takes it. REGLAN (METOCLOPRAMIDE HCL) 02/27/2014 14 - Other: See Comments Comments: anxiety SIMVASTATIN 04/27/2012 14 - Other: See Comments Comments: severe muscle aches TORADOL (KETOROLAC) 08/12/2008 2 - Rash ZOFRAN (ONDANSETRON HCL (PF)) 06/22/2013 14 - Other: See Comments Date Reviewed: 08/29/2017 Reviewed by: Mandy ([facility]) Genevieve - Fully Assessed Reason for Visit: Nurse Triage Call [[id number]] Prescriptions as of 09/12/2017 Sig: DICYCLOMINE 20 MG TABLET TAKE 1 TABLET BY MOUTH BEFORE* ATORVASTATIN 80 MG TABLET Take 1 tablet by mouth daily * SITAGLIPTIN 50 MG TABLET Take 1 tablet by mouth once d* LOSARTAN 25 MG TABLET Take 1 tablet by mouth once d* HYDROCHLOROTHIAZIDE 12.5 MG C* Take 1 capsule by mouth once * CYCLOBENZAPRINE 10 MG TABLET Take 1 tablet by mouth twice * DIHYDROERGOTAMINE 1 MG/ML INJ* Inject 1 mg intramuscularly e* MAGNESIUM SULFATE 1 GRAM/50 M* INFUSE 1000 mg in NS 250 ML I* SODIUM CHLORIDE 0.9 % INTRAVE* INFUSE 500 CC IV NS IV OVER 3* VALPROATE SODIUM 500 MG/5 ML * DEPACON 500 mg IV in NS 50 ML* PROMETHAZINE 25 MG/ML INJECTI* Give 25 mg IV daily for 3 days DULOXETINE 60 MG CAPSULE,APOLINAR* Take 2 capsules by mouth once* FILTER NEEDLES 19 X 1 For use with DHE ASPIRIN 81 MG CHEWABLE TABLET Take 81 mg by mouth once keegan* SAFETY NEEDLES 25 GAUGE X 1 1* For use with DHE OMEPRAZOLE 40 MG CAPSULE,APOLINAR* TAKE 1 CAPSULE BY MOUTH DAILY SCOPOLAMINE 1 MG OVER 3 DAYS * Apply 1 Patch as directed magnolia* METFORMIN ER 500 MG TABLET,EX* TAKE 2 TABLETS BY MOUTH TWICE* BLOOD SUGAR DIAGNOSTIC STRIPS Test blood sugar(s) 3- 4 times* NARATRIPTAN 2.5 MG TABLET Take 1 tablet by mouth as nee* PROMETHAZINE 25 MG TABLET Take 1 tablet by mouth every * SODIUM CHLORIDE 0.9% FLUSH Access implanted vascular acc* HEPARIN LOCK FLUSH (PORCINE) * Access implanted vascular acc* SYRINGE WITH NEEDLE 3 ML 25 X* For DHE CYANOCOBALAMIN (VIT B-12) 1,0* Take 1 tablet by mouth once d* COENZYME Q10 100 MG CAPSULE Take 1 capsule by mouth twice* POTASSIUM 99 MG TABLET Take by mouth. SODIUM CHLORIDE 0.9% FLUSH Access implanted vascular acc* ONABOTULINUMTOXINA 100 UNIT S* To be injected by physician e* FISH OIL ORAL Take by mouth once daily. * LORAZEPAM 2 MG TABLET Take 1 tablet by mouth twice * Problem List As Of Date 09/12/2017 Noted Resolved ESOPHAGEAL REFLUX [K21.9] INVALID FOR* GENERALIZED ANXIETY DIS [F41.1] INVALID FOR* Impaired fasting glucose [R73.01] INVALID FOR*12/07/2011 Depression [F32.9] INVALID FOR* More... Morbid Obesity [E66.01] INVALID FOR* Abdominal Pain [R10.9] INVALID FOR* Calculus of Kidney [N20.0] INVALID FOR* UTI (Lower Urinary Tract Infection) [N39.0] INVALID FOR*12/30/2009 Insomnia [G47.00] INVALID FOR* Microalbuminuria [R80.9] INVALID FOR* Obstructive sleep apnea [G47.33] INVALID FOR* Sprain and strain of unspecified site of knee a*INVALID FOR* Lumbar sprain and strain [S33.5XXA] INVALID FOR* Abdominal pain, left upper quadrant [R10.12] INVALID FOR* Innocent heart murmur INVALID FOR* Diabetic neuropathy [E11.40] INVALID FOR* Diabetic nephropathy [E11.21] INVALID FOR* Menorrhagia [N92.0] INVALID FOR*11/15/2012 Migraines [G43.909] INVALID FOR* Bacterial vaginitis [N76.0, B96.89] INVALID FOR*11/30/2013 Vaginitis [N76.0] INVALID FOR*11/30/2013 More... Abnormal uterine bleeding [N93.9] INVALID FOR* Backache, unspecified [M54.9] INVALID FOR* Diabetes mellitus due to underlying condition w*INVALID FOR* Willing to be liver donor [Z00.5] INVALID FOR* Intractable chronic migraine without aura [G43.*INVALID FOR* Exhausted vascular access [Z45.2] INVALID FOR* Endometriosis of peritoneum [N80.3] INVALID FOR* Morbid obesity with BMI of 50.0-59.9, adult (HC*INVALID FOR* OAB (overactive bladder) [N32.81] INVALID FOR* Hyperlipidemia [E78.5] INVALID FOR* More... HTN (hypertension) [I10] INVALID FOR* Encounter Status:Closed by MD ALISON CERON on 09/14/17 SHOSHANA Observed: 09/09/2017 Status: COMPLETED Source: [place] 12:00 AM [facility] REPOSITORY Telephone ([facility]) JUAN DIEGOAKIN Liriano ([id number]) 1970 F Date Time Provider Department 09/09/17 SUSIE DIAZ During your visit today, we recorded the following information about you: Cindy Cormier RN 09/09/2017 9:37 AM Signed Patient calling in and she states that she over slept and her alarm did not go off. She was advised that no other times today that she can come in to get her Botox. Last time on 08-01-2017 she was late she did not get seen as well. She wants to get message to Dr. Diaz to see if any sooner than September 29 at 9 Am. Scheduled this slot. Please advise, patient tearful. Jessica Olivares 09/09/2017 9:42 AM Signed Patient calling asking if Dr Diaz can send order for infusions today [facility] for migraines. Since appt missed Susie Diaz MD 09/09/2017 9:55 AM Signed Need more info on how her NUNO are currently Cindy Cormier RN 09/09/2017 10:24 AM Signed Patient gave verbal permission in chart to leave a detailed message on designated line previously in demographics. Gave complete Detailed message to patient on voicemail, and instructed if any questions or concerns with message to call the office back at [phone] and ask for a Nurse. Instructed appt set for September 29 for 9 am for Botox. Pearl Diaz RN 09/15/2017 9:38 AM Signed Confirmed appt., below, patient agreed. Allergies As of Date: 09/09/2017 Noted Allergy Reaction AMOXIL (AMOXICILLIN) 01/04/2014 8 - GI Upset COMPAZINE (PROCHLORPERAZINE EDISY*08/12/2008 16 - Unknown FLAGYL (METRONIDAZOLE HCL) 09/07/2012 14 - Other: See Comments Comments: Headache - she is prone to migraines and flagyl sets it off every time she takes it. REGLAN (METOCLOPRAMIDE HCL) 02/27/2014 14 - Other: See Comments Comments: anxiety SIMVASTATIN 04/27/2012 14 - Other: See Comments Comments: severe muscle aches TORADOL (KETOROLAC) 08/12/2008 2 - Rash ZOFRAN (ONDANSETRON HCL (PF)) 06/22/2013 14 - Other: See Comments Date Reviewed: 08/29/2017 Reviewed by: Mandy ([facility]) Genevieve - Fully Assessed Reason for Visit: Missed Appt for Botox [Other] Prescriptions as of 09/09/2017 Sig: DICYCLOMINE 20 MG TABLET TAKE 1 TABLET BY MOUTH BEFORE* ATORVASTATIN 80 MG TABLET Take 1 tablet by mouth daily * SITAGLIPTIN 50 MG TABLET Take 1 tablet by mouth once d* LOSARTAN 25 MG TABLET Take 1 tablet by mouth once d* HYDROCHLOROTHIAZIDE 12.5 MG C* Take 1 capsule by mouth once * CYCLOBENZAPRINE 10 MG TABLET Take 1 tablet by mouth twice * DIHYDROERGOTAMINE 1 MG/ML INJ* Inject 1 mg intramuscularly e* MAGNESIUM SULFATE 1 GRAM/50 M* INFUSE 1000 mg in NS 250 ML I* SODIUM CHLORIDE 0.9 % INTRAVE* INFUSE 500 CC IV NS IV OVER 3* VALPROATE SODIUM 500 MG/5 ML * DEPACON 500 mg IV in NS 50 ML* PROMETHAZINE 25 MG/ML INJECTI* Give 25 mg IV daily for 3 days DULOXETINE 60 MG CAPSULE,APOLINAR* Take 2 capsules by mouth once* FILTER NEEDLES 19 X 1 For use with DHE ASPIRIN 81 MG CHEWABLE TABLET Take 81 mg by mouth once keegan* SAFETY NEEDLES 25 GAUGE X 1 1* For use with DHE OMEPRAZOLE 40 MG CAPSULE,APOLINAR* TAKE 1 CAPSULE BY MOUTH DAILY SCOPOLAMINE 1 MG OVER 3 DAYS * Apply 1 Patch as directed magnolia* METFORMIN ER 500 MG TABLET,EX* TAKE 2 TABLETS BY MOUTH TWICE* BLOOD SUGAR DIAGNOSTIC STRIPS Test blood sugar(s) 3- 4 times* NARATRIPTAN 2.5 MG TABLET Take 1 tablet by mouth as nee* PROMETHAZINE 25 MG TABLET Take 1 tablet by mouth every * SODIUM CHLORIDE 0.9% FLUSH Access implanted vascular acc* HEPARIN LOCK FLUSH (PORCINE) * Access implanted vascular acc* SYRINGE WITH NEEDLE 3 ML 25 X* For DHE CYANOCOBALAMIN (VIT B-12) 1,0* Take 1 tablet by mouth once d* COENZYME Q10 100 MG CAPSULE Take 1 capsule by mouth twice* POTASSIUM 99 MG TABLET Take by mouth. SODIUM CHLORIDE 0.9% FLUSH Access implanted vascular acc* ONABOTULINUMTOXINA 100 UNIT S* To be injected by physician e* FISH OIL ORAL Take by mouth once daily. * LORAZEPAM 2 MG TABLET Take 1 tablet by mouth twice * Problem List As Of Date 09/09/2017 Noted Resolved ESOPHAGEAL REFLUX [K21.9] INVALID FOR* GENERALIZED ANXIETY DIS [F41.1] INVALID FOR* Impaired fasting glucose [R73.01] INVALID FOR*12/07/2011 Depression [F32.9] INVALID FOR* More... Morbid Obesity [E66.01] INVALID FOR* Abdominal Pain [R10.9] INVALID FOR* Calculus of Kidney [N20.0] INVALID FOR* UTI (Lower Urinary Tract Infection) [N39.0] INVALID FOR*12/30/2009 Insomnia [G47.00] INVALID FOR* Microalbuminuria [R80.9] INVALID FOR* Obstructive sleep apnea [G47.33] INVALID FOR* Sprain and strain of unspecified site of knee a*INVALID FOR* Lumbar sprain and strain [S33.5XXA] INVALID FOR* Abdominal pain, left upper quadrant [R10.12] INVALID FOR* Innocent heart murmur INVALID FOR* Diabetic neuropathy [E11.40] INVALID FOR* Diabetic nephropathy [E11.21] INVALID FOR* Menorrhagia [N92.0] INVALID FOR*11/15/2012 Migraines [G43.909] INVALID FOR* Bacterial vaginitis [N76.0, B96.89] INVALID FOR*11/30/2013 Vaginitis [N76.0] INVALID FOR*11/30/2013 More... Abnormal uterine bleeding [N93.9] INVALID FOR* Backache, unspecified [M54.9] INVALID FOR* Diabetes mellitus due to underlying condition w*INVALID FOR* Willing to be liver donor [Z00.5] INVALID FOR* Intractable chronic migraine without aura [G43.*INVALID FOR* Exhausted vascular access [Z45.2] INVALID FOR* Endometriosis of peritoneum [N80.3] INVALID FOR* Morbid obesity with BMI of 50.0-59.9, adult (HC*INVALID FOR* OAB (overactive bladder) [N32.81] INVALID FOR* Hyperlipidemia [E78.5] INVALID FOR* More... HTN (hypertension) [I10] INVALID FOR* Encounter Status:Closed by JANELL ADAMS MA on 09/09/17 PROGRESS Observed: 08/29/2017 Status: COMPLETED Source: [place] 7:[address] [facility] REPOSIT[facility] HNO ID: [id number] Author: Mandy ([facility]) Genevieve Service: (none) Author Type: Nurse Practitioner Type: Progress Notes Filed: 08/29/2017 8:11 AM Note Text: Subjective HPI Akin Adamson is a 46 year old female who presents with two weeks of cough, congestion, sinus pain and pressure and chills. She has taken nyquil and dayquil and benadryl at home without relief. She has had no known sick contacts. Review of Systems Constitutional: Positive for chills and diaphoresis. Negative for fever. HENT: Positive for congestion, sinus pain, sore throat and tinnitus (popping). Negative for ear pain. Respiratory: Positive for cough and shortness of breath (with activity). Cardiovascular: Negative. Negative for chest pain. Skin: Negative. Negative for rash. Neurological: Positive for dizziness and headaches. BP 126/84 Pulse 95 Temp 36.2 ?C (97.2 ?F) (Left Tympanic) Resp 18 Wt 135.2 kg (298 lb) LMP 03/06/2014 SpO2 97% BMI 51.15 kg/m2 PAST MEDICAL HISTORY Diagnosis Date - Depression - Diabetes mellitus (HCC) 2010 - H. pylori infection 09/2013 + H.Pylori - HTN (hypertension) - Hyperlipidemia 2010 fish oil, unable to tolerate statins - Menorrhagia - Migraines Dr. DiazNeurologist - Obstructive sleep apnea - PMH - PAST MEDICAL HISTORY OF Suicide attempt x2 as teenager - PUD (peptic ulcer disease) 2006 - Viral pneumonia, unspecified 2008 Pneumonia - Vitamin D deficiency PAST SURGICAL HISTORY Procedure Laterality Date - APPENDECTOMY 1979 - DELIVERY ONLY x 2 - COLONOSCOP W/ OR W/O BRS SPEC 12/19/13 Colonoscopy - EGD W/O BRSH SPECIMEN W/BX 10/20/10 Gastritis, mild - EGD W/O OR W/BRUSH/WASH 12/19/13 EGD - L'SCOPE REM ADNEX W/PART/TOT OOPH/SALP 02/09/16 laprascopic LSO, lysis of adhesions - LAPAROSCOPIC CHOLEYCYSTECTOMY 2005 [place]. - PICC LINE INSERT/CONSULT 02/28/2014 - THERMA CHOICE DEVICE 11/2011 - TLH W/T/O UTERUS OVER 250 G 04/02/14 LAVH, bilateral salpingectomy - TUBAL LIGATION, 2003 at time of c/s - TUNNEL VAD W SUB Q PORT >=5 01/20/15 left IJ ALLERGIES Amoxil [Amoxicillin]; Compazine [Prochlorperazine Edisylate]; Flagyl [Metronidazole Hcl]; Reglan [Metoclopramide Hcl]; Simvastatin; Toradol [Ketorolac]; Zofran [Ondansetron Hcl (Pf)] MEDICATIONS dicyclomine (BENTYL) 20 mg tablet TAKE 1 TABLET BY MOUTH BEFORE MEALS AND AT BEDTIME atorvastatin (LIPITOR) 80 mg tablet Take 1 tablet by mouth daily at bedtime. For cholesterol. sitaGLIPtin (JANUVIA) 50 mg tablet Take 1 tablet by mouth once daily. losartan (COZAAR) 25 mg tablet Take 1 tablet by mouth once daily. Hydrochlorothiazide 12.5 mg capsule Take 1 capsule by mouth once daily. cyclobenzaprine (FLEXERIL) 10 mg tablet Take 1 tablet by mouth twice daily as needed for Muscle Spasm. dihydroergotamine (D.H.E.45) 1 mg/mL injection Inject 1 mg intramuscularly every 8 hours. As needed for migraine. Max use 3 days per week. Do not use within 25 hours of taking Amerge MAGNESIUM SULFATE IN 0.9% NACL (MAGNESIUM SULFATE IN NS) 1 gram/50 mL pgbk INFUSE 1000 mg in NS 250 ML IV OVER 1 HOUR daily for 3 days 0.9 % SODIUM CHLORIDE (NACL 0.9%) solution INFUSE 500 CC IV NS IV OVER 30 MIN daily for 3 days valproate sodium (DEPACON) 500 mg/5 mL (100 mg/mL) injection DEPACON 500 mg IV in NS 50 ML OVER 20 MIN daily for 3 days promethazine (PHENERGAN) 25 mg/mL injection Give 25 mg IV daily for 3 days DULoxetine (CYMBALTA) 60 mg capsule Take 2 capsules by mouth once daily. Filter [place] 19 X 1 ndle For use with DHE aspirin 81 mg chewable tablet Take 81 mg by mouth once daily. Safety [place] (BD ECLIPSE LUER-OLYA) 25 gauge x 1 1/2 ndle For use with DHE Omeprazole 40 mg capsule TAKE 1 CAPSULE BY MOUTH DAILY scopolamine (TRANSDERM-SCOP) 1 mg over 3 days Apply 1 Patch as directed every 72 hours. metFORMIN ER (GLUCOPHAGE XR) 500 mg 24 hr tablet TAKE 2 TABLETS BY MOUTH TWICE DAILY WITH FOOD blood sugar diagnostic (FREESTYLE LITE STRIPS) test strip Test blood sugar(s) 3-4 times daily. Dx: Other DM Code E08.40 Insulin: Yes naratriptan (AMERGE) 2.5 mg tablet Take 1 tablet by mouth as needed. 2.5 mg at onset of headache, may repeat in 4 hours if needed promethazine (PHENERGAN) 25 mg tablet Take 1 tablet by mouth every 4 hours as needed for Nausea/Vomiting. 0.9% NaCl Access implanted vascular access device (IVAD) as needed for flush, blood draw or treatment.Flush IVAD with 10-20 mL NS every 4 weeks and PRN when IVAD not in use. heparin 100 unit/mL syrg Access implanted vascular access device (IVAD) as needed for flush, blood draw or treatment. Before de-accessing port, flush with 10-20ml normal saline and follow with 5 mL heparin (100 units/mL) (if no heparin allergy). De-access port on treatment completion. Syringe with Needle, Disp, (BD LUER-OLYA SYRINGE) 3 mL 25 x 1 1/2 syrg For DHE cyanocobalamin (VITAMIN B-12) 1,000 mcg tab Take 1 tablet by mouth once daily. coenzyme Q10 (COQ-10) 100 mg cap capsule Take 1 capsule by mouth twice daily. Potassium 99 mg tab Take by mouth. 0.9% NaCl Access implanted vascular access device (IVAD) as needed for flush, blood draw or treatment.Flush IVAD with 10-20 mL NS every 4 weeks and PRN when IVAD not in use. onabotulinum toxin type A (BOTOX) 100 unit solr To be injected by physician every 3 months DOCOSAHEXANOIC ACID/EPA (FISH OIL ORAL) Take by mouth once daily. LORazepam (ATIVAN) 2 mg ORAL Tab Take 1 tablet by mouth twice daily as needed. methylPREDNISolone (MEDROL DOSE-PACK) 4 mg Dose-Pack Take medications as directed on packaging. Take with food. FAMILY HISTORY Problem Relation Age of Onset - Diabetes Mother - Hypertension Mother - Lipids Mother - Psychiatry Mother depression, possibly bipolar. - Heart Father - Hypertension Father - Coronary Artery Disease Father 58 triple by-pass graph, CO x 3 - Migraines [Other] [OTHER] Father - Psychiatry Sister - Diabetes Sister - Diabetes Sister - Psychiatry Sister - GI Son Ulcerative colitis Social History Substance Use Topics - Smoking status: Never Smoker - Smokeless tobacco: Never Used - Alcohol use No Objective Physical Exam Constitutional: She is well-developed, well-nourished, and in no distress. HENT: Head: Normocephalic. Right Ear: Tympanic membrane, external ear and ear canal normal. Left Ear: Tympanic membrane, external ear and ear canal normal. Nose: Sinus tenderness present. No rhinorrhea. Right sinus exhibits frontal sinus tenderness. Left sinus exhibits frontal sinus tenderness. Mouth/Throat: Uvula is midline, oropharynx is clear and moist and mucous membranes are normal. No posterior oropharyngeal edema or posterior oropharyngeal erythema. Eyes: Conjunctivae are normal. Right eye exhibits no discharge. Left eye exhibits no discharge. Neck: Neck supple. Cardiovascular: Normal rate, regular rhythm and normal heart sounds. Pulmonary/Chest: Effort normal and breath sounds normal. No respiratory distress. She has no wheezes. She has no rales. Lymphadenopathy: She has no cervical adenopathy. Neurological: She is alert. Skin: Skin is warm and dry. No rash noted. Nursing note and vitals reviewed. ASSESSMENT/PLAN: 1. Sinobronchitis - ICD9: 473.9, 490, ICD10: J32.9, J40 (primary diagnosis) - Will begin treatment with as per antibiotic as written, see orders - The patient should also be given OTC decongestants prn for the first 5-7 days of treatment. - Supportive care with plenty of fluids, rest, and analgesia prn. - DOXYCYCLINE HYCLATE 100 MG CAPSULE - GUAIFENESIN ER 600 MG TABLET, EXTENDED RELEASE 12 HR 2. Antibiotic-induced yeast infection - ICD9: 112.9, E930.9, ICD10: B37.9, T36.95XA - FLUCONAZOLE 150 MG TABLET - Follow-up with your PCP in 3-5 days if symptoms have not improved or sooner if symptoms worsen - Discussed red flags and need for immediate medical evaluation if any occur. - Discussed supportive care treatment with fluids, rest and analgesia. - Discussed expected course of illness Mandy Vallejo APRN.CNP CNOV Observed: 08/29/2017 Status: COMPLETED Source: [place] 7:45 AM [facility] REPOSITORY Office Visit (WSTR) AKIN ADAMSON ([id number]) 1970 F Date Time Provider Department 08/29/17 7:45 AM MANDY VALLEJO ([place]) [facility] During your visit today, we recorded the following information about you: Temperature Pulse Respiration Blood pressure 97.2 degrees 95/minute 18/minute 126/84 Weight 135.2 kg Mandy Vallejo APRN.CNP 08/29/2017 8:11 AM Signed Subjective HPI Akin Adamson is a 46 year old female who presents with two weeks of cough, congestion, sinus pain and pressure and chills. She has taken nyquil and dayquil and benadryl at home without relief. She has had no known sick contacts. Review of Systems Constitutional: Positive for chills and diaphoresis. Negative for fever. HENT: Positive for congestion, sinus pain, sore throat and tinnitus (ANDquot;poppingANDquot;). Negative for ear pain. Respiratory: Positive for cough and shortness of breath (with activity). Cardiovascular: Negative. Negative for chest pain. Skin: Negative. Negative for rash. Neurological: Positive for dizziness and headaches. BP 126/84 Pulse 95 Temp 36.2 ?C (97.2 ?F) (Left Tympanic) Resp 18 Wt 135.2 kg (298 lb) LMP 03/06/2014 SpO2 97% BMI 51.15 kg/m2 PAST MEDICAL HISTORY Diagnosis Date - Depression - Diabetes mellitus (HCC) 2010 - H. pylori infection 09/2013 + H.Pylori - HTN (hypertension) - Hyperlipidemia 2010 fish oil, unable to tolerate statins - Menorrhagia - Migraines Dr. DiazNeurologist - Obstructive sleep apnea - PMH - PAST MEDICAL HISTORY OF Suicide attempt x2 as teenager - PUD (peptic ulcer disease) 2006 - Viral pneumonia, unspecified 2008 Pneumonia - Vitamin D deficiency PAST SURGICAL HISTORY Procedure Laterality Date - APPENDECTOMY 1979 - DELIVERY ONLY x 2 - COLONOSCOP W/ OR W/O BRSH SPEC 12/19/13 Colonoscopy - EGD W/O BRSH SPECIMEN W/BX 10/20/10 Gastritis, mild - EGD W/O OR W/BRUSH/WASH 12/19/13 EGD - L'SCOPE REM ADNEX W/PART/TOT OOPH/SALP 02/09/16 laprascopic LSO, lysis of adhesions - LAPAROSCOPIC CHOLEYCYSTECTOMY 2005 [place]. - PICC LINE INSERT/CONSULT 02/28/2014 - THERMA CHOICE DEVICE 11/2011 - TLH W/T/O UTERUS OVER 250 G 04/02/14 LAVH, bilateral salpingectomy - TUBAL LIGATION, 2003 at time of c/s - TUNNEL VAD W SUB Q PORT ANDgt;=5 01/20/15 left IJ ALLERGIES Amoxil [Amoxicillin]; Compazine [Prochlorperazine Edisylate]; Flagyl [Metronidazole Hcl]; Reglan [Metoclopramide Hcl]; Simvastatin; Toradol [Ketorolac]; Zofran [Ondansetron Hcl (Pf)] MEDICATIONS dicyclomine (BENTYL) 20 mg tablet TAKE 1 TABLET BY MOUTH BEFORE MEALS AND AT BEDTIME atorvastatin (LIPITOR) 80 mg tablet Take 1 tablet by mouth daily at bedtime. For cholesterol. sitaGLIPtin (JANUVIA) 50 mg tablet Take 1 tablet by mouth once daily. losartan (COZAAR) 25 mg tablet Take 1 tablet by mouth once daily. Hydrochlorothiazide 12.5 mg capsule Take 1 capsule by mouth once daily. cyclobenzaprine (FLEXERIL) 10 mg tablet Take 1 tablet by mouth twice daily as needed for Muscle Spasm. dihydroergotamine (D.H.E.45) 1 mg/mL injection Inject 1 mg intramuscularly every 8 hours. As needed for migraine. Max use 3 days per week. Do not use within 25 hours of taking Amerge MAGNESIUM SULFATE IN 0.9% NACL (MAGNESIUM SULFATE IN NS) 1 gram/50 mL pgbk INFUSE 1000 mg in NS 250 ML IV OVER 1 HOUR daily for 3 days 0.9 % SODIUM CHLORIDE (NACL 0.9%) solution INFUSE 500 CC IV NS IV OVER 30 MIN daily for 3 days valproate sodium (DEPACON) 500 mg/5 mL (100 mg/mL) injection DEPACON 500 mg IV in NS 50 ML OVER 20 MIN daily for 3 days promethazine (PHENERGAN) 25 mg/mL injection Give 25 mg IV daily for 3 days DULoxetine (CYMBALTA) 60 mg capsule Take 2 capsules by mouth once daily. Filter [place] 19 X 1 ANDquot; ndle For use with DHE aspirin 81 mg chewable tablet Take 81 mg by mouth once daily. Safety [place] (BD ECLIPSE LUER-OLYA) 25 gauge x 1 1/2ANDquot; ndle For use with DHE Omeprazole 40 mg capsule TAKE 1 CAPSULE BY MOUTH DAILY scopolamine (TRANSDERM-SCOP) 1 mg over 3 days Apply 1 Patch as directed every 72 hours. metFORMIN ER (GLUCOPHAGE XR) 500 mg 24 hr tablet TAKE 2 TABLETS BY MOUTH TWICE DAILY WITH FOOD blood sugar diagnostic (FREESTYLE LITE STRIPS) test strip Test blood sugar(s) 3-4 times daily. Dx: Other DM Code E08.40 Insulin: Yes naratriptan (AMERGE) 2.5 mg tablet Take 1 tablet by mouth as needed. 2.5 mg at onset of headache, may repeat in 4 hours if needed promethazine (PHENERGAN) 25 mg tablet Take 1 tablet by mouth every 4 hours as needed for Nausea/Vomiting. 0.9% NaCl Access implanted vascular access device (IVAD) as needed for flush, blood draw or treatment.Flush IVAD with 10-20 mL NS every 4 weeks and PRN when IVAD not in use. heparin 100 unit/mL syrg Access implanted vascular access device (IVAD) as needed for flush, blood draw or treatment. Before de-accessing port, flush with 10-20ml normal saline and follow with 5 mL heparin (100 units/mL) (if no heparin allergy). De-access port on treatment completion. Syringe with Needle, Disp, (BD LUER-OLYA SYRINGE) 3 mL 25 x 1 1/2 ANDquot; syrg For DHE cyanocobalamin (VITAMIN B-12) 1,000 mcg tab Take 1 tablet by mouth once daily. coenzyme Q10 (COQ-10) 100 mg cap capsule Take 1 capsule by mouth twice daily. Potassium 99 mg tab Take by mouth. 0.9% NaCl Access implanted vascular access device (IVAD) as needed for flush, blood draw or treatment.Flush IVAD with 10-20 mL NS every 4 weeks and PRN when IVAD not in use. onabotulinum toxin type A (BOTOX) 100 unit solr To be injected by physician every 3 months DOCOSAHEXANOIC ACID/EPA (FISH OIL ORAL) Take by mouth once daily. LORazepam (ATIVAN) 2 mg ORAL Tab Take 1 tablet by mouth twice daily as needed. methylPREDNISolone (MEDROL DOSE-PACK) 4 mg Dose-Pack Take medications as directed on packaging. Take with food. FAMILY HISTORY Problem Relation Age of Onset - Diabetes Mother - Hypertension Mother - Lipids Mother - Psychiatry Mother depression, possibly bipolar. - Heart Father - Hypertension Father - Coronary Artery Disease Father 58 triple by-pass graph, CO x 3 - Migraines [Other] [OTHER] Father - Psychiatry Sister - Diabetes Sister - Diabetes Sister - Psychiatry Sister - GI Son Ulcerative colitis Social History Substance Use Topics - Smoking status: Never Smoker - Smokeless tobacco: Never Used - Alcohol use No Objective Physical Exam Constitutional: She is well-developed, well-nourished, and in no distress. HENT: Head: Normocephalic. Right Ear: Tympanic membrane, external ear and ear canal normal. Left Ear: Tympanic membrane, external ear and ear canal normal. Nose: Sinus tenderness present. No rhinorrhea. Right sinus exhibits frontal sinus tenderness. Left sinus exhibits frontal sinus tenderness. Mouth/Throat: Uvula is midline, oropharynx is clear and moist and mucous membranes are normal. No posterior oropharyngeal edema or posterior oropharyngeal erythema. Eyes: Conjunctivae are normal. Right eye exhibits no discharge. Left eye exhibits no discharge. Neck: Neck supple. Cardiovascular: Normal rate, regular rhythm and normal heart sounds. Pulmonary/Chest: Effort normal and breath sounds normal. No respiratory distress. She has no wheezes. She has no rales. Lymphadenopathy: She has no cervical adenopathy. Neurological: She is alert. Skin: Skin is warm and dry. No rash noted. Nursing note and vitals reviewed. ASSESSMENT/PLAN: 1. Sinobronchitis - ICD9: 473.9, 490, ICD10: J32.9, J40 (primary diagnosis) - Will begin treatment with as per antibiotic as written, see orders - The patient should also be given OTC decongestants prn for the first 5-7 days of treatment. - Supportive care with plenty of fluids, rest, and analgesia prn. - DOXYCYCLINE HYCLATE 100 MG CAPSULE - GUAIFENESIN ER 600 MG TABLET, EXTENDED RELEASE 12 HR 2. Antibiotic-induced yeast infection - ICD9: 112.9, E930.9, ICD10: B37.9, T36.95XA - FLUCONAZOLE 150 MG TABLET - Follow-up with your PCP in 3-5 days if symptoms have not improved or sooner if symptoms worsen - Discussed red flags and need for immediate medical evaluation if any occur. - Discussed supportive care treatment with fluids, rest and analgesia. - Discussed expected course of illness FALGUNI Reyes APRN.CNP 08/29/2017 8:07 AM Signed Acute Sinusitis Each of us has four paired cavities (spaces) in our head that are connected to the nose by narrow channels. These cavities, known as sinuses, produce thin mucus that drains out of the channels of the nose. This drainage helps keep the nose clean and free of particles and bacteria. Normally, sinuses are filled with air. But when sinuses become blocked and filled with fluid, bacteria can grow and cause an infection (bacterial sinusitis). Conditions that cause sinus blockage include: ? the common cold ? allergic rhinitis (swelling of the lining of the nose due to allergies) ? nasal polyps (small growths in the lining of the nose), or ? a deviated septum (the wall between the left and right nostril is crooked). Allergies, such as hay fever, can also cause swelling and poor drainage of the sinuses. One confusing factor to consider is that many people with ?sinus headaches? are actually suffering from migraines. In fact, in large clinical studies, up to 90% of people who reported sinus headaches were diagnosed with migraines instead. Migraines can cause headaches in combination with facial pressure over the sinuses, a runny nose, and nasal congestion. If you have symptoms that involve the sinuses, it may be difficult to tell if you have sinusitis, a cold, nasal allergy, or even a migraine. This article will describe the symptoms, diagnosis, and treatment of sinusitis, and how to tell the difference between sinusitis, cold, migraines, and nasal allergy. What is sinusitis? Sinusitis is an inflammation, or swelling, of the tissue lining the sinuses. There are two types of sinusitis: ? Acute bacterial sinusitis: a sudden onset of cold symptoms such as runny nose, stuffy nose, and facial pain that does not go away after 10 days, or symptoms that seem to begin improving but return worse than the initial symptoms. It responds well to antibiotics and decongestants. ? Chronic sinusitis: a condition defined by nasal congestion, drainage, facial pain/pressure, and decreased sense of smell for at least 12 weeks. Who gets sinusitis? Every year, approximately 1 billion Americans have at least one episode of viral sinusitis. About 37 million will develop a bacterial sinusitis. People who have the following conditions have a higher risk of sinusitis: ? Nasal mucus membrane swelling, as from a common cold or allergies ? Blockage of drainage ducts, leading to trapping of mucus ? Structure differences that narrow the drainage ducts ? Conditions that result in an increased risk of infection ? Polyps (growths) In children, common factors in the environment that contribute to sinusitis include allergies, illness from other children at day care or school, and smoke in the environment. In adults, the contributing factors are most frequently viral infections, allergies, and smoking. What are the signs and symptoms of acute sinusitis? The primary symptoms of acute sinusitis include: ? Facial pain/pressure/tenderness ? Nasal stuffiness ? Nasal discharge (thick yellow or green discharge from nose), especially if it is long-lasting. These also may be present with viral illness. ? Loss of smell and taste ? Cough/congestion Additional symptoms may include: ? Fever of 102? or higher ? Ear pain ? Headache ? Bad breath ? Fatigue ? Ache in upper jaw and teeth How is sinusitis diagnosed? To diagnose sinusitis, your doctor will discuss your symptoms and examine your nose for swelling and drainage. Your personal history is most important in diagnosing sinusitis. A physical exam of the ears, nose, and throat is performed to look for signs of obstruction (blockage) or infection. Some patients may have conditions that may need to be referred to a specialist, such as an ear, nose, and throat (ENT) physician. How is sinusitis treated? Acute sinusitis. If you have a simple sinusitis infection, your health care provider may recommend treatment with [id number] medications for cold and allergy, nasal saline irrigation, and drinking fluids (as most sinusitis is viral). Use of prescription intranasal steroid sprays might be added to help control symptoms. However, non-prescription drops or sprays should not be used beyond 5 days -- or they may actually increase congestion. If symptoms do not improve after at least 10 days, if the symptoms seem to be getting worse, or if medications for cold or allergy do not improve symptoms, a bacterial infection may be causing the sinusitis. In this case, antibiotics are given for 7 days in adults and 10 days in children. Antibiotics should improve symptoms within 48 hours. Chronic sinusitis. Treating chronic sinusitis begins with controlling the underlying condition, which is most often allergies. Standard treatments include intranasal steroid sprays, topical antihistamine sprays, or antihistamine pills, and leukotriene antagonists such as montelukast. Often you will be encouraged to rinse the nose with saline irrigations. Sometimes medications may be added to these irrigations. If sinusitis is not controlled, the next step is a visit with an Ear, Nose and Throat Specialist. Will I need to make lifestyle changes? If you have indoor allergies, avoiding triggers -- such as animal dander and dust mites ? is recommended in addition to medications. Smoking is never recommended, but if you do smoke, strongly consider a program to help you stop smoking, as this may be the main reason you have sinus infections. No special diet is required, but drinking extra fluids helps to thin nasal secretions. What are the symptoms of the common cold? An upper respiratory infection (the common cold) is usually caused by a virus that infects the nose and throat. Most upper respiratory infections are not bacterial and do not respond to antibiotics. A cold may cause swelling in the sinuses, preventing the outflow of mucus. Cold symptoms include nasal congestion, runny nose, post-nasal drip (qrgl-so-zqge release of nasal fluid into the back of the throat), headache, achiness, and fatigue. Cough and fever may also go along with these symptoms. Cold symptoms usually build, peak, and slowly disappear. No treatment is necessary for a cold, but some medications can ease symptoms. For example, decongestants may decrease drainage and open the nasal passages. Analgesics (pain relievers) may help with fever and headache. Cough medication may help, as well. Colds will typically last from a few days to about a week. What is the harm in getting an antibiotic for a common cold? Viral infections like the common cold are not cured by antibiotics. Taking an antibiotic for a viral infection unnecessarily puts you at risk for side effects related to the antibiotic. In addition, the overuse of antibiotics leads to antibiotic resistance, which may make future infections more difficult to treat. Finally, the use of inappropriate medication increases health care costs unnecessarily. What are the symptoms of nasal allergy? Symptoms of nasal allergy include: ? Sneezing ? Itchy nose ? Clear, watery nasal discharge ? Nasal blockage ? Feeling fatigued How is nasal allergy treated? Usually medications are prescribed to relieve symptoms. These may include antihistamines, with or without decongestants, or steroid nasal sprays. Other nasal sprays, which deliver antihistamines or cromolyn sodium, are sometimes helpful. If allergy symptoms are chronic (long-term), allergy testing and allergy shots (immunotherapy) may be helpful. How can I tell if I have a sinus infection, cold, or nasal allergy? Although the symptoms of sinusitis and nasal allergy may occur with a common cold, in general, cold-related symptoms disappear within 1 week. The point at which a normal cold ends and a sinus condition begins is not always easy to know. If you are fighting off a cold and develop symptoms of a sinus infection or nasal allergy, see your health care provider. You will be asked to describe your symptoms and medical history. ? How do I know if my sinus condition requires the care of an ear, nose, and throat specialist? Most routine sinus conditions are easily cared for by primary care physicians. If, however, you are bothered by ongoing abnormal symptoms, recurring infections, or have abnormal X-ray findings or complications, a referral to a specialist is appropriate. References ? Pete Russo et al., IDSA Clinical Practice Guideline for Acute Bacterial Rhinosinusitis in Children and Adults. Clinical Infectious Diseases; 2012;54(8):6513-1233. ? Ceci Claudio, Sinusitis: Allergies, antibiotics, aspirin, asthma. [facility] Journal of Medicine 2006; 73(7): 671-678 ? [employer] [place] [employer]ious [employer]. Sinusitis (Sinus Infection) Accessed 04/01/2015. ? [employer], [employer] Immun[employer]. Sinusitis Accessed 04/01/2015. ? [employer], Asthma ANDamp; Immunology. Sinus Information Accessed 04/01/2015. ? Destinee Whalen, Prevalence of migraine in patients with a history of self-reported or physician-diagnosed ANDquot;sinusANDquot; headache. [employer], 2004. 164(16):1769-72. ? Copyright 2640-4497 [facility]. All rights reserved. Referring Provider: SELF [200] Allergies As of Date: 08/29/2017 Noted Allergy Reaction AMOXIL (AMOXICILLIN) 01/04/2014 8 - GI Upset COMPAZINE (PROCHLORPERAZINE EDISY*08/12/2008 16 - Unknown FLAGYL (METRONIDAZOLE HCL) 09/07/2012 14 - Other: See Comments Comments: Headache - she is prone to migraines and flagyl sets it off every time she takes it. REGLAN (METOCLOPRAMIDE HCL) 02/27/2014 14 - Other: See Comments Comments: anxiety SIMVASTATIN 04/27/2012 14 - Other: See Comments Comments: severe muscle aches TORADOL (KETOROLAC) 08/12/2008 2 - Rash ZOFRAN (ONDANSETRON HCL (PF)) 06/22/2013 14 - Other: See Comments Date Reviewed: 08/29/2017 Reviewed by: Mandy ([facility]) Genevieve - Fully Assessed Reason for Visit: Pain, Sinus [857] Cmt: x 2 weeks headaches and sinus pain around eyes Ear Pain [817] Cmt: x 2 weeks Cough [28] Cmt: x 2 weeks cough and congestion Post Nasal Drip [1367] Cmt: x 2 weeks Sore Throat [200] Cmt: x 2 weeks Primary Visit Diagnosis:Sinobronchitis [J32.9, J40] Other Visit Diagnosis:Antibiotic-induced yeast infection [B37.9, T36.95XA] Order(s):doxycycline hyclate (VIBRAMYCIN) 100 mg capsuleTake 1 capsule by mouth twice daily for 7 days.Disp: 20 capsuleRfl: 0 guaiFENesin (MUCINEX) 600 mg 12 hr tabletTake 1 tablet by mouth twice daily for 10 days.Disp: 20 tabletRfl: 0 fluconazole (DIFLUCAN) 150 mg tabletTake 1 tablet by mouth once daily for 1 day.Disp: 1 tabletRfl: 0 Prescriptions as of 08/29/2017 Sig: DICYCLOMINE 20 MG TABLET TAKE 1 TABLET BY MOUTH BEFORE* ATORVASTATIN 80 MG TABLET Take 1 tablet by mouth daily * SITAGLIPTIN 50 MG TABLET Take 1 tablet by mouth once d* LOSARTAN 25 MG TABLET Take 1 tablet by mouth once d* HYDROCHLOROTHIAZIDE 12.5 MG C* Take 1 capsule by mouth once * CYCLOBENZAPRINE 10 MG TABLET Take 1 tablet by mouth twice * DIHYDROERGOTAMINE 1 MG/ML INJ* Inject 1 mg intramuscularly e* MAGNESIUM SULFATE 1 GRAM/50 M* INFUSE 1000 mg in NS 250 ML I* SODIUM CHLORIDE 0.9 % INTRAVE* INFUSE 500 CC IV NS IV OVER 3* VALPROATE SODIUM 500 MG/5 ML * DEPACON 500 mg IV in NS 50 ML* PROMETHAZINE 25 MG/ML INJECTI* Give 25 mg IV daily for 3 days DULOXETINE 60 MG CAPSULE,APOLINAR* Take 2 capsules by mouth once* FILTER NEEDLES 19 X 1 For use with DHE ASPIRIN 81 MG CHEWABLE TABLET Take 81 mg by mouth once keegan* SAFETY NEEDLES 25 GAUGE X 1 1* For use with DHE OMEPRAZOLE 40 MG CAPSULE,APOLINAR* TAKE 1 CAPSULE BY MOUTH DAILY SCOPOLAMINE 1 MG OVER 3 DAYS * Apply 1 Patch as directed magnolia* METFORMIN ER 500 MG TABLET,EX* TAKE 2 TABLETS BY MOUTH TWICE* BLOOD SUGAR DIAGNOSTIC STRIPS Test blood sugar(s) 3- 4 times* NARATRIPTAN 2.5 MG TABLET Take 1 tablet by mouth as nee* PROMETHAZINE 25 MG TABLET Take 1 tablet by mouth every * SODIUM CHLORIDE 0.9% FLUSH Access implanted vascular acc* HEPARIN LOCK FLUSH (PORCINE) * Access implanted vascular acc* SYRINGE WITH NEEDLE 3 ML 25 X* For DHE CYANOCOBALAMIN (VIT B-12) 1,0* Take 1 tablet by mouth once d* COENZYME Q10 100 MG CAPSULE Take 1 capsule by mouth twice* POTASSIUM 99 MG TABLET Take by mouth. SODIUM CHLORIDE 0.9% FLUSH Access implanted vascular acc* ONABOTULINUMTOXINA 100 UNIT S* To be injected by physician e* FISH OIL ORAL Take by mouth once daily. * LORAZEPAM 2 MG TABLET Take 1 tablet by mouth twice * DOXYCYCLINE HYCLATE 100 MG CA* Take 1 capsule by mouth twice* GUAIFENESIN ER 600 MG TABLET,* Take 1 tablet by mouth twice * FLUCONAZOLE 150 MG TABLET Take 1 tablet by mouth once d* Medication notes this encounter METHYLPREDNISOLONE 4 MG TABLETS IN A DOSE PACK >> Gricelda Kim APPLICATION SPECIALIST 08/29/2017 7:40 AM >> GRICELDA KIM APPLICATION SPECIALIST TueAug 29, 2017 7:40 AM TX done Problem List As Of Date 08/29/2017 Noted Resolved ESOPHAGEAL REFLUX [K21.9] INVALID FOR* GENERALIZED ANXIETY DIS [F41.1] INVALID FOR* Impaired fasting glucose [R73.01] INVALID FOR*12/07/2011 Depression [F32.9] INVALID FOR* More... Morbid Obesity [E66.01] INVALID FOR* Abdominal Pain [R10.9] INVALID FOR* Calculus of Kidney [N20.0] INVALID FOR* UTI (Lower Urinary Tract Infection) [N39.0] INVALID FOR*12/30/2009 Insomnia [G47.00] INVALID FOR* Microalbuminuria [R80.9] INVALID FOR* Obstructive sleep apnea [G47.33] INVALID FOR* Sprain and strain of unspecified site of knee a*INVALID FOR* Lumbar sprain and strain [S33.5XXA] INVALID FOR* Abdominal pain, left upper quadrant [R10.12] INVALID FOR* Innocent heart murmur INVALID FOR* Diabetic neuropathy [E11.40] INVALID FOR* Diabetic nephropathy [E11.21] INVALID FOR* Menorrhagia [N92.0] INVALID FOR*11/15/2012 Migraines [G43.909] INVALID FOR* Bacterial vaginitis [N76.0, B96.89] INVALID FOR*11/30/2013 Vaginitis [N76.0] INVALID FOR*11/30/2013 More... Abnormal uterine bleeding [N93.9] INVALID FOR* Backache, unspecified [M54.9] INVALID FOR* Diabetes mellitus due to underlying condition w*INVALID FOR* Willing to be liver donor [Z00.5] INVALID FOR* Intractable chronic migraine without aura [G43.*INVALID FOR* Exhausted vascular access [Z45.2] INVALID FOR* Endometriosis of peritoneum [N80.3] INVALID FOR* Morbid obesity with BMI of 50.0-59.9, adult (HC*INVALID FOR* OAB (overactive bladder) [N32.81] INVALID FOR* Hyperlipidemia [E78.5] INVALID FOR* More... HTN (hypertension) [I10] INVALID FOR* Other instructions from your clinician: Acute Sinusitis Each of us has four paired cavities (spaces) in our head that are connected to the nose by narrow channels. These cavities, known as sinuses, produce thin mucus that drains out of the channels of the nose. This drainage helps keep the nose clean and free of particles and bacteria. Normally, sinuses are filled with air. But when sinuses become blocked and filled with fluid, bacteria can grow and cause an infection (bacterial sinusitis). Conditions that cause sinus blockage include: ? the common cold ? allergic rhinitis (swelling of the lining of the nose due to allergies) ? nasal polyps (small growths in the lining of the nose), or ? a deviated septum (the wall between the left and right nostril is crooked). Allergies, such as hay fever, can also cause swelling and poor drainage of the sinuses. One confusing factor to consider is that many people with ?sinus headaches? are actually suffering from migraines. In fact, in large clinical studies, up to 90% of people who reported sinus headaches were diagnosed with migraines instead. Migraines can cause headaches in combination with facial pressure over the sinuses, a runny nose, and nasal congestion. If you have symptoms that involve the sinuses, it may be difficult to tell if you have sinusitis, a cold, nasal allergy, or even a migraine. This article will describe the symptoms, diagnosis, and treatment of sinusitis, and how to tell the difference between sinusitis, cold, migraines, and nasal allergy. What is sinusitis? Sinusitis is an inflammation, or swelling, of the tissue lining the sinuses. There are two types of sinusitis: ? Acute bacterial sinusitis: a sudden onset of cold symptoms such as runny nose, stuffy nose, and facial pain that does not go away after 10 days, or symptoms that seem to begin improving but return worse than the initial symptoms. It responds well to antibiotics and decongestants. ? Chronic sinusitis: a condition defined by nasal congestion, drainage, facial pain/pressure, and decreased sense of smell for at least 12 weeks. Who gets sinusitis? Every year, approximately 1 billion Americans have at least one episode of viral sinusitis. About 37 million will develop a bacterial sinusitis. People who have the following conditions have a higher risk of sinusitis: ? Nasal mucus membrane swelling, as from a common cold or allergies ? Blockage of drainage ducts, leading to trapping of mucus ? Structure differences that narrow the drainage ducts ? Conditions that result in an increased risk of infection ? Polyps (growths) In children, common factors in the environment that contribute to sinusitis include allergies, illness from other children at day care or school, and smoke in the environment. In adults, the contributing factors are most frequently viral infections, allergies, and smoking. What are the signs and symptoms of acute sinusitis? The primary symptoms of acute sinusitis include: ? Facial pain/pressure/tenderness ? Nasal stuffiness ? Nasal discharge (thick yellow or green discharge from nose), especially if it is long-lasting. These also may be present with viral illness. ? Loss of smell and taste ? Cough/congestion Additional symptoms may include: ? Fever of 102? or higher ? Ear pain ? Headache ? Bad breath ? Fatigue ? Ache in upper jaw and teeth How is sinusitis diagnosed? To diagnose sinusitis, your doctor will discuss your symptoms and examine your nose for swelling and drainage. Your personal history is most important in diagnosing sinusitis. A physical exam of the ears, nose, and throat is performed to look for signs of obstruction (blockage) or infection. Some patients may have conditions that may need to be referred to a specialist, such as an ear, nose, and throat (ENT) physician. How is sinusitis treated? Acute sinusitis. If you have a simple sinusitis infection, your health care provider may recommend treatment with hbqk-wqv-rmzuaeu medications for cold and allergy, nasal saline irrigation, and drinking fluids (as most sinusitis is viral). Use of prescription intranasal steroid sprays might be added to help control symptoms. However, non- prescription drops or sprays should not be used beyond 5 days -- or they may actually increase congestion. If symptoms do not improve after at least 10 days, if the symptoms seem to be getting worse, or if medications for cold or allergy do not improve symptoms, a bacterial infection may be causing the sinusitis. In this case, antibiotics are given for 7 days in adults and 10 days in children. Antibiotics should improve symptoms within 48 hours. Chronic sinusitis. Treating chronic sinusitis begins with controlling the underlying condition, which is most often allergies. Standard treatments include intranasal steroid sprays, topical antihistamine sprays, or antihistamine pills, and leukotriene antagonists such as montelukast. Often you will be encouraged to rinse the nose with saline irrigations. Sometimes medications may be added to these irrigations. If sinusitis is not controlled, the next step is a visit with an Ear, Nose and Throat Specialist. Will I need to make lifestyle changes? If you have indoor allergies, avoiding triggers -- such as animal dander and dust mites ? is recommended in addition to medications. Smoking is never recommended, but if you do smoke, strongly consider a program to help you stop smoking, as this may be the main reason you have sinus infections. No special diet is required, but drinking extra fluids helps to thin nasal secretions. What are the symptoms of the common cold? An upper respiratory infection (the common cold) is usually caused by a virus that infects the nose and throat. Most upper respiratory infections are not bacterial and do not respond to antibiotics. A cold may cause swelling in the sinuses, preventing the outflow of mucus. Cold symptoms include nasal congestion, runny nose, post- nasal drip (iuax-hb-jior release of nasal fluid into the back of the throat), headache, achiness, and fatigue. Cough and fever may also go along with these symptoms. Cold symptoms usually build, peak, and slowly disappear. No treatment is necessary for a cold, but some medications can ease symptoms. For example, decongestants may decrease drainage and open the nasal passages. Analgesics (pain relievers) may help with fever and headache. Cough medication may help, as well. Colds will typically last from a few days to about a week. What is the harm in getting an antibiotic for a common cold? Viral infections like the common cold are not cured by antibiotics. Taking an antibiotic for a viral infection unnecessarily puts you at risk for side effects related to the antibiotic. In addition, the overuse of antibiotics leads to antibiotic resistance, which may make future infections more difficult to treat. Finally, the use of inappropriate medication increases health care costs unnecessarily. What are the symptoms of nasal allergy? Symptoms of nasal allergy include: ? Sneezing ? Itchy nose ? Clear, watery nasal discharge ? Nasal blockage ? Feeling fatigued How is nasal allergy treated? Usually medications are prescribed to relieve symptoms. These may include antihistamines, with or without decongestants, or steroid nasal sprays. Other nasal sprays, which deliver antihistamines or cromolyn sodium, are sometimes helpful. If allergy symptoms are chronic (long- term), allergy testing and allergy shots (immunotherapy) may be helpful. How can I tell if I have a sinus infection, cold, or nasal allergy? Although the symptoms of sinusitis and nasal allergy may occur with a common cold, in general, cold-related symptoms disappear within 1 week. The point at which a normal cold ends and a sinus condition begins is not always easy to know. If you are fighting off a cold and develop symptoms of a sinus infection or nasal allergy, see your health care provider. You will be asked to describe your symptoms and medical history. ? How do I know if my sinus condition requires the care of an ear, nose, and throat specialist? Most routine sinus conditions are easily cared for by primary care physicians. If, however, you are bothered by ongoing abnormal symptoms, recurring infections, or have abnormal X-ray findings or complications, a referral to a specialist is appropriate. References ? Killian Russo. et al., IDSA Clinical Practice Guideline for Acute Bacterial Rhinosinusitis in Children and Adults. Clinical Infectious Diseases; 2012;54(8):2807-7434. ? Ceci Claudio, Sinusitis: Allergies, antibiotics, aspirin, asthma. [facility] Journal of Medicine 2006; 73(7): 671-678 ? [employer] [place] [employer] Infectious Diseases. Sinusitis (Sinus Infection) Accessed 04/01/2015. ? [place] [employer], Ast[employer], and Immunology. Sinusitis Accessed 04/01/2015. ? [place], [employer] AND Immun[employer]. Sinus Information Accessed 04/01/2015. ? Carolina Whalen., Prevalence of migraine in patients with a history of self-reported or physician-diagnosed sinus headache. [employer], 2004. 164(16):1769-72. ? Copyright 6136-3470 [facility]. All rights reserved. Prescriptions ordered this encounter Disp Refills Start End DOXYCYCLINE HYCLATE 100 MG CAPSULE 20 c* 0 08/29/2017 09/05/2017 Route: ORAL Sig: Take 1 capsule by mouth twice daily for 7 days. GUAIFENESIN ER 600 MG TABLET, EXTEND* 20 t* 0 08/29/2017 09/08/2017 Route: ORAL Sig: Take 1 tablet by mouth twice daily for 10 days. FLUCONAZOLE 150 MG TABLET 1 ta* 0 08/29/2017 08/30/2017 Route: ORAL Sig: Take 1 tablet by mouth once daily for 1 day. Medications Discontinued During This Encounter methylPREDNISolone (MEDROL DOSE-PACK* 1 Pa* 0 08/02/2017 08/29/2017 Sig: Take medications as directed on packaging. Take with food. Disc: Reason for discontinue is not on file. Encounter Status:Closed by MANDY VALLEJO on 08/29/17 PROGRESS Observed: 08/02/2017 Status: COMPLETED Source: [place] 4:[address] [facility] REPOSITORY HNO ID: [id number] Author: Asiya Wasserman (Process Server) HARRIS Torres Service: (none) Author Type: Nurse Practitioner Type: Progress Notes Filed: 08/02/2017 4:42 PM Note Text: HPI/CC: Akin Adamson is a 46 year old female who presents for Edema (bilateral feet/hands- has been going on for awhile. Also concerned regarding a fall 2 days ago, currently experiencing RL back pain. Patient denies CP, SOB, cough, more fatigue than normal. ROS as above, otherwise non-contributory. Reviewed PMHx, PSHx, social Hx, medications and allergies. PHYSICAL EXAMINATION: BP 126/92 Pulse 104 Resp 16 Wt (!) 137 kg (302 lb) LMP 03/06/2014 BMI 51.84 kg/m2 General appearance: Well appearing, alert, in no acute distress, well-hydrated, well nourished., Morbidly obese Skin: Skin color, texture, turgor normal, no suspicious rashes or lesions Lungs: Lungs clear to auscultation. No wheezing, rhonchi, rales Heart: RRR without murmur, gallop, or rubs. No ectopy Bilateral hands and BL LE with slight to 1+ non-pitting edema. Range of Motion Spine: FROM Gait: normal gait Spinal Tenderness: not present ASSESSMENT/PLAN: 1. Acute midline low back pain with left-sided sciatica - ICD9: 724.2, 724.3, ICD10: M54.42 (primary diagnosis) Mechanical low back pain - Warm moist heat for 20 min three times a day - Prednisone burst- see orders - Muscle relaxant- see orders - METHYLPREDNISOLONE 4 MG TABLETS IN A DOSE PACK - CYCLOBENZAPRINE 10 MG TABLET 2. Bilateral leg edema - ICD9: 782.3, ICD10: R60.0 - HYDROCHLOROTHIAZIDE 12.5 MG CAPSULE 3. Hypertension, unspecified type - ICD9: 401.9, ICD10: I10 - stop BRITTANY and start ARB?edema d/t BRITTANY - LOSARTAN 25 MG TABLET 4. Hyperlipidemia, unspecified hyperlipidemia type - ICD9: 272.4, ICD10: E78.5 - poor control - ATORVASTATIN 80 MG TABLET- increased from 40mg to 80mg. - f/u in 3 months Asiya Torres CNP CNOV Observed: 08/02/2017 Status: COMPLETED Source: [place] 2:20 PM [facility] REPOSITORY Office Visit (FAMPWS) AKIN ADAMSON ([id number]) 1970 F Date Time Provider Department 08/02/17 2:20 PM ASIYA TORRES ([place]ARRIS) FAMWS During your visit today, we recorded the following information about you: Pulse Respiration Blood pressure Weight 104/minute 16/minute 126/92 137 kg Asiya Torres CNP, H[place]IS 08/02/2017 2:49 PM Signed Back Pain ? You have been seen for back pain. ? Back pain can happen anywhere from the neck down to the low back. Back pain has many different causes. Some of the more common are: Bone pain, muscle strain, muscle spasm, pain from overuse, and pinched nerves. Other problems can cause what feels like back pain. But the pain is really coming from another organ. A kidney infection can cause lower back pain. ? ? Some things you can try to help your back feel better are: - Apply a warm damp washcloth to the back where you have pain for 20 minutes at a time, at least 4 times per day. - Have someone massage the sore parts of your back. - Don t do any heavy lifting or bending. You can go back to normal daily activities if they don t make the pain worse. - You can use anti-inflammatory pain medicine for your pain. This could be Ibuprofen (Advil? or Motrin?). You can buy these at most stores. Follow the directions on the package. ?- Do not operate machines or drive if you were prescribed a muscle relaxor or Opioid analgesic (pain medication). This pain may last for the next few days. If your pain gets better, you probably do not need to see a doctor. However, if your symptoms get worse or you have new symptoms, you should go to the nearest Emergency Department. ? Call your doctor or go to the nearest Emergency Department if you your pain does not improve within 4 weeks or your pain is bad enough to seriously limit your normal activities. ? YOU SHOULD SEEK MEDICAL ATTENTION IMMEDIATELY, EITHER HERE OR AT THE NEAREST EMERGENCY DEPARTMENT, IF ANY OF THE FOLLOWING OCCURS: - You lose control of your bladder or bowels. If this were to happen, it may cause you to wet or soil yourself. - You have problems urinating (peeing). - You have fever (temperature higher than 100.4?F / 38?C). - Your pain gets worse. - experience pressure or pain in your chest - experience difficulty swallowing -experience difficulty breathing - experience numbness, tingling, weakness in your arms or legs Follow up in 10-14 days or before if your symptoms continue Asiya Torres CNP [facility] [address] [facility] [id number] Asiya Torres CNP, HARRIS 08/02/2017 4:42 PM Signed HPI/CC: Akin Adamson is a 46 year old female who presents for Edema (bilateral feet/hands- has been going on for awhile. Also concerned regarding a fall 2 days ago, currently experiencing RL back pain. Patient denies CP, SOB, cough, more fatigue than normal. ROS as above, otherwise non-contributory. Reviewed PMHx, PSHx, social Hx, medications and allergies. PHYSICAL EXAMINATION: BP 126/92 Pulse 104 Resp 16 Wt (!) 137 kg (302 lb) LMP 03/06/2014 BMI 51.84 kg/m2 General appearance: Well appearing, alert, in no acute distress, well-hydrated, well nourished., Morbidly obese Skin: Skin color, texture, turgor normal, no suspicious rashes or lesions Lungs: Lungs clear to auscultation. No wheezing, rhonchi, rales Heart: RRR without murmur, gallop, or rubs. No ectopy Bilateral hands and BL LE with slight to 1+ non-pitting edema. Range of Motion Spine: FROM Gait: normal gait Spinal Tenderness: not present ASSESSMENT/PLAN: 1. Acute midline low back pain with left-sided sciatica - ICD9: 724.2, 724.3, ICD10: M54.42 (primary diagnosis) Mechanical low back pain - Warm moist heat for 20 min three times a day - Prednisone burst- see orders - Muscle relaxant- see orders - METHYLPREDNISOLONE 4 MG TABLETS IN A DOSE PACK - CYCLOBENZAPRINE 10 MG TABLET 2. Bilateral leg edema - ICD9: 782.3, ICD10: R60.0 - HYDROCHLOROTHIAZIDE 12.5 MG CAPSULE 3. Hypertension, unspecified type - ICD9: 401.9, ICD10: I10 - stop BRITTANY and start ARB?edema d/t BRITTANY - LOSARTAN 25 MG TABLET 4. Hyperlipidemia, unspecified hyperlipidemia type - ICD9: 272.4, ICD10: E78.5 - poor control - ATORVASTATIN 80 MG TABLET- increased from 40mg to 80mg. - f/u in 3 months Asiya Torres, LINOLEUM LAYER Referring Provider: SELF [200] Allergies As of Date: 08/02/2017 Noted Allergy Reaction AMOXIL (AMOXICILLIN) 01/04/2014 8 - GI Upset COMPAZINE (PROCHLORPERAZINE EDISY*08/12/2008 16 - Unknown FLAGYL (METRONIDAZOLE HCL) 09/07/2012 14 - Other: See Comments Comments: Headache - she is prone to migraines and flagyl sets it off every time she takes it. REGLAN (METOCLOPRAMIDE HCL) 02/27/2014 14 - Other: See Comments Comments: anxiety SIMVASTATIN 04/27/2012 14 - Other: See Comments Comments: severe muscle aches TORADOL (KETOROLAC) 08/12/2008 2 - Rash ZOFRAN (ONDANSETRON HCL (PF)) 06/22/2013 14 - Other: See Comments Date Reviewed: 08/02/2017 Reviewed by: Kamran Adams LPN - Fully Assessed Reason for Visit: Edema [39] Cmt: bilateral feet/hands- has been going on for awhile Primary Visit Diagnosis:Acute midline low back pain with left- sided sciatica [M54.42] Other Visit Diagnoses:Bilateral leg edema [R60.0] Hypertension, unspecified type [I10] Hyperlipidemia, unspecified hyperlipidemia type [E78.5] Order(s):losartan (COZAAR) 25 mg tabletTake 1 tablet by mouth once daily.Disp: 90 tabletRfl: 0 Hydrochlorothiazide 12.5 mg capsuleTake 1 capsule by mouth once daily.Disp: 30 capsuleRfl: 12 methylPREDNISolone (MEDROL DOSE-PACK) 4 mg Dose-PackTake medications as directed on packaging. Take with food.Disp: 1 PackageRfl: 0 cyclobenzaprine (FLEXERIL) 10 mg tabletTake 1 tablet by mouth twice daily as needed for Muscle Spasm.Disp: 60 tabletRfl: 0 atorvastatin (LIPITOR) 80 mg tabletTake 1 tablet by mouth daily at bedtime. For cholesterol.Disp: 90 tabletRfl: 3 Prescriptions as of 08/02/2017 Sig: ATORVASTATIN 80 MG TABLET Take 1 tablet by mouth daily * SITAGLIPTIN 50 MG TABLET Take 1 tablet by mouth once d* DIHYDROERGOTAMINE 1 MG/ML INJ* Inject 1 mg intramuscularly e* MAGNESIUM SULFATE 1 GRAM/50 M* INFUSE 1000 mg in NS 250 ML I* SODIUM CHLORIDE 0.9 % INTRAVE* INFUSE 500 CC IV NS IV OVER 3* VALPROATE SODIUM 500 MG/5 ML * DEPACON 500 mg IV in NS 50 ML* PROMETHAZINE 25 MG/ML INJECTI* Give 25 mg IV daily for 3 days DULOXETINE 60 MG CAPSULE,APOLINAR* Take 2 capsules by mouth once* FILTER NEEDLES 19 X 1 For use with DHE ASPIRIN 81 MG CHEWABLE TABLET Take 81 mg by mouth once keegan* SAFETY NEEDLES 25 GAUGE X 1 1* For use with DHE OMEPRAZOLE 40 MG CAPSULE,APOLINAR* TAKE 1 CAPSULE BY MOUTH DAILY SCOPOLAMINE 1 MG OVER 3 DAYS * Apply 1 Patch as directed magnolia* DICYCLOMINE 20 MG TABLET Take 1 tablet by mouth before* METFORMIN ER 500 MG TABLET,EX* TAKE 2 TABLETS BY MOUTH TWICE* BLOOD SUGAR DIAGNOSTIC STRIPS Test blood sugar(s) 3- 4 times* NARATRIPTAN 2.5 MG TABLET Take 1 tablet by mouth as nee* PROMETHAZINE 25 MG TABLET Take 1 tablet by mouth every * SODIUM CHLORIDE 0.9% FLUSH Access implanted vascular acc* HEPARIN LOCK FLUSH (PORCINE) * Access implanted vascular acc* SYRINGE WITH NEEDLE 3 ML 25 X* For DHE CYANOCOBALAMIN (VIT B-12) 1,0* Take 1 tablet by mouth once d* COENZYME Q10 100 MG CAPSULE Take 1 capsule by mouth twice* POTASSIUM 99 MG TABLET Take by mouth. SODIUM CHLORIDE 0.9% FLUSH Access implanted vascular acc* ONABOTULINUMTOXINA 100 UNIT S* To be injected by physician e* FISH OIL ORAL Take by mouth once daily. * LORAZEPAM 2 MG TABLET Take 1 tablet by mouth twice * LOSARTAN 25 MG TABLET Take 1 tablet by mouth once d* HYDROCHLOROTHIAZIDE 12.5 MG C* Take 1 capsule by mouth once * METHYLPREDNISOLONE 4 MG TABLE* Take medications as directed * CYCLOBENZAPRINE 10 MG TABLET Take 1 tablet by mouth twice * Problem List As Of Date 08/02/2017 Noted Resolved ESOPHAGEAL REFLUX [K21.9] INVALID FOR* GENERALIZED ANXIETY DIS [F41.1] INVALID FOR* Impaired fasting glucose [R73.01] INVALID FOR*12/07/2011 Depression [F32.9] INVALID FOR* More... Morbid Obesity [E66.01] INVALID FOR* Abdominal Pain [R10.9] INVALID FOR* Calculus of Kidney [N20.0] INVALID FOR* UTI (Lower Urinary Tract Infection) [N39.0] INVALID FOR*12/30/2009 Insomnia [G47.00] INVALID FOR* Microalbuminuria [R80.9] INVALID FOR* Obstructive sleep apnea [G47.33] INVALID FOR* Sprain and strain of unspecified site of knee a*INVALID FOR* Lumbar sprain and strain [S33.5XXA] INVALID FOR* Abdominal pain, left upper quadrant [R10.12] INVALID FOR* Innocent heart murmur INVALID FOR* Diabetic neuropathy [E11.40] INVALID FOR* Diabetic nephropathy [E11.21] INVALID FOR* Menorrhagia [N92.0] INVALID FOR*11/15/2012 Migraines [G43.909] INVALID FOR* Bacterial vaginitis [N76.0, B96.89] INVALID FOR*11/30/2013 Vaginitis [N76.0] INVALID FOR*11/30/2013 More... Abnormal uterine bleeding [N93.9] INVALID FOR* Backache, unspecified [M54.9] INVALID FOR* Diabetes mellitus due to underlying condition w*INVALID FOR* Willing to be liver donor [Z00.5] INVALID FOR* Intractable chronic migraine without aura [G43.*INVALID FOR* Exhausted vascular access [Z45.2] INVALID FOR* Endometriosis of peritoneum [N80.3] INVALID FOR* Morbid obesity with BMI of 50.0-59.9, adult (HC*INVALID FOR* OAB (overactive bladder) [N32.81] INVALID FOR* Hyperlipidemia [E78.5] INVALID FOR* More... HTN (hypertension) [I10] INVALID FOR* Other instructions from your clinician: Back Pain ? You have been seen for back pain. ? Back pain can happen anywhere from the neck down to the low back. Back pain has many different causes. Some of the more common are: Bone pain, muscle strain, muscle spasm, pain from overuse, and pinched nerves. Other problems can cause what feels like back pain. But the pain is really coming from another organ. A kidney infection can cause lower back pain. ? ? Some things you can try to help your back feel better are: - Apply a warm damp washcloth to the back where you have pain for 20 minutes at a time, at least 4 times per day. - Have someone massage the sore parts of your back. - Don t do any heavy lifting or bending. You can go back to normal daily activities if they don t make the pain worse. - You can use anti-inflammatory pain medicine for your pain. This could be Ibuprofen (Advil? or Motrin?). You can buy these at most stores. Follow the directions on the package. ?- Do not operate machines or drive if you were prescribed a muscle relaxor or Opioid analgesic (pain medication). This pain may last for the next few days. If your pain gets better, you probably do not need to see a doctor. However, if your symptoms get worse or you have new symptoms, you should go to the nearest Emergency Department. ? Call your doctor or go to the nearest Emergency Department if you your pain does not improve within 4 weeks or your pain is bad enough to seriously limit your normal activities. ? YOU SHOULD SEEK MEDICAL ATTENTION IMMEDIATELY, EITHER HERE OR AT THE NEAREST EMERGENCY DEPARTMENT, IF ANY OF THE FOLLOWING OCCURS: - You lose control of your bladder or bowels. If this were to happen, it may cause you to wet or soil yourself. - You have problems urinating (peeing). - You have fever (temperature higher than 100.4?F / 38?C). - Your pain gets worse. - experience pressure or pain in your chest - experience difficulty swallowing -experience difficulty breathing - experience numbness, tingling, weakness in your arms or legs Follow up in 10-14 days or before if your symptoms continue Asiya Torres CNP [facility] [address] [facility] [id number] Prescriptions ordered this encounter Disp Refills Start End LOSARTAN 25 MG TABLET 90 t* 0 08/02/2017 Route: ORAL Sig: Take 1 tablet by mouth once daily. HYDROCHLOROTHIAZIDE 12.5 MG CAPSULE 30 c* 12 08/02/2017 Route: ORAL Sig: Take 1 capsule by mouth once daily. METHYLPREDNISOLONE 4 MG TABLETS IN A* 1 Pa* 0 08/02/2017 Sig: Take medications as directed on packaging. Take with food. CYCLOBENZAPRINE 10 MG TABLET 60 t* 0 08/02/2017 Route: ORAL Sig: Take 1 tablet by mouth twice daily as needed for Muscle Spasm. ATORVASTATIN 80 MG TABLET 90 t* 3 08/02/2017 Route: ORAL Sig: Take 1 tablet by mouth daily at bedtime. For cholesterol. Medications Discontinued During This Encounter lisinopril (ZESTRIL, PRINIVIL) 10 mg* 30 t* 5 04/20/2017 08/02/2017 Cmt: Prescription Sig: TAKE 1 TABLET BY MOUTH DAILY Disc: Reason for discontinue is not on file. atorvastatin (LIPITOR) 40 mg tablet 90 t* 1 04/06/2017 08/02/2017 Route: ORAL Sig: Take 1 tablet by mouth daily at bedtime. For cholesterol. Disc: Reason for discontinue is not on file. Encounter Status:Closed by ASIYA TORRES CNP on 08/02/17 AMYLASE Collected: 07/08/2017 Status: F Source: [place] 9:[address] [facility] REPOSITORY TYPE CODE TESTS RESULT OUT OF REFERENCE UNITS RANGE LAB AMYL 30-104 U/L Low Amylase 29 Performed By: #### AMYL, GGT, LIPA, HREMOP #### [place] [address] GGT Collected: 07/08/2017 Status: F Source: [place] 9:15 AM [facility] REPOSITORY TYPE CODE TESTS RESULT OUT OF RANGE REFERENCE UNITS LAB GGT 6-46 U/L GGT 29 Performed By: #### AMYL, GGT, LIPA, HREMOP #### [place] [address] LIPASE Collected: 07/08/2017 Status: F Source: [place] 9:15 AM [facility] REPOSITORY TYPE CODE TESTS RESULT OUT OF REFERENCE UNITS RANGE LAB LIPA 16-61 U/L Lipase 25 Performed By: #### AMYL, GGT, LIPA, HREMOP #### [place] [address] HEPATITIS REMOTE PANEL Collected: 07/08/2017 Status: F Source: [place] 9:15 AM [facility] REPOSITORY TYPE CODE TESTS RESULT OUT OF RANGE REFERENCE UNITS LAB AHBCOT Negative Hep B Core Negative Ab,Total LAB AHCV Negative Hepatitis C Ab Negative IA LAB HBSAGR Negative HBsAg Negative LAB AHBSAG Negative Abnormal HepB Surface Positive Alert Ab,Qual Result Comment: These results are consistent with previous exposure and/or immunity to the hepatitis B virus antigen. Performed By: #### AMYL, GGT, LIPA, HREMOP #### [place] [phone] US ABD SPLEEN -NB Observed: 07/08/2017 Status: F Source: [place] 9:11 AM [facility] REPOSITORY * * *Final Report* * * DATE OF EXAM: Jul 08 2017 9:11AM [facility] 1232 - US ABD SPLEEN -NB / PROCEDURE REASON: Unspecified abnormal finding in specimens from other organs, systems and tissues * * * * Physician Interpretation * * * * RIGHT UPPER QUADRANT ABDOMINAL ULTRASOUND AND ULTRASOUND OF THE SPLEEN HISTORY: Unspecified abnormal finding in specimens from other organs, systems and tissues . Elevated liver function tests TECHNIQUE:Ultrasound examination of the right upper quadrant of the abdomen and ultrasound of the spleen. Grayscale and color Doppler images. Images were obtained and stored in a permanent archive. COMPARISON: CT scan 10/31/2013 RESULT: LIVER: The liver parenchyma is diffusely increased in echogenicity suggesting diffuse fatty liver. No focal hepatic lesions are seen. PANCREAS: The visualized pancreas is unremarkable although the tail was not well seen. GALLBLADDER: Prior cholecystectomy. BILIARY DUCTAL SYSTEM: There is no intrahepatic biliary ductal dilatation. The common duct is normal caliber and measures less than 5 mm in diameter. RIGHT KIDNEY: No hydronephrosis. No ascites is seen. SPLEEN: The spleen is upper normal size measuring 12.1 x 4.9 x 11 cm. Views of the left kidney show it is normal size with no hydronephrosis. - IMPRESSION: Diffuse fatty liver. Prior cholecystectomy. No biliary dilatation. Complete details are in the body of the report. Library Media Technician: THOMAS Transcribe Date/Time: Jul 08 2017 9:25A Dictated by : SHIRIN CHUN MD This examination was interpreted and the report reviewed and electronically signed by: SHIRIN CHUN MD on Jul 08 2017 9:28AM EST [id number] US ABD RIGHT UPPER Observed: 07/08/2017 Status: F Source: [facility] 9:11 AM [facility] REPOSITORY * * *Final Report* * * DATE OF EXAM: Jul 08 2017 9:11AM [facility] 1032 - US ABD RIGHT UPPER QUADRANT / PROCEDURE REASON: Unspecified abnormal finding in specimens from other organs, systems and tissues * * * * Physician Interpretation * * * * RIGHT UPPER QUADRANT ABDOMINAL ULTRASOUND AND ULTRASOUND OF THE SPLEEN HISTORY: Unspecified abnormal finding in specimens from other organs, systems and tissues . Elevated liver function tests TECHNIQUE:Ultrasound examination of the right upper quadrant of the abdomen and ultrasound of the spleen. Grayscale and color Doppler images. Images were obtained and stored in a permanent archive. COMPARISON: CT scan 10/31/2013 RESULT: LIVER: The liver parenchyma is diffusely increased in echogenicity suggesting diffuse fatty liver. No focal hepatic lesions are seen. PANCREAS: The visualized pancreas is unremarkable although the tail was not well seen. GALLBLADDER: Prior cholecystectomy. BILIARY DUCTAL SYSTEM: There is no intrahepatic biliary ductal dilatation. The common duct is normal caliber and measures less than 5 mm in diameter. RIGHT KIDNEY: No hydronephrosis. No ascites is seen. SPLEEN: The spleen is upper normal size measuring 12.1 x 4.9 x 11 cm. Views of the left kidney show it is normal size with no hydronephrosis. - IMPRESSION: Diffuse fatty liver. Prior cholecystectomy. No biliary dilatation. Complete details are in the body of the report. Library Media Technician: THOMAS Transcribe Date/Time: Jul 08 2017 9:25A Dictated by : SHIRIN CHUN MD This examination was interpreted and the report reviewed and electronically signed by: SHIRIN CHUN MD on Jul 08 2017 9:28AM EST [id number] PROGRESS Observed: 07/08/2017 Status: COMPLETED Source: [place] 8:31 AM [facility] REPOSITORY HNO ID: [id number] Author: Karen Dominguez Rdms Service: (none) Author Type: (none) Type: Progress Notes Filed: 07/08/2017 9:14 AM Note Text: Radiology Service Progress Note PATIENT NAME: Akin Adamson DATE OF SERVICE: July 08, 2017 TIME: 8:31 AM PATIENT IDENTITY VERIFICATION COMPLETED USING TWO (2) METHODS: Patient confirmed name verbally and Date of . PATIENT GENDER DATA: Female. status: : No status: NO. PATIENT RELEVANT IMPLANT DATA REVIEWED: Not Applicable RADIOLOGY DEPARTMENT: Ultrasound PERIPHERAL IV DATA: Not applicable SIGNED BY: Karen Dominguez Rdms July 08, 2017 8:31 AM CBC AND DIFFERENTIAL Collected: 07/05/2017 Status: F Source: [place] 9:34 AM [facility] REPOSITORY TYPE CODE TESTS RESULT OUT OF REFERENCE UNITS RANGE LAB WBC 3.70-11.00 k/uL WBC 10.26 LAB RBC 3.90-5.20 m/uL RBC 4.85 LAB HGB 11.5-15.5 g/dL Hemoglobin 12.2 LAB HCT 36.0-46.0 % Hematocrit 41.7 LAB MCV 80.0-100.0 fL MCV 86.0 LAB MCH 26.0-34.0 pG Low MCH 25.2 LAB MCHC 30.5-36.0 g/dL Low MCHC 29.3 LAB RDWCV 11.5-15.0 % RDW-CV High 15.7 LAB PLTCT 150-400 k/uL Platelet Count 330 LAB MPV 9.0-12.7 fL MPV 11.3 LAB ANEUT % Neut% 60.7 LAB AANEUT 1.45-7.50 k/uL Abs Neut 6.21 LAB ALYMP % Lymph% 33.3 LAB AALYMP 1.00-4.00 k/uL Abs Lymph 3.42 LAB AMONO % [facility]% 4.3 LAB AAMONO <0.87 k/uL Abs [facility] 0.44 LAB AEOS % Eosin% 1.5 LAB AAEOS <0.46 k/uL Abs Eosin 0.15 LAB ABASO % Baso% 0.2 LAB AABASO <0.11 k/uL Abs Baso <0.03 LAB AUNRBC 0 /100 WBC NRBCs 0.0 LAB ABNRBC <0.01 k/uL Absolute nRBC <0.01 LAB DTYP DTYPE Auto Diff Performed By: #### CBCDIF, HBA1C, CRP, RF, CK, CMP, LIPB, TSH, LDLDCT, ANAIFS #### [address] [address] HEMOGLOBIN A1C Collected: 07/05/2017 Status: F Source: [place] 9:34 AM [facility] REPOSITORY TYPE CODE TESTS RESULT OUT OF REFERENCE UNITS RANGE LAB HGBA1C 4.3-5.6 % High Hemoglobin A1c 7.2 LAB HBA0 mg/dL Est. Average Glucose 160 Result Comment: eAG: (Estimated average glucose) is a calculated value from HgbA1c and is junior sales representative of the average blood glucose level in the last 2-3 month period. Performed By: #### CBCDIF, HBA1C, CRP, RF, CK, CMP, LIPB, TSH, LDLDCT, ANAIFS #### [facility] AMKAI [address] [place] [address] C-REACTIVE PROTEIN Collected: 07/05/2017 Status: F Source: [place] 9:34 [facility] REPOSITORY TYPE CODE TESTS RESULT OUT OF REFERENCE UNITS RANGE LAB CRP <0.9 mg/dL High C-Reactive 1.2 Protein Performed By: #### CBCDIF, HBA1C, CRP, RF, CK, CMP, LIPB, TSH, LDLDCT, ANAIFS #### [facility] AMKAI [facility] [place], [place] [address] RHEUMATOID FACTOR Collected: 07/05/2017 Status: F Source: [place] 9:[address] [facility] REPOSITORY TYPE CODE TESTS RESULT OUT OF REFERENCE UNITS RANGE LAB RF <16 IU/mL Rheumatoid <10 Factor Performed By: #### CBCDIF, HBA1C, CRP, RF, CK, CMP, LIPB, TSH, LDLDCT, ANAIFS #### [facility] [address] [place], [place] [address] CK Collected: 07/05/2017 Status: F Source: [facility] 9:34 AM MAIN [facility]AMPUS REPOSITORY TYPE CODE TESTS RESULT OUT OF RANGE REFERENCE UNITS LAB CK 42-196 U/L CK 42 Result Comment: Please note the updated, gender-specific reference range for this test (effective 05/06/2016). Performed By: #### CBCDIF, HBA1C, CRP, RF, CK, CMP, LIPB, TSH, LDLDCT, ANAIFS #### [facility] [address] [place], [place] [address] COMP METABOLIC PANEL Collected: 07/05/2017 Status: F Source: [place] 9:34 AM [facility] REPOSITORY TYPE CODE TESTS RESULT OUT OF REFERENCE UNITS RANGE LAB TP 6.3-8.0 g/dL Protein, Total 7.4 LAB ALB 3.9-4.9 g/dL Low Albumin 3.5 LAB CA 8.5-10.2 mg/dL Calcium, Total 8.6 LAB TBIL 0.2-1.3 mg/dL Low Bilirubin, Total <0.2 LAB ALKP 32-117 U/L Alkaline High Phosphatase 127 LAB AST 13-35 U/L AST 14 LAB GLU 74-99 mg/dL Glucose High 169 Result Comment: The [place] Diabetes Association (ADA) provides guidance for cutoff values for fasting glucose and random glucose. The ADA defines fasting as no caloric intake for at least 8 hours. Fas ting plasma glucose results between 100 to 125 mg/dL indicate increased risk for diabetes (prediabetes). Fasting plasma glucose results greater than or equal to 126 mg/dL meet the criteria for diagnosis of diabetes. In the absence of unequivocal hyperglycemia, results should be confirmed by repeat testing. In a patient with classic symptoms of hyperglycemia or hyperglycemic crisis, random plasma glucose results greater than or equal to 200 mg/dL meet the criteria for diagnosis of diabetes. Reference: Standards of Medical Care in Diabetes 2016, [place] Diabetes Association. Diabetes Care. 2016.39(Suppl 1). LAB BUN 7-21 mg/dL BUN 11 LAB CRET 0.58-0.96 mg/dL Creatinine 0.76 LAB NA 136-144 mmol/L Sodium 142 LAB K 3.7-5.1 mmol/L Potassium 4.0 LAB CL 97-105 mmol/L Chloride 102 LAB CO2 22-30 mmol/L CO2 26 LAB AGAP 9-18 mmol/L Anion Gap 14 LAB ALT 7-38 U/L ALT 10 LAB GFRAA eGFR- Amer. >60 LAB GFRNAA . eGFR-All Other Races >60 Result Comment: eGFR (Estimated GFR) Units of measure: mL/min/1.73 meters squared eGFR is derived from the reexpressed MDRD Study equation using the following parameters: serum creatinine, age, gender and race. The creatinine assay has been calibrated to be traceable to IDMS. An eGFR <60 mL/min/1.73m2 for >3 months is consistent with chronic kidney disease. Refer to KDOQI guidelines for clinical interpretation. In patients with unstable renal function, e.g. those with acute kidney injury, the eGFR may not accurately reflect actual GFR. Performed By: #### CBCDIF, HBA1C, CRP, RF, CK, CMP, LIPB, TSH, LDLDCT, ANAIFS #### [facility] [address] [place] [id number] LIPID PANEL, BASIC Collected: 07/05/2017 Status: F Source: [place] 9:[address] [facility] REPOSITORY TYPE CODE TESTS RESULT OUT OF REFERENCE UNITS RANGE LAB CHOL <200 mg/dL Cholesterol 150 Result Comment: <200 mg/dL, Desirable 200-239 mg/dL, Borderline high >239 mg/dL, High LAB TRIGLY <150 mg/dL Triglyceride High 405 Result Comment: <150 mg/dL, Normal 150-199 mg/dL, Borderline high 200-499 mg/dL, High >499 mg/dL, Very high LAB HDL >39 mg/dL HDL-Cholesterol Low 30 Result Comment: 40-59 mg/dL, Acceptable >59 mg/dL, High: Negative risk factor for coronary heart disease <40 mg/dL, Low: Positive risk factor for coronary heart disease LAB LDL <100 mg/dL LDL-Cholesterol Unable to calculate due to increased Triglycerides. See LDL-Chol, Direct. LAB NONHDL <130 mg/dL Non HDL Cholesterol 120 Result Comment: <130 mg/dL, Optimal 130-159 mg/dL, Near optimal/above optimal 160-189 mg/dL, Borderline high 190-219 mg/dL, High >219 mg/dL, Very high Secondary prevention optimal non HDL Cholesterol levels are recommended to be < 100 mg/dL LAB FT hrs Fasting Time 12 LAB VLDL <30 mg/dL VLDL Cholesterol Unable to calculate due to increased Triglycerides. See LDL-Chol, Direct. LAB TCHDL <5.10 TC:HDL Ratio 5.00 LAB LDLHDL <2.54 LDL:HDL Ratio Unable to calculate due to elevated Triglycerides. Result Comment: Reference: 1. National Cholesterol Education Program ATP III Guideline At-A-Glance Quick Desk Reference: National Heart, Lung, and Blood [place]. National Institutes of Health. 2001: NIH Publication No. 01-3305. 2. An International Atherosclerosis Society position paper: global recommendations for the management of dyslipidemia: executive summary, Atherosclerosis. 2014: 232(2):410-413. Performed By: #### CBCDIF, HBA1C, CRP, RF, CK, CMP, LIPB, TSH, LDLDCT, ANAIFS #### [facility] [address] [place], [place] [address] TSH Collected: 07/05/2017 Status: F Source: [place] 9:[address] [facility] REPOSITORY TYPE CODE TESTS RESULT OUT OF RANGE REFERENCE UNITS LAB TSH 0.400-5.500 uU/mL TSH 2.370 Result Comment: If the patient is , TSH reference range varies by gestational period: First Trimester 0.100-2.500 uU/mL Second Trimester 0.200-3.000 uU/mL Third Trimester 0.300-3.000 uU/mL References: 1. Quiles L, Diana M, Gino KC, et al. Management of Thyroid Dysfunction during and : An Endocrine Society Clinical Practice Guideline. J Clin Endocrinol Metab, 2012:97:9056-0746. 2. Wesley BAILEY. Overview of thyroid disease in . UpToDate. 2016. Accessed on November 07, 2015. Performed By: #### CBCDIF, HBA1C, CRP, RF, CK, CMP, LIPB, TSH, LDLDCT, ANAIFS #### [facility] [address] [employer] [place], [place] [address] LDL-CHOL, DIRECT Collected: 07/05/2017 Status: F Source: [place] 9:34 AM [facility] REPOSITORY TYPE CODE TESTS RESULT OUT OF REFERENCE UNITS RANGE LAB LDLDIR <100 mg/dL LDL-Chol, 71 Direct Result Comment: <100 mg/dL, Optimal 100-129 mg/dL, Near optimal/above optimal 130-159 mg/dL, Borderline high 160-189 mg/dL, High >189 mg/dL, Very high Secondary prevention optimal LDL Cholesterol levels are recommended to be < 70 mg/dL LAB VLDL1 <30 mg/dL VLDL Cholesterol High 49 Performed By: #### CBCDIF, HBA1C, CRP, RF, CK, CMP, LIPB, TSH, LDLDCT, ANAIFS #### [facility] [address] [place], [place] [address] ENMA BY IFA Collected: 07/05/2017 Status: F Source: [place] 9:34 AM [facility] REPOSITORY TYPE CODE TESTS RESULT OUT OF REFERENCE UNITS RANGE LAB ANASC Negative ENMA Negative Result Comment: Normal range : negative at <1:80 serum dilution. Approximately 6% of patients with connective tissue diseases with low positive EIA values are negative by IFA. Recommend follow-up with specific antinuclear antibodies if clinically indicated. LAB CHARLIE Negative Negative ENMA Titer Result Comment: Normal range : negative at <1:80 serum dilution. LAB ANAP ENMA Not applicable Pattern for negative result. Performed By: #### CBCDIF, HBA1C, CRP, RF, CK, CMP, LIPB, TSH, LDLDCT, ANAIFS #### [facility] [address] [place], [place] [id number] PROGRESS Observed: 07/05/2017 Status: COMPLETED Source: [place] 9:23 AM [facility] REPOSITORY HNO ID: [id number] Author: Kamran Adams LPN Service: (none) Author Type: (none) Type: Progress Notes Filed: 07/05/2017 12:18 PM Note Text: 46 year old female here for INACTIVATED INFLUENZA VACCINE. [id number] Season Patient is identified by name and date of : Yes [] CONTRAINDICATIONS color enhanced section Age less than 6 months? No Allergy to eggs, chicken, chicken feathers, or chicken dander? No Allergy to thimerosal (a preservative) or formaldehyde? No History of severe reaction to any vaccine component or a previous dose of influenza vaccination? No History of Guillain-Deeth Syndrome within 6 weeks after a previous influenza vaccine? No Current moderate or severe illness? No Current temperature greater or equal to 100.4F? No History of Bone Marrow Transplant in past 6 months or solid organ transplant in the past 3 months ? No [] VERIFICATION color enhanced section Was the answer Yes for any of the above contraindications? No contraindications present. Acceptable to proceed with vaccine. Patient/guardian agrees the above answers are true to the best of their knowledge? Yes Flu vaccine information sheet given? Yes See immunization activity in [facility] for details of immunizations adminstered today. Patient age: [age] year old For The 4716-7083 Flu Season 6-35 months old: Fluzone 0.25 ml - IM (Preservative Free) 3 years of age: Fluzone 0.5 ml - IM (Preservative Free) 3 years and older: Fluzone 0.5 ml- IM-(with Preservatives) 65+ years old: Fluzone High-Dose 0.5 ml - IM (Preservative Free) REMEMBER: If patient is less than 9 years of age and this is the first vaccine of Influenza to be received in any flu season, they should receive a second dose in one months time. PROGRESS Observed: 07/05/2017 Status: COMPLETED Source: [place] 8:54 AM [facility] REPOSITORY HNO ID: [id number] Author: Asiya Wasserman (Process Server) HARRIS Torres Service: (none) Author Type: Nurse Practitioner Type: Progress Notes Filed: 07/05/2017 12:18 PM Note Text: HPI/CC: Akin Adamson is a 46 year old female who presents with complaint of elevated blood sugar 191 4hrs after eating; took metformin and rechecked 4hrs later it was 160. Overall patient feels awful. Reports abdominal discomfort, headaches, nausea, blurred vision, myalgias, arthralgias, intermittent Cp (r/t anxiety), palpitations (r/t anxiety). Report she has progressively felt worse since April when she was changed from Januvia to alogliptin. Was seen at [place] [facility] for abdominal discomfort. Treated for UTI ( urine was negative) with keflex, pyridium and ultram. Did not have records to review at time of encounter. ROS as above, otherwise non-contributory. Reviewed PMHx, PSHx, social Hx, medications and allergies. PHYSICAL EXAMINATION: BP 128/90 Pulse 100 Resp 16 Wt 134.7 kg (297 lb) LMP 03/06/2014 BMI 50.98 kg/m2 General appearance: Well appearing, alert, in no acute distress, well-hydrated, well nourished. Skin: Skin color, texture, turgor normal, no suspicious rashes or lesions Head: Normocephalic, no masses, lesions, tenderness or abnormalities Lungs: Lungs clear to auscultation. No wheezing, rhonchi, rales Heart: RRR without murmur, gallop, or rubs. No ectopy Abdomen: Normal abdominal exam, Abdomen soft, non-tender. Bowel sounds normal. No masses, organomegaly ASSESSMENT/PLAN: 1. Diabetes mellitus due to underlying condition with diabetic neuropathy, without long-term current use of insulin (HCC) - ICD9: 249.60, 357.2, ICD10: E08.40 (primary diagnosis) - CBC + DIFF - COMP METABOLIC PANEL - TSH BLD - HGB A1C - H PYLORI AG BY EIA,STOOL - C-REACTIVE PROTEIN (CRP) - RHEUMATOID FACTOR BL - ENMA BY IFA SCREEN - CK CREATINE KINASE 2. Arthralgia, unspecified joint - ICD9: 719.40, ICD10: M25.50 - as above 3. Essential hypertension - ICD9: 401.9, ICD10: I10 - suboptimal control - Continue current medication(s) - Recommended regular aerobic exercise. - Recommend home blood pressure monitoring, to bring results in on next visit - Recheck in 3 months, sooner should new symptoms or problems arise. - Goal of BP <140/90 4. Hyperlipidemia, unspecified hyperlipidemia type - ICD9: 272.4, ICD10: E78.5 - suboptimal control - Continue current medication. - LIPID PANEL BASIC 5. Need for vaccination - ICD9: V05.9, ICD10: Z23 - INFLUENZA VACCINE QUADRIVALENT AGE 3 YRS PLUS + IM Asiya Torres CNP UA Collected: 07/02/2017 Status: F Source: [place] [employer] 6:11 PM [facility] REPOSITORY TYPE CODE TESTS RESULT OUT OF REFERENCE UNITS RANGE LAB SPCUA(LOIN C) UA Specimen Type Clean Catch LAB CLRUA(LOIN C) UA Color YELLOW LAB APPUA(LOIN C) UA Appear CLEAR LAB SGUA(LOINC ) UA Spec Grav 1.020 LAB GLUA(LOINC mg/dL ) UA Glucose NEGATIVE LAB BILUA(LOIN C) UA Bili NEGATIVE LAB KETUA(LOIN mg/dL C) UA Ketones NEGATIVE LAB BLDUA(LOIN C) UA Blood NEGATIVE LAB PHUA(LOINC ) UA pH 6.0 LAB PROUA(LOIN mg/dL C) UA Protein NEGATIVE LAB UROUA(LOIN E.U./dL C) UA Urobilinogen 0.2 LAB NITUA(LOIN C) UA Nitrite NEGATIVE LAB LEUUA(LOIN C) UA Leuk Est NEGATIVE Performed By: #### UA, UAMICAO #### [address] [address] .URINALYSIS MICROSCOPIC Collected: 07/02/2017 Status: F Source: [employer] (AO) 6:11 [facility] REPOSITORY TYPE CODE TESTS RESULT OUT OF REFERENCE UNITS RANGE LAB WBCUA(LOIN None Seen /hpf C) UA WBC None Seen LAB RBCUA(LOIN None Seen /hpf C) UA RBC None Seen LAB EPIUA(LOIN None Seen /hpf C) UA Squam Epithelial None Seen Performed By: #### UA, UAMICAO #### [place] [id number] ED NOTE Observed: 06/05/2017 Status: COMPLETED Source: [place] 7:26 PM [facility] REPOSITORY HNO ID: [id number] Author: Radha ParhamRn) ALBERTA Coleman Service: Nursing Author Type: Registered Nurse Type: ED Notes Filed: 06/05/2017 7:26 PM Note Text: De accessed port. Reviewed DC instructions with patient. No questions at this time. Patient ambulated out with no questions. ED NOTE Observed: 06/05/2017 Status: COMPLETED Source: [place] 5:52 PM [facility] REPOSITORY HNO ID: [id number] Author: Chey ParhamRn) ALBERTA Hernández Service: Emergency Medicine Author Type: Registered Nurse Type: ED Notes Filed: 06/05/2017 5:54 PM Note Text: Pt complaining of racing heart. Heart rate 76. Steven made aware and at bedside ED NOTE Observed: 06/05/2017 Status: COMPLETED Source: [place] 5:[address] [facility] OTHER CAMPUS REPOSITORY HNO ID: [id number] Author: Chey ParhamRn) ALBERTA Hernández Service: Emergency Medicine Author Type: Registered Nurse Type: ED Notes Filed: 06/05/2017 5:24 PM Note Text: Urine specimen obtained and sent. URINALYSIS Collected: 06/05/2017 Status: F Source: [place] 5:[address] [facility] OTHER CAMPUS REPOSITORY TYPE CODE TESTS RESULT OUT OF REFERENCE UNITS RANGE LAB UCOL Yellow Color Yellow LAB [facility] Clear Clarity Clear LAB UGLUC Negative mg/dL Glucose, Urine Negative LAB UBIL Negative Bilirubin, Urine Negative LAB UKET Negative Ketones, Urine Negative LAB USPG 1.001-1.029 Specific [place], Ur 1.015 LAB UHGB Negative Hemoglobin/Blood, Negative Ur LAB UPH 5.0-8.0 pH 6.5 LAB UPROT Negative mg/dL Protein, Urine Negative LAB UUROB 0.2-1.0 Urobilinogen 1 LAB UNITR Negative Nitrites Negative LAB ULKEST Negative Leukest Negative Performed By: #### UA #### [facility] [address] [facility] [phone] ED PROV NOTE Observed: 06/05/2017 Status: COMPLETED Source: [place] 4:46 PM [facility] OTHER CAMPUS REPOSITORY HNO ID: [id number] Author: Lloyd Grossman (Pa) Service: (none) Author Type: Physician Assistant County Engineer Type: ED Provider Notes Filed: 06/05/2017 7:10 PM Note Text: ED Provider Note Patient Name: Akin Adamson SERVICE DATE: 06/05/17 History Patient presents with: Headache Abdominal Pain HPI Comments: 46 year old female with a past medical history of migraines, hypertension, diabetes,presents to the emergency department with a chief complaint of migraine headache over the last week that is not responding to pain medication at home. She also complains of abdominal pressure over a week. She stated this feels like a classic migraine headaches in the past. She denies any neck pain and neck stiffness. Denies worse headache of her life. Denies any confusion or altered mental status. Denies any chest pain or shortness of breath. History provided by: Patient and medical records PAST MEDICAL HISTORY Diagnosis Date - Depression - Diabetes mellitus (HCC) 2010 - H. pylori infection 09/2013 + H.Pylori - HTN (hypertension) - Hyperlipidemia 2010 fish oil, unable to tolerate statins - Menorrhagia - Migraines Dr. DiazNeurologist - Obstructive sleep apnea - PMH - PAST MEDICAL HISTORY OF Suicide attempt x2 as teenager - PUD (peptic ulcer disease) 2006 - Viral pneumonia, unspecified 2008 Pneumonia - Vitamin D deficiency PAST SURGICAL HISTORY Procedure Laterality Date - APPENDECTOMY 1979 - DELIVERY ONLY x 2 - COLONOSCOP W/ OR W/O BRSH SPEC 12/19/13 Colonoscopy - EGD W/O BRSH SPECIMEN W/BX 10/20/10 Gastritis, mild - EGD W/O OR W/BRUSH/WASH 12/19/13 EGD - L'SCOPE REM ADNEX W/PART/TOT OOPH/SALP 02/09/16 laprascopic LSO, lysis of adhesions - LAPAROSCOPIC CHOLEYCYSTECTOMY 2005 [place]. - PICC LINE INSERT/CONSULT 02/28/2014 - THERMA CHOICE DEVICE 11/2011 - TLH W/T/O UTERUS OVER 250 G 04/02/14 LAVH, bilateral salpingectomy - TUBAL LIGATION, 2003 at time of c/s - TUNNEL VAD W SUB Q PORT >=5 01/20/15 left IJ FAMILY HISTORY Problem Relation Age of Onset - Diabetes Mother - Hypertension Mother - Lipids Mother - Psychiatry Mother depression, possibly bipolar. - Heart Father - Hypertension Father - Coronary Artery Disease Father 58 triple by-pass graph, [place] x 3 - Migraines [Other] [OTHER] Father - Psychiatry Sister - Diabetes Sister - Diabetes Sister - Psychiatry Sister - GI Son Ulcerative colitis Social History Social History Main Topics - Smoking status: Never Smoker - Smokeless tobacco: Never Used - Alcohol use No - Drug use: No - Sexual activity: Yes Partners: Male control/ protection: Tubal Ligation Comment: thermachoice ALLERGIES Allergen Reactions - Amoxil [Amoxicillin] GI Upset - Compazine [Prochlor* Unknown - Flagyl [Metronidazo* Other: See Comments Headache - she is prone to migraines and flagyl sets it off every time she takes it. - Reglan [Metoclopram* Other: See Comments anxiety - Simvastatin Other: See Comments severe muscle aches - Toradol [Ketorolac] Rash - Zofran [Ondansetron* Other: See Comments Review of Systems Constitutional: Negative for chills and fever. HENT: Negative for congestion and sore throat. Eyes: Negative for photophobia and visual disturbance. Respiratory: Negative for chest tightness, shortness of breath and wheezing. Cardiovascular: Negative for chest pain and palpitations. Gastrointestinal: Negative for abdominal pain and blood in stool. Genitourinary: Negative for dysuria and hematuria. Musculoskeletal: Negative for neck pain and neck stiffness. Skin: Negative for color change. Neurological: Positive for headaches. Negative for dizziness. Psychiatric/Behavioral: Negative for agitation and confusion. Physical Exam BP 161/78 Pulse 73 Temp (Src) 97.7 (Oral) Resp 16 SpO2 94% LMP 03/06/2014 Physical Exam Constitutional: She is oriented to person, place, and time. She appears well-developed. HENT: Head: Normocephalic. Eyes: Conjunctivae are normal. Neck: Normal range of motion. Cardiovascular: Normal rate. Pulmonary/Chest: Effort normal. Abdominal: Soft. Musculoskeletal: Normal range of motion. Neurological: She is alert and oriented to person, place, and time. She has normal strength. No cranial nerve deficit or sensory deficit. Coordination normal. GCS eye subscore is 4. GCS verbal subscore is 5. GCS motor subscore is 6. Pt is alert and oriented x 4. No focal neuro deficits noted on exam. Finger to nose intact. Heel to hernandez intact. No facial droop. No asymmetry. No facial droop or assymmetry Skin: Skin is warm and dry. Psychiatric: She has a normal mood and affect. Her behavior is normal. Diagnostic Testing ED Labs Ordered and Reviewed HCG URINE - ED(POC) - Normal URINALYSIS Procedures Medical Decision Making / ED Course ED Course The medical record is reviewed.Triage note is reviewed and incorporated. The nursing note is reviewed and consistent with patient's history and physical exam findings. The vital signs were reviewed the the vital signs are BP 161/78 Pulse 73 Temp 36.5 ?C (97.7 ?F) (Oral) Resp 16 LMP 03/06/2014 SpO2 94% MDM: This is a well-appearing female with a pmh of migraines who presents to the ED with a chief complaint of headache who is, afebrile , hemodynamically stable, in no acute distress patient whose symptoms are controlled in the ED with dhe, ivf, mag, phenergan, . Based on patient's pmh, chief complaint and physical exam findings, differential diagnoses include migraine vs tension headache, vs intra cranial process, vs electrolyte imbalance vs meningitis vs cluster headache. Labs and imaging studies reveal negative , ua within normal limits Based on patient's physical exam findings, clinical picture, lab results and imaging studies that were performed here today in the ED, at this time, the following differential diagnoses such as intracranial process is less likely due to unremarkable exam and history. The patient has remained hemodynamically stable throughout the entire ED visit and is without objective evidence for acute process requiring urgent intervention or hospitalization. The patient and/or family had all the tests and diagnosis explained to them and were given both verbal and written discharge instructions. I answered the patient's question as well as family to the best of my ability. The patient is stable for discharge, and pt is instructed to follow up with pcp and educated to return to ed if sx worsen or any new symptoms. Pt agreeable with plan. At this time, based on the patient's history, physical exam findings, lab results and clinical picture , the most likely diagnosis is migraine Pt educated on the most common causes of Migraine, improved Pt instructed to follow up with PCP in 1-2 days Discharge care instructions, medications, follow up instructions, and reasons to return to the ED immediately, such as worsening of symptoms or any new symptoms, were provided verbally and in writing to patient (patient guardian / junior sales representative), who verbalized understanding. This note was partially generated using [employer] voice recognition system, and there may be some incorrect words, spellings, and punctuation that were not noted in checking the note before saving Encounter Diagnosis ICD-10-CM 1. Migraine without status migrainosus, not intractable, unspecified migraine type G43.909 (G43.909) Migraine without status migrainosus, not intractable, unspecified migraine type (primary encounter diagnosis) Comment: acute Plan: dc see pcp rest, fluids,home pain meds, see neurology ,return to ed if sx worsen Plan The Patient was DISCHARGED: Counseled patient and family regarding suspected diagnosis AND need for follow-up. Discharged home with verbal and written instructions. They were instructed to return as needed for persistent or worsening symptoms or any new concerns. Condition at time of disposition: stable SIGNATURE: DANNY Reyes (Pa) 06/05/17 191 ED NOTE Observed: 06/05/2017 Status: COMPLETED Source: [place] 4:28 PM [facility] REPOSITORY HNO ID: [id number] Author: Chen Centeno) ALBERTA Parker Service: (none) Author Type: Registered Nurse Type: ED Notes Filed: 06/05/2017 4:29 PM Note Text: Pt presents to ED with complaints of migraine that is not responding to home medications. She also reports bladder pressure that she has had for 1 week. OBSOLETE Observed: 05/31/2017 Status: COMPLETED Source: [place] 12:00 AM [facility] REPOSITORY Refill (FAMPWS) AKIN ADAMSON ([id number]) 1970 F Date Time Provider Department 05/31/17 ASIYA TORRES (HARRIS) FAMPWS During your visit today, we recorded the following information about you: Ligia Curtis LPN 06/01/2017 7:45 AM Signed Last office visit: 02/24/17 Last refill date: 02/08/17 qty: 30 refill 2 Next office visit: nothing scheduled Ligia Curtis LPN Patient has been identified by name and date of : Yes Pending Prescriptions Disp Refills JANUVIA 25 MG TABLET 30 tablet Sig: TAKE 1 TABLET BY MOUTH DAILY TENISHA: Yes RX INSTRUCTIONS: Pharmacy initiated this request. No need to notify patient. Ligia Curtis KATRIN Allergies As of Date: 05/31/2017 Noted Allergy Reaction AMOXIL (AMOXICILLIN) 01/04/2014 8 - GI Upset COMPAZINE (PROCHLORPERAZINE EDISY*08/12/2008 16 - Unknown FLAGYL (METRONIDAZOLE HCL) 09/07/2012 14 - Other: See Comments Comments: Headache - she is prone to migraines and flagyl sets it off every time she takes it. REGLAN (METOCLOPRAMIDE HCL) 02/27/2014 14 - Other: See Comments Comments: anxiety SIMVASTATIN 04/27/2012 14 - Other: See Comments Comments: severe muscle aches TORADOL (KETOROLAC) 08/12/2008 2 - Rash ZOFRAN (ONDANSETRON HCL (PF)) 06/22/2013 14 - Other: See Comments Date Reviewed: 04/27/2017 Reviewed by: Erin Owens (Pa) - Fully Assessed Reason for Visit: Refill Request [94] Order(s):JANUVIA 25 mg tabletTAKE 1 TABLET BY MOUTH DAILYDisp: 30 tabletRfl: 3 Prescriptions as of 05/31/2017 Sig: JANUVIA 25 MG TABLET TAKE 1 TABLET BY MOUTH DAILY FILTER NEEDLES 19 X 1 For use with DHE ASPIRIN 81 MG CHEWABLE TABLET Take 81 mg by mouth once keegan* SAFETY NEEDLES 25 GAUGE X 1 1* For use with DHE PROMETHAZINE 25 MG/ML INJECTI* Give 25 mg IV daily for 3 days VALPROATE SODIUM 500 MG/5 ML * Inject 500 mg intravenously o* SODIUM CHLORIDE 0.9 % INTRAVE* Inject 500 mL intravenously o* MAGNESIUM SULFATE 1 GRAM/50 M* Inject 1 g intravenously once* LISINOPRIL 10 MG TABLET TAKE 1 TABLET BY MOUTH DAILY OMEPRAZOLE 40 MG CAPSULE,APOLINAR* TAKE 1 CAPSULE BY MOUTH DAILY ATORVASTATIN 40 MG TABLET Take 1 tablet by mouth daily * SCOPOLAMINE 1 MG OVER 3 DAYS * Apply 1 Patch as directed magnolia* DICYCLOMINE 20 MG TABLET Take 1 tablet by mouth before* METFORMIN ER 500 MG TABLET,EX* TAKE 2 TABLETS BY MOUTH TWICE* BLOOD SUGAR DIAGNOSTIC STRIPS Test blood sugar(s) 3- 4 times* NARATRIPTAN 2.5 MG TABLET Take 1 tablet by mouth as nee* PROMETHAZINE 25 MG TABLET Take 1 tablet by mouth every * SODIUM CHLORIDE 0.9% FLUSH Access implanted vascular acc* HEPARIN LOCK FLUSH (PORCINE) * Access implanted vascular acc* SYRINGE WITH NEEDLE 3 ML 25 X* For DHE DIHYDROERGOTAMINE 1 MG/ML INJ* Inject 1 mg intramuscularly e* CYANOCOBALAMIN (VIT B-12) 1,0* Take 1 tablet by mouth once d* COENZYME Q10 100 MG CAPSULE Take 1 capsule by mouth twice* POTASSIUM 99 MG TABLET Take by mouth. DULOXETINE 60 MG CAPSULE,APOLINAR* Take 1 capsule by mouth once * Patient taking differently: Take 120 mg by mouth once ashleigh* SODIUM CHLORIDE 0.9% FLUSH Access implanted vascular acc* ONABOTULINUMTOXINA 100 UNIT S* To be injected by physician e* FISH OIL ORAL Take by mouth once daily. * LORAZEPAM 2 MG TABLET Take 1 tablet by mouth twice * Problem List As Of Date 05/31/2017 Noted Resolved ESOPHAGEAL REFLUX [K21.9] INVALID FOR* GENERALIZED ANXIETY DIS [F41.1] INVALID FOR* Impaired fasting glucose [R73.01] INVALID FOR*12/07/2011 Depression [F32.9] INVALID FOR* More... Morbid Obesity [E66.01] INVALID FOR* Abdominal Pain [R10.9] INVALID FOR* Calculus of Kidney [N20.0] INVALID FOR* UTI (Lower Urinary Tract Infection) [N39.0] INVALID FOR*12/30/2009 Insomnia [G47.00] INVALID FOR* Microalbuminuria [R80.9] INVALID FOR* Obstructive sleep apnea [G47.33] INVALID FOR* Sprain and strain of unspecified site of knee a*INVALID FOR* Lumbar sprain and strain [S33.5XXA] INVALID FOR* Abdominal pain, left upper quadrant [R10.12] INVALID FOR* Innocent heart murmur INVALID FOR* Diabetic neuropathy [E11.40] INVALID FOR* Diabetic nephropathy [E11.21] INVALID FOR* Menorrhagia [N92.0] INVALID FOR*11/15/2012 Migraines [G43.909] INVALID FOR* Bacterial vaginitis [N76.0, B96.89] INVALID FOR*11/30/2013 Vaginitis [N76.0] INVALID FOR*11/30/2013 More... Abnormal uterine bleeding [N93.9] INVALID FOR* Backache, unspecified [M54.9] INVALID FOR* Diabetes mellitus due to underlying condition w*INVALID FOR* Willing to be liver donor [Z00.5] INVALID FOR* Intractable chronic migraine without aura [G43.*INVALID FOR* Exhausted vascular access [Z45.2] INVALID FOR* Endometriosis of peritoneum [N80.3] INVALID FOR* Morbid obesity with BMI of 50.0-59.9, adult (HC*INVALID FOR* OAB (overactive bladder) [N32.81] INVALID FOR* Hyperlipidemia [E78.5] INVALID FOR* More... HTN (hypertension) [I10] INVALID FOR* Prescriptions ordered this encounter Disp Refills Start End JANUVIA 25 MG TABLET 30 t* 3 06/01/2017 Cmt: Maximum Refills Reached Sig: TAKE 1 TABLET BY MOUTH DAILY Medications Discontinued During This Encounter sitaGLIPtin (JANUVIA) 25 mg tablet 30 t* 2 02/08/2017 06/01/2017 Route: ORAL Sig: Take 1 tablet by mouth once daily. Disc: Reason for discontinue is not on file. Encounter Status:Closed by CHAU FLORES DO on 06/01/17 OBSOLETE Observed: 05/18/2017 Status: COMPLETED Source: [place] 12:00 AM [facility] REPOSITORY Refill (NANCY) AKIN ADAMSON ([id number]) 1970 F Date Time Provider Department 05/18/17 SUSIE DIAZ During your visit today, we recorded the following information about you: Princess Gonzalez RN 05/18/2017 11:57 AM Signed Patient has been identified by name and date of : Yes RX INSTRUCTIONS: Patient aware RX will be sent to pharmacy. No need to notify patient. Patient phones requesting refills as follows: Pending Prescriptions Disp Refills FILTER NEEDLES 19 X 1ANDquot; 30 Each 11 Sig: For use with DHE TENISHA: No Please review and advise. Patient says she has one needle left Princess Adams Ma 05/18/2017 2:[address] Andrew prescription was sent through to the pharmacy. I notified patient she verbalized understanding. Janell Adams Ma Allergies As of Date: 05/18/2017 Noted Allergy Reaction AMOXIL (AMOXICILLIN) 01/04/2014 8 - GI Upset COMPAZINE (PROCHLORPERAZINE EDISY*08/12/2008 16 - Unknown FLAGYL (METRONIDAZOLE HCL) 09/07/2012 14 - Other: See Comments Comments: Headache - she is prone to migraines and flagyl sets it off every time she takes it. REGLAN (METOCLOPRAMIDE HCL) 02/27/2014 14 - Other: See Comments Comments: anxiety SIMVASTATIN 04/27/2012 14 - Other: See Comments Comments: severe muscle aches TORADOL (KETOROLAC) 08/12/2008 2 - Rash ZOFRAN (ONDANSETRON HCL (PF)) 06/22/2013 14 - Other: See Comments Date Reviewed: 04/27/2017 Reviewed by: Erin Owens (Pa) - Fully Assessed Reason for Visit: Refill Request [94] Order(s):Filter [place] 19 X 1 ndleFor use with DHEDisp: 30 EachRfl: 0 Prescriptions as of 05/18/2017 Sig: FILTER NEEDLES 19 X 1 For use with DHE ASPIRIN 81 MG CHEWABLE TABLET Take 81 mg by mouth once keegan* SAFETY NEEDLES 25 GAUGE X 1 1* For use with DHE PROMETHAZINE 25 MG/ML INJECTI* Give 25 mg IV daily for 3 days VALPROATE SODIUM 500 MG/5 ML * Inject 500 mg intravenously o* SODIUM CHLORIDE 0.9 % INTRAVE* Inject 500 mL intravenously o* MAGNESIUM SULFATE 1 GRAM/50 M* Inject 1 g intravenously once* LISINOPRIL 10 MG TABLET TAKE 1 TABLET BY MOUTH DAILY OMEPRAZOLE 40 MG CAPSULE,APOLINAR* TAKE 1 CAPSULE BY MOUTH DAILY ATORVASTATIN 40 MG TABLET Take 1 tablet by mouth daily * SITAGLIPTIN 25 MG TABLET Take 1 tablet by mouth once d* SCOPOLAMINE 1 MG OVER 3 DAYS * Apply 1 Patch as directed magnolia* DICYCLOMINE 20 MG TABLET Take 1 tablet by mouth before* METFORMIN ER 500 MG TABLET,EX* TAKE 2 TABLETS BY MOUTH TWICE* BLOOD SUGAR DIAGNOSTIC STRIPS Test blood sugar(s) 3- 4 times* NARATRIPTAN 2.5 MG TABLET Take 1 tablet by mouth as nee* PROMETHAZINE 25 MG TABLET Take 1 tablet by mouth every * SODIUM CHLORIDE 0.9% FLUSH Access implanted vascular acc* HEPARIN LOCK FLUSH (PORCINE) * Access implanted vascular acc* SYRINGE WITH NEEDLE 3 ML 25 X* For DHE DIHYDROERGOTAMINE 1 MG/ML INJ* Inject 1 mg intramuscularly e* CYANOCOBALAMIN (VIT B-12) 1,0* Take 1 tablet by mouth once d* COENZYME Q10 100 MG CAPSULE Take 1 capsule by mouth twice* POTASSIUM 99 MG TABLET Take by mouth. DULOXETINE 60 MG CAPSULE,APOLINAR* Take 1 capsule by mouth once * Patient taking differently: Take 120 mg by mouth once ashleigh* SODIUM CHLORIDE 0.9% FLUSH Access implanted vascular acc* ONABOTULINUMTOXINA 100 UNIT S* To be injected by physician e* FISH OIL ORAL Take by mouth once daily. * LORAZEPAM 2 MG TABLET Take 1 tablet by mouth twice * Problem List As Of Date 05/18/2017 Noted Resolved ESOPHAGEAL REFLUX [K21.9] INVALID FOR* GENERALIZED ANXIETY DIS [F41.1] INVALID FOR* Impaired fasting glucose [R73.01] INVALID FOR*12/07/2011 Depression [F32.9] INVALID FOR* More... Morbid Obesity [E66.01] INVALID FOR* Abdominal Pain [R10.9] INVALID FOR* Calculus of Kidney [N20.0] INVALID FOR* UTI (Lower Urinary Tract Infection) [N39.0] INVALID FOR*12/30/2009 Insomnia [G47.00] INVALID FOR* Microalbuminuria [R80.9] INVALID FOR* Obstructive sleep apnea [G47.33] INVALID FOR* Sprain and strain of unspecified site of knee a*INVALID FOR* Lumbar sprain and strain [S33.5XXA] INVALID FOR* Abdominal pain, left upper quadrant [R10.12] INVALID FOR* Innocent heart murmur INVALID FOR* Diabetic neuropathy [E11.40] INVALID FOR* Diabetic nephropathy [E11.21] INVALID FOR* Menorrhagia [N92.0] INVALID FOR*11/15/2012 Migraines [G43.909] INVALID FOR* Bacterial vaginitis [N76.0, B96.89] INVALID FOR*11/30/2013 Vaginitis [N76.0] INVALID FOR*11/30/2013 More... Abnormal uterine bleeding [N93.9] INVALID FOR* Backache, unspecified [M54.9] INVALID FOR* Diabetes mellitus due to underlying condition w*INVALID FOR* Willing to be liver donor [Z00.5] INVALID FOR* Intractable chronic migraine without aura [G43.*INVALID FOR* Exhausted vascular access [Z45.2] INVALID FOR* Endometriosis of peritoneum [N80.3] INVALID FOR* Morbid obesity with BMI of 50.0-59.9, adult (HC*INVALID FOR* OAB (overactive bladder) [N32.81] INVALID FOR* Hyperlipidemia [E78.5] INVALID FOR* More... HTN (hypertension) [I10] INVALID FOR* Prescriptions ordered this encounter Disp Refills Start End FILTER NEEDLES 19 X 1 30 E* 0 05/18/2017 Sig: For use with DHE Medications Discontinued During This Encounter Filter [place] 19 X 1 ndle 30 E* 11 05/08/2015 05/18/2017 Sig: For use with DHE Disc: Reason for discontinue is not on file. Encounter Status:Closed by JANELL ADAMS MA on 05/18/17 ALLERGIES ALLERGIES DATE TYPE / NAME / CODE REACTION SEVERITY SOURCE CODE 01/13/2017 Drug prochlorperazine Rash Unknown [place] Allergy/41 edisylate/[id number]([id number] 01/13/2017 Drug metoclopramide Rash Unknown [place] Allergy/41 HCl/[id number](RXNORM) [facility] [id number]([facility]) Repository 01/13/2017 Drug amoxicillin Unknown Unknown [place] Allergy/41 trihydrate/[id number]( [facility] [id number][facility] 01/13/2017 Drug ketorolac Rash Unknown Philipp Allergy/41 tromethamine/[id number] [facility] 8787366([facility] Repository 01/13/2017 Drug ondansetron Rash Unknown Philipp Allergy/41 HCl/[id number](RXNORM) [facility] [id number]([facility]) Repository 01/13/2017 Drug metronidazole/[id number] Vomiting Unknown Kiley Allergy/41 58(RXNORM) Community 7967249([facility] OMED [facility]) Repository 01/13/2017 Drug simvastatin/[id number] Other Unknown Philipp Allergy/41 (RXNORM) Community 0850038([facility] OMED [facility]) Repository 02/27/2014 DRUG METOCLOPRAMIDE HCL OTHER: SEE [facility] [place] [facility]/41 [facility] Other 4724804( [place] [facility]) Repository 01/04/2014 DRUG AMOXICILLIN GI UPSET [place] [facility]41 [facility] Other 8244007([facility] OMED [facility]) Repository 06/22/2013 DRUG/75776 ONDANSETRON HCL (PF) OTHER: SEE [facility] 1003([facility] Other D CT) [place] Repository 09/07/2012 DRUG METRONIDAZOLE HCL OTHER: [facility] Other 5682155([facility] OMED [facility]) Repository 04/27/2012 DRUG SIMVASTATIN OTHER: SEE [facility] [place] [facility]/41 [facility] Other 2621644([facility] OMED CT) Repository 08/12/2008 DRUG PROCHLORPERAZINE UNKNOWN [place] [facility] Other 0767290([facility] OMED CT) Repository 08/12/2008 DRUG KETOROLAC RASH [place] [facility] Other 6775691([facility]MED [facility]) Repository NG/7946562 AMOXICILLIN [facility] 06([facility]) Repository NG/9264811 PROCHLORPERAZINE [facility] 06(SNOMED EDISYLATE [facility]) Repository NG/3158560 METRONIDAZOLE HCL [facility] 06(SNOM[facility]) Repository NG/0542066 METOCLOPRAMIDE HCL [facility] 06([facility]OMED [facility]) Repository NG/1665394 SIMVASTATIN [facility] 06([facility]) Repository NG/2230470 KETOROLAC [facility] 06([facility]) Repository NG/9797017 ONDANSETRON HCL (PF) [facility] 06([facility]) Repository ENCOUNTERS ENCOUNTERS ADMIT/DISCHARGE ACCOUNT NUMBER ADMITTING ENCOUNTER LOCATION SOURCE CLASS 05/02/2018/05/04/20 [id number] Ambulatory [address] Main [place] Repository 05/02/2018 [id number] [facility] Other [place] Repository 05/02/2018/05/02/20 [id number] [place], Inpatient [address] MEDICAL Repository CENTERBuildi ng:AKEPRoom: POOLBed: 04 04/27/2018 [id number] Ambulatory [facility] ding:MEDOUTP Repository 04/25/2018 [id number] Ambulatory [facility] ding:MEDOUTP Repository 04/24/2018 [id number] Ambulatory [facility] ding:MEDOUTP Repository 04/24/2018/04/25/20 [id number] Ambulatory [facility] [place] Repository 04/21/2018/04/24/20 [id number] Ambulatory [facility] [place] Repository 04/14/2018/04/14/20 [id number] Ambulatory [facility] [place] Repository 04/10/2018/04/11/20 [id number] Ambulatory [facility] [place] Repository 04/07/2018/04/07/20 [id number] Emergency [facility] Other [place] Repository 03/27/2018 [id number] Ambulatory [facility] Other [place] Repository 03/14/2018/03/14/20 [id number] Ambulatory [facility] [place] Repository 03/14/2018/03/15/20 [id number] Ambulatory [facility] [place] Repository 03/01/2018/05/04/20 [id number] Ambulatory [facility] [place] Repository 02/27/2018/02/28/20 [id number] Ambulatory [facility] [place] Repository 02/27/2018/02/29/20 [id number] Ambulatory [facility] [place] Repository 02/25/2018/02/26/20 [id number] Emergency [facility] Other [place] Repository 01/11/2018/01/13/20 [id number] Ambulatory [facility] [place] Repository 12/30/2017/12/31/19 [id number] Emergency [facility] Other [place] Repository 12/28/2017/12/29/19 [id number] Emergency [facility] Other [place] Repository 12/10/2017/12/11/19 [id number] Emergency [facility] Other [place] Repository 11/25/2017/12/06/19 [id number] Ambulatory [address] Main [place] Repository 09/29/2017/12/04/19 [id number] Ambulatory [address] [place] Repository 09/28/2017/10/04/19 [id number] Ambulatory [address] Main [place] Repository 09/27/2017/09/29/19 [id number] Ambulatory [address] Main [place] Repository 09/27/2017 [id number] Ambulatory [facility] Other [place] Repository 09/26/2017/09/27/19 [id number] Ambulatory [address] Main [place] Repository 09/21/2017/09/23/19 [id number] Ambulatory [address] Main [place] Repository 08/29/2017/08/31/19 [id number] Ambulatory [address] Repository 08/02/2017/08/04/19 [id number] Ambulatory [address] Repository 07/15/2017 [id number] Ambulatory [facility] ding:MEDOUTP Repository 07/14/2017 [id number] Ambulatory [facility] ding:MEDOUTP Repository 07/13/2017 [id number] Ambulatory [facility] ding:MEDOUTP Repository 07/08/2017/07/08/19 [id number] Ambulatory [address] Repository 07/08/2017/07/08/19 [id number] Ambulatory [address] Repository 07/08/2017/07/08/19 [id number] Ambulatory [address] Repository 07/05/2017/07/05/19 [id number] Ambulatory [address] [place] Repository 07/05/2017/07/30/19 [id number] Ambulatory [address] Repository 07/02/2017/07/02/19 [id number] Emergency BBuilding:IRMA Nickerson [address] [place] [address] Repository 06/05/2017/06/05/19 [id number] Emergency [address] Other [place] Repository PAYERS PAYERS ENCOUNTER GUARANTOR PAYER SUBSCRIBER SOURCE 05/02/2018 AKIN Liriano Primary Insurance:[facility] AKIN [facility] HERNANDEZDOB: COMMUNITY PLAN HERNANDEZDOB: [employer] MEDICAIDPolicy [id number] Repository ANAHY CROW, Number: [id number]: [id number] Date: () 04/27/2018 AKIN Liriano Primary Insurance:[facility] AKIN M Kiley [id number] [facility] PLANMassena Memorial HospitalD[facility]: [facility] SPINK [place], Number: [id number] View [facility] [address]Gwa: [id number] Repository Date:9115-59-90EY BOX () [address] [place] [address] 363[address]PV: 04/27/2018 Secondary NOT GIVENUNK Kiley Insurance:SELF PAY [facility] Number: Effective Repository Date:2018-04-24 04/25/2018 AKIN Liriano Primary Insurance:[facility] AKIN M Kiley [id number] [facility] SPINWoody STKILEY, Number: [id number] View Regional Medical Center [address]Zty: [id number] Repository Date:6234-90-79SX BOX () [address] [place] [address] 27707UQ: 04/25/2018 Secondary NOT GIVENUNK Philipp Insurance:SELF PAY [facility] Number: Effective Repository Date:2018-04-24 04/24/2018 AKIN M Primary Insurance:[facility] AIKN Liriano Kiley [id number] [facility] SPINK [place], Number: [id number] View Regional Medical Center [address]Lxn: [id number] Repository Date:0647-50-40WQ BOX () [address] [place] [address] 88887SC: 04/24/2018 Secondary NOT GIVENUNK Philipp Insurance:SELF PAY [facility] Number: Effective Repository Date:2018-04-24 07/15/2017 AKIN Liriano Primary [place]L [place] [id number] Insurance:ANTHEMPolic LUTHERDOB: Community SPINK [place], y Number: [id number] View Regional Medical Center [address]Deo: [id number] Repository Date:4181-49-59TS BOX () [address] [place] [address] 77022XS: 07/15/2017 Secondary AKIN M Kiley Insurance:[facility]: [facility] [id number] Hospital Number: Repository [id number] Date:5571-57-97XL [address] [place] [address]OR: 07/15/2017 Tertiary NOT GIVENUNK Philipp Insurance:SELF PAY [facility] Number: Effective Repository Date:2017-07-13 07/14/2017 AKIN M Primary Laurel [id number] Insurance:ANTHEMPolic LutherDOB: Community [place], y Number: [id number] View Regional Medical Center [address]Aun: [id number] Repository Date:3573-71-23GC BOX () [address] [place] [address] 00596NN: 07/14/2017 Secondary AKIN M Kiley Insurance:[facility]: [facility] [id number] Hospital Number: Repository [id number] Date:6072-69-85NW [address] [address]CL: 07/14/2017 Tertiary NOT GIVENUNK Philipp Insurance:SELF PAY [facility] Number: Effective Repository Date:2017-07-13 07/13/2017 AKIN M Primary Laurel [id number] Insurance:ANTHEMPolic LutherDOB: Community [place], y Number: [id number] View Regional Medical Center [address]Xys: [id number] Repository Date:3705-05-71FC [address] () [id number] [place] [address] 68226QL: 07/13/2017 Secondary AKIN M Philipp Insurance:[facility]: [facility] [id number] Hospital Number: Repository [id number] Date:7546-46-63ZI [address] [place] [address]YL: 07/13/2017 Tertiary NOT GIVENUNK Kiley Insurance:SELF PAY [facility] Number: Effective Repository Date:2017-07-13 07/02/2017 AKIN Heri [facility] AKIN [facility] HERNANDEZDOB: Insurance:[facility] [id number] Repository ANAHY CROW, Number: [place] [address]Sep: [id number] [place] [address]Qzo: Date:2016-12-04 ()Tel: [phone] () (WP) Name:MAHENDRA Villegas [id number] () [address] [place] [address]UG:
== END ==
PROVIDERS: Family Provider Student in an Organized Health Care Education/Training Program; PCP Student in an Organized Health Care Education/Training Program; Visit Provider Psychiatry & Neurology Neurology
DX: G43.011 Migraine without aura, intractable, with status migrainosus (principal)
CPT/HCPCS: 96361; 96365; 96367; 96375; J7040; J7050; A4216; J3490

== ENCOUNTER → 2018-04-25 11:41 | Outpatient (CLI) | payer MEDICAID, SELFPAY ==
[2018-04-24 12:19] VITALS: BMI 51.5
[2018-04-25 12:11] VITALS: BP 147/98; PULSE 91; RESP 16; TEMP 35.7; O2SAT 96; BMI 51.5
== END ==
PROVIDERS: Family Provider Student in an Organized Health Care Education/Training Program; PCP Student in an Organized Health Care Education/Training Program; Referring Provider Psychiatry & Neurology Neurology; Visit Provider Psychiatry & Neurology Neurology
DX: G43.011 Migraine without aura, intractable, with status migrainosus (principal)
CPT/HCPCS: 96361; 96365; 96367; 96375; J7040; J7050; A4216; J3490

== ENCOUNTER → 2018-04-27 12:11 | Outpatient (CLI) | payer MEDICAID, SELFPAY ==
[2018-04-24 12:19] VITALS: BMI 51.5
[2018-04-25 12:11] VITALS: BMI 51.5
[2018-04-27 12:48] VITALS: BP 135/68; PULSE 97; RESP 16; TEMP 36; O2SAT 97; BMI 51.5
== END ==
PROVIDERS: Family Provider Student in an Organized Health Care Education/Training Program; PCP Student in an Organized Health Care Education/Training Program; Referring Provider Psychiatry & Neurology Neurology; Visit Provider Psychiatry & Neurology Neurology
DX: G43.011 Migraine without aura, intractable, with status migrainosus (principal)
CPT/HCPCS: 96365; 96366; 96367; 96375; J7040; J7050; A4216; J3490

== ENCOUNTER → 2018-09-28 09:19 | Outpatient (CLI) | payer MEDICAID, SELFPAY ==
[2018-04-27 12:48] VITALS: BMI 51.5
[2018-09-28 09:42] VITALS: BP 135/72; PULSE 92; RESP 16; TEMP 35.6; BMI 50.8
[2018-09-28] MEDS: proMETHazine 25 MG/ML Syringe 12.5 MG IM (12:30)
[2018-09-28] MEDS: DiphenhydrAMINE 50 MG/ML Syringe IM (12:30)
== END ==
PROVIDERS: Family Provider Student in an Organized Health Care Education/Training Program; PCP Student in an Organized Health Care Education/Training Program; Referring Provider Psychiatry & Neurology Neurology; Visit Provider Psychiatry & Neurology Neurology
DX: G43.909 Migraine, unspecified, not intractable, without status migrainosus (principal)
CPT/HCPCS: 96361; 96365; 96375 ×3; 96372; J7040; A4216; J3475; J3490

== ENCOUNTER → 2018-09-29 09:03 | Outpatient (CLI) | payer MEDICAID, SELFPAY ==
[2018-09-28 09:42] VITALS: BMI 50.8
[2018-09-29 09:10] VITALS: BP 174/76; PULSE 104; RESP 18; TEMP 35.7; O2SAT 97; BMI 50.8
[2018-09-29] MEDS: proMETHazine 25 MG/ML Syringe IV (09:21)
[2018-09-29] MEDS: DiphenhydrAMINE 50 MG/ML Syringe IV (09:40)
== END ==
PROVIDERS: Family Provider Student in an Organized Health Care Education/Training Program; PCP Student in an Organized Health Care Education/Training Program; Referring Provider Psychiatry & Neurology Neurology; Visit Provider Psychiatry & Neurology Neurology
DX: G43.909 Migraine, unspecified, not intractable, without status migrainosus (principal)
CPT/HCPCS: 96361; 96365; 96375 ×3; J7040; J7050; A4216; J3475; J3490

== ENCOUNTER → 2018-10-03 09:54 | Outpatient (CLI) | payer MEDICAID, SELFPAY ==
[2018-09-28 09:42] VITALS: BMI 50.8
[2018-09-29 09:10] VITALS: BMI 50.8
[2018-10-03] MEDS: dexAMETHasone 4 MG/ML Vial IV (10:43)
[2018-10-03] MEDS: proMETHazine 25 MG/ML Syringe IV (10:54)
[2018-10-03] MEDS: DiphenhydrAMINE 50 MG/ML Syringe IV (11:04)
[2018-10-03 11:25] VITALS: BP 132/87; PULSE 95; RESP 16; TEMP 35.5; O2SAT 96; BMI 51.1
== END ==
PROVIDERS: Family Provider Student in an Organized Health Care Education/Training Program; PCP Student in an Organized Health Care Education/Training Program; Referring Provider Psychiatry & Neurology Neurology; Visit Provider Psychiatry & Neurology Neurology
DX: G43.909 Migraine, unspecified, not intractable, without status migrainosus (principal)
CPT/HCPCS: 96361; 96365; 96375 ×3; J7040; J7050; A4216; J3475; J3490

== ENCOUNTER → 2018-10-04 09:01 | Outpatient (CLI) | payer MEDICAID, SELFPAY ==
[2018-09-28 09:42] VITALS: BMI 50.8
[2018-10-03 11:25] VITALS: BMI 51.1
[2018-10-04 09:08] VITALS: BP 144/85; PULSE 98; RESP 16; TEMP 36.1; BMI 50.8
[2018-10-04] MEDS: DiphenhydrAMINE 50 MG/ML Syringe IV (11:08)
[2018-10-04] MEDS: proMETHazine 25 MG/ML Syringe IV (11:11)
[2018-10-04] MEDS: dexAMETHasone 4 MG/ML Vial IV (11:13)
== END ==
PROVIDERS: Family Provider Student in an Organized Health Care Education/Training Program; PCP Student in an Organized Health Care Education/Training Program; Referring Provider Psychiatry & Neurology Neurology; Visit Provider Psychiatry & Neurology Neurology
DX: G43.909 Migraine, unspecified, not intractable, without status migrainosus (principal)
CPT/HCPCS: 96361; 96365; 96366; 96367; 96375; J7040; A4216; J3475; J3490

== ENCOUNTER → 2018-10-05 08:49 | Outpatient (CLI) | payer MEDICAID, SELFPAY ==
[2018-09-28 09:42] VITALS: BMI 50.8
[2018-10-04 09:08] VITALS: BMI 50.8
[2018-10-05 09:04] VITALS: BP 135/97; PULSE 97; RESP 16; TEMP 36.4; O2SAT 98; BMI 50.8
[2018-10-05] MEDS: dexAMETHasone 4 MG/ML Vial IV (09:17)
[2018-10-05] MEDS: DiphenhydrAMINE 50 MG/ML Syringe IV (09:26)
[2018-10-05] MEDS: proMETHazine 25 MG/ML Syringe IV (09:33)
== END ==
PROVIDERS: Family Provider Student in an Organized Health Care Education/Training Program; PCP Student in an Organized Health Care Education/Training Program; Referring Provider Psychiatry & Neurology Neurology; Visit Provider Psychiatry & Neurology Neurology
DX: G43.909 Migraine, unspecified, not intractable, without status migrainosus (principal)
CPT/HCPCS: J7040; A4216; J3475; J3490

== ENCOUNTER 2018-10-05 17:25 | Emergency (ER) | payer MEDICAID, SELFPAY ==
[2018-10-05 09:04] VITALS: BMI 50.8
[2018-10-05 17:25] VITALS: BP 154/91; PULSE 112; RESP 18; TEMP 36.2; O2SAT 97; BMI 47.3
--- NOTE | 2018-10-05 17:59 | ED.DCSUM_ITS ---
- ER Visit Summary Date of Service: 10/05/18 Chief Complaint: [Injury to left foot] History of Present Illness: The patient is a 48 F [presents the emergency department after sustaining a laceration to her left foot that occurred just prior to arrival in the emergency department. 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 Patient is up-to-date on tetanus.] Physical Examination: [Left foot-patient has a 2.5 cm laceration over the medial aspect of the foot over the area of the first MTP joint. Patient is neurovascular intact. Patient has normal range of motion of all toes.] Test Results: [None indicated] Emergency Department Course and Treatment: [Laceration repair-wound sterilely draped and prepped. Wound cleansed with Shur-Clens and irrigated with copious saline. Wound initially anesthetized with 1% lidocaine total of 4 cc. Using 5- 0 nylon a total of 3 single interrupted sutures placed with good wound edge approximation. Patient tired procedure well.] Treatment Plan: [Patient will follow-up for suture removal in 10 days with primary care physician. Patient advised to return if increased redness, sw elling, purulent drainage, or conditions worsen anyway.] Disposition: [Discharged home in stable condition] Impression: [Laceration left foot 2.5 cm-simple repair] This note was generated with Storybird dictation software. It may contain incorrect words, spelling, and punctuation that were not noted in review of the chart prior to signing ED Disposition - Plan for ED Patient: Referrals: Chau Flores DO [Primary Care Provider] -
--- NOTE | 2018-10-05 17:59 | ED.DEP ---
ED Disposition - Plan for ED Patient: Instructions: ED Laceration Foot Referrals: Chau Flores DO [Primary Care Provider] - 10 Day for suture removal
[2018-10-05 18:20] VITALS: BP 139/89; PULSE 102; RESP 16; O2SAT 97
== END 2018-10-05 18:22 | disposition home or self-care (01) ==
LOC: ED 17:49
PROVIDERS: Emergency Provider Emergency Medicine; Family Provider Student in an Organized Health Care Education/Training Program; PCP Student in an Organized Health Care Education/Training Program
DX: S91.312A Laceration without foreign body, left foot, initial encounter (principal); G43.909 Migraine, unspecified, not intractable, without status migrainosus; E11.9 Type 2 diabetes mellitus without complications; W26.0XXA Contact with knife, initial encounter; Y93.89 Activity, other specified; Y92.008 Other place in unspecified non-institutional (private) residence as the place of occurrence of the external cause; Y99.8 Other external cause status
CPT/HCPCS: 12001; 96361; 96365; 96366; 96367; 96375; 99282; J7040; A4216; J3475; J3490

== ENCOUNTER → 2019-02-23 | Outpatient (CLI) | payer MEDICAID, SELFPAY ==
[2019-02-23 10:58] VITALS: BP 101/61; PULSE 81; RESP 16; TEMP 35.9; O2SAT 95; BMI 46.7
[2019-02-23] MEDS: DiphenhydrAMINE 50 MG/ML Syringe IV (11:25)
[2019-02-23] MEDS: proMETHazine 25 MG/ML Syringe IM (11:36)
[2019-02-23] MEDS: dexAMETHasone 4 MG/ML Vial IV (11:41)
== END | disposition home or self-care (01) ==
LOC: MEDOUTP 10:39
PROVIDERS: Family Provider Student in an Organized Health Care Education/Training Program; PCP Student in an Organized Health Care Education/Training Program; Referring Provider Psychiatry & Neurology Neurology; Visit Provider Psychiatry & Neurology Neurology
DX: G43.719 Chronic migraine without aura, intractable, without status migrainosus (principal)
CPT/HCPCS: 96365; 96367; 96375; 96372; J7040; A4216; J3475; J3490

== ENCOUNTER → 2019-02-26 | Outpatient (CLI) | payer MEDICAID, SELFPAY ==
[2019-02-23 10:58] VITALS: BMI 46.7
[2019-02-26 12:33] VITALS: BP 120/90; PULSE 90; RESP 16; TEMP 36.7; O2SAT 95; BMI 46.7
[2019-02-26] MEDS: DiphenhydrAMINE 50 MG/ML Syringe IV (12:38)
[2019-02-26] MEDS: proMETHazine 25 MG/ML Syringe IM (12:38)
[2019-02-26] MEDS: dexAMETHasone 4 MG/ML Vial IV (12:45)
== END | disposition home or self-care (01) ==
PROVIDERS: Family Provider Student in an Organized Health Care Education/Training Program; PCP Student in an Organized Health Care Education/Training Program; Referring Provider Psychiatry & Neurology Neurology; Visit Provider Psychiatry & Neurology Neurology
DX: G43.719 Chronic migraine without aura, intractable, without status migrainosus (principal)
CPT/HCPCS: 96365; 96366; 96367; 96375; 96372; J7050; A4216; J3475; J3490

== ENCOUNTER → 2019-02-27 | Outpatient (CLI) | payer MEDICAID, SELFPAY ==
[2019-02-23 10:58] VITALS: BMI 46.7
[2019-02-26 12:33] VITALS: BMI 46.7
[2019-02-27 12:22] VITALS: BP 129/76; PULSE 86; RESP 16; O2SAT 97; BMI 47.0
[2019-02-27] MEDS: proMETHazine 25 MG/ML Syringe IM (12:26)
[2019-02-27] MEDS: DiphenhydrAMINE 50 MG/ML Syringe IV (12:31)
[2019-02-27] MEDS: dexAMETHasone 4 MG/ML Vial IV (12:33)
== END | disposition home or self-care (01) ==
LOC: MEDOUTP 12:01
PROVIDERS: Family Provider Student in an Organized Health Care Education/Training Program; PCP Student in an Organized Health Care Education/Training Program; Referring Provider Psychiatry & Neurology Neurology; Visit Provider Psychiatry & Neurology Neurology
DX: G43.719 Chronic migraine without aura, intractable, without status migrainosus (principal)
CPT/HCPCS: 96365; 96366; 96367; 96375; 96372; J7050; A4216; J3475; J3490

== ENCOUNTER → 2019-03-01 | Outpatient (CLI) | payer MEDICAID, SELFPAY ==
[2019-02-27 12:22] VITALS: BMI 47.0
[2019-03-01] MEDS: DiphenhydrAMINE 50 MG/ML Syringe IV (13:00)
[2019-03-01] MEDS: proMETHazine 25 MG/ML Syringe IV (13:00)
[2019-03-01] MEDS: dexAMETHasone 4 MG/ML Vial IV (13:00)
[2019-03-01 13:02] VITALS: BP 113/70; PULSE 89; RESP 16; TEMP 36.1; BMI 47.0
== END | disposition home or self-care (01) ==
LOC: MEDOUTP 12:18
PROVIDERS: Family Provider Student in an Organized Health Care Education/Training Program; PCP Student in an Organized Health Care Education/Training Program; Referring Provider Psychiatry & Neurology Neurology; Visit Provider Psychiatry & Neurology Neurology
DX: G43.911 Migraine, unspecified, intractable, with status migrainosus (principal)
CPT/HCPCS: 96361; 96365; 96367; 96375; J7040; A4216; J3475; J3490

== ENCOUNTER → 2019-07-12 12:37 | Outpatient (CLI) | payer MEDICAID, SELFPAY ==
[2019-03-01 13:02] VITALS: BMI 47.0
[2019-07-12 12:46] VITALS: BP 138/62; PULSE 86; RESP 16; TEMP 35.6; BMI 45.1
[2019-07-12] MEDS: DiphenhydrAMINE 50 MG/ML Syringe IV (13:20)
[2019-07-12] MEDS: proMETHazine 25 MG/ML Syringe IV (13:27)
[2019-07-12] MEDS: dexAMETHasone 4 MG/ML Vial IV (13:39)
== END ==
PROVIDERS: PCP Student in an Organized Health Care Education/Training Program; Referring Provider Psychiatry & Neurology Neurology; Visit Provider Psychiatry & Neurology Neurology
DX: G43.911 Migraine, unspecified, intractable, with status migrainosus (principal)
CPT/HCPCS: 96361; 96365; 96375; J7040; A4216; J3475; J3490

== ENCOUNTER → 2019-07-13 13:11 | Outpatient (CLI) | payer MEDICAID, SELFPAY ==
[2019-03-01 13:02] VITALS: BMI 47.0
[2019-07-12 12:46] VITALS: BMI 45.1
[2019-07-13] MEDS: proMETHazine 25 MG/ML Syringe IV (13:40)
[2019-07-13 13:42] VITALS: BP 111/68; PULSE 99; RESP 18; TEMP 36.7; BMI 45.1
[2019-07-13] MEDS: dexAMETHasone 4 MG/ML Vial IV (13:46)
[2019-07-13] MEDS: DiphenhydrAMINE 50 MG/ML Syringe IV (13:51)
== END ==
PROVIDERS: PCP Student in an Organized Health Care Education/Training Program; Referring Provider Psychiatry & Neurology Neurology; Visit Provider Psychiatry & Neurology Neurology
DX: G43.911 Migraine, unspecified, intractable, with status migrainosus (principal)
CPT/HCPCS: 96361; 96365; 96375 ×3; J7040; A4216; J3475; J3490

== ENCOUNTER → 2019-07-16 12:10 | Outpatient (CLI) | payer MEDICAID, SELFPAY ==
[2019-03-01 13:02] VITALS: BMI 47.0
[2019-07-13 13:42] VITALS: BMI 45.1
[2019-07-16 12:18] VITALS: BP 150/87; PULSE 77; RESP 16; TEMP 36; O2SAT 100; BMI 46.0
[2019-07-16] MEDS: dexAMETHasone 4 MG/ML Vial IV (12:33)
[2019-07-16] MEDS: DiphenhydrAMINE 50 MG/ML Syringe IV (12:37)
[2019-07-16] MEDS: proMETHazine 25 MG/ML Syringe IV (12:43)
== END ==
PROVIDERS: PCP Student in an Organized Health Care Education/Training Program; Referring Provider Psychiatry & Neurology Neurology; Visit Provider Psychiatry & Neurology Neurology
DX: G43.911 Migraine, unspecified, intractable, with status migrainosus (principal)
CPT/HCPCS: 96361 ×3; 96365; 96375 ×2; J7040; A4216; J3475; J3490